=== PATIENT | male | born 1950 ===

== ENCOUNTER 2016-05-15 10:48 | Observation (INO) | payer MEDICAID, OTHER ==
[2016-05-15 10:49] VITALS: BMI 26.2
[2016-05-15 11:24] LABS: BASO # 0.1 K/uL (0.0-0.2); BASO % 1.1 % (0.0-2.0); EOS # 0.2 K/uL (0.0-0.7); EOS % 2.5 % (0.0-4.0); HEMATOCRIT 44.5 % (35.0-51.0); LYMPH # 2.5 K/uL (1.0-4.3); LYMPH % 27.4 % (20.0-40.0); MEAN CELL VOLUME 101.6 fL (80.0-94.0); MEAN CORPUSCULAR HEMOGLOBIN 33.4 pg (27.0-31.0); MEAN CORPUSCULAR HGB CONC 32.9 g/dL (33.0-37.0); MEAN PLATELET VOLUME 9.3 fL (7.2-11.7); MONO # 0.5 K/uL (0.0-0.8); MONO % 5.8 % (0.0-10.0); NRBC % 0.1 % (0.0-2.0)
[2016-05-15 11:31] LABS: INR 1.5
--- NOTE | 2016-05-15 11:32 | C.PDOC ---
History Of Present Illness 65 y/o male presents to the ED complaining of worsening chest pressure and shortness of breath, particularly with exertion, for approx three weeks. He reports history of hypothryoidism and A-Fib, has an AICD. 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 Patient's AICD was last interrogated in January of 2016. Patient is currently on Xarelto for A fib. He denies cough, fever, abdominal pain, nausea/vomiting/diarrhea, palpitations. Time Seen by Provider: 05/15/16 11:02 Chief Complaint (Nursing): Chest Pain History Per: Patient History/Exam Limitations: no limitations Onset/Duration Of Symptoms: Days (21), Persistent, Other (worsening) Current Symptoms Are (Timing): Still Present Quality: Pressure Past Medical History Reviewed: Historical Data, Nursing Documentation, Vital Signs Vital Signs: Last Vital Signs Temp 97.9 F 05/15/16 14:12 Pulse 96 H 05/15/16 14:12 Resp 18 05/15/16 14:12 BP 107/76 05/15/16 14:12 Pulse Ox 100 05/15/16 14:12 - Medical History PMH: CAD, CHF, Hypothyroidism, Pneumonia Surgical History: Pacemaker (AICD) - [employer] Procedures CORONAR ARTERIOGR-2 CATH (03/28/14) DRAINAGE OF R PLEURAL CAV WITH DRAIN DEV, PERC APPROACH (04/18/15) LEFT HEART CARDIAC CATH (03/28/14) LT HEART ANGIOCARDIOGRAM (03/28/14) Family History: States: No Known Family Hx - Social History Hx Tobacco Use: No Hx Alcohol Use: No Hx Substance Use: No - Immunization History Hx Tetanus Toxoid Vaccination: No Hx Influenza Vaccination: No Hx Pneumococcal Vaccination: No Review Of Systems Except As Marked, All Systems Reviewed And Found Negative. Constitutional: Negative for: Fever Cardiovascular: Positive for: Chest Pain ("pressure"). Negative for: Palpitations Respiratory: Positive for: Shortness of Breath, SOB with Excertion. Negative for: Cough Gastrointestinal: Negative for: Nausea, Vomiting, Abdominal Pain, Diarrhea Skin: Negative for: Rash Physical Exam - Physical Exam Appears: Well, Non-toxic, No Acute Distress, Other (in mild discomfort; speaking in full sentences) Skin: Normal Color, Warm, Dry Head: Normacephalic Oral Mucosa: Moist Neck: Normal, Supple Chest: Symmetrical, No Tenderness, Other (left upper chest, AICD) Cardiovascular: Rhythm Irregular (irregularly irregular rhythm), No Edema Respiratory: Normal Breath Sounds, No Rales, No Rhonchi, No Wheezing Gastrointestinal/Abdominal: Normal Exam, Bowel Sounds, Soft, No Tenderness Extremity: Normal ROM, No Pedal Edema, No Calf Tenderness, No Swelling Extremity: Bilateral: Normal Color And Temperature Neurological/Psych: Oriented x3 ED Course And Treatment - Laboratory Results Result Diagrams: 05/15/16 11:17 05/15/16 11:17 ECG: Interpreted By Me, Viewed By Me (A-Fib at 92 bpm with PVCs, normal axis, T wave inversions in I II and III, no ST changes) O2 Sat by Pulse Oximetry: 96 (ra) Pulse Ox Interpretation: Normal - Radiology CXR: Interpreted by Me, Viewed By Me (no infiltrates/effusions, AICD in place left upper chest) Progress Note: Blood work, EKG, CXR ordered and reviewed. Patient given PO ASA and IV Lasix 40mg. Reevaluation Time: 13:50 Reassessment Condition: Improved (Patient reassessed, is currently resting comfortably, and states he feels better. Patient able to ambulate in ED without dyspnea. Patient is comfortable being discharged home, and prefers to go home rather than be admitted. He was instructed to follow up with Dr. Ram on Friday, and he understands he should return to ED if symptoms worsen.) - Physician Consult Information Physician Contacted: Jennyfer Ram Outcome Of Conversation: Discussed patient with Dr. Ram, he recommends patient get 1 dose IV Lasix in ED, and if symptoms improve he can follow up with him in the clinic on Friday. Disposition Counseled Patient/Family Regarding: Studies Performed, Diagnosis, Need For Followup - Disposition Disposition: HOME/ ROUTINE Disposition Time: 13:50 Condition: STABLE - POA Present On Arrival: None - Clinical Impression Clinical Impression: CHF (congestive heart failure), Dyspnea - Scribe Statement The provider has reviewed the documentation as recorded by the Scribe (Jeanette Wren) Provider Attestation: All medical record entries made by the Scribe were at my direction and personally dictated by me. I have reviewed the chart and agree that the record accurately reflects my personal performance of the history, physical exam, medical decision making, and the department course for this patient. I have also personally directed, reviewed, and agree with the discharge instructions and disposition.
[2016-05-15 11:36] LABS: CHLORIDE 92 mmol/L (98-107); POTASSIUM 3.6 mmol/L (3.6-5.2); SODIUM 136 mmol/L (132-148)
[2016-05-15 11:38] LABS: BILIRUBIN,TOTAL 1.7 mg/dL (0.2-1.3); GFR AFRICAN-AMERICAN > 60
[2016-05-15 11:39] LABS: ALB/GLOB RATIO 1.2 (1.0-2.1); ALKALINE PHOSPHATASE 82 U/L (38-126); ALT/SGPT 47 U/L (21-72); AST/SGOT 50 U/L (17-59); BLOOD UREA NITROGEN 29 mg/dL (9-20); CALCIUM 8.6 mg/dl (8.6-10.4); CARBON DIOXIDE 29 mmol/L (22-30); GLUCOSE,RANDOM 120 mg/dL (75-110); TOTAL PROTEIN 8.1 g/dL (6.3-8.3)
[2016-05-15 14:13] VITALS: BP 107/76; PULSE 96; RESP 18; TEMP 97.9
--- NOTE | 2016-05-15 15:37 | RAD ---
HISTORY: SOB, CP COMPARISON: None available. TECHNIQUE: Chest, one view. FINDINGS: LUNGS: Minimal bibasilar atelectasis. Please note that chest x-ray has limited sensitivity for the detection of pulmonary masses. PLEURA: No significant pleural effusion identified. No definite pneumothorax . CARDIOVASCULAR: Cardiomegaly. Left-sided AICD. Atherosclerotic calcifications of the aorta. OSSEOUS STRUCTURES: Degenerative changes. VISUALIZED UPPER ABDOMEN: Unremarkable. OTHER FINDINGS: None. IMPRESSION: Cardiomegaly. Left-sided AICD.
--- NOTE | 2016-05-19 09:14 | CARD ---
APPROVED REPORT EKG Measurement Heart [id number] <Conclusion> Sinus bradycardia with marked sinus arrhythmia with 1st degree AV block Minimal voltage criteria for LVH biphasic t wave Abnormal ECG NOTE VARIATION IN NV LENGTH IS SUSPICIOUS. RECOMMEND ECG WITH CLEAR BASELINE AND NV SEG EVALUATION.
[2016-05-24 17:47] VITALS: O2SAT 96
== END 2016-05-15 13:51 | disposition home or self-care (01) ==
LOC: C.ER 10:48 → C.9OBSV 12:19
PROVIDERS: ADMIT Emergency Medicine; ATTEND Emergency Medicine
DX: I50.9 Heart failure, unspecified (principal); I25.10 Atherosclerotic heart disease of native coronary artery without angina pectoris; E03.9 Hypothyroidism, unspecified; Z87.01 Personal history of pneumonia (recurrent); Z95.810 Presence of automatic (implantable) cardiac defibrillator; Z95.0 Presence of cardiac pacemaker
CPT/HCPCS: 71010; 80053; 82550; 82553; 82948; 83880; 84484; 85025; 85610; 85730; 93005; 96374; 99285; G0378; J1940

== ENCOUNTER 2016-05-21 08:57 | Inpatient (IN) | payer MEDICAID, OTHER ==
[2016-05-21 09:13] VITALS: BMI 25.5
--- NOTE | 2016-05-21 09:21 | C.PDOC ---
History Of Present Illness 65 y/o M c PMHx AICD p/w dyspnea on exertion. Patient was seen in clinic by Dr. Ram lay ups assembler yesterday and was noted to have abnormal heart motion. In the context of his symptoms, Dr. Ram is concerned about his cardiac activity and recommends admission for further evaluation, possible ablation. Patient denies any chest pain or dyspnea in ER currently. Time Seen by Provider: 05/21/16 09:13 Chief Complaint (Nursing): Shortness Of Breath Past Medical History Reviewed: Historical Data, Nursing Documentation, Vital Signs Vital Signs: Last Vital Signs Temp 97.3 F L 05/21/16 09:05 Pulse 91 H 05/21/16 09:05 Resp 20 05/21/16 09:21 BP 112/60 05/21/16 09:05 Pulse Ox 99 05/21/16 10:16 - Medical History PMH: CAD, CHF, Hypothyroidism, Pneumonia Surgical History: Pacemaker (AICD) - [employer] Procedures CORONAR ARTERIOGR-2 CATH (03/28/14) DRAINAGE OF R PLEURAL CAV WITH DRAIN DEV, PERC APPROACH (04/18/15) LEFT HEART CARDIAC CATH (03/28/14) LT HEART ANGIOCARDIOGRAM (03/28/14) Family History: States: Unknown Family Hx - Social History Hx Tobacco Use: No Hx Alcohol Use: No Hx Substance Use: No - Immunization History Hx Tetanus Toxoid Vaccination: No Hx Influenza Vaccination: No Hx Pneumococcal Vaccination: No Review Of Systems Except As Marked, All Systems Reviewed And Found Negative. Constitutional: Negative for: Fever Cardiovascular: Negative for: Chest Pain Physical Exam - Physical Exam Additional Physical Exam Comments: Constitutional: No acute distress. Head: Normocephalic. Atraumatic. Eyes: PERRL. ENT: Moist mucous membranes. Neck: Supple. Cardiovascular: Regular rate. Radial pulse 2+ bilaterally. Chest: No tenderness. Respiratory: Clear to auscultation bilaterally. GI: Soft. Nontender. Nondistended. Back: No CVA tenderness. Musculoskeletal: No tenderness or swelling of extremities. Skin: No rash. Neurologic: Alert, no focal deficit. ED Course And Treatment - Laboratory Results Result Diagrams: 05/21/16 10:14 05/21/16 10:14 O2 Sat by Pulse Oximetry: 99 (ra) Pulse Ox Interpretation: Normal Medical Decision Making Medical Decision Makin bpm, no ST elevations, poor baseline. Dr. Herrera accepts patient to hospitalist service with Dr. Ram as consult. Disposition Discussed With : Jennyfer Ram - Disposition Disposition: HOSPITALIZED Disposition Time: 10:55 Condition: GUARDED - Clinical Impression Clinical Impression: Dyspnea on exertion
[2016-05-21 10:24] LABS: BASO % 0.4 % (0.0-2.0); EOS # 0.3 K/uL (0.0-0.7); EOS % 2.9 % (0.0-4.0); HEMATOCRIT 44.6 % (35.0-51.0); LYMPH # 2.2 K/uL (1.0-4.3); LYMPH % 25.4 % (20.0-40.0); MEAN CELL VOLUME 101.5 fL (80.0-94.0); MEAN CORPUSCULAR HEMOGLOBIN 33.4 pg (27.0-31.0); MEAN CORPUSCULAR HGB CONC 32.9 g/dL (33.0-37.0); MEAN PLATELET VOLUME 9.6 fL (7.2-11.7); MONO # 0.6 K/uL (0.0-0.8); MONO % 7.2 % (0.0-10.0); NRBC % 0.2 % (0.0-2.0); RED CELL DISTRIBUTION WIDTH 13.2 % (11.5-14.5); WHITE BLOOD COUNT 8.7 K/uL (4.8-10.8)
[2016-05-21 10:32] LABS: INR 1.8
[2016-05-21 10:36] LABS: CHLORIDE 91 mmol/L (98-107); SODIUM 138 mmol/L (132-148)
[2016-05-21 10:39] LABS: ALB/GLOB RATIO 1.2 (1.0-2.1); ALKALINE PHOSPHATASE 77 U/L (38-126); ALT/SGPT 38 U/L (21-72); AST/SGOT 44 U/L (17-59); BILIRUBIN,TOTAL 1.7 mg/dL (0.2-1.3); BLOOD UREA NITROGEN 34 mg/dL (9-20); CARBON DIOXIDE 31 mmol/L (22-30); GFR AFRICAN-AMERICAN > 60; GLUCOSE,RANDOM 124 mg/dL (75-110); TOTAL PROTEIN 7.9 g/dL (6.3-8.3)
--- NOTE | 2016-05-21 14:17 | CP.PCM.HP ---
<Dhruv Pavon - Last Filed: 05/21/16 16:05> History of Present Illness - History of Present Illness History of Present Illness: CC: AICD malfunction 65 year old male with PMH of CHF, cardiomyopathy, hypothyroidism, atrial fibrillation and AICD who presents to the ED due to AICD abnormality. Patient saw Dr. Griggs yesterday and instructed him to go to the hospital to be admitted for possible ablation. Patient had been having 3-4 weeks of 5-8/10 intermittent chest pain and dyspnea on exertion. He presented to the ED 05/15 for these symptoms but was not admitted. Nothing makes pain better or worse. Patient sleeps with two to three pillows at night. Patient can walk several blocks before getting tired. Patient had ECHO done last September. Patient has no acute complaints at this time. PMD: Carly Cardio: Yo PMH: CHF, cardiomyopathy, hypothyroidism Meds: metolazone 5mg BID, xarelto 1mg PO QD, losartan 25mg PO QD, levothyroxine 125mcg PO QD, lasix 40mgpo qd, coreg 3.125 PO BID Allergies: NKDA PSH: AICD FH: Unknown Cancer Social: Past smoker 7.5-15 Pack-year Hx. Denies current alcohol use. Denies illicit drug use. Unemployed and lives with in apartment. Present on Admission - Present on Admission Any Indicators Present on Admission: No History of DVT/PE: No History of Uncontrolled Diabetes: No Urinary Catheter: No Decubitus Ulcer Present: No Review of Systems - Constitutional Constitutional: absent: Chills, Fever, Headache - EENT Eyes: absent: Blurred Vision, Change in Vision Ears: absent: Dizziness Nose/Mouth/Throat: absent: Nasal Congestion, Nose Pain - Cardiovascular Cardiovascular: absent: Chest Pain, Chest Pain at Rest, Dyspnea, Leg Edema, Palpitations, Syncope - Respiratory Respiratory: absent: Cough, Dyspnea, Hemoptysis, Dyspnea on Exertion - Gastrointestinal Gastrointestinal: absent: Abdominal Pain, Diarrhea, Nausea, Vomiting - Genitourinary Genitourinary: absent: Difficulty Urinating, Dysuria - Musculoskeletal Musculoskeletal: absent: Back Pain, Numbness, Tingling - Neurological Neurological: absent: Confusion, Focal Weakness, Headaches, Tremor, Vertigo - Psychiatric Psychiatric: absent: Auditory Hallucinations, Homicidal Ideation, Suicidal Ideation - Endocrine Endocrine: absent: Fatigue, Heat Intolorance, Palpitations - Hematologic/Lymphatic Hematologic: absent: Easy Bleeding, Easy Bruising, Lymphadenopathy Past Patient History - Infectious Disease Hx of Infectious Diseases: None - Tetanus Immunizations Tetanus Immunization: Unknown - Past Medical History & Family History Past Medical History?: Yes - Past Social History Smoking Status: Former Smoker Alcohol: None Drugs: Denies Home Situation {Lives}: With Family - CARDIAC Hx Congestive Heart Failure: Yes Hx Pacemaker: Yes (AICD) - PULMONARY Hx Pneumonia: Yes - NEUROLOGICAL Hx Neurological Disorder: No - HEENT Hx HEENT Problems: No - RENAL Hx Chronic Kidney Disease: No - ENDOCRINE/METABOLIC Hx Hypothyroidism: Yes - HEMATOLOGICAL/ONCOLOGICAL Hx Blood Disorders: Yes Hx Cirrhosis: Yes - INTEGUMENTARY Hx Dermatological Problems: No - MUSCULOSKELETAL/RHEUMATOLOGICAL Hx Musculoskeletal Disorders: No Hx Falls: No - GASTROINTESTINAL Hx Gastrointestinal Disorders: Yes Hx Constipation: Yes - GENITOURINARY/GYNECOLOGICAL Hx Genitourinary Disorders: No - PSYCHIATRIC Hx Substance Use: No - SURGICAL HISTORY Hx Surgeries: Yes Other/Comment: AICD placement 02/09/2015 - ANESTHESIA Hx Anesthesia: Yes Hx Anesthesia Reactions: No Hx Malignant Hyperthermia: No Meds Allergies/Adverse Reactions: Allergies Allergy/AdvReac Type Severity Reaction Status Date / Time No Known Allergies Allergy Verified 05/21/16 09:17 Physical Exam - Constitutional Appears: No Acute Distress - Head Exam Head Exam: ATRAUMATIC, NORMOCEPHALIC - Eye Exam Eye Exam: EOMI, Normal appearance Pupil Exam: PERRL - ENT Exam ENT Exam: Mucous Membranes Moist, Normal Oropharynx - Neck Exam Neck exam: Positive for: Normal Inspection - Respiratory Exam Respiratory Exam: Clear to Auscultation Bilateral, NORMAL BREATHING PATTERN. absent: Rales, Rhonchi, Wheezes - Cardiovascular Exam Cardiovascular Exam: Irregular Rhythm, +S1, +S2 - GI/Abdominal Exam GI & Abdominal Exam: Normal Bowel Sounds, Soft. absent: Distended, Firm, Guarding, Rebound, Tenderness - Extremities Exam Extremities exam: Positive for: normal capillary refill, pedal pulses present - Back Exam Back exam: absent: CVA tenderness (L), CVA tenderness (R) - Neurological Exam Neurological exam: Alert, CN II-XII Intact, Oriented x3 - Psychiatric Exam Psychiatric exam: Normal Affect, Normal Mood - Skin Skin Exam: Dry, Intact, Normal Color, Warm Results - Vital Signs Recent Vital Signs: Last Vital Signs Temp 98 F 05/21/16 13:19 Pulse 86 05/21/16 13:19 Resp 20 05/21/16 13:19 BP 102/75 05/21/16 13:19 Pulse Ox 98 05/21/16 13:19 - Labs Result Diagrams: 05/21/16 10:14 05/21/16 10:14 Assessment & Plan - Assessment and Plan (Free Text) Plan: 1. Atrial fibrillation AICD malfunction possible ablation today Cardio consult, Dr. Ram, help appreciated Coreg 3.125 mg PO BID Xarelto 20 mg PO daily 2. CHF Cardio consult, Dr. Ram, help appreciated Coreg 3.125 mg PO BID Lasix 40 mg PO daily Metolazone 5 mg PO daily i's & O's 3. HTN Coreg 3.125 mg PO BID Lasix 40 mg PO daily Metolazone 5 mg PO daily 4. Hypothyroidism Synthyroid 125 mcg PO daily 5. Prophylactic Measures SCD Protonix 40 mg PO daily <Aguilar Lan - Last Filed: 05/22/16 14:57> Results - Vital Signs Recent Vital Signs: Last Vital Signs Temp 97.7 F 05/22/16 11:12 Pulse 86 05/22/16 11:12 Resp 20 05/22/16 11:12 BP 118/78 05/22/16 11:12 Pulse Ox 98 05/22/16 07:25 - Labs Result Diagrams: 05/22/16 05:12 05/21/16 10:14 Labs: Laboratory Results - last 24 hr 05/22/16 05:12 WBC 13.3 H D RBC 4.45 Hgb 14.9 Hct 44.7 MCV 100.3 H MCH 33.5 H MCHC 33.4 RDW 13.1 Plt Count 156 MPV 9.7 Neut % (Auto) 76.2 H Lymph % (Auto) 16.5 L [place] % (Auto) 5.4 Eos % (Auto) 1.2 Baso % (Auto) 0.7 Neut # 10.2 H Lymph # 2.2 [place] # 0.7 Eos # 0.2 Baso # 0.1 PT 15.8 H D INR 1.4 APTT 29 Hemoglobin A1c 6.1 Total Creatine Kinase 71 CK-MB (Mass) 1.50 Troponin I, Quant 0.0290 Triglycerides 109 D Cholesterol 226 H LDL Cholesterol Direct 120 HDL Cholesterol 55 Thyroxine (T4) 8.41 TSH 3rd Generation 4.44 Attending/Attestation - Attestation I have personally seen and examined this patient.: Yes I have fully participated in the care of the patient.: Yes I have reviewed all pertinent clinical information: Yes Notes (Text): 05/22/16 14:50 Patient was seen and examined at bedside with the resident Patient was sent in by cardiology for atrial fibrillation Patient is being evaluated by cardiology for possible DONAVAN and cardioversion We will continue with anticoagulation with Xarelto Discussed with cardiology and appreciated follow up. Discussed the plan of care with the resident and agree with the above history and physical and assessment/plan with the necessary amendments.
--- NOTE | 2016-05-21 15:09 | CP.PCM.CON ---
<Alireza Martinez - Last Filed: 05/21/16 17:06> History of Present Illness - History of Present Illness History of Present Illness: Cardiology Consultation Note Dr. Ram CC: AICD malfunction HPI: This is a 65 year old male with PMH notable for CHF, cardiomyopathy, hypothyroidism, atrial fibrillation and BIVID presenting for cardiac evaluation for BIVID malfunction. The patient was seen in the cardiology clininc by Dr. Ram yesterday and was instructed to come to the hospital for admission and possible cardioversion. Patient had been having 3-4 weeks of 5-8/10 intermittent chest pain and dyspnea on exertion, but presently denies all cardiopulmonary symptoms. The patient notes that he is fatigued and is his most pressing complaint. The patient has been NPO since midnight and did not take his home medications this morning. The patient denies fever, chills, headache, chest pain, SOB, abdominal pain, N/V/D/C, changes in bowel/ bladder, and extremity paresthesias. The patient reports being compliant with all prescribed medications. PMH: Bradycardia, CHF, Hypothyroid, Nonischemic cardiomyopathy, pleural effusion Meds: metolazone 5mg BID, xarelto 1mg PO QD, losartan 25mg PO QD, levothyroxine 125mcg PO QD, lasix 40mgpo qd, coreg 3.125 PO BID Allergies: NKDA PSH: BIVID (01/2015), cardiac angio (2016- no ischemic changes), thoracentesis ( 2016 FH: Unknown Cancer Social: Past smoker 7.5-15 Pack-year Hx. Denies current alcohol use. Denies illicit drug use. Unemployed and lives with in apartment. PMD: Dr. Carroll Cardio: Dr. Ram Review of Systems - Review of Systems All systems: reviewed and no additional remarkable complaints except - Constitutional Constitutional: Fatigue - EENT Eyes: absent: Blurred Vision, Change in Vision Ears: absent: Decreased Hearing, Tinnitus Nose/Mouth/Throat: absent: Epistaxis, Facial Pain, Neck Pain - Cardiovascular Cardiovascular: Dyspnea on Exertion. absent: Chest Pain, Pain Radiating to Arm/ Neck/Jaw, Lightheadedness, Paroxysmal Nocturnal Dyspnea - Respiratory Respiratory: absent: Cough, Dyspnea, Dyspnea on Exertion - Gastrointestinal Gastrointestinal: absent: Abdominal Pain, Constipation, Diarrhea, Nausea, Vomiting - Genitourinary Genitourinary: absent: Change in Urinary Stream - Musculoskeletal Musculoskeletal: absent: Abnormal Gait, Stiffness - Integumentary Integumentary: absent: Lesions, Rash, Wounds - Neurological Neurological: absent: Syncope, Tingling, Weakness - Endocrine Endocrine: absent: Cold Intolorance, Heat Intolorance Past Patient History - Infectious Disease Hx of Infectious Diseases: None - Tetanus Immunizations Tetanus Immunization: Unknown - Past Medical History & Family History Past Medical History?: Yes - Past Social History Smoking Status: Former Smoker Alcohol: None Drugs: Denies Home Situation {Lives}: With Family - CARDIAC Hx Congestive Heart Failure: Yes Hx Pacemaker: Yes (AICD) - PULMONARY Hx Pneumonia: Yes - NEUROLOGICAL Hx Neurological Disorder: No - HEENT Hx HEENT Problems: No - RENAL Hx Chronic Kidney Disease: No - ENDOCRINE/METABOLIC Hx Hypothyroidism: Yes - HEMATOLOGICAL/ONCOLOGICAL Hx Blood Disorders: Yes Hx Cirrhosis: Yes - INTEGUMENTARY Hx Dermatological Problems: No - MUSCULOSKELETAL/RHEUMATOLOGICAL Hx Musculoskeletal Disorders: No Hx Falls: No - GASTROINTESTINAL Hx Gastrointestinal Disorders: Yes Hx Constipation: Yes - GENITOURINARY/GYNECOLOGICAL Hx Genitourinary Disorders: No - PSYCHIATRIC Hx Substance Use: No - SURGICAL HISTORY Hx Surgeries: Yes Other/Comment: AICD placement 02/09/2015 - ANESTHESIA Hx Anesthesia: Yes Hx Anesthesia Reactions: No Hx Malignant Hyperthermia: No Meds Allergies/Adverse Reactions: Allergies Allergy/AdvReac Type Severity Reaction Status Date / Time No Known Allergies Allergy Verified 06/16/16 10:34 - Medications Medications: Current Medications Carvedilol (Coreg) 3.125 mg PO BID [facility] Furosemide (Lasix) 40 mg PO DAILY [facility] Levothyroxine Sodium (Synthroid) 125 mcg PO 0630 [facility] Losartan Potassium (Cozaar) 25 mg PO DAILY [facility] Metolazone (Zaroxolyn) 5 mg PO BID [facility] Pantoprazole Sodium (Protonix Ec Tab) 40 mg PO DAILY [facility] Rivaroxaban (Xarelto) 20 mg PO DAILY [facility] Physical Exam - Constitutional Appears: Non-toxic - Head Exam Head Exam: ATRAUMATIC, NORMAL INSPECTION, NORMOCEPHALIC - Eye Exam Eye Exam: EOMI, Normal appearance, PERRL - ENT Exam ENT Exam: Mucous Membranes Moist, Normal Exam - Neck Exam Neck exam: Positive for: Normal Inspection. Negative for: Lymphadenopathy - Respiratory Exam Respiratory Exam: Clear to Auscultation Bilateral, NORMAL BREATHING PATTERN. absent: Rhonchi, Wheezes - Cardiovascular Exam Cardiovascular Exam: Irregular Rhythm (irregularly irregular), +S1, +S2, Systolic Murmur. absent: REGULAR RHYTHM, RRR Additional comments: heard best at the mitral listening post grade 2/6 - GI/Abdominal Exam GI & Abdominal Exam: Normal Bowel Sounds, Soft. absent: Distended, Hernia, Tenderness - Extremities Exam Extremities exam: Positive for: normal inspection. Negative for: pedal edema - Neurological Exam Neurological exam: Alert, CN II-XII Intact, Oriented x3, Reflexes Normal - Skin Skin Exam: Dry, Intact, Normal Color, Warm Results - Vital Signs Recent Vital Signs: Last Vital Signs Temp 98 F 05/21/16 13:19 Pulse 86 05/21/16 13:19 Resp 20 05/21/16 13:19 BP 102/75 05/21/16 13:19 Pulse Ox 98 05/21/16 13:19 - Labs Result Diagrams: 05/21/16 10:14 05/21/16 10:14 Assessment & Plan (1) Cardiomyopathy Status: h (2) CHF (congestive heart failure) Status: h (3) Acute on chronic systolic congestive heart failure Status: h (4) AICD (automatic cardioverter/defibrillator) present Status: h (5) Dyspnea on exertion Status: h - Assessment and Plan (Free Text) Plan: 1.) BIVID malfunction + A-Fib - amiodarone 200mg po BID - Heart healthy diet - DONAVAN morning 8am with Dr. Preciado followed by possible Cardioversion - Coreg 3.125 mg PO BID - Xarelto 20 mg PO daily - Lasix 40 mg PO daily - Metolazone 5 mg PO daily Case Discussed with Dr. Yo Martinez PGY1 - Date & Time Date: 05/21/16 Time: 17:17 <Jennyfer Ram - Last Filed: 06/24/16 16:42> Results - Vital Signs Recent Vital Signs: Last Vital Signs Temp 97.4 F L 05/24/16 07:56 Pulse 107 H 05/24/16 09:30 Resp 17 05/24/16 10:12 BP 116/79 05/24/16 09:35 Pulse Ox 100 05/24/16 10:12 - Labs Result Diagrams: 05/24/16 07:01 05/24/16 07:01 Attending/Attestation - Attestation I have personally seen and examined this patient.: Yes I have fully participated in the care of the patient.: Yes I have reviewed all pertinent clinical information: Yes Notes (Text): 06/24/16 16:41 Pt will benefit from cardioversion to maximize bi ventricular pacing. vs av node will check for thrombus continue xarelto
[2016-05-21] MEDS: metOLazone 5 MG TAB PO SCH (19:19)
[2016-05-22 05:17] LABS: BASO # 0.1 K/uL (0.0-0.2); BASO % 0.7 % (0.0-2.0); EOS # 0.2 K/uL (0.0-0.7); EOS % 1.2 % (0.0-4.0); HEMATOCRIT 44.7 % (35.0-51.0); LYMPH # 2.2 K/uL (1.0-4.3); LYMPH % 16.5 % (20.0-40.0); MEAN CELL VOLUME 100.3 fL (80.0-94.0); MEAN CORPUSCULAR HEMOGLOBIN 33.5 pg (27.0-31.0); MEAN CORPUSCULAR HGB CONC 33.4 g/dL (33.0-37.0); MEAN PLATELET VOLUME 9.7 fL (7.2-11.7); MONO # 0.7 K/uL (0.0-0.8); MONO % 5.4 % (0.0-10.0); RED CELL DISTRIBUTION WIDTH 13.1 % (11.5-14.5); WHITE BLOOD COUNT 13.3 K/uL (4.8-10.8)
[2016-05-22 05:31] LABS: INR 1.4
[2016-05-22] MEDS: Levothyroxine 125 MCG TAB PO SCH (05:37)
[2016-05-22 05:48] LABS: T4 8.41 ug/dL (5.5-11.0)
[2016-05-22 06:02] LABS: THYROID STIMULATING HORMONE 4.44 mIU/L (0.46-4.68)
[2016-05-22] MEDS ORDERED: Enoxaparin 40 mg Syringe SC SCH (10:00)
[2016-05-22] MEDS: metOLazone 5 MG TAB PO SCH ×2 (10:09→18:59)
[2016-05-22] MEDS: Pantoprazole 40 mg EC Tab PO SCH (10:09)
--- NOTE | 2016-05-22 10:09 | CP.PCM.PN ---
<KenziebrandinellyDhruv block - Last Filed: 05/22/16 14:15> Subjective - Date & Time of Evaluation Date of Evaluation: 05/22/16 Time of Evaluation: 07:05 - Subjective Subjective: PGY-1 Medicine Progress Note for Dr. Lan Patient seen and examined at bedside. Patient stated he had a difficult time sleeping overnight due to back pain and SOB. Patient also complaining of intermittent chest discomfort. Morphine was given and helped subside his pain. Patient will be going for DONAVAN and ablation tomorrow morning with Dr. Ram. Patient tolerating diet. He will NPO past midnight. Denied fever/chills, palpitations, abd pain, n/v/d, incontinence, constipation. Objective - Vital Signs/Intake and Output Vital Signs (last 24 hours): Temp Pulse Resp BP Pulse Ox 97.4 F L 91 H 17 107/79 98 05/22/16 07:25 05/22/16 07:25 05/22/16 07:25 05/22/16 07:25 05/22/16 07:25 Intake and Output: 05/22/16 05/22/16 06:59 18:59 Output Total 100 Balance -100 - Medications Medications: Current Medications Amiodarone HCl (Cordarone) 200 mg PO BID [facility] Last Admin: 05/21/16 19:19 Dose: 200 mg Carvedilol (Coreg) 3.125 mg PO BID [facility] Last Admin: 05/21/16 19:19 Dose: 3.125 mg Furosemide (Lasix) 40 mg PO DAILY [facility] Levothyroxine Sodium (Synthroid) 125 mcg PO 0630 [facility] Last Admin: 05/22/16 05:37 Dose: 125 mcg Losartan Potassium (Cozaar) 25 mg PO DAILY [facility] Metolazone (Zaroxolyn) 5 mg PO BID [facility] Last Admin: 05/21/16 19:19 Dose: 5 mg Morphine Sulfate (Morphine) 2 mg IVP Q4 PRN PRN Reason: Pain, moderate (4-7) Pantoprazole Sodium (Protonix Ec Tab) 40 mg PO DAILY [facility] Rivaroxaban (Xarelto) 20 mg PO DAILY [facility] - Labs Labs: 05/22/16 05:12 PT 15.8 SECONDS (9.7-12.2) H D 05/22/16 05:12 INR 1.4 05/22/16 05:12 APTT 29 SECONDS (21-34) 05/22/16 05:12 - Constitutional Appears: No Acute Distress - Head Exam Head Exam: ATRAUMATIC, NORMOCEPHALIC - Eye Exam Eye Exam: EOMI, Normal appearance Pupil Exam: PERRL - ENT Exam ENT Exam: Mucous Membranes Moist - Neck Exam Neck Exam: Normal Inspection - Respiratory Exam Respiratory Exam: Clear to Ausculation Bilateral, NORMAL BREATHING PATTERN - Cardiovascular Exam Cardiovascular Exam: Irregular Rhythm, +S1, +S2 - GI/Abdominal Exam GI & Abdominal Exam: Soft, Normal Bowel Sounds. absent: Tenderness - Extremities Exam Extremities Exam: Normal Capillary Refill. absent: Calf Tenderness - Back Exam Back Exam: absent: CVA tenderness (L), CVA tenderness (R) - Neurological Exam Neurological Exam: Alert, Awake, CN II-XII Intact, Oriented x3 - Psychiatric Exam Psychiatric exam: Normal Affect, Normal Mood - Skin Skin Exam: Dry, Intact, Normal Color, Warm Assessment and Plan - Assessment and Plan (Free Text) Plan: 1. Atrial fibrillation DONAVAN and ablation tomorrow at 8 AM NPO AICD malfunction possible ablation today Cardio consult, Dr. Ram, help appreciated Coreg 3.125 mg PO BID HOLD Xarelto 20 mg PO daily Amiodarone 200 mg PO BID Morphine 2 mg IVP Q4H PRN severe pain Percocet 5/325 mg PO 1 tab Q4H PRN moderate pain 2. CHF CXR: mild congestive heart failure bilateral lower lobe airspace disease (see full report) Cardio consult, Dr. Ram, help appreciated Coreg 3.125 mg PO BID Lasix 40 mg PO daily Metolazone 5 mg PO daily i's & O's 3. HTN Coreg 3.125 mg PO BID Lasix 40 mg PO daily Metolazone 5 mg PO daily 4. Hypothyroidism Synthyroid 125 mcg PO daily 5. Prophylactic Measures SCD Protonix 40 mg PO daily <Aguilar Lan - Last Filed: 05/22/16 17:30> Objective - Vital Signs/Intake and Output Vital Signs (last 24 hours): Temp Pulse Resp BP Pulse Ox 97.5 F L 85 20 95/62 L 99 05/22/16 16:23 05/22/16 16:23 05/22/16 16:23 05/22/16 16:23 05/22/16 16:23 Intake and Output: 05/22/16 05/22/16 06:59 18:59 Intake Total 400 Output Total 100 Balance -100 400 - Medications Medications: Current Medications Amiodarone HCl (Cordarone) 200 mg PO BID [facility] Last Admin: 05/22/16 10:09 Dose: 200 mg Carvedilol (Coreg) 3.125 mg PO BID [facility] Last Admin: 05/22/16 10:08 Dose: 3.125 mg Furosemide (Lasix) 40 mg PO DAILY [facility] Last Admin: 05/22/16 10:09 Dose: 40 mg Levothyroxine Sodium (Synthroid) 125 mcg PO 0630 [facility] Last Admin: 05/22/16 05:37 Dose: 125 mcg Losartan Potassium (Cozaar) 25 mg PO DAILY [facility] Last Admin: 05/22/16 11:13 Dose: 25 mg Metolazone (Zaroxolyn) 5 mg PO BID [facility] Last Admin: 05/22/16 10:09 Dose: 5 mg Morphine Sulfate (Morphine) 2 mg IVP Q4 PRN PRN Reason: Pain, severe (8-10) Oxycodone/Acetaminophen (Percocet 5/325 Mg Tab) 1 tab PO Q4H PRN PRN Reason: Pain, moderate (4-7) Stop: 05/25/16 14:06 Pantoprazole Sodium (Protonix Ec Tab) 40 mg PO DAILY [facility] Last Admin: 05/22/16 10:09 Dose: 40 mg Rivaroxaban (Xarelto) 20 mg PO DAILY [facility] Last Admin: 05/22/16 10:09 Dose: 20 mg - Labs Labs: 05/22/16 05:12 PT 15.8 SECONDS (9.7-12.2) H D 05/22/16 05:12 INR 1.4 05/22/16 05:12 APTT 29 SECONDS (21-34) 05/22/16 05:12 Attending/Attestation - Attestation I have personally seen and examined this patient.: Yes I have fully participated in the care of the patient.: Yes I have reviewed all pertinent clinical information, including history, physical exam and plan: Yes Notes (Text): 05/22/16 17:29 Patient was seen and examined at bedside with the resident today Patient complains of for back pain likely muscular skeletal nature Plan is for DONAVAN and cardioversion in the morning I discussed the plan of care with the resident and I agree with the above history and physical and assessment/plan as stated above with the necessary amendments.
--- NOTE | 2016-05-22 10:34 | CP.PCM.PN ---
<Alireza Martinez - Last Filed: 05/22/16 16:42> Subjective - Date & Time of Evaluation Date of Evaluation: 05/22/16 Time of Evaluation: 10:31 - Subjective Subjective: Cardiology Progress Note Dr. Ram Patient seen and examined at the bedside. No acute distress. No acute events overnight. Nursing staff reports no issues. The patient states that he was unable to sleep this past night due to shortness of breath. The patient states that he needed to elevate the head of the bed to resolved SOB. The patient does not appear dyspneic on examination. The patient denies fever, chills, chest pain, abdominal pain, N/V/D/C, changes in bowel/bladder, and extremity paresthesias. Objective - Vital Signs/Intake and Output Vital Signs (last 24 hours): Temp Pulse Resp BP Pulse Ox 97.4 F L 91 H 17 114/76 98 05/22/16 07:25 05/22/16 07:25 05/22/16 07:25 05/22/16 10:09 05/22/16 07:25 Intake and Output: 05/22/16 05/22/16 06:59 18:59 Output Total 100 Balance -100 - Medications Medications: Current Medications Amiodarone HCl (Cordarone) 200 mg PO BID [facility] Last Admin: 05/22/16 10:09 Dose: 200 mg Carvedilol (Coreg) 3.125 mg PO BID [facility] Last Admin: 05/22/16 10:08 Dose: 3.125 mg Furosemide (Lasix) 40 mg PO DAILY [facility] Last Admin: 05/22/16 10:09 Dose: 40 mg Levothyroxine Sodium (Synthroid) 125 mcg PO 0630 [facility] Last Admin: 05/22/16 05:37 Dose: 125 mcg Losartan Potassium (Cozaar) 25 mg PO DAILY [facility] Metolazone (Zaroxolyn) 5 mg PO BID [facility] Last Admin: 05/22/16 10:09 Dose: 5 mg Morphine Sulfate (Morphine) 2 mg IVP Q4 PRN PRN Reason: Pain, moderate (4-7) Last Admin: 05/22/16 10:06 Dose: 2 mg Pantoprazole Sodium (Protonix Ec Tab) 40 mg PO DAILY [facility] Last Admin: 05/22/16 10:09 Dose: 40 mg Rivaroxaban (Xarelto) 20 mg PO DAILY [facility] Last Admin: 05/22/16 10:09 Dose: 20 mg - Labs Labs: 05/22/16 05:12 PT 15.8 SECONDS (9.7-12.2) H D 05/22/16 05:12 INR 1.4 05/22/16 05:12 APTT 29 SECONDS (21-34) 05/22/16 05:12 - Constitutional Appears: No Acute Distress - Head Exam Head Exam: ATRAUMATIC, NORMAL INSPECTION, NORMOCEPHALIC - Eye Exam Eye Exam: EOMI, Normal appearance, PERRL - ENT Exam ENT Exam: Mucous Membranes Moist, Normal Exam - Neck Exam Neck Exam: Full ROM, Normal Inspection. absent: Lymphadenopathy - Respiratory Exam Respiratory Exam: Clear to Ausculation Bilateral, NORMAL BREATHING PATTERN. absent: Rhonchi, Wheezes - Cardiovascular Exam Cardiovascular Exam: Irregular Rhythm (irregularly), +S1, +S2. absent: REGULAR RHYTHM, JVD, RRR, Murmur - GI/Abdominal Exam GI & Abdominal Exam: Soft, Normal Bowel Sounds. absent: Tenderness - Extremities Exam Extremities Exam: Full ROM, Normal Capillary Refill, Normal Inspection. absent : Joint Swelling, Pedal Edema - Neurological Exam Neurological Exam: Alert, Awake, CN II-XII Intact, Oriented x3 - Skin Skin Exam: Dry, Intact, Normal Color, Warm Assessment and Plan (1) Cardiomyopathy Status: h (2) CHF (congestive heart failure) Status: h (3) Acute on chronic systolic congestive heart failure Status: h (4) AICD (automatic cardioverter/defibrillator) present Status: h (5) Dyspnea on exertion Status: h - Assessment and Plan (Free Text) Plan: 1.) Biventricular ICD malfunction + A-Fib - amiodarone 200mg po BID - telemetric monitoring - Heart healthy diet - PABLO morning 8am with Dr. Preciado followed by possible Electrical Cardioversion - patient will be NPO past midnight for procedures tomorrow - Coreg 3.125 mg PO BID - Xarelto 20 mg PO daily - Lasix 40 mg PO daily - Metolazone 5 mg PO daily Case Discussed with Dr. Yo Martinez PGY1 <Jennyfer Ram - Last Filed: 06/24/16 16:40> Objective - Vital Signs/Intake and Output Vital Signs (last 24 hours): Temp Pulse Resp BP Pulse Ox 97.4 F L 107 H 17 116/79 100 05/24/16 07:56 05/24/16 09:30 05/24/16 10:12 05/24/16 09:35 05/24/16 10:12 - Labs Labs: 05/24/16 07:01 05/24/16 07:01 PT 15.8 SECONDS (9.7-12.2) H D 05/22/16 05:12 INR 1.4 05/22/16 05:12 APTT 29 SECONDS (21-34) 05/22/16 05:12 Attending/Attestation - Attestation I have personally seen and examined this patient.: Yes I have fully participated in the care of the patient.: Yes I have reviewed all pertinent clinical information, including history, physical exam and plan: Yes Notes (Text): 06/24/16 16:39 will load amiodorone for pablo/cardioversion
--- NOTE | 2016-05-22 10:36 | RAD ---
HISTORY: CHF COMPARISON: 05/15/2016 FINDINGS: LUNGS: There is pulmonary venous congestion and mild interstitial pulmonary edema. There is ill-defined airspace disease in the right lower lobe and left retrocardiac opacity. PLEURA: There are probable layering pleural effusions. No pneumothorax. CARDIOVASCULAR: There is persistent moderate cardiomegaly. There is stable position of a left-sided AICD. OSSEOUS STRUCTURES: No significant abnormalities. VISUALIZED UPPER ABDOMEN: Normal. OTHER FINDINGS: None. IMPRESSION: Findings are most compatible with mild congestive heart failure. Bilateral lower lobe airspace disease could represent compressive atelectasis however superimposed pneumonia cannot be excluded. Follow-up is advised.
[2016-05-22] MEDS ORDERED: Oxycodone/Acetaminophen 5/325 mg Tab PO PRN (14:05)
--- NOTE | 2016-05-22 14:47 | CARD ---
APPROVED REPORT EKG Measurement Heart [id number] <Conclusion> Undetermined rhythm Nonspecific intraventricular block T wave abnormality, consider inferolateral ischemia Abnormal ECG
--- NOTE | 2016-05-22 23:36 | CARD ---
APPROVED REPORT EKG Measurement Heart [id number] <Conclusion> Demand pacemaker, interpretation is based on intrinsic rhythm Undetermined rhythm Left bundle branch block Abnormal ECG
[2016-05-23 00:17] LABS: CHLORIDE 90 mmol/L (98-107); SODIUM 136 mmol/L (132-148)
[2016-05-23 00:18] LABS: POTASSIUM 2.8 mmol/L (3.6-5.2)
[2016-05-23 00:19] LABS: GFR AFRICAN-AMERICAN > 60
[2016-05-23 00:20] LABS: ALB/GLOB RATIO 1.2 (1.0-2.1); ALKALINE PHOSPHATASE 69 U/L (38-126); ALT/SGPT 33 U/L (21-72); AST/SGOT 29 U/L (17-59); BILIRUBIN,TOTAL 2.3 mg/dL (0.2-1.3); BLOOD UREA NITROGEN 35 mg/dL (9-20); CALCIUM 8.3 mg/dl (8.6-10.4); CARBON DIOXIDE 29 mmol/L (22-30); GLUCOSE,RANDOM 150 mg/dL (75-110); PHOSPHOROUS 3.4 mg/dL (2.5-4.5); TOTAL PROTEIN 7.2 g/dL (6.3-8.3)
[2016-05-23 00:21] LABS: MAGNESIUM 1.6 mg/dL (1.6-2.3)
[2016-05-23] MEDS ORDERED: Potassium Chloride 20 mEq ER Tab PO ONE ×3 (00:38→12:00)
[2016-05-23] MEDS: Levothyroxine 125 MCG TAB PO SCH (05:51)
[2016-05-23 06:27] LABS: BASO # 0.1 K/uL (0.0-0.2); BASO % 0.5 % (0.0-2.0); EOS # 0.2 K/uL (0.0-0.7); EOS % 1.6 % (0.0-4.0); HEMATOCRIT 43.9 % (35.0-51.0); LYMPH # 3.2 K/uL (1.0-4.3); LYMPH % 24.5 % (20.0-40.0); MEAN CELL VOLUME 100.2 fL (80.0-94.0); MEAN PLATELET VOLUME 9.7 fL (7.2-11.7); MONO # 0.9 K/uL (0.0-0.8); MONO % 6.8 % (0.0-10.0); RED CELL DISTRIBUTION WIDTH 13.3 % (11.5-14.5)
[2016-05-23] MEDS ORDERED: Potassium Chloride 20 mEq 100 ML IVPB ONE (07:36)
[2016-05-23 07:53] LABS: CHLORIDE 92 mmol/L (98-107)
[2016-05-23 07:54] LABS: POTASSIUM 3.5 mmol/L (3.6-5.2); SODIUM 135 mmol/L (132-148)
[2016-05-23 07:56] LABS: ALB/GLOB RATIO 1.2 (1.0-2.1); ALKALINE PHOSPHATASE 78 U/L (38-126); ALT/SGPT 36 U/L (21-72); AST/SGOT 43 U/L (17-59); BILIRUBIN,TOTAL 2.4 mg/dL (0.2-1.3); BLOOD UREA NITROGEN 34 mg/dL (9-20); CARBON DIOXIDE 30 mmol/L (22-30); GFR AFRICAN-AMERICAN > 60; GLUCOSE,RANDOM 123 mg/dL (75-110); TOTAL PROTEIN 7.8 g/dL (6.3-8.3)
[2016-05-23 07:57] LABS: CALCIUM 8.8 mg/dl (8.6-10.4); MAGNESIUM 1.9 mg/dL (1.6-2.3); PHOSPHOROUS 3.9 mg/dL (2.5-4.5)
--- NOTE | 2016-05-23 09:53 | CP.PCM.PN ---
<Alireza Martinez - Last Filed: 05/23/16 14:33> Subjective - Date & Time of Evaluation Date of Evaluation: 05/23/16 Time of Evaluation: 09:53 - Subjective Subjective: Cardiology Progress Note Dr. Ram Patient seen and examined at the bedside. No acute distress. Patient had 1 run of 8beats of V-tach at 23:11pm overnight. Lab work at that time reveled K of 2.8. 40meq PO was given. The patient noted no discomfort and was asymptomatic per nursing and patient recollection. Nursing staff reports no current issues. The patient is for PABLO today with Dr. Preciado. The patient is NPO. The patient denies fever, chills, chest pain, abdominal pain, N/V/D/C, changes in bowel/bladder, and extremity paresthesias. Objective - Vital Signs/Intake and Output Vital Signs (last 24 hours): Temp Pulse Resp BP Pulse Ox 97.4 F L 82 20 148/67 99 05/23/16 08:32 05/23/16 08:32 05/23/16 08:32 05/23/16 08:32 05/23/16 08:32 - Medications Medications: Current Medications Amiodarone HCl (Cordarone) 200 mg PO BID [facility] Last Admin: 05/22/16 17:31 Dose: 200 mg Carvedilol (Coreg) 3.125 mg PO BID [facility] Last Admin: 05/22/16 17:31 Dose: 3.125 mg Furosemide (Lasix) 40 mg PO DAILY [facility] Last Admin: 05/22/16 10:09 Dose: 40 mg Levothyroxine Sodium (Synthroid) 125 mcg PO 0630 [facility] Last Admin: 05/23/16 05:51 Dose: 125 mcg Losartan Potassium (Cozaar) 25 mg PO DAILY [facility] Last Admin: 05/22/16 11:13 Dose: 25 mg Metolazone (Zaroxolyn) 5 mg PO BID [facility] Last Admin: 05/22/16 18:59 Dose: 5 mg Morphine Sulfate (Morphine) 2 mg IVP Q4 PRN PRN Reason: Pain, severe (8-10) Last Admin: 05/22/16 20:04 Dose: 2 mg Oxycodone/Acetaminophen (Percocet 5/325 Mg Tab) 1 tab PO Q4H PRN PRN Reason: Pain, moderate (4-7) Stop: 05/25/16 14:06 Pantoprazole Sodium (Protonix Ec Tab) 40 mg PO DAILY [facility] Last Admin: 05/22/16 10:09 Dose: 40 mg Potassium Chloride (K-Dur 20 Meq Er Tab) 40 meq PO ONCE ONE Stop: 05/23/16 12:01 Rivaroxaban (Xarelto) 20 mg PO DAILY [facility] Last Admin: 05/22/16 10:09 Dose: 20 mg - Labs Labs: 05/23/16 06:04 05/23/16 07:09 PT 15.8 SECONDS (9.7-12.2) H D 05/22/16 05:12 INR 1.4 05/22/16 05:12 APTT 29 SECONDS (21-34) 05/22/16 05:12 - Additional Findings Additional findings: - Constitutional Appears: No Acute Distress - Head Exam Head Exam: ATRAUMATIC, NORMAL INSPECTION, NORMOCEPHALIC - Eye Exam Eye Exam: EOMI, Normal appearance, PERRL - ENT Exam ENT Exam: Mucous Membranes Moist, Normal Exam - Neck Exam Neck Exam: Full ROM, Normal Inspection. absent: Lymphadenopathy - Respiratory Exam Respiratory Exam: Clear to Ausculation Bilateral, NORMAL BREATHING PATTERN. absent: Rhonchi, Wheezes - Cardiovascular Exam Cardiovascular Exam: Irregular Rhythm (irregularly), +S1, +S2. absent: REGULAR RHYTHM, JVD, RRR, Murmur - GI/Abdominal Exam GI & Abdominal Exam: Soft, Normal Bowel Sounds. absent: Tenderness - Extremities Exam Extremities Exam: Full ROM, Normal Capillary Refill, Normal Inspection. absent : Joint Swelling, Pedal Edema - Neurological Exam Neurological Exam: Alert, Awake, CN II-XII Intact, Oriented x3 - Skin Skin Exam: Dry, Intact, Normal Color, Warm Assessment and Plan (1) Cardiomyopathy Status: h (2) CHF (congestive heart failure) Status: h (3) Acute on chronic systolic congestive heart failure Status: h (4) AICD (automatic cardioverter/defibrillator) present Status: h (5) Dyspnea on exertion Status: h (6) Nonsustained supraventricular tachycardia Status: e (7) Hypokalemia Status: e - Assessment and Plan (Free Text) Plan: 1.) Biventricular ICD malfunction + A-Fib - amiodarone 200mg po BID - telemetric monitoring - Heart healthy diet resumed - PABLO cancelled for today- possible reschedule with Dr. Preciado Friday05/27/16 after 11am - Coreg 3.125 mg PO BID - Xarelto 20 mg PO daily - Lasix 40 mg PO daily - Metolazone 5 mg PO daily 2.) Non-sustained V-tach - resolved - 8 beats 23:11 PM - likely 2/2 to hypokalemia 3.) Hypokalemia - 2.8 overnight - 3.5 this morning s/p 40meq PO overnight - 20meq K-rider x 1 ordered prior to PABLO - replace as needed Case Discussed with Dr. Yo Martinez PGY1 <Jennyfer Ram - Last Filed: 06/24/16 16:39> Objective - Vital Signs/Intake and Output Vital Signs (last 24 hours): Temp Pulse Resp BP Pulse Ox 97.4 F L 107 H 17 116/79 100 05/24/16 07:56 05/24/16 09:30 05/24/16 10:12 05/24/16 09:35 05/24/16 10:12 - Labs Labs: 05/24/16 07:01 05/24/16 07:01 PT 15.8 SECONDS (9.7-12.2) H D 05/22/16 05:12 INR 1.4 05/22/16 05:12 APTT 29 SECONDS (21-34) 05/22/16 05:12 Attending/Attestation - Attestation I have personally seen and examined this patient.: Yes I have fully participated in the care of the patient.: Yes I have reviewed all pertinent clinical information, including history, physical exam and plan: Yes Notes (Text): 06/24/16 16:38 wll try to get pablo/cardioversion today for afib rvr
[2016-05-23] MEDS: metOLazone 5 MG TAB PO SCH ×2 (10:02→20:12)
[2016-05-23] MEDS: Pantoprazole 40 mg EC Tab PO SCH (10:02)
--- NOTE | 2016-05-23 11:14 | CP.PCM.PN ---
<RadhajosephDhruv - Last Filed: 05/23/16 15:36> Subjective - Date & Time of Evaluation Date of Evaluation: 05/23/16 Time of Evaluation: 06:55 - Subjective Subjective: PGY-1 Medicine Progress Note for Dr. Lan Patient seen and examined at bedside. Overnight, patient had a run of V-tach. Potassium was 2.8. EKG was done and did not show any change from previous study. Potassium was replaced. Patient was not complaining of chest discomfort this AM. Patient did not go for DONAVAN and cardioversion today but may go tomorrow morning with Dr. Ram. Patient tolerating diet. He will NPO past midnight again. Denied fever/chills, palpitations, abd pain, n/v/d, incontinence, constipation. Objective - Vital Signs/Intake and Output Vital Signs (last 24 hours): Temp Pulse Resp BP Pulse Ox 97.4 F L 82 20 115/74 99 05/23/16 08:32 05/23/16 08:32 05/23/16 08:32 05/23/16 10:01 05/23/16 08:32 - Medications Medications: Current Medications Amiodarone HCl (Cordarone) 200 mg PO BID [facility] Last Admin: 05/23/16 10:01 Dose: 200 mg Carvedilol (Coreg) 3.125 mg PO BID [facility] Last Admin: 05/23/16 10:02 Dose: 3.125 mg Furosemide (Lasix) 40 mg PO DAILY [facility] Last Admin: 05/23/16 10:01 Dose: 40 mg Levothyroxine Sodium (Synthroid) 125 mcg PO 0630 [facility] Last Admin: 05/23/16 05:51 Dose: 125 mcg Losartan Potassium (Cozaar) 25 mg PO DAILY [facility] Last Admin: 05/23/16 10:02 Dose: 25 mg Metolazone (Zaroxolyn) 5 mg PO BID [facility] Last Admin: 05/23/16 10:02 Dose: 5 mg Morphine Sulfate (Morphine) 2 mg IVP Q4 PRN PRN Reason: Pain, severe (8-10) Last Admin: 05/22/16 20:04 Dose: 2 mg Oxycodone/Acetaminophen (Percocet 5/325 Mg Tab) 1 tab PO Q4H PRN PRN Reason: Pain, moderate (4-7) Stop: 05/25/16 14:06 Pantoprazole Sodium (Protonix Ec Tab) 40 mg PO DAILY [facility] Last Admin: 05/23/16 10:02 Dose: 40 mg Potassium Chloride (K-Dur 20 Meq Er Tab) 40 meq PO ONCE ONE Stop: 05/23/16 12:01 Rivaroxaban (Xarelto) 20 mg PO DAILY [facility] Last Admin: 05/22/16 10:09 Dose: 20 mg - Labs Labs: 05/23/16 06:04 05/23/16 07:09 PT 15.8 SECONDS (9.7-12.2) H D 05/22/16 05:12 INR 1.4 05/22/16 05:12 APTT 29 SECONDS (21-34) 05/22/16 05:12 - Constitutional Appears: No Acute Distress - Head Exam Head Exam: ATRAUMATIC, NORMOCEPHALIC - Eye Exam Eye Exam: EOMI, Normal appearance Pupil Exam: PERRL - ENT Exam ENT Exam: Mucous Membranes Moist - Neck Exam Neck Exam: Normal Inspection - Respiratory Exam Respiratory Exam: Clear to Ausculation Bilateral, NORMAL BREATHING PATTERN - Cardiovascular Exam Cardiovascular Exam: Irregular Rhythm, +S1, +S2 - GI/Abdominal Exam GI & Abdominal Exam: Soft, Normal Bowel Sounds. absent: Tenderness - Extremities Exam Extremities Exam: Normal Capillary Refill - Back Exam Back Exam: absent: CVA tenderness (L), CVA tenderness (R) - Neurological Exam Neurological Exam: Alert, Awake, CN II-XII Intact, Oriented x3 - Psychiatric Exam Psychiatric exam: Normal Affect, Normal Mood - Skin Skin Exam: Dry, Intact, Normal Color, Warm Assessment and Plan - Assessment and Plan (Free Text) Plan: 1. Atrial fibrillation DONAVAN and cardioversion possibly tomorrow NPO AICD malfunction possible ablation today Cardio consult, Dr. Ram, help appreciated Coreg 3.125 mg PO BID HOLD Xarelto 20 mg PO daily Amiodarone 200 mg PO BID Morphine 2 mg IVP Q4H PRN severe pain Percocet 5/325 mg PO 1 tab Q4H PRN moderate pain 2. CHF CXR: mild congestive heart failure bilateral lower lobe airspace disease (see full report) Cardio consult, Dr. Ram, help appreciated Coreg 3.125 mg PO BID Lasix 40 mg PO daily Metolazone 5 mg PO daily I's & O's 3. HTN Coreg 3.125 mg PO BID Lasix 40 mg PO daily Metolazone 5 mg PO daily 4. Hypothyroidism Synthyroid 125 mcg PO daily 5. Prophylactic Measures SCD Protonix 40 mg PO daily <EdytaAguilar M - Last Filed: 05/23/16 16:51> Objective - Vital Signs/Intake and Output Vital Signs (last 24 hours): Temp Pulse Resp BP Pulse Ox 97.5 F L 74 20 92/65 L 96 05/23/16 15:49 05/23/16 15:49 05/23/16 15:49 05/23/16 15:49 05/23/16 15:49 Intake and Output: 05/23/16 05/23/16 06:59 18:59 Intake Total 240 Balance 240 - Medications Medications: Current Medications Amiodarone HCl (Cordarone) 200 mg PO BID [facility] Last Admin: 05/23/16 10:01 Dose: 200 mg Carvedilol (Coreg) 3.125 mg PO BID [facility] Last Admin: 05/23/16 10:02 Dose: 3.125 mg Furosemide (Lasix) 40 mg PO DAILY [facility] Last Admin: 05/23/16 10:01 Dose: 40 mg Levothyroxine Sodium (Synthroid) 125 mcg PO 0630 [facility] Last Admin: 05/23/16 05:51 Dose: 125 mcg Losartan Potassium (Cozaar) 25 mg PO DAILY [facility] Last Admin: 05/23/16 10:02 Dose: 25 mg Metolazone (Zaroxolyn) 5 mg PO BID [facility] Last Admin: 05/23/16 10:02 Dose: 5 mg Morphine Sulfate (Morphine) 2 mg IVP Q4 PRN PRN Reason: Pain, severe (8-10) Last Admin: 05/22/16 20:04 Dose: 2 mg Oxycodone/Acetaminophen (Percocet 5/325 Mg Tab) 1 tab PO Q4H PRN PRN Reason: Pain, moderate (4-7) Stop: 05/25/16 14:06 Pantoprazole Sodium (Protonix Ec Tab) 40 mg PO DAILY [facility] Last Admin: 05/23/16 10:02 Dose: 40 mg Rivaroxaban (Xarelto) 20 mg PO DAILY [facility] Last Admin: 05/22/16 10:09 Dose: 20 mg Zolpidem Tartrate (Ambien) 5 mg PO HS PRN PRN Reason: Insomnia - Labs Labs: 05/23/16 06:04 05/23/16 07:09 PT 15.8 SECONDS (9.7-12.2) H D 05/22/16 05:12 INR 1.4 05/22/16 05:12 APTT 29 SECONDS (21-34) 05/22/16 05:12 Attending/Attestation - Attestation I have personally seen and examined this patient.: Yes I have fully participated in the care of the patient.: Yes I have reviewed all pertinent clinical information, including history, physical exam and plan: Yes Notes (Text): 05/23/16 16:50 Patient was seen and examined at bedside with the resident Awaiting the DONAVAN and cardioversion today. We will continue current medical management I discussed the plan of care with the resident. I agree with the above history and physical and assessment/plan by the resident.
[2016-05-24] MEDS: Levothyroxine 125 MCG TAB PO SCH (05:49)
[2016-05-24 06:53] VITALS: O2SAT 100
[2016-05-24 07:32] LABS: BASO % 0.3 % (0.0-2.0); EOS # 0.2 K/uL (0.0-0.7); EOS % 1.9 % (0.0-4.0); HEMATOCRIT 41.1 % (35.0-51.0); LYMPH % 24.9 % (20.0-40.0); MEAN CELL VOLUME 99.9 fL (80.0-94.0); MEAN CORPUSCULAR HEMOGLOBIN 33.4 pg (27.0-31.0); MEAN CORPUSCULAR HGB CONC 33.4 g/dL (33.0-37.0); MEAN PLATELET VOLUME 9.7 fL (7.2-11.7); MONO # 0.7 K/uL (0.0-0.8); MONO % 6.3 % (0.0-10.0); NRBC % 0.2 % (0.0-2.0); WHITE BLOOD COUNT 11.8 K/uL (4.8-10.8)
[2016-05-24 07:57] VITALS: TEMP 97.4
[2016-05-24 08:03] LABS: CHLORIDE 94 mmol/L (98-107); SODIUM 135 mmol/L (132-148)
[2016-05-24 08:04] LABS: POTASSIUM 3.2 mmol/L (3.6-5.2)
[2016-05-24 08:06] LABS: ALB/GLOB RATIO 1.2 (1.0-2.1); ALKALINE PHOSPHATASE 76 U/L (38-126); AST/SGOT 43 U/L (17-59); BILIRUBIN,TOTAL 2.4 mg/dL (0.2-1.3); BLOOD UREA NITROGEN 46 mg/dL (9-20); CALCIUM 8.5 mg/dl (8.6-10.4); CARBON DIOXIDE 26 mmol/L (22-30); GFR AFRICAN-AMERICAN > 60; GLUCOSE,RANDOM 115 mg/dL (75-110); PHOSPHOROUS 3.3 mg/dL (2.5-4.5); TOTAL PROTEIN 7.1 g/dL (6.3-8.3)
[2016-05-24 08:07] LABS: ALT/SGPT 41 U/L (21-72); MAGNESIUM 1.9 mg/dL (1.6-2.3)
--- NOTE | 2016-05-24 09:11 | CP.PCM.PN ---
Subjective - Date & Time of Evaluation Date of Evaluation: 05/24/16 Time of Evaluation: 06:50 Objective - Vital Signs/Intake and Output Vital Signs (last 24 hours): Temp Pulse Resp BP Pulse Ox 97.4 F L 79 20 96/60 L 100 05/24/16 07:56 05/24/16 07:56 05/24/16 07:56 05/24/16 07:56 05/24/16 07:56 - Medications Medications: Current Medications Amiodarone HCl (Cordarone) 200 mg PO BID [facility] Last Admin: 05/23/16 17:47 Dose: 200 mg Carvedilol (Coreg) 3.125 mg PO BID [facility] Last Admin: 05/23/16 17:49 Dose: Not Given Furosemide (Lasix) 40 mg PO DAILY [facility] Last Admin: 05/23/16 10:01 Dose: 40 mg Levothyroxine Sodium (Synthroid) 125 mcg PO 0630 [facility] Last Admin: 05/24/16 05:49 Dose: 125 mcg Losartan Potassium (Cozaar) 25 mg PO DAILY [facility] Last Admin: 05/23/16 10:02 Dose: 25 mg Metolazone (Zaroxolyn) 5 mg PO BID [facility] Last Admin: 05/23/16 20:12 Dose: Not Given Morphine Sulfate (Morphine) 2 mg IVP Q4 PRN PRN Reason: Pain, severe (8-10) Last Admin: 05/22/16 20:04 Dose: 2 mg Oxycodone/Acetaminophen (Percocet 5/325 Mg Tab) 1 tab PO Q4H PRN PRN Reason: Pain, moderate (4-7) Stop: 05/25/16 14:06 Last Admin: 05/23/16 19:17 Dose: 1 tab Pantoprazole Sodium (Protonix Ec Tab) 40 mg PO DAILY [facility] Last Admin: 05/23/16 10:02 Dose: 40 mg Rivaroxaban (Xarelto) 20 mg PO DAILY [facility] Last Admin: 05/22/16 10:09 Dose: 20 mg Zolpidem Tartrate (Ambien) 5 mg PO HS PRN PRN Reason: Insomnia - Labs Labs: 05/24/16 07:01 05/24/16 07:01 PT 15.8 SECONDS (9.7-12.2) H D 05/22/16 05:12 INR 1.4 05/22/16 05:12 APTT 29 SECONDS (21-34) 05/22/16 05:12
[2016-05-24] MEDS ORDERED: Potassium Chloride 20 mEq 100 ML IVPB ONE (09:12)
[2016-05-24] MEDS: metOLazone 5 MG TAB PO SCH (09:35)
[2016-05-24] MEDS: Pantoprazole 40 mg EC Tab PO SCH (09:35)
[2016-05-24 09:36] VITALS: BP 116/79
--- NOTE | 2016-05-24 11:58 | CP.PCM.PN ---
<Alireza Martinez - Last Filed: 05/24/16 13:50> Subjective - Date & Time of Evaluation Date of Evaluation: 05/24/16 Time of Evaluation: 11:55 - Subjective Subjective: Cardiology Progress Note Dr. Ram Patient seen and examined at the bedside. No acute distress. No acute events overnight. Nursing staff reports no issues. The patient is s/p DONAVAN with Dr. Preciado this morning. The patient was found to have a left atrial thrombus, so cardioversion was not preformed. The patient will be maintained on anticoagulation and current antiarrhythmic medications. The patient denies fever, chills, chest pain, abdominal pain, N/V/D/C, changes in bowel/bladder, and extremity paresthesias. Objective - Vital Signs/Intake and Output Vital Signs (last 24 hours): Temp Pulse Resp BP Pulse Ox 97.4 F L 79 20 116/79 100 05/24/16 07:56 05/24/16 07:56 05/24/16 07:56 05/24/16 09:35 05/24/16 07:56 - Medications Medications: Current Medications Amiodarone HCl (Cordarone) 200 mg PO BID [facility] Last Admin: 05/24/16 09:35 Dose: 200 mg Carvedilol (Coreg) 3.125 mg PO BID [facility] Last Admin: 05/24/16 09:35 Dose: 3.125 mg Furosemide (Lasix) 40 mg PO DAILY [facility] Last Admin: 05/24/16 09:35 Dose: 40 mg Levothyroxine Sodium (Synthroid) 125 mcg PO 0630 [facility] Last Admin: 05/24/16 05:49 Dose: 125 mcg Losartan Potassium (Cozaar) 25 mg PO DAILY [facility] Last Admin: 05/24/16 09:35 Dose: 25 mg Metolazone (Zaroxolyn) 5 mg PO BID [facility] Last Admin: 05/24/16 09:35 Dose: 5 mg Morphine Sulfate (Morphine) 2 mg IVP Q4 PRN PRN Reason: Pain, severe (8-10) Last Admin: 05/22/16 20:04 Dose: 2 mg Oxycodone/Acetaminophen (Percocet 5/325 Mg Tab) 1 tab PO Q4H PRN PRN Reason: Pain, moderate (4-7) Stop: 05/25/16 14:06 Last Admin: 05/23/16 19:17 Dose: 1 tab Pantoprazole Sodium (Protonix Ec Tab) 40 mg PO DAILY [facility] Last Admin: 05/24/16 09:35 Dose: 40 mg Rivaroxaban (Xarelto) 20 mg PO DAILY [facility] Last Admin: 05/24/16 11:47 Dose: 20 mg Zolpidem Tartrate (Ambien) 5 mg PO HS PRN PRN Reason: Insomnia - Labs Labs: 05/24/16 07:01 05/24/16 07:01 PT 15.8 SECONDS (9.7-12.2) H D 05/22/16 05:12 INR 1.4 05/22/16 05:12 APTT 29 SECONDS (21-34) 05/22/16 05:12 - Additional Findings Additional findings: - Constitutional Appears: No Acute Distress - Head Exam Head Exam: ATRAUMATIC, NORMAL INSPECTION, NORMOCEPHALIC - Eye Exam Eye Exam: EOMI, Normal appearance, PERRL - ENT Exam ENT Exam: Mucous Membranes Moist, Normal Exam - Neck Exam Neck Exam: Full ROM, Normal Inspection. absent: Lymphadenopathy - Respiratory Exam Respiratory Exam: Clear to Ausculation Bilateral, NORMAL BREATHING PATTERN. absent: Rhonchi, Wheezes - Cardiovascular Exam Cardiovascular Exam: Irregular Rhythm (irregularly), +S1, +S2, Murmur (2/6 systolic mitral listening post). absent: REGULAR RHYTHM, JVD, RRR - GI/Abdominal Exam GI & Abdominal Exam: Soft, Normal Bowel Sounds. absent: Tenderness - Extremities Exam Extremities Exam: Full ROM, Normal Capillary Refill, Normal Inspection. absent : Joint Swelling, Pedal Edema - Neurological Exam Neurological Exam: Alert, Awake, CN II-XII Intact, Oriented x3 - Skin Skin Exam: Dry, Intact, Normal Color, Warm Assessment and Plan (1) Cardiomyopathy Status: h (2) CHF (congestive heart failure) Status: h (3) Acute on chronic systolic congestive heart failure Assessment & Plan: Coreg 3.125 mg PO BID Lasix 40 mg PO daily Metolazone 5 mg PO daily heart healthy diet 20meq potassium daily as an outpatient Status: h (4) AICD (automatic cardioverter/defibrillator) present Assessment & Plan: AICD interrogated following DONAVAN settings adjusted to ventricular pacing - 90bpm - voltage 1.25v - Pulse width 60ms Full capture of LV Biventricular pacing Patient informed that if he feels diaphragmatic pacing he should call Dr. Ram to be seen in the clinic : signs and symptoms of diaphragmatic pacing were discussed in detail : the patient verbalized and repeated his understanding of the concept follow up with Dr. Ram in his clinic as an outpatient Status: h (5) Dyspnea on exertion Status: h (6) Nonsustained supraventricular tachycardia Assessment & Plan: resolved Status: e (7) Hypokalemia Assessment & Plan: replace electrolytes as needed Status: e (8) Left atrial thrombus Assessment & Plan: sessile plaque seen in left atrium during DONAVAN this morning- no cardioversion continue Xarelto 20 mg PO daily Status: h (9) Atrial fibrillation Assessment & Plan: amiodarone 200mg po BID can be discontinued as an outpatient. patient is on rate control with coreg and currently ventricularly paced telemetric monitoring Xarelto 20 mg PO daily no cardioversion due to left atrial sessile plaque Status: h - Assessment and Plan (Free Text) Plan: Case Discussed with Dr. Yo Martinez PGY1 <Jennyfer Ram A - Last Filed: 06/24/16 16:38> Objective - Vital Signs/Intake and Output Vital Signs (last 24 hours): Temp Pulse Resp BP Pulse Ox 97.4 F L 107 H 17 116/79 100 05/24/16 07:56 05/24/16 09:30 05/24/16 10:12 05/24/16 09:35 05/24/16 10:12 - Labs Labs: 05/24/16 07:01 05/24/16 07:01 PT 15.8 SECONDS (9.7-12.2) H D 05/22/16 05:12 INR 1.4 05/22/16 05:12 APTT 29 SECONDS (21-34) 05/22/16 05:12 Attending/Attestation - Attestation I have personally seen and examined this patient.: Yes I have fully participated in the care of the patient.: Yes I have reviewed all pertinent clinical information, including history, physical exam and plan: Yes Notes (Text): 06/24/16 16:37 Pt with left atrial thrombus will prob go ahead with av node ablation
[2016-05-24 12:58] VITALS: PULSE 107
--- NOTE | 2016-05-24 13:55 | CP.PCM.DIS ---
<Dhruv Pavon - Last Filed: 05/26/16 23:31> Provider - Provider Date of Admission: 05/21/16 11:01 Attending physician: Aguilar Lan MD Consults: Cardio: Yo Time Spent in preparation of Discharge (in minutes): 40 Diagnosis - Discharge Diagnosis (1) Dyspnea Status: Acute (2) AICD (automatic cardioverter/defibrillator) present Status: Chronic (3) Atrial fibrillation Status: Chronic Hospital Course - Lab Results Lab Results: Most Recent Lab Values WBC 11.8 K/uL (4.8-10.8) H 05/24/16 07:01 RBC 4.11 Mil/uL (4.40-5.90) L 05/24/16 07:01 Hgb 13.7 g/dL (12.0-18.0) 05/24/16 07:01 Hct 41.1 % (35.0-51.0) 05/24/16 07:01 MCV 99.9 fL (80.0-94.0) H 05/24/16 07:01 MCH 33.4 pg (27.0-31.0) H 05/24/16 07:01 MCHC 33.4 g/dL (33.0-37.0) 05/24/16 07:01 RDW 13.0 % (11.5-14.5) 05/24/16 07:01 Plt Count 139 K/uL (130-400) 05/24/16 07:01 MPV 9.7 fL (7.2-11.7) 05/24/16 07:01 Neut % (Auto) 66.6 % (50.0-75.0) 05/24/16 07:01 Lymph % (Auto) 24.9 % (20.0-40.0) 05/24/16 07:01 Loup % (Auto) 6.3 % (0.0-10.0) 05/24/16 07:01 Eos % (Auto) 1.9 % (0.0-4.0) 05/24/16 07:01 Baso % (Auto) 0.3 % (0.0-2.0) 05/24/16 07:01 Neut # 7.9 K/uL (1.8-7.0) H 05/24/16 07:01 Lymph # 3.0 K/uL (1.0-4.3) 05/24/16 07:01 Loup # 0.7 K/uL (0.0-0.8) 05/24/16 07:01 Eos # 0.2 K/uL (0.0-0.7) 05/24/16 07:01 Baso # 0.0 K/uL (0.0-0.2) 05/24/16 07:01 PT 15.8 SECONDS (9.7-12.2) H D 05/22/16 05:12 INR 1.4 05/22/16 05:12 APTT 29 SECONDS (21-34) 05/22/16 05:12 Sodium 135 mmol/L (132-148) 05/24/16 07:01 Potassium 3.2 mmol/L (3.6-5.2) L 05/24/16 07:01 Chloride 94 mmol/L (98-107) L 05/24/16 07:01 Carbon Dioxide 26 mmol/L (22-30) 05/24/16 07:01 Anion Gap 18 (10-20) 05/24/16 07:01 BUN 46 mg/dL (9-20) H 05/24/16 07:01 Creatinine 1.3 MG/DL (0.8-1.5) 05/24/16 07:01 Est GFR ( Amer) > 60 05/24/16 07:01 Est GFR (Non-Af Amer) 56 05/24/16 07:01 Random Glucose 115 mg/dL (75-110) H 05/24/16 07:01 Hemoglobin A1c 6.1 % (4.2-6.5) 05/22/16 05:12 Calcium 8.5 mg/dl (8.6-10.4) L 05/24/16 07:01 Phosphorus 3.3 mg/dL (2.5-4.5) 05/24/16 07:01 Magnesium 1.9 mg/dL (1.6-2.3) 05/24/16 07:01 Total Bilirubin 2.4 mg/dL (0.2-1.3) H 05/24/16 07:01 AST 43 U/L (17-59) 05/24/16 07:01 ALT 41 U/L (21-72) 05/24/16 07:01 Alkaline Phosphatase 76 U/L (38-126) 05/24/16 07:01 Total Creatine Kinase 71 U/L (55-170) 05/23/16 00:03 CK-MB (Mass) 1.59 ng/mL (0.0-3.38) 05/23/16 00:03 Troponin I 0.0200 ng/mL (0.00-0.120) 05/21/16 10:14 Troponin I, Quant 0.0120 ng/mL (0.00-0.120) 05/23/16 00:03 Total Protein 7.1 g/dL (6.3-8.3) 05/24/16 07:01 Albumin 3.9 g/dL (3.5-5.0) 05/24/16 07:01 Globulin 3.2 gm/dL (2.2-3.9) 05/24/16 07:01 Albumin/Globulin Ratio 1.2 (1.0-2.1) 05/24/16 07:01 Triglycerides 109 mg/dL (0-149) D 05/22/16 05:12 Cholesterol 226 mg/dL (0-199) H 05/22/16 05:12 LDL Cholesterol Direct 120 mg/dL (0-129) 05/22/16 05:12 HDL Cholesterol 55 mg/dL (30-70) 05/22/16 05:12 Thyroxine (T4) 8.41 ug/dL (5.5-11.0) 05/22/16 05:12 TSH 3rd Generation 4.44 mIU/L (0.46-4.68) 05/22/16 05:12 Blood Type B POSITIVE 05/21/16 10:16 Antibody Screen Negative 05/21/16 10:16 - Hospital Course Hospital Course: 65 year old male with PMH of CHF, cardiomyopathy, hypothyroidism, atrial fibrillation and AICD who presents to the ED due to AICD abnormality. Patient saw Dr. Griggs yesterday and instructed him to go to the hospital to be admitted for possible ablation. Patient had been having 3-4 weeks of 5-8/10 intermittent chest pain and dyspnea on exertion. He presented to the ED 4/ for these symptoms but was not admitted. Nothing makes pain better or worse. Patient sleeps with two to three pillows at night. Patient can walk several blocks before getting tired. Patient had ECHO done last September. Patient has no acute complaints at this time. Patient was admitted for symptomatic cardiac arrhythmia and AICD malfunction. Patient was continued on his home medications. On 05/23, patient had a run of V- tach and Potassium was found to be low. EKG was done and did not show any change from previous study. Potassium was replaced. The following day, patient went for DONAVAN. He was NPO past midnight except medications. Xarelto was held. DONAVAN was performed. Patient was found to have a left atrial thrombus, so cardioversion was not completed. The patient was maintained on anticoagulation and current antiarrhythmic medications. His AICD settings were adjusted to biventricular pacing at 90 bpm, voltage 1.25v, and Pulse width 60ms. Patient was informed that if he feels diaphragmatic pacing he should call Dr. Ram to be seen in the clinic. Signs and symptoms of diaphragmatic pacing were discussed in detail with the patient. He verbalized his understanding and agreement. At that time, he was found to be medically stable for discharge by Dr. Lan. This is a summary of the hospital course. Please refer to EMR for more specific details. Discharge Exam - Head Exam Head Exam: ATRAUMATIC, NORMOCEPHALIC - Eye Exam Eye Exam: EOMI, Normal appearance Pupil Exam: PERRL - ENT Exam ENT Exam: Mucous Membranes Moist - Neck Exam Neck exam: Normal Inspection - Respiratory Exam Respiratory Exam: Clear to PA & Lateral, NORMAL BREATHING PATTERN - Cardiovascular Exam Cardiovascular Exam: REGULAR RHYTHM, +S1, +S2 - GI/Abdominal Exam GI & Abdominal Exam: Normal Bowel Sounds, Soft. absent: Tenderness - Extremities Exam Extremities exam: pedal pulses present - Neurological Exam Neurological exam: Alert, CN II-XII Intact, Normal Gait, Oriented x3 - Psychiatric Exam Psychiatric exam: Normal Affect, Normal Mood - Skin Skin Exam: Dry, Intact, Normal Color, Warm Discharge Plan - Discharge Medications Prescriptions: Potassium Chloride [K-Dur 20 mEq ER Tab] 20 meq PO DAILY #30 tab - Follow Up Plan Condition: STABLE Disposition: HOME/ ROUTINE Instructions: Potassium Chloride (By mouth), Heart Failure (DC), Atrial Fibrillation (DC), Transesophageal Echocardiogram (DC), Hypokalemia (DC) Additional Instructions: Patient medically stable for discharge to home by Dr. Lan and Dr. Ram. Patient to take new medication Potassium 20 mEq PO daily. Patient is to resume home medications as previously prescribed. Patient is to follow up with PMD and Cardiology within 1 week. Patient to resume physical activity as tolerated. Patient informed that if he feels diaphragmatic pacing he should call Dr. Ram to be seen in the clinic. Signs and symptoms of diaphragmatic pacing were discussed in detail. He is to follow up with Dr. Ram in his clinic as an outpatient. Please return to ER if symptoms persist or condition worsens. All instructions stated above were discussed in detail with patient. She verbalized understanding and agreement. Referrals: Jennyfer Ram MD [Staff Provider] - Clinic,Med Surg [Non-Staff] - <Aguilar Lan - Last Filed: 05/31/16 13:10> Provider - Provider Date of Admission: 05/21/16 11:01 Attending physician: Aguilar Lan MD Hospital Course - Lab Results Lab Results: Most Recent Lab Values WBC 11.8 K/uL (4.8-10.8) H 05/24/16 07:01 RBC 4.11 Mil/uL (4.40-5.90) L 05/24/16 07:01 Hgb 13.7 g/dL (12.0-18.0) 05/24/16 07:01 Hct 41.1 % (35.0-51.0) 05/24/16 07:01 MCV 99.9 fL (80.0-94.0) H 05/24/16 07:01 MCH 33.4 pg (27.0-31.0) H 05/24/16 07:01 MCHC 33.4 g/dL (33.0-37.0) 05/24/16 07:01 RDW 13.0 % (11.5-14.5) 05/24/16 07:01 Plt Count 139 K/uL (130-400) 05/24/16 07:01 MPV 9.7 fL (7.2-11.7) 05/24/16 07:01 Neut % (Auto) 66.6 % (50.0-75.0) 05/24/16 07:01 Lymph % (Auto) 24.9 % (20.0-40.0) 05/24/16 07:01 Loup % (Auto) 6.3 % (0.0-10.0) 05/24/16 07:01 Eos % (Auto) 1.9 % (0.0-4.0) 05/24/16 07:01 Baso % (Auto) 0.3 % (0.0-2.0) 05/24/16 07:01 Neut # 7.9 K/uL (1.8-7.0) H 05/24/16 07:01 Lymph # 3.0 K/uL (1.0-4.3) 05/24/16 07:01 Loup # 0.7 K/uL (0.0-0.8) 05/24/16 07:01 Eos # 0.2 K/uL (0.0-0.7) 05/24/16 07:01 Baso # 0.0 K/uL (0.0-0.2) 05/24/16 07:01 PT 15.8 SECONDS (9.7-12.2) H D 05/22/16 05:12 INR 1.4 05/22/16 05:12 APTT 29 SECONDS (21-34) 05/22/16 05:12 Sodium 135 mmol/L (132-148) 05/24/16 07:01 Potassium 3.2 mmol/L (3.6-5.2) L 05/24/16 07:01 Chloride 94 mmol/L (98-107) L 05/24/16 07:01 Carbon Dioxide 26 mmol/L (22-30) 05/24/16 07:01 Anion Gap 18 (10-20) 05/24/16 07:01 BUN 46 mg/dL (9-20) H 05/24/16 07:01 Creatinine 1.3 MG/DL (0.8-1.5) 05/24/16 07:01 Est GFR ( Amer) > 60 05/24/16 07:01 Est GFR (Non-Af Amer) 56 05/24/16 07:01 Random Glucose 115 mg/dL (75-110) H 05/24/16 07:01 Hemoglobin A1c 6.1 % (4.2-6.5) 05/22/16 05:12 Calcium 8.5 mg/dl (8.6-10.4) L 05/24/16 07:01 Phosphorus 3.3 mg/dL (2.5-4.5) 05/24/16 07:01 Magnesium 1.9 mg/dL (1.6-2.3) 05/24/16 07:01 Total Bilirubin 2.4 mg/dL (0.2-1.3) H 05/24/16 07:01 AST 43 U/L (17-59) 05/24/16 07:01 ALT 41 U/L (21-72) 05/24/16 07:01 Alkaline Phosphatase 76 U/L (38-126) 05/24/16 07:01 Total Creatine Kinase 71 U/L (55-170) 05/23/16 00:03 CK-MB (Mass) 1.59 ng/mL (0.0-3.38) 05/23/16 00:03 Troponin I 0.0200 ng/mL (0.00-0.120) 05/21/16 10:14 Troponin I, Quant 0.0120 ng/mL (0.00-0.120) 05/23/16 00:03 Total Protein 7.1 g/dL (6.3-8.3) 05/24/16 07:01 Albumin 3.9 g/dL (3.5-5.0) 05/24/16 07:01 Globulin 3.2 gm/dL (2.2-3.9) 05/24/16 07:01 Albumin/Globulin Ratio 1.2 (1.0-2.1) 05/24/16 07:01 Triglycerides 109 mg/dL (0-149) D 05/22/16 05:12 Cholesterol 226 mg/dL (0-199) H 05/22/16 05:12 LDL Cholesterol Direct 120 mg/dL (0-129) 05/22/16 05:12 HDL Cholesterol 55 mg/dL (30-70) 05/22/16 05:12 Thyroxine (T4) 8.41 ug/dL (5.5-11.0) 05/22/16 05:12 TSH 3rd Generation 4.44 mIU/L (0.46-4.68) 05/22/16 05:12 Blood Type B POSITIVE 05/21/16 10:16 Antibody Screen Negative 05/21/16 10:16 Attending/Attestation - Attestation I have personally seen and examined this patient.: Yes I have fully participated in the care of the patient.: Yes I have reviewed all pertinent clinical information, including history, physical exam and plan: Yes Notes (Text): 05/31/16 13:09 Patient was seen and examined at bedside with the resident Patient did not have cardioversion today because of the thrombus. Patient is clear for discharge by cardiology We'll discharge the patient to home and he will follow with Dr. Ram. I agree with the above discharge note by the resident
--- NOTE | 2016-05-24 17:20 | PCM.HF ---
Heart Failure Core Measure ABDIRAHMAN Inhibitor Prescribed: No Contraindication/Reason for not providing: on arb Beta-Daniel Prescribed: Carvedilol Angiotensin II Receptor Daniel Prescribed: Yes AnticoagulationTherapy for Atrial Fibrillation/Atrialflutter: Yes Aldosterone Antagonist Prescribed: No Contraindication/Reason for not providing: renal dysfunction Hydralazine Nitrate Prescribed: No Contraindication/Reason for not providing: aicd Implantable Cardioverter Defibrillator Therapy: Yes Cardiac Resynchronization Therapy Prescribed: No Contraindication/Reason for not providing: has aicd - Follow up Will be discharged to: Home Follow Up Date (must be within 7 days from discharge): 05/27/16 Follow Up Time: 09:00
--- NOTE | 2016-05-27 08:03 | CARD ---
APPROVED REPORT EXAM: Transesophageal echocardiogram with color flow Doppler. INDICATION Dyspnea L.V FUN Mitral Valve E/A ratio0.0 TDI E/Lateral E'0.0E/Medial E'0.0 Reason For Test : Rule out Intracardiac Thrombus. PROCEDURE After obtaining informed consent, patient underwent transesophageal echo in the [employer]. Type of Sedation : Conscious Sedation Sedation was provided by anesthesiologist. Sedation was achieved with intravenously. The DONAVAN was performed complications. Throughout the procedure, the blood pressure, pulse oximetry, cardiac rhythm, and rate were monitored. The patient tolerated the procedure without adverse effects. Recovery from conscious sedation was uneventful and vital signs were stable. LEFT VENTRICLE The Left Ventricle is moderately dilated. Left ventricle systolic function is severely impaired. The Ejection Fraction is <20%. RIGHT VENTRICLE The right ventricle is normal size. ATRIA The left atrium is severely dilated. Thrombus noted in Left Atrial appendage The right atrium is moderately dilated. The interatrial septum is intact with no evidence for an atrial septal defect. AORTIC VALVE The aortic valve is normal in structure. No aortic regurgitation is present. There is no aortic valvular stenosis. MITRAL VALVE A moderate Mitral Anterior leaflet mitral valve prolapse is present. Mitral regurgitation is moderate to severe. TRICUSPID VALVE There is moderate tricuspid regurgitation. PULMONIC VALVE The pulmonary valve is normal in structure. GREAT VESSELS The aortic root is normal in size. <Conclusion> Left ventricle systolic function is severely impaired. The Ejection Fraction is <20%. The left atrium is severely dilated. ICD wire seen in the usual location Thrombus noted in Left Atrial appendage Findnings d/w the patient microfilm clerk Dr. Jennyfer Ram
[2016-05-30 10:43] VITALS: RESP 17
--- NOTE | 2016-07-30 08:06 | CARD ---
APPROVED REPORT EKG Measurement Heart [id number] <Conclusion> Sinus tachycardia with complete heart block and Ventricular-paced rhythm Abnormal ECG
== END 2016-05-24 15:06 | disposition home or self-care (01) | DRG 543 ==
LOC: C.ER 08:57 → C.9E 11:01 → C.6T 16:48
PROVIDERS: ADMIT Internal Medicine; ATTEND Internal Medicine
PROC: B245ZZ4 Ultrasonography of Left Heart, Transesophageal (ICD-10-PCS; principal; 2016-05-24 10:00)
DX: T82.118A Breakdown (mechanical) of other cardiac electronic device, initial encounter (principal); I50.23 Acute on chronic systolic (congestive) heart failure; I42.8 Other cardiomyopathies; K74.60 Unspecified cirrhosis of liver; I51.3 Intracardiac thrombosis, not elsewhere classified; E87.6 Hypokalemia; I25.10 Atherosclerotic heart disease of native coronary artery without angina pectoris; E03.9 Hypothyroidism, unspecified; I48.91 Unspecified atrial fibrillation; Y83.8 Other surgical procedures as the cause of abnormal reaction of the patient, or of later complication, without mention of misadventure at the time of the procedure; Z87.891 Personal history of nicotine dependence; I47.1 Supraventricular tachycardia

== ENCOUNTER 2016-06-16 10:21 | Inpatient (IN) | payer MEDICAID, OTHER ==
[2016-06-16 10:21] VITALS: BMI 25.5
--- NOTE | 2016-06-16 11:17 | C.PDOC ---
History Of Present Illness 65-year-old male, presents to the emergency department with complaints of B/L lower-quadrant pain that is ongoing x3 weeks. Patient is s/p AICD adjustment in mid-May, and cardiac ablation, in late May in [place]. Patient notes that pain resolves when lying supine, and worse when he sits or walks. States he has associated decreased appetite. Patient recently diagnosed with periumbilical hernia, that increases in size when he walks, but is otherwise the same size. Denies fevers or weight loss. No abdominal surgeries. Time Seen by Provider: 06/16/16 10:55 Chief Complaint (Nursing): Abdominal Pain History Per: Patient History/Exam Limitations: no limitations Past Medical History Reviewed: Historical Data, Nursing Documentation, Vital Signs Vital Signs: Last Vital Signs Temp 98.1 F 06/16/16 10:30 Pulse 82 06/16/16 14:59 Resp 20 06/16/16 14:59 BP 108/74 06/16/16 14:59 Pulse Ox 100 06/16/16 15:13 - Medical History PMH: CAD, CHF, Hypothyroidism, Pneumonia Surgical History: Pacemaker (AICD) - [facility] Procedures CORONAR ARTERIOGR-2 CATH (03/28/14) DRAINAGE OF R PLEURAL CAV WITH DRAIN DEV, PERC APPROACH (04/18/15) LEFT HEART CARDIAC CATH (03/28/14) LT HEART ANGIOCARDIOGRAM (03/28/14) ULTRASONOGRAPHY OF LEFT HEART, TRANSESOPHAGEAL (05/21/16) Family History: States: Unknown Family Hx - Social History Hx Tobacco Use: No Hx Alcohol Use: No Hx Substance Use: No - Immunization History Hx Tetanus Toxoid Vaccination: No Hx Influenza Vaccination: No Hx Pneumococcal Vaccination: No Review Of Systems Except As Marked, All Systems Reviewed And Found Negative. Constitutional: Negative for: Fever, Chills Gastrointestinal: Positive for: Abdominal Pain. Negative for: Nausea, Vomiting Musculoskeletal: Negative for: Back Pain Skin: Negative for: Rash Neurological: Negative for: Weakness, Numbness Physical Exam - Physical Exam Appears: Non-toxic, No Acute Distress Skin: Warm, Dry, No Rash Head: Atraumatic, Normacephalic Eye(s): bilateral: Normal Inspection Nose: Normal Oral Mucosa: Moist Lips: Normal Appearing Neck: Normal ROM Chest: Symmetrical Cardiovascular: Rhythm Regular Respiratory: Normal Breath Sounds, No Accessory Muscle Use Gastrointestinal/Abdominal: Soft, Hernia (reducible hernia, non-tender and localized. No inguinal hernia noted) Extremity: Normal ROM Neurological/Psych: Oriented x3, Normal Speech ED Course And Treatment - Laboratory Results Result Diagrams: 06/16/16 11:50 06/16/16 11:46 ECG: Interpreted By Me, Viewed By Me ECG Rhythm: Sinus Rhythm ECG Interpretation: No Acute Changes Rate From EC O2 Sat by Pulse Oximetry: 100 Progress - Data Reviewed Data Reviewed: Lab, Diagnostic imaging, EKG, Old records ED OBSERVATION Date of observation admission: 06/16/16 Time of observation admission: 11:00 - Observation admission statement Patient is being placed in observation because:: ABD PAIN - Goals of Observation Goals of observation are:: NEG ACUTE ABD, SX IMPROVE - Progress Note Progress Note: 06/16/16 15:[address] FINDINGS REVIEWED. WILL SEND FOR US RO ACUTE [place] 06/16/16 15:12 PT DOESNT WISH ADDL PAIN MEDS @ THIS TIME 06/16/16 16:18 D/W DR ALDANA AWARE OF ER FINDINGS, WILL ADMIT D/W SURG RESIDENT WILL EVAL Disposition Counseled Patient/Family Regarding: Studies Performed, Diagnosis - Disposition Disposition: HOSPITALIZED Disposition Time: 16:20 Condition: STABLE - Clinical Impression Clinical Impression: Acalculous cholecystitis, Abnormal liver enzymes - Scribe Statement The provider has reviewed the documentation as recorded by the Drake Mccoy All medical record entries made by the Scribe were at my direction and personally dictated by me. I have reviewed the chart and agree that the record accurately reflects my personal performance of the history, physical exam, medical decision making, and the department course for this patient. I have also personally directed, reviewed, and agree with the discharge instructions and disposition. Decision To Admit - Pt Status Changed To: Hospital Disposition Of: Inpatient - Admit Certification Admit to Inpatient:: After my assessment, the patient will require hospitalization for at least two midnights. This is because of the severity of symptoms shown, intensity of services needed, and/or the medical risk in this patient being treated as an outpatient. - InPatient: Physician Admission Certification: I certify that this patient requires 2 or more midnights of care for the following reason:: SEE NOTE - . Bed Request Type: Regular Admitting Physician: Wilmer Aldana Patient Diagnosis: Acalculous cholecystitis, Abnormal liver enzymes
[2016-06-16] MEDS ORDERED: Iohexol 240 (50 ml) PO STA (11:27)
[2016-06-16] MEDS ORDERED: Iohexol 240 (50 ml) ONE (11:37)
[2016-06-16 11:50] LABS: BASO % 0.4 % (0.0-2.0); EOS # 0.2 K/uL (0.0-0.7); EOS % 1.9 % (0.0-4.0); HEMATOCRIT 41.9 % (35.0-51.0); LYMPH # 2.3 K/uL (1.0-4.3); LYMPH % 23.1 % (20.0-40.0); MEAN CELL VOLUME 101.1 fL (80.0-94.0); MEAN CORPUSCULAR HEMOGLOBIN 33.2 pg (27.0-31.0); MEAN CORPUSCULAR HGB CONC 32.8 g/dL (33.0-37.0); MEAN PLATELET VOLUME 10.4 fL (7.2-11.7); MONO # 0.7 K/uL (0.0-0.8); MONO % 6.8 % (0.0-10.0); RED CELL DISTRIBUTION WIDTH 13.2 % (11.5-14.5); WHITE BLOOD COUNT 10.1 K/uL (4.8-10.8)
[2016-06-16 12:01] LABS: CHLORIDE 95 mmol/L (98-107); POTASSIUM 3.7 mmol/L (3.6-5.2); SODIUM 139 mmol/L (132-148)
[2016-06-16 12:04] LABS: BLOOD UREA NITROGEN 35 mg/dL (9-20); CARBON DIOXIDE 26 mmol/L (22-30); GFR AFRICAN-AMERICAN > 60; GLUCOSE,RANDOM 144 mg/dL (75-110)
[2016-06-16 12:05] LABS: CALCIUM 8.7 mg/dl (8.6-10.4)
[2016-06-16] MEDS ORDERED: Iohexol 300 100 ML IJ ONE (12:25)
--- NOTE | 2016-06-16 15:03 | CT ---
PROCEDURE: CT Abdomen and Pelvis with contrast HISTORY: BL LQ PAIN, UMB HERNIA RO INCARC HERNIA COMPARISON: None. TECHNIQUE: Contrast dose: 100 cc Omnipaque 300. Radiation dose: Total exam DLP = 943.90 mGy-cm. This CT exam was performed using one or more of the following dose reduction techniques: Automated exposure control, adjustment of the mA and/or kV according to patient size, and/or use of iterative reconstruction technique. FINDINGS: LOWER THORAX: Bilateral pleural effusions right larger than left. Lower lobe compressive atelectasis right greater than left. Incompletely visualize cardiomegaly. No pericardial abnormalities. LIVER: Hepatic steatosis. No focal masses. No intrahepatic bile duct dilatation or perihepatic ascites. GALLBLADDER AND BILE DUCTS: Pericholecystic stranding, inflammatory change. Mild no evident gallstones. PANCREAS: Unremarkable. No gross lesion or ductal dilatation. SPLEEN: Unremarkable. ADRENALS: Unremarkable. No mass. KIDNEYS AND URETERS: Unremarkable. No hydronephrosis. No solid mass. Incidental finding(s): Perinephric stranding bilaterally without associated focal or diffuse renal abnormality VASCULATURE: Unremarkable. No aortic aneurysm. BOWEL: Unremarkable. No obstruction. No gross mural thickening. Diverticulosis without an acute inflammatory component or other associated pathologic process. APPENDIX: Normal appendix. PERITONEUM: Unremarkable. No free fluid. No free air. LYMPH NODES: Unremarkable. No enlarged lymph nodes. BLADDER: Unremarkable. REPRODUCTIVE: Unremarkable. BONES: No acute fracture. OTHER FINDINGS: Periumbilical hernia containing fat only. Bilateral fat containing inguinal hernias. IMPRESSION: No evidence of inguinal hernia containing bowel. No evidence of mechanical obstruction. Pericholecystic inflammatory change raise the possibility of acute cholecystitis. Gallstones are not identified. Additional benign and/or incidental findings described above.
[2016-06-16 15:10] LABS: RBC URINE 8 /hpf (0-3); URINE BILIRUBIN NEGATIVE (NEGATIVE); URINE BLOOD NEGATIVE (NEGATIVE); URINE COLOR Amber (YELLOW); URINE GLUCOSE (UA) NORMAL (Normal); URINE KETONE NEGATIVE (NEGATIVE); URINE LEUKOCYTE ESTERASE NEG Leu/uL (Negative); URINE PROTEIN 1+ mg/dL (NEGATIVE); URINE UROBILINOGEN NORMAL mg/dL (0.2-1.0); WBC URINE 1 /hpf (0-5)
[2016-06-16 15:37] LABS: ALB/GLOB RATIO 1.2 (1.0-2.1); ALKALINE PHOSPHATASE 136 U/L (38-126); AST/SGOT 147 U/L (17-59); BILIRUBIN,DIRECT 0.8 mg/dL (0.0-0.4); BILIRUBIN,TOTAL 2.1 mg/dL (0.2-1.3); TOTAL PROTEIN 7.4 g/dL (6.3-8.3)
[2016-06-16 15:38] LABS: ALT/SGPT 151 U/L (21-72)
--- NOTE | 2016-06-16 16:04 | US ---
HISTORY: ABD PAIN ABN CT COMPARISON: None. TECHNIQUE: Sonographic evaluation of the right upper quadrant of the abdomen. FINDINGS: LIVER: Measures 14.2 cm in length. Variable echogenicity of the liver parenchyma. No mass. No intrahepatic bile duct dilatation. Echogenic focus right hepatic lobe near the dome of the liver. In retrospect this is not apparent on the CT. This may represent small hemangioma measuring 1.8 cm. GALLBLADDER: Gallbladder wall thickening and positive sonographic Castro's sign. Findings may represent acalculous cholecystitis. COMMON BILE DUCT: Measures 3.4 mm. No stones. No dilatation. PANCREAS: Obscured by overlying bowel gas. Non diagnostic assessment of the pancreas RIGHT KIDNEY: Measures cm in length. Normal echogenicity. No calculus, mass, or hydronephrosis. AORTA: No aneurysmal dilatation. IVC: Unremarkable. OTHER FINDINGS: None . IMPRESSION: Gallbladder wall thickening, sonographic Castro's sign elicited by technologist. In the absence of identifiable gallstones findings suggest acalculous cholecystitis. Echogenic mass right hepatic lobe likely small hepatic hemangioma.
[2016-06-16] MEDS ORDERED: Piperacillin/Tazobact 3.375 gm 100 ML IV STA (16:21)
--- NOTE | 2016-06-16 16:47 | CP.PCM.HP ---
<Wilda Ybarra - Last Filed: 06/16/16 17:07> History of Present Illness - History of Present Illness History of Present Illness: CC: "abdominal pain x 3 weeks" HPI: Patient is a 65 year old male with PMH of CHF, liver cirrhosis, cardiomyopathy, hypothyroidism, atrial fibrillation and AICD who presents to the ED with 3 weeks of diffuse abdominal pain. Pain worsens with eating food. Therefore, patient has not been eating. Patient has not had solids or liquids at all today. Patient reports associated nausea. Patient has never had pain like this before. Patient denies vomiting, diarrhea, constipation, new food, recent travel. Patient reports SOB with walking because talking a deep breath causes pain. Patient denies fever, chills, chest pain, palpitations, dysuria. PMD: [place] Cardio: [place] PMH: CHF, cardiomyopathy, hypothyroidism, liver cirrhosis Meds: metolazone 5mg BID, xarelto 20mg PO QD, losartan 25mg PO QD, levothyroxine 125mcg PO QD, lasix 40mgpo qd, coreg 3.125 PO BID Allergies: NKDA PSH: AICD, ablation May 2016 at [place], Right thoracentesis(2L) FH: Unknown Cancer Social: Past smoker 7.5-15 Pack-year Hx. Denies current alcohol use (quit 10 to 15 years ago). Denies illicit drug use. Unemployed and lives with in apartment. Present on Admission - Present on Admission Any Indicators Present on Admission: No Review of Systems - Constitutional Constitutional: absent: Chills, Fever, Weakness - EENT Eyes: absent: Change in Vision Ears: absent: Dizziness Nose/Mouth/Throat: absent: Sore Throat - Cardiovascular Cardiovascular: absent: Chest Pain - Respiratory Respiratory: Dyspnea, Dyspnea on Exertion, Pain on Inspiration. absent: Cough - Gastrointestinal Gastrointestinal: Abdominal Pain, Nausea. absent: Change in Bowel Habits, Constipation, Diarrhea, Vomiting - Genitourinary Genitourinary: absent: Dysuria - Musculoskeletal Musculoskeletal: absent: Numbness - Integumentary Integumentary: absent: Rash - Neurological Neurological: absent: Dizziness, Headaches - Endocrine Endocrine: absent: Fatigue, Palpitations - Hematologic/Lymphatic Hematologic: absent: Easy Bleeding, Easy Bruising Past Patient History - Infectious Disease Hx of Infectious Diseases: None - Tetanus Immunizations Tetanus Immunization: Unknown - Past Medical History & Family History Past Medical History?: Yes Past Family History: Reviewed and not pertinent - Past Social History Smoking Status: Former Smoker Alcohol: None Drugs: Denies - CARDIAC Hx Congestive Heart Failure: Yes Hx Pacemaker: Yes (AICD) - PULMONARY Hx Pneumonia: Yes - NEUROLOGICAL Hx Neurological Disorder: No - HEENT Hx HEENT Problems: No - RENAL Hx Chronic Kidney Disease: No - ENDOCRINE/METABOLIC Hx Hypothyroidism: Yes - HEMATOLOGICAL/ONCOLOGICAL Hx Blood Disorders: Yes Hx Cirrhosis: Yes - INTEGUMENTARY Hx Dermatological Problems: No - MUSCULOSKELETAL/RHEUMATOLOGICAL Hx Musculoskeletal Disorders: No Hx Falls: No - GASTROINTESTINAL Hx Gastrointestinal Disorders: Yes Hx Constipation: Yes - GENITOURINARY/GYNECOLOGICAL Hx Genitourinary Disorders: No - PSYCHIATRIC Hx Substance Use: No - SURGICAL HISTORY Hx Surgeries: Yes Other/Comment: AICD placement 02/09/2015 - ANESTHESIA Hx Anesthesia: Yes Hx Anesthesia Reactions: No Hx Malignant Hyperthermia: No Meds Allergies/Adverse Reactions: Allergies Allergy/AdvReac Type Severity Reaction Status Date / Time No Known Allergies Allergy Verified 06/16/16 10:34 Physical Exam - Constitutional Appears: Non-toxic, No Acute Distress - Head Exam Head Exam: NORMAL INSPECTION - Eye Exam Eye Exam: EOMI. absent: Scleral icterus - ENT Exam ENT Exam: Mucous Membranes Moist - Respiratory Exam Respiratory Exam: Clear to Auscultation Bilateral, NORMAL BREATHING PATTERN. absent: Rales, Rhonchi, Wheezes - Cardiovascular Exam Cardiovascular Exam: Irregular Rhythm, +S1, +S2. absent: Tachycardia, Gallop, Rubs, Systolic Murmur - GI/Abdominal Exam GI & Abdominal Exam: Normal Bowel Sounds, Soft, Tenderness (+Castro's sign) - Extremities Exam Extremities exam: Positive for: normal capillary refill. Negative for: pedal edema - Neurological Exam Neurological exam: Alert, Oriented x3 - Psychiatric Exam Psychiatric exam: Normal Affect, Normal Mood - Skin Skin Exam: Normal Color, Warm Results - Vital Signs Recent Vital Signs: Last Vital Signs Temp 98.1 F 06/16/16 10:30 Pulse 82 06/16/16 14:59 Resp 20 06/16/16 14:59 BP 108/74 06/16/16 14:59 Pulse Ox 100 06/16/16 16:21 - Labs Result Diagrams: 06/16/16 11:50 06/16/16 11:46 Labs: Laboratory Results - last 24 hr 06/16/16 06/16/16 06/16/16 11:46 11:50 14:57 WBC 10.1 RBC 4.14 L Hgb 13.8 Hct 41.9 MCV 101.1 H MCH 33.2 H MCHC 32.8 L RDW 13.2 Plt Count 125 L MPV 10.4 Neut % (Auto) 67.8 Lymph % (Auto) 23.1 Emmet % (Auto) 6.8 Eos % (Auto) 1.9 Baso % (Auto) 0.4 Neut # 6.9 Lymph # 2.3 Emmet # 0.7 Eos # 0.2 Baso # 0.0 Differential Comment Sodium 139 Potassium 3.7 Chloride 95 L Carbon Dioxide 26 Anion Gap 22 H BUN 35 H Creatinine 1.2 Est GFR ( Amer) > 60 Est GFR (Non-Af Amer) > 60 Random Glucose 144 H Calcium 8.7 Total Bilirubin 2.1 H Direct Bilirubin 0.8 H AST 147 H D ALT 151 H D Alkaline Phosphatase 136 H D Total Protein 7.4 Albumin 4.1 Globulin 3.3 Albumin/Globulin Ratio 1.2 Urine Color Catie Urine Clarity Clear Urine pH 5.0 Ur Specific [place] 1.039 H Urine Protein 1+ H Urine Glucose (UA) Normal Urine Ketones Negative Urine Blood Negative Urine Nitrate Negative Urine Bilirubin Negative Urine Urobilinogen Normal Ur Leukocyte Esterase Neg Urine WBC (Auto) 1 Urine RBC (Auto) 8 H Assessment & Plan - Assessment and Plan (Free Text) Assessment: Cholecystitis Abd/Pelvis CT - no hernia containing bowel; pericholecystic inflammatory changes ; no gallstones (please see full report) Abdominal US - acalculous cholecystitis (please see full report) tbili 2.1; direct bili 0.8, AST 147, ALT 151, ALP 136 Afebrile No leukocytosis NPO except meds Zosyn 3.375gm IVPB Q6 Flagyl 500mg IVPB Q8 Zofran 4mg IVP Q6 PRN Morphine 2mg IVP Q4H PRN D5-1/2NS @ 100cc/hr Surgery consult - Dr. Maradiaga - help appreciated Dyspnea Likely secondary to pain from cholecystitis CXR - possible RLL infiltrate (f/u official report) H/O CHF Continue home meds: Coreg 3.125mg PO BID Lasix 40mg PO daily Losartan 25mg PO daily Metalazone 5mg PO BID Cardio consult - Dr. Ram - help appreciated Patient high risk for cardiac event during surgery but he is cleared to have the surgery if it is needed per Dr. Ram H/O Afib Rate controlled Continue Coreg 3.125mg PO BID Cardio consult - Dr. Ram - help appreciated Patient high risk for cardiac event during surgery but he is cleared to have the surgery if it is needed per Dr. Ram Holding Xarelto 20mg PO daily for 1-2 days for surgery per Dr. Ram No need for Lovenox or Heparin drip per Dr. Ram H/O hypothyroidism Continue home synthroid 125mcg PO daily H/O umbilical hernia No bowel seen in hernia in CT H/O liver cirrhosis Monitor LFTs Prophylaxis SCDs Xarelto 20mg PO daily - on hold for two days per Dr. Ram for possible surgery Protonix 40mg IVP daily <Wilmer Damon - Last Filed: 06/16/16 19:01> Results - Vital Signs Recent Vital Signs: Last Vital Signs Temp 98.1 F 06/16/16 18:15 Pulse 85 06/16/16 18:15 Resp 18 06/16/16 18:15 BP 106/75 06/16/16 18:15 Pulse Ox 96 06/16/16 18:15 - Labs Result Diagrams: 06/16/16 11:50 06/16/16 11:46 Labs: Laboratory Results - last 24 hr 06/16/16 06/16/16 06/16/16 11:46 11:50 14:57 WBC 10.1 RBC 4.14 L Hgb 13.8 Hct 41.9 MCV 101.1 H MCH 33.2 H MCHC 32.8 L RDW 13.2 Plt Count 125 L MPV 10.4 Neut % (Auto) 67.8 Lymph % (Auto) 23.1 Emmet % (Auto) 6.8 Eos % (Auto) 1.9 Baso % (Auto) 0.4 Neut # 6.9 Lymph # 2.3 Emmet # 0.7 Eos # 0.2 Baso # 0.0 Differential Comment Sodium 139 Potassium 3.7 Chloride 95 L Carbon Dioxide 26 Anion Gap 22 H BUN 35 H Creatinine 1.2 Est GFR ( Amer) > 60 Est GFR (Non-Af Amer) > 60 Random Glucose 144 H Calcium 8.7 Total Bilirubin 2.1 H Direct Bilirubin 0.8 H AST 147 H D ALT 151 H D Alkaline Phosphatase 136 H D Total Creatine Kinase CK-MB (Mass) Troponin I, Quant Total Protein 7.4 Albumin 4.1 Globulin 3.3 Albumin/Globulin Ratio 1.2 Lipase Urine Color Catie Urine Clarity Clear Urine pH 5.0 Ur Specific [place] 1.039 H Urine Protein 1+ H Urine Glucose (UA) Normal Urine Ketones Negative Urine Blood Negative Urine Nitrate Negative Urine Bilirubin Negative Urine Urobilinogen Normal Ur Leukocyte Esterase Neg Urine WBC (Auto) 1 Urine RBC (Auto) 8 H 06/16/16 17:04 WBC RBC Hgb Hct MCV MCH MCHC RDW Plt Count MPV Neut % (Auto) Lymph % (Auto) Emm[place] % (Auto) Eos % (Auto) Baso % (Auto) Neut # Lymph # Emmet # Eos # Baso # Differential Comment Sodium Potassium Chloride Carbon Dioxide Anion Gap BUN Creatinine Est GFR ( Amer) Est GFR (Non-Af Amer) Random Glucose Calcium Total Bilirubin Direct Bilirubin AST ALT Alkaline Phosphatase Total Creatine Kinase 51 L CK-MB (Mass) 0.81 Troponin I, Quant 0.1770 H* Total Protein Albumin Globulin Albumin/Globulin Ratio Lipase 147 Urine Color Urine Clarity Urine pH Ur Specific [place] Urine Protein Urine Glucose (UA) Urine Ketones Urine Blood Urine Nitrate Urine Bilirubin Urine Urobilinogen Ur Leukocyte Esterase Urine WBC (Auto) Urine RBC (Auto) Attending/Attestation - Attestation I have personally seen and examined this patient.: Yes I have fully participated in the care of the patient.: Yes I have reviewed all pertinent clinical information: Yes Notes (Text): Medical Attending: Patient was seen and examined by me with the biomedical service engineer in ER bed 13. The patient reported he was still having abdominal pain - mostly in the epigastric area on exam. He was not in any acute pain, he did not have guarding or rebound, but it was tender with palpation. Per CT there is inflammation and the U/S done by ER is reporting acalculous + sonographic castro sign and thickened wall. His LFTs as well as T billirubin is elevated. Will add on Lipase, also troponin as well. Will need cardiology evaluation as patient does have history of recent instrumentation at [facility] (ablation and AICD adjustment) and his EF only 1 month ago was 20%. He is on Xarelto as well and this was stopped, for now will need to reach out to cardiology to see if patient should be on lovenox or heparin ggt. Also start IV abx for now, check cultures as well. Surgery evaluation in process as well. thank you Wilmer Damon
[2016-06-16] MEDS ORDERED: Piperacillin/Tazobact 3.375 gm 100 ML IVPB ONE (16:49)
[2016-06-16] MEDS ORDERED: metroNIDAZOLE IV 500 mg/100 ml 500 MG/100 ML BAG ONE (17:33)
--- NOTE | 2016-06-16 17:42 | RAD ---
HISTORY: h/o chf COMPARISON: 05/22/2016. FINDINGS: LUNGS: No active pulmonary disease. PLEURA: No significant pleural effusion identified, no pneumothorax apparent. CARDIOVASCULAR: Cardiomegaly, improving CHF Position/ configuration of pacemaker device: Satisfactory. OSSEOUS STRUCTURES: No significant abnormalities. VISUALIZED UPPER ABDOMEN: Normal. OTHER FINDINGS: None. IMPRESSION: Interval improvement in congestive heart failure.
[2016-06-16] MEDS: metroNIDAZOLE IV 500 mg/100 ml 500 MG/100 ML BAG IVPB SCH (17:44)
[2016-06-16] MEDS: Dextrose 5%/0.45% NS 1,000 ML IV SCH (17:44)
[2016-06-16] MEDS: metOLazone 5 MG TAB PO SCH (19:27)
--- NOTE | 2016-06-16 20:07 | CP.PCM.CON ---
History of Present Illness - History of Present Illness History of Present Illness: GENERAL SURGERY CONSULT NOTE FOR DR. IVAN Nicholson with PMHx of CHF, cardiomyopathy with AICD, A fib on Xarelto presents to the ED with abdominal pain. He has had bilateral lower abdominal pain for 2 weeks that is worsening. He denies nausea or vomiting or diarrhea. The pain is worse after eating any type of food. The pain occurs every day after eating. The pain resolves with laying supine and worsens with sitting, walking, or eating. He has associated decreased appetite. Of note, he was previously admitted on 05/21/16-05/24/16 for symptomatic cardiac arrhythmia and AICD malfunction. He was evaluated by his digester operator, Dr. Ram and had a DONAVAN which found left atrial thrombus. He had a cardiac ablation at [place] in late May. PMHx: CHF, cardiomyopathy with AICD, A fib on Xarelto, hypothyroidism, periumbilical hernia, cirrhosis Surgeries: AICD, ablation May 2016 at [place], Right thoracentesis Allergies: none Social history: former heavy alcohol use, quit 10-15 years ago, former smoker, quit 10-15 years ago, denies illicit drug use Review of Systems - Review of Systems All systems: reviewed and no additional remarkable complaints except (as per HPI ) Past Patient History - Infectious Disease Hx of Infectious Diseases: None - Tetanus Immunizations Tetanus Immunization: Unknown - Past Medical History & Family History Past Medical History?: Yes Past Family History: Reviewed and not pertinent - Past Social History Smoking Status: Former Smoker Alcohol: None Drugs: Denies - CARDIAC Hx Congestive Heart Failure: Yes Hx Pacemaker: Yes (AICD) - PULMONARY Hx Pneumonia: Yes - NEUROLOGICAL Hx Neurological Disorder: No - HEENT Hx HEENT Problems: No - RENAL Hx Chronic Kidney Disease: No - ENDOCRINE/METABOLIC Hx Hypothyroidism: Yes - HEMATOLOGICAL/ONCOLOGICAL Hx Blood Disorders: Yes Hx Cirrhosis: Yes - INTEGUMENTARY Hx Dermatological Problems: No - MUSCULOSKELETAL/RHEUMATOLOGICAL Hx Musculoskeletal Disorders: No Hx Falls: No - GASTROINTESTINAL Hx Gastrointestinal Disorders: Yes Hx Constipation: Yes - GENITOURINARY/GYNECOLOGICAL Hx Genitourinary Disorders: No - PSYCHIATRIC Hx Substance Use: No - SURGICAL HISTORY Hx Surgeries: Yes Other/Comment: AICD placement 02/09/2015 - ANESTHESIA Hx Anesthesia: Yes Hx Anesthesia Reactions: No Hx Malignant Hyperthermia: No Meds Allergies/Adverse Reactions: Allergies Allergy/AdvReac Type Severity Reaction Status Date / Time No Known Allergies Allergy Verified 06/16/16 10:34 - Medications Medications: Current Medications Carvedilol (Coreg) 3.125 mg PO BID [facility] Last Admin: 06/16/16 19:27 Dose: 3.125 mg Furosemide (Lasix) 40 mg PO DAILY [facility] Dextrose/Sodium Chloride (Dextrose 5%/0.45% Ns 1000 Ml) 1,000 mls @ 100 mls/hr IV .Q10H [facility] Last Admin: 06/16/16 17:44 Dose: 100 mls/hr Metronidazole (Flagyl) 500 mg in 100 mls @ 100 mls/hr IVPB Q8H [facility] Last Admin: 06/16/16 17:44 Dose: 100 mls/hr Piperacillin Sod/Tazobactam (Sod 3.375 gm/ Sodium Chloride) 100 mls @ 200 mls/ hr IVPB Q6H [facility] Levothyroxine Sodium (Synthroid) 125 mcg PO DAILY@0630 [facility] Losartan Potassium (Cozaar) 25 mg PO DAILY [facility] Metolazone (Zaroxolyn) 5 mg PO BID [facility] Last Admin: 06/16/16 19:27 Dose: 5 mg Morphine Sulfate (Morphine) 2 mg IVP Q4H PRN PRN Reason: Pain, moderate (4-7) Ondansetron HCl (Zofran Inj) 4 mg IVP Q6 PRN PRN Reason: Nausea/Vomiting Pantoprazole Sodium (Protonix Inj) 40 mg IVP DAILY [facility] Last Admin: 06/16/16 19:27 Dose: 40 mg Potassium Chloride (K-Dur 20 Meq Er Tab) 20 meq PO DAILY [facility] Physical Exam - Constitutional Appears: Well, Non-toxic, No Acute Distress - Head Exam Head Exam: ATRAUMATIC, NORMAL INSPECTION - Respiratory Exam Respiratory Exam: NORMAL BREATHING PATTERN. absent: Respiratory Distress - Cardiovascular Exam Cardiovascular Exam: +S1, +S2 - GI/Abdominal Exam GI & Abdominal Exam: Hernia (non tender, reducible umbilical hernia), Soft, Tenderness (tender in epigastric/RUQ area). absent: Distended, Firm, Guarding - Neurological Exam Neurological exam: Alert, CN II-XII Intact, Oriented x3 - Psychiatric Exam Psychiatric exam: Normal Affect, Normal Mood - Skin Skin Exam: Dry, Warm Results - Vital Signs Recent Vital Signs: Last Vital Signs Temp 98.1 F 06/16/16 18:15 Pulse 85 06/16/16 18:15 Resp 18 06/16/16 18:15 BP 106/75 06/16/16 18:15 Pulse Ox 96 06/16/16 18:15 - Labs Result Diagrams: 06/16/16 11:50 06/16/16 11:46 Labs: Laboratory Results - last 24 hr 06/16/16 06/16/16 06/16/16 11:46 11:50 14:57 WBC 10.1 RBC 4.14 L Hgb 13.8 Hct 41.9 MCV 101.1 H MCH 33.2 H MCHC 32.8 L RDW 13.2 Plt Count 125 L MPV 10.4 Neut % (Auto) 67.8 Lymph % (Auto) 23.1 Harmon % (Auto) 6.8 Eos % (Auto) 1.9 Baso % (Auto) 0.4 Neut # 6.9 Lymph # 2.3 Harmon # 0.7 Eos # 0.2 Baso # 0.0 Differential Comment Sodium 139 Potassium 3.7 Chloride 95 L Carbon Dioxide 26 Anion Gap 22 H BUN 35 H Creatinine 1.2 Est GFR ( Amer) > 60 Est GFR (Non-Af Amer) > 60 Random Glucose 144 H Calcium 8.7 Total Bilirubin 2.1 H Direct Bilirubin 0.8 H AST 147 H D ALT 151 H D Alkaline Phosphatase 136 H D Total Creatine Kinase CK-MB (Mass) Troponin I, Quant Total Protein 7.4 Albumin 4.1 Globulin 3.3 Albumin/Globulin Ratio 1.2 Lipase Urine Color Catie Urine Clarity Clear Urine pH 5.0 Ur Specific [place] 1.039 H Urine Protein 1+ H Urine Glucose (UA) Normal Urine Ketones Negative Urine Blood Negative Urine Nitrate Negative Urine Bilirubin Negative Urine Urobilinogen Normal Ur Leukocyte Esterase Neg Urine WBC (Auto) 1 Urine RBC (Auto) 8 H 06/16/16 17:04 WBC RBC Hgb Hct MCV MCH MCHC RDW Plt Count MPV Neut % (Auto) Lymph % (Auto) Harmon % (Auto) Eos % (Auto) Baso % (Auto) Neut # Lymph # Harmon # Eos # Baso # Differential Comment Sodium Potassium Chloride Carbon Dioxide Anion Gap BUN Creatinine Est GFR ( Amer) Est GFR (Non-Af Amer) Random Glucose Calcium Total Bilirubin Direct Bilirubin AST ALT Alkaline Phosphatase Total Creatine Kinase 51 L CK-MB (Mass) 0.81 Troponin I, Quant 0.1770 H* Total Protein Albumin Globulin Albumin/Globulin Ratio Lipase 147 Urine Color Urine Clarity Urine pH Ur Specific [place] Urine Protein Urine Glucose (UA) Urine Ketones Urine Blood Urine Nitrate Urine Bilirubin Urine Urobilinogen Ur Leukocyte Esterase Urine WBC (Auto) Urine RBC (Auto) Assessment & Plan - Assessment and Plan (Free Text) Assessment: 65yo M with PMHx of CHF, cardiomyopathy with AICD, A fib on Xarelto present with abdominal pain and is found to have acalculous cholecystitis - Afebrile, VSS - T bili elevated at 2.1 (was 2.4 on 05/24/16) - LFTs elevated - Alk phos 136 - CT: bilateral pleural effusions; pericholecystic stranding, inflammatory changes, no stones seen; periumbilical hernia containing fat only; bilateral fat containing inguinal hernias - US: gallbladder wall thickening, positive sonographic [place] sign, acalculous cholecystitis, CBD 3.4mm - NPO - IV fluids - Zofran and Morphine PRN - IV Abx - Dr. Ram consulted: patient is high risk for cardiac event during surgery but is cleared to have the surgery if it is needed - Per Dr. Ram, hold Xarelto for 1-2 days before surgery - GI consulted for elevated bili, LFTs, cirrhosis - Would like MRCP but patient has AICD - Discussed plan with Dr. Ivan Mendiola PGY-2
[2016-06-16] MEDS: Piperacillin/Tazobact 3.375 GM in Sodium Chloride 100 ML IVPB SCH (22:24)
[2016-06-17] MEDS: metroNIDAZOLE IV 500 mg/100 ml 500 MG/100 ML BAG IVPB SCH ×3 (00:36→17:14)
[2016-06-17] MEDS: Piperacillin/Tazobact 3.375 GM in Sodium Chloride 100 ML IVPB SCH ×4 (03:31→22:15)
[2016-06-17] MEDS: Dextrose 5%/0.45% NS 1,000 ML IV SCH ×3 (03:43→13:20)
[2016-06-17] MEDS: Levothyroxine 125 MCG TAB PO SCH (06:14)
[2016-06-17 06:55] LABS: CHLORIDE 96 mmol/L (98-107)
[2016-06-17 06:56] LABS: POTASSIUM 3.3 mmol/L (3.6-5.2); SODIUM 134 mmol/L (132-148)
[2016-06-17 06:58] LABS: ALKALINE PHOSPHATASE 102 U/L (38-126); AST/SGOT 56 U/L (17-59); BILIRUBIN,TOTAL 2.1 mg/dL (0.2-1.3); BLOOD UREA NITROGEN 28 mg/dL (9-20); CARBON DIOXIDE 29 mmol/L (22-30); GFR AFRICAN-AMERICAN > 60; GLUCOSE,RANDOM 121 mg/dL (75-110); TOTAL PROTEIN 6.3 g/dL (6.3-8.3)
[2016-06-17 06:59] LABS: ALT/SGPT 115 U/L (21-72); CALCIUM 8.3 mg/dl (8.6-10.4)
[2016-06-17 07:05] LABS: BASO % 0.5 % (0.0-2.0); EOS # 0.2 K/uL (0.0-0.7); EOS % 2.2 % (0.0-4.0); LYMPH # 1.3 K/uL (1.0-4.3); LYMPH % 17.2 % (20.0-40.0); MEAN CELL VOLUME 100.6 fL (80.0-94.0); MEAN CORPUSCULAR HEMOGLOBIN 33.4 pg (27.0-31.0); MEAN CORPUSCULAR HGB CONC 33.2 g/dL (33.0-37.0); MEAN PLATELET VOLUME 10.1 fL (7.2-11.7); MONO # 0.8 K/uL (0.0-0.8); MONO % 10.6 % (0.0-10.0); RED CELL DISTRIBUTION WIDTH 13.1 % (11.5-14.5); WHITE BLOOD COUNT 7.6 K/uL (4.8-10.8)
[2016-06-17 07:14] LABS: INR 1.5
--- NOTE | 2016-06-17 08:07 | CP.PCM.PN ---
Subjective - Date & Time of Evaluation Date of Evaluation: 06/17/16 Time of Evaluation: 08:02 - Subjective Subjective: PGY1 Progress note for Dr. Maradiaga Patient seen and examined. Patient complaining of pain in abdomen mostly around umbilicus. Patient states pain medication is helping. Patient reports BM/ flatus. Objective - Vital Signs/Intake and Output Vital Signs (last 24 hours): Temp Pulse Resp BP Pulse Ox 97.5 F L 81 20 97/70 L 95 06/17/16 04:36 06/17/16 04:36 06/17/16 04:36 06/17/16 04:36 06/16/16 23:11 Intake and Output: 06/17/16 06/17/16 06:59 18:59 Intake Total 900 Output Total 400 Balance 500 - Medications Medications: Current Medications Carvedilol (Coreg) 3.125 mg PO BID [facility] Last Admin: 06/16/16 19:27 Dose: 3.125 mg Furosemide (Lasix) 40 mg PO DAILY [facility] Dextrose/Sodium Chloride (Dextrose 5%/0.45% Ns 1000 Ml) 1,000 mls @ 100 mls/hr IV .Q10H [facility] Last Admin: 06/17/16 03:43 Dose: Not Given Metronidazole (Flagyl) 500 mg in 100 mls @ 100 mls/hr IVPB Q8H [facility] Last Admin: 06/17/16 00:36 Dose: 100 mls/hr Piperacillin Sod/Tazobactam (Sod 3.375 gm/ Sodium Chloride) 100 mls @ 200 mls/ hr IVPB Q6H [facility] Last Admin: 06/17/16 03:31 Dose: 200 mls/hr Levothyroxine Sodium (Synthroid) 125 mcg PO DAILY@0630 [facility] Last Admin: 06/17/16 06:14 Dose: 125 mcg Losartan Potassium (Cozaar) 25 mg PO DAILY [facility] Metolazone (Zaroxolyn) 5 mg PO BID [facility] Last Admin: 06/16/16 19:27 Dose: 5 mg Morphine Sulfate (Morphine) 2 mg IVP Q4H PRN PRN Reason: Pain, moderate (4-7) Last Admin: 06/17/16 04:30 Dose: 2 mg Ondansetron HCl (Zofran Inj) 4 mg IVP Q6 PRN PRN Reason: Nausea/Vomiting Pantoprazole Sodium (Protonix Inj) 40 mg IVP DAILY [facility] Last Admin: 06/16/16 19:27 Dose: 40 mg Potassium Chloride (K-Dur 20 Meq Er Tab) 20 meq PO DAILY [facility] - Labs Labs: 06/17/16 06:20 06/17/16 06:20 PT 17.3 SECONDS (9.7-12.2) H 06/17/16 06:20 INR 1.5 06/17/16 06:20 APTT 25 SECONDS (21-34) 06/17/16 06:20 - Constitutional Appears: Non-toxic, No Acute Distress - Head Exam Head Exam: ATRAUMATIC, NORMOCEPHALIC - Eye Exam Eye Exam: EOMI - Respiratory Exam Respiratory Exam: NORMAL BREATHING PATTERN - GI/Abdominal Exam GI & Abdominal Exam: absent: Distended Additional comments: reducible umbilical hernia, soft, mild periumbilical tenderness to palpation, mild RUQ tenderness - Neurological Exam Neurological Exam: Alert, Awake - Skin Skin Exam: Dry, Warm Assessment and Plan - Assessment and Plan (Free Text) Assessment: 65yo M with PMHx of CHF, cardiomyopathy with AICD, A fib on Xarelto present with abdominal pain and is found to have acalculous cholecystitis - Afebrile, VSS - T bili remains elevated at 2.1 (was 2.4 on 05/24/16) - LFTs trending down - Alk phos trending down from 136 to 102 - CT: bilateral pleural effusions; pericholecystic stranding, inflammatory changes, no stones seen; periumbilical hernia containing fat only; bilateral fat containing inguinal hernias - US: gallbladder wall thickening, positive sonographic [place] sign, acalculous cholecystitis, CBD 3.4mm - NPO, IV fluids, Zofran and Morphine PRN - IV Abx per primary team - Dr. Ram consulted: patient is high risk for cardiac event during surgery but is cleared to have the surgery if it is needed - Per Dr. Ram, hold Xarelto for 1-2 days before surgery - GI consulted for elevated bili, LFTs, cirrhosis - per Dr. 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 Maradiaga
[2016-06-17] MEDS: Potassium Chloride 20 mEq ER Tab PO SCH (09:19)
[2016-06-17] MEDS: metOLazone 5 MG TAB PO SCH ×2 (09:19→18:07)
--- NOTE | 2016-06-17 10:54 | CP.PCM.CON ---
<Alvaro Castro - Last Filed: 06/17/16 16:24> History of Present Illness - History of Present Illness History of Present Illness: Cardiac Consultation Note Dr. Ram CC: Cardiac Clearance for Surgery HPI: This patient is a 65 year old male with past medical history of CHF, liver cirrhosis, cardiomyopathy, hypothyroidism, atrial fibrillation, and AICD who presents for cardiac evaluation for clearance for cholecystectomy. This patient presented to the ER yesterday (06/16/16) with diffuse abdominal pain worse with eating for the past 2 weeks. He states that he last had chest pain 2 weeks ago that was worse with walking and associated with SOB. He reports that the chest pain did not change with palpation, respiration, and change in body position. He reports positive orthopnea, difficulty walking a half a block without taking a break due to SOB, and sometimes SOB when getting dressed. Patient denies fevers/chills, diarrhea/ constipation, difficulty urinating, and extremity swelling. Patient reports abdominal pain, nausea, and retching. PMHx: CHF, liver cirrhosis, cardiomyopathy, hypothyroidism, atrial fibrillation Allergies: none Past surgeries: AICD, ablation (May 2016), Right thoracentesis Family Hx: no known cardiac Hx Social: past smoker 8-15 pack year. Former alcohol abuse (quit 10-15 years ago) . Denies drug use. PMD: Dr. Carroll Echo: (05/24/16) EF: <20%, thrombus is left atrial appendage. EKG: (06/17/16) Demand pacemaker, occasional PVCs (05/22/16) Demand pacemaker, interpretation based on intrinsic rhythm, nonspecific intraventricular block, T wave abnormality, consider interolateral ischemia Serial Troponins: (06/17/16) Troponin 1: 0.1770, Troponin 2: 0.1530, Troponin 3: 0.1580 BNP: (05/15/16) 3,780 Detsky score:55 (high risk) Hipolito score:> 11% (high risk) Urias score: 42 (class IV- 78% complications) Review of Systems - Constitutional Constitutional: Daytime Sleepiness, Lethargy, Malaise, Weakness. absent: Anorexia, Chills, Fever, Headache - EENT Eyes: absent: Blurred Vision, Diplopia Ears: absent: Decreased Hearing Nose/Mouth/Throat: absent: Sinus Pressure, Change in Voice, Hoarsness - Cardiovascular Cardiovascular: Chest Pain, Chest Pain with Activity, Dyspnea on Exertion. absent: Chest Pain at Rest, Dyspnea, Orthopnea, Palpitations, Rapid Heart Rate - Respiratory Respiratory: Dyspnea on Exertion. absent: Cough, Wheezing, Stridor - Gastrointestinal Gastrointestinal: Abdominal Pain, Nausea, Vomiting. absent: Constipation, Diarrhea Additional comments: Retching - Genitourinary Genitourinary: absent: Difficulty Urinating, Dysuria, Urinary Frequency - Musculoskeletal Musculoskeletal: absent: Back Pain, Muscle Cramps, Muscle Weakness, Numbness, Tingling - Neurological Neurological: absent: Confusion, Headaches, Syncope, Tremor, Weakness - Endocrine Endocrine: absent: Palpitations, Polydipsia, Polyphagia, Polyuria Past Patient History - Infectious Disease Hx of Infectious Diseases: None - Tetanus Immunizations Tetanus Immunization: Unknown - Past Medical History & Family History Past Medical History?: Yes - Past Social History Smoking Status: Former Smoker - CARDIAC Hx Cardiac Disorders: Yes Hx Congestive Heart Failure: Yes Hx Pacemaker: Yes (AICD) - PULMONARY Hx Respiratory Disorders: Yes Hx Pneumonia: Yes - NEUROLOGICAL Hx Neurological Disorder: No - HEENT Hx HEENT Problems: No - RENAL Hx Chronic Kidney Disease: No - ENDOCRINE/METABOLIC Hx Endocrine Disorders: Yes Hx Hypothyroidism: Yes - HEMATOLOGICAL/ONCOLOGICAL Hx Blood Disorders: Yes Hx Cirrhosis: Yes - INTEGUMENTARY Hx Dermatological Problems: No - MUSCULOSKELETAL/RHEUMATOLOGICAL Hx Musculoskeletal Disorders: No Hx Falls: No - GASTROINTESTINAL Hx Gastrointestinal Disorders: Yes Hx Constipation: Yes - GENITOURINARY/GYNECOLOGICAL Hx Genitourinary Disorders: No - PSYCHIATRIC Hx Psychophysiologic Disorder: No Hx Substance Use: No - SURGICAL HISTORY Hx Surgeries: Yes Other/Comment: AICD placement 02/09/2015 - ANESTHESIA Hx Anesthesia: Yes Hx Anesthesia Reactions: No Hx Malignant Hyperthermia: No Meds Allergies/Adverse Reactions: Allergies Allergy/AdvReac Type Severity Reaction Status Date / Time No Known Allergies Allergy Verified 06/16/16 10:34 - Medications Medications: Current Medications Carvedilol (Coreg) 3.125 mg PO BID [facility] Last Admin: 06/16/16 19:27 Dose: 3.125 mg Dextrose/Sodium Chloride (Dextrose 5%/0.45% Ns 1000 Ml) 1,000 mls @ 100 mls/hr IV .Q10H [facility] Last Admin: 06/17/16 09:22 Dose: 100 mls/hr Metronidazole (Flagyl) 500 mg in 100 mls @ 100 mls/hr IVPB Q8H [facility] Last Admin: 06/17/16 09:37 Dose: 100 mls/hr Piperacillin Sod/Tazobactam (Sod 3.375 gm/ Sodium Chloride) 100 mls @ 200 mls/ hr IVPB Q6H [facility] Last Admin: 06/17/16 03:31 Dose: 200 mls/hr Levothyroxine Sodium (Synthroid) 125 mcg PO DAILY@0630 [facility] Last Admin: 06/17/16 06:14 Dose: 125 mcg Losartan Potassium (Cozaar) 25 mg PO DAILY [facility] Last Admin: 06/17/16 09:19 Dose: 25 mg Metolazone (Zaroxolyn) 5 mg PO BID [facility] Last Admin: 06/17/16 09:19 Dose: 5 mg Morphine Sulfate (Morphine) 2 mg IVP Q4H PRN PRN Reason: Pain, moderate (4-7) Last Admin: 06/17/16 04:30 Dose: 2 mg Ondansetron HCl (Zofran Inj) 4 mg IVP Q6 PRN PRN Reason: Nausea/Vomiting Pantoprazole Sodium (Protonix Inj) 40 mg IVP DAILY [facility] Last Admin: 06/17/16 09:19 Dose: 40 mg Potassium Chloride (K-Dur 20 Meq Er Tab) 20 meq PO DAILY [facility] Last Admin: 06/17/16 09:19 Dose: 20 meq Physical Exam - Constitutional Appears: In Acute Distress - Head Exam Head Exam: NORMAL INSPECTION - Eye Exam Eye Exam: Normal appearance. absent: Conjunctival injection, Periorbital swelling - Neck Exam Neck exam: Positive for: Normal Inspection - Respiratory Exam Respiratory Exam: NORMAL BREATHING PATTERN. absent: Accessory Muscle Use, Chest Wall Tenderness, Decreased Breath Sounds, Rales, Rhonchi, Wheezes, Respiratory Distress, Stridor - Cardiovascular Exam Cardiovascular Exam: Irregular Rhythm, +S1, +S2. absent: REGULAR RHYTHM, JVD - GI/Abdominal Exam GI & Abdominal Exam: Guarding, Hyperactive Bowel Sounds Additional comments: upper right quadrant Positive [place] sign - Extremities Exam Extremities exam: Positive for: normal inspection, pedal pulses present. Negative for: pedal edema - Back Exam Back exam: FULL ROM, NORMAL INSPECTION - Neurological Exam Neurological exam: Alert, Oriented x3 - Skin Skin Exam: Dry, Intact, Normal Color, Warm Results - Vital Signs Recent Vital Signs: Last Vital Signs Temp 97.3 F L 06/17/16 08:34 Pulse 76 06/17/16 09:18 Resp 20 06/17/16 08:34 BP 110/73 06/17/16 09:20 Pulse Ox 99 06/17/16 08:34 - Labs Result Diagrams: 06/17/16 06:20 06/17/16 06:20 Labs: Laboratory Results - last 24 hr 06/17/16 06/17/16 06/17/16 00:27 06:20 06:20 WBC 7.6 RBC 3.88 L Hgb 12.9 Hct 39.0 MCV 100.6 H MCH 33.4 H MCHC 33.2 RDW 13.1 Plt Count 106 L MPV 10.1 Neut % (Auto) 69.5 Lymph % (Auto) 17.2 L [place] % (Auto) 10.6 H Eos % (Auto) 2.2 Baso % (Auto) 0.5 Neut # 5.2 Lymph # 1.3 [place]at # 0.8 Eos # 0.2 Baso # 0.0 PT 17.3 H INR 1.5 APTT 25 Sodium Potassium Chloride Carbon Dioxide Anion Gap BUN Creatinine Est GFR ( Amer) Est GFR (Non-Af Amer) Random Glucose Calcium Total Bilirubin AST ALT Alkaline Phosphatase Total Creatine Kinase 50 L CK-MB (Mass) 0.99 Troponin I, Quant 0.1530 H* Total Protein Albumin Globulin Albumin/Globulin Ratio 06/17/16 06/17/16 06:20 06:20 WBC RBC Hgb Hct MCV MCH MCHC RDW Plt Count MPV Neut % (Auto) Lymph % (Auto) [place] % (Auto) Eos % (Auto) Baso % (Auto) Neut # Lymph # [place] # Eos # Baso # PT INR APTT Sodium 134 Potassium 3.3 L Chloride 96 L Carbon Dioxide 29 Anion Gap 12 BUN 28 H Creatinine 1.2 Est GFR ( Amer) > 60 Est GFR (Non-Af Amer) > 60 Random Glucose 121 H Calcium 8.3 L Total Bilirubin 2.1 H AST 56 ALT 115 H D Alkaline Phosphatase 102 Total Creatine Kinase 49 L CK-MB (Mass) 1.10 Troponin I, Quant 0.1580 H* Total Protein 6.3 Albumin 3.1 L D Globulin 3.2 Albumin/Globulin Ratio 1.0 Assessment & Plan (1) Preoperative clearance Assessment and Plan: Echo: (05/24/16) EF: <20%, thrombus is left atrial appendage. EKG: (05/22/16) Demand pacemaker, interpretation based on intrinsic rhythm, nonspecific intraventricular block, T wave abnormality, consider interolateral ischemia (06/17/16) Ventricularly paced rhythm with PVCs, wide QRS, prolonged QTc Serial Troponins: 1: (06/16/16)0.1770 2:(06/16/16) 0.1530 3: (06/17/16)0.1580 Detsky score:55 (high risk) Hipolito score:> 11% (high risk) Urias score: 42 (class IV- 78% complications) High risk patient for surgery, however benefit of procedure outweighs risks. Continue with preoperative SCIP protocols and measures Case discussed with Dr. Ram Status: Acute <Jennyfer Ram - Last Filed: 07/03/16 12:27> Results - Vital Signs Recent Vital Signs: Last Vital Signs Temp 97.8 F 06/26/16 20:00 Pulse 84 06/26/16 22:10 Resp 19 06/26/16 22:10 BP 102/75 06/26/16 21:17 Pulse Ox 93 L 06/26/16 22:10 - Labs Result Diagrams: 06/27/16 06:00 06/27/16 06:00 Attending/Attestation - Attestation I have personally seen and examined this patient.: Yes I have fully participated in the care of the patient.: Yes I have reviewed all pertinent clinical information: Yes Notes (Text): 07/03/16 12:03 tx to [facility] eval inotrope dependent
--- NOTE | 2016-06-17 16:28 | CP.PCM.CON ---
History of Present Illness - History of Present Illness History of Present Illness: CC: Abdominal pain HPI: GI Service consult requested for this 65 year old man with severe cardiomyopathy admitted for 2 weeks of intermittent burning upper and mid abdominal pain associated with nausea and radiation to chest, usually occuring after meals. Sonogram and CT showed pericholecystic fluid, but no gallstones, and a sonographic [place] sign was noted as well. Patient was seen by Surgery, and HIDA scan is requested for further evaluation. Initial LFTs were elevated in a hepatocellular pattern and mild total bilirubin elevation, mostly indirect . Review of Systems - Constitutional Constitutional: absent: Chills, Fever - Cardiovascular Cardiovascular: Chest Pain, Dyspnea, Dyspnea on Exertion - Respiratory Respiratory: Dyspnea on Exertion - Gastrointestinal Gastrointestinal: Abdominal Pain, Bloating, Nausea Past Patient History - Infectious Disease Hx of Infectious Diseases: None - Tetanus Immunizations Tetanus Immunization: Unknown - Past Medical History & Family History Past Medical History?: Yes - Past Social History Smoking Status: Former Smoker - CARDIAC Hx Cardiac Disorders: Yes Hx Congestive Heart Failure: Yes Hx Pacemaker: Yes (AICD) - PULMONARY Hx Respiratory Disorders: Yes Hx Pneumonia: Yes - NEUROLOGICAL Hx Neurological Disorder: No - HEENT Hx HEENT Problems: No - RENAL Hx Chronic Kidney Disease: No - ENDOCRINE/METABOLIC Hx Endocrine Disorders: Yes Hx Hypothyroidism: Yes - HEMATOLOGICAL/ONCOLOGICAL Hx Blood Disorders: Yes Hx Cirrhosis: Yes - INTEGUMENTARY Hx Dermatological Problems: No - MUSCULOSKELETAL/RHEUMATOLOGICAL Hx Musculoskeletal Disorders: No Hx Falls: No - GASTROINTESTINAL Hx Gastrointestinal Disorders: Yes Hx Constipation: Yes - GENITOURINARY/GYNECOLOGICAL Hx Genitourinary Disorders: No - PSYCHIATRIC Hx Psychophysiologic Disorder: No Hx Substance Use: No - SURGICAL HISTORY Hx Surgeries: Yes Other/Comment: AICD placement 02/09/2015 - ANESTHESIA Hx Anesthesia: Yes Hx Anesthesia Reactions: No Hx Malignant Hyperthermia: No Meds Allergies/Adverse Reactions: Allergies Allergy/AdvReac Type Severity Reaction Status Date / Time No Known Allergies Allergy Verified 06/16/16 10:34 - Medications Medications: Current Medications Carvedilol (Coreg) 3.125 mg PO BID [facility] Last Admin: 06/16/16 19:27 Dose: 3.125 mg Dextrose/Sodium Chloride (Dextrose 5%/0.45% Ns 1000 Ml) 1,000 mls @ 100 mls/hr IV .Q10H [facility] Last Admin: 06/17/16 13:20 Dose: Not Given Metronidazole (Flagyl) 500 mg in 100 mls @ 100 mls/hr IVPB Q8H [facility] Last Admin: 06/17/16 09:37 Dose: 100 mls/hr Piperacillin Sod/Tazobactam (Sod 3.375 gm/ Sodium Chloride) 100 mls @ 200 mls/ hr IVPB Q6H [facility] Last Admin: 06/17/16 11:00 Dose: 200 mls/hr Levothyroxine Sodium (Synthroid) 125 mcg PO DAILY@0630 [facility] Last Admin: 06/17/16 06:14 Dose: 125 mcg Losartan Potassium (Cozaar) 25 mg PO DAILY [facility] Last Admin: 06/17/16 09:19 Dose: 25 mg Metolazone (Zaroxolyn) 5 mg PO BID [facility] Last Admin: 06/17/16 09:19 Dose: 5 mg Morphine Sulfate (Morphine) 2 mg IVP Q4H PRN PRN Reason: Pain, moderate (4-7) Last Admin: 06/17/16 04:30 Dose: 2 mg Ondansetron HCl (Zofran Inj) 4 mg IVP Q6 PRN PRN Reason: Nausea/Vomiting Last Admin: 06/17/16 12:20 Dose: 4 mg Pantoprazole Sodium (Protonix Inj) 40 mg IVP DAILY [facility] Last Admin: 06/17/16 09:19 Dose: 40 mg Potassium Chloride (K-Dur 20 Meq Er Tab) 20 meq PO DAILY [facility] Last Admin: 06/17/16 09:19 Dose: 20 meq Physical Exam - Constitutional Appears: Well, No Acute Distress - Head Exam Head Exam: NORMOCEPHALIC - Eye Exam Eye Exam: Normal appearance. absent: Scleral icterus - Neck Exam Neck exam: Positive for: Normal Inspection - Respiratory Exam Respiratory Exam: NORMAL BREATHING PATTERN - Cardiovascular Exam Cardiovascular Exam: REGULAR RHYTHM - GI/Abdominal Exam GI & Abdominal Exam: Soft, Tenderness (RUQ tenderness.. Epigastric tenderness. Castro's sign positive) Results - Vital Signs Recent Vital Signs: Last Vital Signs Temp 97.3 F L 06/17/16 08:34 Pulse 80 06/17/16 14:42 Resp 20 06/17/16 08:34 BP 106/72 06/17/16 14:42 Pulse Ox 99 06/17/16 08:34 - Labs Result Diagrams: 06/17/16 06:20 06/17/16 06:20 Labs: Laboratory Results - last 24 hr 06/17/16 06/17/16 06/17/16 00:27 06:20 06:20 WBC 7.6 RBC 3.88 L Hgb 12.9 Hct 39.0 MCV 100.6 H MCH 33.4 H MCHC 33.2 RDW 13.1 Plt Count 106 L MPV 10.1 Neut % (Auto) 69.5 Lymph % (Auto) 17.2 L Allen % (Auto) 10.6 H Eos % (Auto) 2.2 Baso % (Auto) 0.5 Neut # 5.2 Lymph # 1.3 Allen # 0.8 Eos # 0.2 Baso # 0.0 PT 17.3 H INR 1.5 APTT 25 Sodium Potassium Chloride Carbon Dioxide Anion Gap BUN Creatinine Est GFR ( Amer) Est GFR (Non-Af Amer) Random Glucose Calcium Total Bilirubin AST ALT Alkaline Phosphatase Total Creatine Kinase 50 L CK-MB (Mass) 0.99 Troponin I, Quant 0.1530 H* Total Protein Albumin Globulin Albumin/Globulin Ratio 06/17/16 06/17/16 06:20 06:20 WBC RBC Hgb Hct MCV MCH MCHC RDW Plt Count MPV Neut % (Auto) Lymph % (Auto) Allen % (Auto) Eos % (Auto) Baso % (Auto) Neut # Lymph # Allen # Eos # Baso # PT INR APTT Sodium 134 Potassium 3.3 L Chloride 96 L Carbon Dioxide 29 Anion Gap 12 BUN 28 H Creatinine 1.2 Est GFR ( Amer) > 60 Est GFR (Non-Af Amer) > 60 Random Glucose 121 H Calcium 8.3 L Total Bilirubin 2.1 H AST 56 ALT 115 H D Alkaline Phosphatase 102 Total Creatine Kinase 49 L CK-MB (Mass) 1.10 Troponin I, Quant 0.1580 H* Total Protein 6.3 Albumin 3.1 L D Globulin 3.2 Albumin/Globulin Ratio 1.0 Assessment & Plan (1) Abnormal liver enzymes Assessment and Plan: Chronic liver disease with acute cholecystitis superimposed. Likely chronic alcoholic liver disease. Gilbert's Syndrome. Check Hepatitis profile Status: Acute (2) Acalculous cholecystitis Assessment and Plan: Exam is consistent with cholecystitis however gallstones are not seen on radiologic exams. Consider peptic pain. Agree with getting HIDA scan Add Protonix Status: Acute (3) CHF (congestive heart failure) Assessment and Plan: Managed by Cardiology Status: Chronic (4) Cardiomyopathy Assessment and Plan: Managed by Cardiology Status: Chronic - Date & Time Date: 06/17/16 Time: 16:33
--- NOTE | 2016-06-17 18:01 | CP.PCM.PN ---
<Alireza Whitmore - Last Filed: 06/17/16 18:02> Subjective - Date & Time of Evaluation Date of Evaluation: 06/17/16 Time of Evaluation: 18:00 - Subjective Subjective: Medicine progress note. Attending: Dr. Herrera Pt seen and examined at bedside. No acute distress, but pt was given nasal cannula and given dose of lasix tomorrow. Pt is pending sx for cholecystitis and is being evaluated by cardiology for sx. Denies fevers, chills, nausea, vomiting, diarrhea. No events overnight. Objective - Vital Signs/Intake and Output Vital Signs (last 24 hours): Temp Pulse Resp BP Pulse Ox 97.7 F 70 18 93/67 L 96 06/17/16 15:33 06/17/16 16:00 06/17/16 15:33 06/17/16 15:33 06/17/16 15:33 Intake and Output: 06/17/16 06/17/16 06:59 18:59 Intake Total 900 800 Output Total 400 Balance 500 800 - Medications Medications: Current Medications Carvedilol (Coreg) 3.125 mg PO BID [facility] Last Admin: 06/16/16 19:27 Dose: 3.125 mg Dextrose/Sodium Chloride (Dextrose 5%/0.45% Ns 1000 Ml) 1,000 mls @ 100 mls/hr IV .Q10H [facility] Last Admin: 06/17/16 13:20 Dose: Not Given Metronidazole (Flagyl) 500 mg in 100 mls @ 100 mls/hr IVPB Q8H [facility] Last Admin: 06/17/16 17:14 Dose: 100 mls/hr Piperacillin Sod/Tazobactam (Sod 3.375 gm/ Sodium Chloride) 100 mls @ 200 mls/ hr IVPB Q6H [facility] Last Admin: 06/17/16 16:40 Dose: 200 mls/hr Levothyroxine Sodium (Synthroid) 125 mcg PO DAILY@0630 [facility] Last Admin: 06/17/16 06:14 Dose: 125 mcg Losartan Potassium (Cozaar) 25 mg PO DAILY [facility] Last Admin: 06/17/16 09:19 Dose: 25 mg Metolazone (Zaroxolyn) 5 mg PO BID [facility] Last Admin: 06/17/16 09:19 Dose: 5 mg Morphine Sulfate (Morphine) 2 mg IVP Q4H PRN PRN Reason: Pain, moderate (4-7) Last Admin: 06/17/16 04:30 Dose: 2 mg Ondansetron HCl (Zofran Inj) 4 mg IVP Q6 PRN PRN Reason: Nausea/Vomiting Last Admin: 06/17/16 12:20 Dose: 4 mg Pantoprazole Sodium (Protonix Inj) 40 mg IVP DAILY [facility] Last Admin: 06/17/16 09:19 Dose: 40 mg Potassium Chloride (K-Dur 20 Meq Er Tab) 20 meq PO DAILY [facility] Last Admin: 06/17/16 09:19 Dose: 20 meq - Labs Labs: 06/17/16 06:20 06/17/16 06:20 PT 17.3 SECONDS (9.7-12.2) H 06/17/16 06:20 INR 1.5 06/17/16 06:20 APTT 25 SECONDS (21-34) 06/17/16 06:20 - Constitutional Appears: Non-toxic, No Acute Distress - Head Exam Head Exam: ATRAUMATIC, NORMAL INSPECTION, NORMOCEPHALIC - Eye Exam Eye Exam: EOMI - ENT Exam ENT Exam: Mucous Membranes Moist - Neck Exam Neck Exam: Full ROM - Respiratory Exam Respiratory Exam: Decreased Breath Sounds - Cardiovascular Exam Cardiovascular Exam: +S1, +S2 - GI/Abdominal Exam GI & Abdominal Exam: Tenderness. absent: Guarding, Rigid Additional comments: Minimal tenderness RUQ - Neurological Exam Neurological Exam: Alert, Awake, Oriented x3 - Psychiatric Exam Psychiatric exam: Normal Affect, Normal Mood - Skin Skin Exam: Dry, Intact, Normal Color, Warm Assessment and Plan - Assessment and Plan (Free Text) Assessment: This is a 65 yo male with past medical hx of CHF, cardiomyopathy, hypothyroidism , cirrhosis, a fib, AICD presenting with abdominal pain x 3 weeks 1. Acute cholecystitis -Abd/Pelvis CT - no hernia containing bowel; pericholecystic inflammatory changes; no gallstones (please see full report) -Abdominal US - acalculous cholecystitis (please see full report) - NPO except meds - Zosyn 3.375gm IVPB Q6 - Flagyl 500mg IVPB Q8 - Zofran 4mg IVP Q6 PRN - Morphine 2mg IVP Q4H PRN -D5-1/2NS @ 100cc/hr - Surgery consult - Dr. Maradiaga - help appreciated -pt is pending surgery 2. Hx of CHF - continue Coreg 3.125mg PO BID - continue Losartan 25mg PO daily - continue Metalazone 5mg PO BID -Cardio consult - Dr. Ram - help appreciated - Patient high risk for cardiac event during surgery but he is cleared to have the surgery if it is needed per Dr. Ram 3. Hx of A fib -Rate controlled -Continue Coreg 3.125mg PO BID -Cardio consult - Dr. Ram - jordan appreciated -Patient high risk for cardiac event during surgery but he is cleared to have the surgery if it is needed per Dr. Ram -Holding Xarelto 20mg PO daily for 1-2 days for surgery per Dr. Ram -No need for Lovenox or Heparin drip per Dr. Ram 4. H/O hypothyroidism Continue home synthroid 125mcg PO daily 5. H/O umbilical hernia No bowel seen in hernia in CT 6. H/O liver cirrhosis Monitor LFTs 7. Prophylaxis SCDs Xarelto 20mg PO daily - on hold for two days per Dr. Ram for possible surgery Protonix 40mg IVP daily dw Dr. Herrera <July Herrera V - Last Filed: 06/18/16 09:39> Objective - Vital Signs/Intake and Output Vital Signs (last 24 hours): Temp Pulse Resp BP Pulse Ox 97.3 F L 81 20 92/68 L 97 06/18/16 07:13 06/18/16 07:13 06/18/16 07:13 06/18/16 07:13 06/18/16 07:13 Intake and Output: 06/18/16 06/18/16 06:59 18:59 Intake Total 450 Balance 450 - Medications Medications: Current Medications Carvedilol (Coreg) 3.125 mg PO BID [facility] Last Admin: 06/17/16 18:06 Dose: Not Given Dextrose/Sodium Chloride (Dextrose 5%/0.45% Ns 1000 Ml) 1,000 mls @ 100 mls/hr IV .Q10H [facility] Last Admin: 06/18/16 01:47 Dose: 100 mls/hr Metronidazole (Flagyl) 500 mg in 100 mls @ 100 mls/hr IVPB Q8H [facility] Last Admin: 06/18/16 01:44 Dose: 100 mls/hr Piperacillin Sod/Tazobactam (Sod 3.375 gm/ Sodium Chloride) 100 mls @ 200 mls/ hr IVPB Q6H [facility] Last Admin: 06/18/16 03:45 Dose: 200 mls/hr Levothyroxine Sodium (Synthroid) 125 mcg PO DAILY@0630 [facility] Last Admin: 06/18/16 06:10 Dose: 125 mcg Losartan Potassium (Cozaar) 25 mg PO DAILY [facility] Last Admin: 06/17/16 09:19 Dose: 25 mg Metolazone (Zaroxolyn) 5 mg PO BID [facility] Last Admin: 06/17/16 18:07 Dose: Not Given Morphine Sulfate (Morphine) 2 mg IVP Q4H PRN PRN Reason: Pain, moderate (4-7) Last Admin: 06/17/16 04:30 Dose: 2 mg Ondansetron HCl (Zofran Inj) 4 mg IVP Q6 PRN PRN Reason: Nausea/Vomiting Last Admin: 06/17/16 12:20 Dose: 4 mg Pantoprazole Sodium (Protonix Inj) 40 mg IVP DAILY [facility] Last Admin: 06/17/16 09:19 Dose: 40 mg Potassium Chloride (K-Dur 20 Meq Er Tab) 20 meq PO DAILY [facility] Last Admin: 06/17/16 09:19 Dose: 20 meq - Labs Labs: 06/18/16 06:19 06/18/16 06:19 PT 17.3 SECONDS (9.7-12.2) H 06/17/16 06:20 INR 1.5 06/17/16 06:20 APTT 25 SECONDS (21-34) 06/17/16 06:20 Attending/Attestation - Attestation I have personally seen and examined this patient.: Yes I have fully participated in the care of the patient.: Yes I have reviewed all pertinent clinical information, including history, physical exam and plan: Yes Notes (Text): This is a late computer entry for 06/17/16. Patient seen, examined, and case discussed with day-time resident. Patient seen during morning rounds approximately 10AM with at bedside. Patient reporting abdominal pain over right upper quadrant. Surgery on board. Given patient's AICD is not magnetically safe, not appropriate for MRCP. Discussed with neurosurgical nurse practitioner, patient to undergo HIDA scan. Per prior discharge summary from recent hospitalization, patient has left ventricle thrombus and currently on Xarelto. patient is currently off Xarelto at this time at start of hospitalization. Assessment/Plan 1) Cholecystitis * Abd/Pelvis CT (06/16/16)- no evidence of inguinal hernia containing bowel. No evidence of mechanical obstruction. Pericholecystic inflammatory change raise the possibility of acute choleccystitis. Gallstones are not identified. * Abdominal US (06/16/16) -gallbladder wall thickening, sonographic Castro's sign elicted by technologist. Acalculous cholecystitis. * Surgery Consult (Dr. Maradiaga) on board-->help appreciated * GI Consult (Dr. Pollard) /Dr. Babcock/Dr Méndez covering help appreciated * Flagyl 500mg IV Q 8 hours (active since 06/16/16) and Zosyn 3.375 IV Q 6 hours (active since 06/16/16) * D5 1/2NS 100 cc/hr * Patient is going to go for a HIDA * Patient has high cardiac risk given history of cardiomyopathy (EF< 20%), has AICD, and left atrial thrombus (off Xarelto) at this time * Cardiology (Dr. Ram) on board-->help appreciated * Morphine 2mg IV Q 4hour PRN pain * Chest xray (06/16/16): interval improvement in congestive heart failure * Patient is on IV fluids will need to monitor for fluid overload 2) H/O CHF * Continue home meds with holding parameters * Coreg 3.125mg PO BID (hold SBP<100 and HR<60) * Lasix 40mg PO daily held secondary to borderline hypotension * Losartan 25mg PO daily * Metalazone 5mg PO BID * off Xalerto for surgery, patient has history of left atrial thrombosus * Cardio consult - Dr. Ram - help appreciated-->Patient high risk for cardiac event during surgery but he is cleared to have the surgery if it is needed per Dr. Ram * Echo (05/27/16): left ventricle systolic function is severaly impaired, EF <20% , left atrium is severely dilationed, ICD wirse seen, thrombus noted in left atrial appendage * Chest xray (06/16/16): interval improvement in congestive heart failure * Patient is on IV fluids will need to monitor for fluid overload 3) H/o Left atrial thrombus * Off Xarelto secondary to surgery * Cardio consult - Dr. Ram - help appreciated-->Patient high risk for cardiac event during surgery but he is cleared to have the surgery if it is needed per Dr. Ram 4) H/O hypothyroidism * Continue home synthroid 125mcg PO daily 5) H/O umbilical hernia * No bowel seen in hernia in CT 6) H/O liver cirrhosis * Monitor LFTs * Abd/Pelvis CT (06/16/16)- no evidence of inguinal hernia containing bowel. No evidence of mechanical obstruction. Pericholecystic inflammatory change raise the possibility of acute choleccystitis. Gallstones are not identified. * Abdominal US (06/16/16) -gallbladder wall thickening, sonographic Castro's sign elicted by technologist. Acalculous cholecystitis. * Former alcohol use * Monitor LFTs and albumin 7) Prophylaxis * SCDs * Xarelto 20mg PO daily - on hold for two days per Dr. Ram for possible surgery * Protonix 40mg IVP daily 8)Hypokalemia * repleted
[2016-06-18] MEDS: metroNIDAZOLE IV 500 mg/100 ml 500 MG/100 ML BAG IVPB SCH ×3 (01:44→17:55)
[2016-06-18] MEDS: Dextrose 5%/0.45% NS 1,000 ML IV SCH (01:47)
[2016-06-18] MEDS: Piperacillin/Tazobact 3.375 GM in Sodium Chloride 100 ML IVPB SCH ×4 (03:45→21:54)
[2016-06-18] MEDS: Levothyroxine 125 MCG TAB PO SCH (06:10)
[2016-06-18 06:28] LABS: BASO % 0.7 % (0.0-2.0); EOS # 0.2 K/uL (0.0-0.7); EOS % 2.8 % (0.0-4.0); HEMATOCRIT 36.6 % (35.0-51.0); LYMPH # 1.3 K/uL (1.0-4.3); LYMPH % 18.9 % (20.0-40.0); MEAN CELL VOLUME 100.8 fL (80.0-94.0); MEAN CORPUSCULAR HEMOGLOBIN 33.2 pg (27.0-31.0); MEAN PLATELET VOLUME 9.7 fL (7.2-11.7); MONO # 0.8 K/uL (0.0-0.8); MONO % 11.2 % (0.0-10.0); NRBC % 0.1 % (0.0-2.0)
--- NOTE | 2016-06-18 07:41 | CARD ---
APPROVED REPORT EKG Measurement Heart [id number] <Conclusion> Ventricular-paced rhythm with occasional premature ventricular complexes Abnormal ECG
--- NOTE | 2016-06-18 07:41 | CARD ---
APPROVED REPORT EKG Measurement Heart [id number] <Conclusion> Ventricular-paced rhythm with frequent and consecutive premature ventricular complexes Abnormal ECG
[2016-06-18 08:13] LABS: CHLORIDE 97 mmol/L (98-107); POTASSIUM 3.1 mmol/L (3.6-5.2); SODIUM 136 mmol/L (132-148)
[2016-06-18 08:15] LABS: GFR AFRICAN-AMERICAN > 60
[2016-06-18 08:16] LABS: ALKALINE PHOSPHATASE 79 U/L (38-126); ALT/SGPT 105 U/L (21-72); AST/SGOT 61 U/L (17-59); BILIRUBIN,DIRECT 0.6 mg/dL (0.0-0.4); BILIRUBIN,TOTAL 1.5 mg/dL (0.2-1.3); CALCIUM 7.7 mg/dl (8.6-10.4); CARBON DIOXIDE 30 mmol/L (22-30); GLUCOSE,RANDOM 90 mg/dL (75-110); MAGNESIUM 1.7 mg/dL (1.6-2.3); TOTAL PROTEIN 5.7 g/dL (6.3-8.3)
--- NOTE | 2016-06-18 08:17 | CP.PCM.PN ---
Subjective - Date & Time of Evaluation Date of Evaluation: 06/18/16 Time of Evaluation: 08:00 - Subjective Subjective: F/U abdom pain. F/U GI service Pt reports abdom pain is improving. Less nausea. Denies Cp, SOB, fever, chills, ORR, cough, SZ Objective - Vital Signs/Intake and Output Vital Signs (last 24 hours): Temp Pulse Resp BP Pulse Ox 97.3 F L 81 20 92/68 L 97 06/18/16 07:13 06/18/16 07:13 06/18/16 07:13 06/18/16 07:13 06/18/16 07:13 Intake and Output: 06/18/16 06/18/16 06:59 18:59 Intake Total 450 Balance 450 - Medications Medications: Current Medications Carvedilol (Coreg) 3.125 mg PO BID [facility] Last Admin: 06/17/16 18:06 Dose: Not Given Dextrose/Sodium Chloride (Dextrose 5%/0.45% Ns 1000 Ml) 1,000 mls @ 100 mls/hr IV .Q10H [facility] Last Admin: 06/18/16 01:47 Dose: 100 mls/hr Metronidazole (Flagyl) 500 mg in 100 mls @ 100 mls/hr IVPB Q8H [facility] Last Admin: 06/18/16 01:44 Dose: 100 mls/hr Piperacillin Sod/Tazobactam (Sod 3.375 gm/ Sodium Chloride) 100 mls @ 200 mls/ hr IVPB Q6H [facility] Last Admin: 06/18/16 03:45 Dose: 200 mls/hr Levothyroxine Sodium (Synthroid) 125 mcg PO DAILY@0630 [facility] Last Admin: 06/18/16 06:10 Dose: 125 mcg Losartan Potassium (Cozaar) 25 mg PO DAILY [facility] Last Admin: 06/17/16 09:19 Dose: 25 mg Metolazone (Zaroxolyn) 5 mg PO BID [facility] Last Admin: 06/17/16 18:07 Dose: Not Given Morphine Sulfate (Morphine) 2 mg IVP Q4H PRN PRN Reason: Pain, moderate (4-7) Last Admin: 06/17/16 04:30 Dose: 2 mg Ondansetron HCl (Zofran Inj) 4 mg IVP Q6 PRN PRN Reason: Nausea/Vomiting Last Admin: 06/17/16 12:20 Dose: 4 mg Pantoprazole Sodium (Protonix Inj) 40 mg IVP DAILY [facility] Last Admin: 06/17/16 09:19 Dose: 40 mg Potassium Chloride (K-Dur 20 Meq Er Tab) 20 meq PO DAILY [facility] Last Admin: 06/17/16 09:19 Dose: 20 meq - Labs Labs: 06/18/16 06:19 06/17/16 06:20 PT 17.3 SECONDS (9.7-12.2) H 06/17/16 06:20 INR 1.5 06/17/16 06:20 APTT 25 SECONDS (21-34) 06/17/16 06:20 - Constitutional Appears: Well - Respiratory Exam Respiratory Exam: Clear to Ausculation Bilateral - Cardiovascular Exam Cardiovascular Exam: RRR - GI/Abdominal Exam GI & Abdominal Exam: Soft, Normal Bowel Sounds. absent: Tenderness, Mass - Extremities Exam Extremities Exam: absent: Calf Tenderness - Neurological Exam Neurological Exam: Alert, Oriented x3 Assessment and Plan (1) Abnormal liver enzymes Assessment & Plan: chr liver disease. LFTs are improving Status: Acute (2) Acalculous cholecystitis Assessment & Plan: For HIDA today. Followed by Surgeons Status: Acute (3) CHF (congestive heart failure) Status: Chronic (4) Cardiomyopathy Status: Chronic
--- NOTE | 2016-06-18 09:20 | CP.PCM.PN ---
Subjective - Date & Time of Evaluation Date of Evaluation: 06/18/16 Time of Evaluation: 07:00 - Subjective Subjective: GENERAL SURGERY PROGRESS NOTE FOR. DR. LOVE Pt seen and examined at bedside. Pt's abdominal pain is much better. He reports a lack of appetite and has not eaten much. No N/V/D/C or other acute complaints at this time. Objective - Vital Signs/Intake and Output Vital Signs (last 24 hours): Temp Pulse Resp BP Pulse Ox 97.3 F L 81 20 92/68 L 97 06/18/16 07:13 06/18/16 07:13 06/18/16 07:13 06/18/16 07:13 06/18/16 07:13 Intake and Output: 06/18/16 06/18/16 06:59 18:59 Intake Total 450 Balance 450 - Medications Medications: Current Medications Carvedilol (Coreg) 3.125 mg PO BID [facility] Last Admin: 06/17/16 18:06 Dose: Not Given Dextrose/Sodium Chloride (Dextrose 5%/0.45% Ns 1000 Ml) 1,000 mls @ 100 mls/hr IV .Q10H [facility] Last Admin: 06/18/16 01:47 Dose: 100 mls/hr Metronidazole (Flagyl) 500 mg in 100 mls @ 100 mls/hr IVPB Q8H [facility] Last Admin: 06/18/16 01:44 Dose: 100 mls/hr Piperacillin Sod/Tazobactam (Sod 3.375 gm/ Sodium Chloride) 100 mls @ 200 mls/ hr IVPB Q6H [facility] Last Admin: 06/18/16 03:45 Dose: 200 mls/hr Levothyroxine Sodium (Synthroid) 125 mcg PO DAILY@0630 [facility] Last Admin: 06/18/16 06:10 Dose: 125 mcg Losartan Potassium (Cozaar) 25 mg PO DAILY [facility] Last Admin: 06/17/16 09:19 Dose: 25 mg Metolazone (Zaroxolyn) 5 mg PO BID [facility] Last Admin: 06/17/16 18:07 Dose: Not Given Morphine Sulfate (Morphine) 2 mg IVP Q4H PRN PRN Reason: Pain, moderate (4-7) Last Admin: 06/17/16 04:30 Dose: 2 mg Ondansetron HCl (Zofran Inj) 4 mg IVP Q6 PRN PRN Reason: Nausea/Vomiting Last Admin: 06/17/16 12:20 Dose: 4 mg Pantoprazole Sodium (Protonix Inj) 40 mg IVP DAILY [facility] Last Admin: 06/17/16 09:19 Dose: 40 mg Potassium Chloride (K-Dur 20 Meq Er Tab) 20 meq PO DAILY [facility] Last Admin: 06/17/16 09:19 Dose: 20 meq - Labs Labs: 06/18/16 06:19 06/18/16 06:19 PT 17.3 SECONDS (9.7-12.2) H 06/17/16 06:20 INR 1.5 06/17/16 06:20 APTT 25 SECONDS (21-34) 06/17/16 06:20 - Constitutional Appears: Non-toxic, No Acute Distress - Respiratory Exam Respiratory Exam: NORMAL BREATHING PATTERN. absent: Respiratory Distress - Cardiovascular Exam Cardiovascular Exam: +S1, +S2. absent: Tachycardia - GI/Abdominal Exam GI & Abdominal Exam: Soft, Hernia (reducible, nontender umbilical hernia), Normal Bowel Sounds. absent: Distended, Firm, Guarding, Rigid, Tenderness - Neurological Exam Neurological Exam: Alert, Awake - Psychiatric Exam Psychiatric exam: Normal Affect, Normal Mood - Skin Skin Exam: Intact, Normal Color, Warm Assessment and Plan - Assessment and Plan (Free Text) Assessment: 65 yo M with PMHx of CHF, cardiomyopathy with AICD, A fib on Xaraelto presents with abdominal pain, rule out acalculous cholecystitis Plan: - Afebrile, VSS - T bili elevated at 1.5 but continues to trend down from 2.1 yesterday - Alk phos 79, continuing to trend down from 102 yesterday - AST mildly elevated at 61, up from 56 yesterday - ALT elevated at 105 but continues to trend down from 115 yesterday - HIDA today was normal, no cholecystitis, cystic duct is patent - Patient nontender, asymptomatic, tolerating regular diet - No surgical intervention necessary - Surgery will sign off at this time. Please reconsult as necessary - Discussed plan with Dr. Ashwini Mendiola PGY-2
[2016-06-18 09:32] LABS: BLOOD UREA NITROGEN 25 mg/dL (9-20)
[2016-06-18] MEDS: Potassium Chloride 20 mEq ER Tab PO SCH (10:58)
[2016-06-18] MEDS: metOLazone 5 MG TAB PO SCH ×2 (10:58→17:55)
--- NOTE | 2016-06-18 10:59 | CP.PCM.PN ---
Addendum entered and electronically signed by Arlen Singletary DO 06/18/16 19: 08: HIDA negative. No plan for surgery at this time. Patient restarted on Xarelto. Discontinue Heparin drip. Elevated troponins are likely secondary to right heart failure. Continue Lasix. Original Note: <Arlen Singletary - Last Filed: 06/18/16 19:05> Subjective - Date & Time of Evaluation Date of Evaluation: 06/18/16 Time of Evaluation: 11:00 - Subjective Subjective: Cardiology Progress Note- Dr. Ram Service: Patient seen and examined at bedside this AM. Patient went for HIDA scan this AM and reports no acute events. Abdominal pain controlled at this time. He denies chest pain, SOB, palpitations, fevers, chills, nausea or vomiting this AM. 12 point review of of systems negative for acute complaints. Objective - Vital Signs/Intake and Output Vital Signs (last 24 hours): Temp Pulse Resp BP Pulse Ox 97.3 F L 81 20 92/68 L 97 06/18/16 07:13 06/18/16 07:13 06/18/16 07:13 06/18/16 07:13 06/18/16 07:13 Intake and Output: 06/18/16 06/18/16 06:59 18:59 Intake Total 450 Balance 450 - Medications Medications: Current Medications Carvedilol (Coreg) 3.125 mg PO Q12H [facility] Last Admin: 06/18/16 10:58 Dose: 3.125 mg Dextrose/Sodium Chloride (Dextrose 5%/0.45% Ns 1000 Ml) 1,000 mls @ 100 mls/hr IV .Q10H [facility] Last Admin: 06/18/16 01:47 Dose: 100 mls/hr Metronidazole (Flagyl) 500 mg in 100 mls @ 100 mls/hr IVPB Q8H [facility] Last Admin: 06/18/16 10:57 Dose: 100 mls/hr Piperacillin Sod/Tazobactam (Sod 3.375 gm/ Sodium Chloride) 100 mls @ 200 mls/ hr IVPB Q6H [facility] Last Admin: 06/18/16 03:45 Dose: 200 mls/hr Potassium Chloride (Potassium Chloride 20 Meq/100 Ml) 20 meq in 100 mls @ 50 mls/hr IVPB ONCE ONE Stop: 06/18/16 12:59 Levothyroxine Sodium (Synthroid) 125 mcg PO DAILY@0630 [facility] Last Admin: 06/18/16 06:10 Dose: 125 mcg Losartan Potassium (Cozaar) 25 mg PO DAILY [facility] Metolazone (Zaroxolyn) 5 mg PO BID [facility] Last Admin: 06/18/16 10:58 Dose: 5 mg Morphine Sulfate (Morphine) 2 mg IVP Q4H PRN PRN Reason: Pain, moderate (4-7) Last Admin: 06/17/16 04:30 Dose: 2 mg Ondansetron HCl (Zofran Inj) 4 mg IVP Q6 PRN PRN Reason: Nausea/Vomiting Last Admin: 06/17/16 12:20 Dose: 4 mg Pantoprazole Sodium (Protonix Inj) 40 mg IVP DAILY [facility] Last Admin: 06/18/16 10:58 Dose: 40 mg Potassium Chloride (K-Dur 20 Meq Er Tab) 20 meq PO DAILY [facility] Last Admin: 06/18/16 10:58 Dose: 20 meq - Labs Labs: 06/18/16 06:19 06/18/16 06:19 PT 17.3 SECONDS (9.7-12.2) H 06/17/16 06:20 INR 1.5 06/17/16 06:20 APTT 25 SECONDS (21-34) 06/17/16 06:20 - Constitutional Appears: No Acute Distress - Head Exam Head Exam: NORMAL INSPECTION, NORMOCEPHALIC - Eye Exam Eye Exam: EOMI, Normal appearance - ENT Exam ENT Exam: Mucous Membranes Moist - Respiratory Exam Respiratory Exam: Clear to Ausculation Bilateral, NORMAL BREATHING PATTERN - Cardiovascular Exam Cardiovascular Exam: REGULAR RHYTHM, +S1, +S2 - GI/Abdominal Exam GI & Abdominal Exam: Soft, Hernia - Extremities Exam Extremities Exam: Normal Inspection - Neurological Exam Neurological Exam: Alert, Awake, Oriented x3 - Psychiatric Exam Psychiatric exam: Normal Affect, Normal Mood - Skin Skin Exam: Warm Additional comments: +jaundice Assessment and Plan - Assessment and Plan (Free Text) Assessment: (1) Pre-procedural cardiovascular examination Assessment & Plan: 65 yo M with PMHx of CHF, cardiomyopathy with AICD, A fib on Xaraelto presents with abdominal pain with acalculous cholecystitis. Given patient's AICD is not magnetically safe, not a candidate for MRCP. Patient for HIDA scan today. Cardiac Risk Assessment: High Risk for cholecystectomy. * Detsky score:55 (high risk) * Hipolito score:> 11% (high risk) * Urias score: 42 (class IV- 78% complications) * Patient is high risk patient for surgery, however if benefits of procedure outweigh risks, may proceed with surgery. * Continue with preoperative SCIP protocols and measures EKG: (06/17/16) Ventricularly paced rhythm with PVCs, wide QRS, prolonged QTc. Echo: (05/24/16) EF: <20%, left atrium is severely dilated, thrombus in left atrial appendage. Cardiac Cath: (03/29/14): showed normal coronaries with EF 10-15%. EKG: (05/22/16) Demand pacemaker, interpretation based on intrinsic rhythm, nonspecific intraventricular block, T wave abnormality, consider interolateral ischemia Serial Troponins: (06/17/16) Troponin 1: 0.1770, Troponin 2: 0.1530, Troponin 3: 0.1580 BNP: (05/15/16) 3,780 Status: Acute (2) Elevated Troponins Serial Troponins: (06/17/16) Troponin 1: 0.1770, Troponin 2: 0.1530, Troponin 3: 0.1580. Repeat DALE-0.[address] Ram, likely secondary to CHF. Give Lasix. (3) Systolic CHF Status: Chronic Echo: (05/24/16) EF: <20%, left atrium is severely dilated, thrombus in left atrial appendage. Pt with AICD placement and ablation May 2016. Coreg 3.125 mg PO BID Lasix 20 mg PO daily Metolazone 5 mg PO daily Losartan 25mg PO daily Patient is on 20meq potassium daily as an outpatient heart healthy diet (4) Atrial Fibrillation Status: Chronic Tele monitoring Patient is on rate control with Coreg and currently ventricularly paced Left atrial thrombus found on DONAVAN 05/24/16. Pt on Xarelto 20 mg PO daily (5) Hx of Left Atrial Thrombus Pt on Xarelto 20 mg PO daily Case discussed with Dr. Ram. <Jennyfer Ram - Last Filed: 07/03/16 12:29> Objective - Vital Signs/Intake and Output Vital Signs (last 24 hours): Temp Pulse Resp BP Pulse Ox 97.8 F 84 19 102/75 93 L 06/26/16 20:00 06/26/16 22:10 06/26/16 22:10 06/26/16 21:17 06/26/16 22:10 - Labs Labs: 06/27/16 06:00 06/27/16 06:00 PT 21.4 SECONDS (9.7-12.2) H D 06/24/16 06:06 INR 1.9 D 06/24/16 06:06 APTT 25 SECONDS (21-34) 06/18/16 12:13 Attending/Attestation - Attestation I have personally seen and examined this patient.: Yes I have fully participated in the care of the patient.: Yes I have reviewed all pertinent clinical information, including history, physical exam and plan: Yes Notes (Text): 07/03/16 12:29 gallbladder scan negative no surgery at this time
[2016-06-18] MEDS ORDERED: Heparin25000 units/250ml 1/2NS 25,000 UNITS/250 ML BAG IV PRN (11:13)
[2016-06-18] MEDS: Potassium Ch 20mEq in D5-1/2NS 1,000 ML IV SCH ×2 (11:15→13:39)
[2016-06-18 12:23] LABS: INR 1.7
--- NOTE | 2016-06-18 12:24 | NM ---
PROCEDURE: Nuclear Medicine Hepatobiliary Scan HISTORY: elevated T. Bili COMPARISON: 06/16/2016. TECHNIQUE: 7.9 MCi of technetium 99m Mebrofenin was administered intravenously. Planar images of the abdomen were obtained at 5 min intervals to 60 mins. Delayed images were also obtained. FINDINGS: LIVER: Timely and homogenous uptake. COMMON BILE DUCT: identified at spell 15 mins. GALLBLADDER: identified at 15 mins. SMALL BOWEL: Identified at 25 mins. IMPRESSION: Normal Hepatobiliary Scan. The cystic duct is patent.
--- NOTE | 2016-06-18 13:44 | CP.PCM.PN ---
<Alireza Whitmore - Last Filed: 06/18/16 13:49> Subjective - Date & Time of Evaluation Date of Evaluation: 06/18/16 Time of Evaluation: 13:40 - Subjective Subjective: Medicine progress note. Attending: Dr. Herrera Pt seen and examined at bedside. No acute distress. No events overnight. Pt was started on heparin drip for thrombus. Fluids have been cut down. Denies fevers, chills, vomiting, diarrhea. Denies abdominal pain. Denies chest pain, sob. Objective - Vital Signs/Intake and Output Vital Signs (last 24 hours): Temp Pulse Resp BP Pulse Ox 97.4 F L 75 18 99/66 L 97 06/18/16 10:54 06/18/16 12:21 06/18/16 10:54 06/18/16 12:23 06/18/16 10:54 Intake and Output: 06/18/16 06/18/16 06:59 18:59 Intake Total 450 Balance 450 - Medications Medications: Current Medications Carvedilol (Coreg) 3.125 mg PO Q12H [facility] Last Admin: 06/18/16 10:58 Dose: 3.125 mg Furosemide (Lasix) 20 mg IVP DAILY [facility] Last Admin: 06/18/16 12:23 Dose: 20 mg Metronidazole (Flagyl) 500 mg in 100 mls @ 100 mls/hr IVPB Q8H [facility] Last Admin: 06/18/16 10:57 Dose: 100 mls/hr Piperacillin Sod/Tazobactam (Sod 3.375 gm/ Sodium Chloride) 100 mls @ 200 mls/ hr IVPB Q6H [facility] Last Admin: 06/18/16 12:23 Dose: 200 mls/hr Potassium Chloride/Dextrose/Sod Cl (Potassium Chl 20 Meq In D5-1/2ns) 1,000 mls @ 75 mls/hr IV .[id number] [facility] Last Admin: 06/18/16 13:39 Dose: 75 mls/hr Heparin Sodium/Sodium Chloride (Heparin 05698 Units/250ml 1/2 Normal Saline) 25 ,000 units in 250 mls @ 7.983 mls/hr IV .Q24H PRN; Protocol; 10 UNITS/KG/HR PRN Reason: PROTOCOL Last Admin: 06/18/16 13:23 Dose: 10 units/kg/hr, 7.983 mls/hr Levothyroxine Sodium (Synthroid) 125 mcg PO DAILY@0630 [facility] Last Admin: 06/18/16 06:10 Dose: 125 mcg Losartan Potassium (Cozaar) 25 mg PO DAILY [facility] Last Admin: 06/18/16 12:24 Dose: Not Given Metolazone (Zaroxolyn) 5 mg PO BID [facility] Last Admin: 06/18/16 10:58 Dose: 5 mg Morphine Sulfate (Morphine) 2 mg IVP Q4H PRN PRN Reason: Pain, moderate (4-7) Last Admin: 06/17/16 04:30 Dose: 2 mg Ondansetron HCl (Zofran Inj) 4 mg IVP Q6 PRN PRN Reason: Nausea/Vomiting Last Admin: 06/17/16 12:20 Dose: 4 mg Pantoprazole Sodium (Protonix Inj) 40 mg IVP DAILY [facility] Last Admin: 06/18/16 10:58 Dose: 40 mg Potassium Chloride (K-Dur 20 Meq Er Tab) 20 meq PO DAILY [facility] Last Admin: 06/18/16 10:58 Dose: 20 meq - Labs Labs: 06/18/16 06:19 06/18/16 06:19 PT 20.2 SECONDS (9.7-12.2) H 06/18/16 12:13 INR 1.7 06/18/16 12:13 APTT 25 SECONDS (21-34) 06/18/16 12:13 - Constitutional Appears: Non-toxic, No Acute Distress - Head Exam Head Exam: ATRAUMATIC, NORMAL INSPECTION, NORMOCEPHALIC - Eye Exam Eye Exam: EOMI - ENT Exam ENT Exam: Mucous Membranes Moist - Neck Exam Neck Exam: Full ROM, Normal Inspection. absent: Lymphadenopathy - Respiratory Exam Respiratory Exam: Decreased Breath Sounds, Rales Additional comments: Minimal rales on exam - Cardiovascular Exam Cardiovascular Exam: REGULAR RHYTHM, +S1, +S2 - GI/Abdominal Exam GI & Abdominal Exam: Tenderness Additional comments: Moderate tenderness RUQ - Extremities Exam Extremities Exam: Full ROM, Normal Inspection - Back Exam Back Exam: NORMAL INSPECTION - Neurological Exam Neurological Exam: Alert, Awake, Oriented x3 - Psychiatric Exam Psychiatric exam: Normal Affect, Normal Mood - Skin Skin Exam: Dry, Intact, Normal Color, Warm Assessment and Plan - Assessment and Plan (Free Text) Assessment: 1) Acute cholecystitis * Abd/Pelvis CT (06/16/16)- no evidence of inguinal hernia containing bowel. No evidence of mechanical obstruction. Pericholecystic inflammatory changes raise the possibility of acute cholecystitis. Gallstones are not identified. * Abdominal US (06/16/16) -gallbladder wall thickening, sonographic Castro's sign elicted by technologist. Acalculous cholecystitis. * Surgery Consult (Dr. Maradiaga) on board-->help appreciated * GI Consult (Dr. Pollard) /Dr. Babcock/Dr Méndez covering help appreciated * Flagyl 500mg IV Q 8 hours (day 3 ) and Zosyn 3.375 IV Q 6 hours (day 3) * we will cut down fluids to 75cc/hr, adding supplemental K due to hypokalemia * HIDA scan negative * Patient has high cardiac risk given history of cardiomyopathy (EF< 20%), has AICD, and left atrial thrombus (off Xarelto) at this time * Cardiology (Dr. Ram) on board-->help appreciated * Morphine 2mg IV Q 4hour PRN pain * Chest xray (06/16/16): interval improvement in congestive heart failure * monitor for fluid overload * will follow with sx to see if there will be intervention 2) Hx of CHF * Continue home meds with holding parameters * Coreg 3.125mg PO BID (hold SBP<100 and HR<60) * Lasix 20 IV daily * Losartan 25mg PO daily * Metalazone 5mg PO BID * off Xarelto for surgery, patient has history of left atrial thrombosus * Cardio consult - Dr. Ram - help appreciated-->Patient high risk for cardiac event during surgery * Echo (05/27/16): left ventricle systolic function is severaly impaired, EF <20% , left atrium is severely dilationed, ICD wires seen, thrombus noted in left atrial appendage * Chest xray (06/16/16): interval improvement in congestive heart failure * Patient is on IV fluids, will need to monitor for fluid overload * pt placed on heparin drip for thrombus, will stop is sx is intended 3) Hx of Left atrial thrombus * Off Xarelto secondary to surgery * Cardio consult - Dr. Ram - help appreciated-->Patient high risk for cardiac event during surgery but he is cleared to have the surgery if it is needed per Dr. Ram 4) Hx of hypothyroidism * Continue home synthroid 125mcg PO daily 5) hx of umbilical hernia * No bowel seen in hernia in CT 6) hx of liver cirrhosis * Monitor LFTs * Abd/Pelvis CT (06/16/16)- no evidence of inguinal hernia containing bowel. No evidence of mechanical obstruction. Pericholecystic inflammatory change raise the possibility of acute cholecystitis. Gallstones are not identified. * Abdominal US (06/16/16) -gallbladder wall thickening, sonographic Castro's sign elicted by technologist. Acalculous cholecystitis. * Former alcohol use * Monitor LFTs and albumin 7) Prophylaxis * SCDs * Xarelto 20mg PO daily - on hold for two days per Dr. Ram for possible surgery * Protonix 40mg IVP daily * on heparin drip discussed with Dr. Herrera <July Herrera V - Last Filed: 06/18/16 15:25> Objective - Vital Signs/Intake and Output Vital Signs (last 24 hours): Temp Pulse Resp BP Pulse Ox 97.4 F L 75 18 99/66 L 97 06/18/16 10:54 06/18/16 12:21 06/18/16 10:54 06/18/16 12:23 06/18/16 10:54 Intake and Output: 06/18/16 06/18/16 06:59 18:59 Intake Total 450 Balance 450 - Medications Medications: Current Medications Carvedilol (Coreg) 3.125 mg PO Q12H [facility] Last Admin: 06/18/16 10:58 Dose: 3.125 mg Furosemide (Lasix) 20 mg IVP DAILY [facility] Last Admin: 06/18/16 12:23 Dose: 20 mg Metronidazole (Flagyl) 500 mg in 100 mls @ 100 mls/hr IVPB Q8H [facility] Last Admin: 06/18/16 10:57 Dose: 100 mls/hr Piperacillin Sod/Tazobactam (Sod 3.375 gm/ Sodium Chloride) 100 mls @ 200 mls/ hr IVPB Q6H [facility] Last Admin: 06/18/16 12:23 Dose: 200 mls/hr Potassium Chloride/Dextrose/Sod Cl (Potassium Chl 20 Meq In D5-1/2ns) 1,000 mls @ 75 mls/hr IV .[id number] [facility] Last Admin: 06/18/16 13:39 Dose: 75 mls/hr Levothyroxine Sodium (Synthroid) 125 mcg PO DAILY@0630 [facility] Last Admin: 06/18/16 06:10 Dose: 125 mcg Losartan Potassium (Cozaar) 25 mg PO DAILY [facility] Last Admin: 06/18/16 12:24 Dose: Not Given Metolazone (Zaroxolyn) 5 mg PO BID [facility] Last Admin: 06/18/16 10:58 Dose: 5 mg Morphine Sulfate (Morphine) 2 mg IVP Q4H PRN PRN Reason: Pain, moderate (4-7) Last Admin: 06/17/16 04:30 Dose: 2 mg Ondansetron HCl (Zofran Inj) 4 mg IVP Q6 PRN PRN Reason: Nausea/Vomiting Last Admin: 06/17/16 12:20 Dose: 4 mg Pantoprazole Sodium (Protonix Inj) 40 mg IVP DAILY [facility] Last Admin: 06/18/16 10:58 Dose: 40 mg Potassium Chloride (K-Dur 20 Meq Er Tab) 20 meq PO DAILY [facility] Last Admin: 06/18/16 10:58 Dose: 20 meq Rivaroxaban (Xarelto) 20 mg PO DAILY [facility] - Labs Labs: 06/18/16 06:19 06/18/16 06:19 PT 20.2 SECONDS (9.7-12.2) H 06/18/16 12:13 INR 1.7 06/18/16 12:13 APTT 25 SECONDS (21-34) 06/18/16 12:13 Attending/Attestation - Attestation I have personally seen and examined this patient.: Yes I have fully participated in the care of the patient.: Yes I have reviewed all pertinent clinical information, including history, physical exam and plan: Yes Notes (Text): Patient seen, examined and case discussed with day-time resident. Patient seen this morning during rounds with family at bedside. Patient completed HIDA scan this morning report not available at time of rounds. HIDA is negative. Discussed with surgery, no intervention. Prior, patient ordered for heparin drip to cover for left atrial appendage prior to finalization of HIDA. Discussed with cardio, in light of negative HIDA and no surgical intervention, patient to resume home dose Xarelto and stop heparin drip. Patient's IV fluids lowered, and started on low dose Lasix to prevent fluid overload given his cardiomyopathy. Assessment/Plan 1) Cholecystitis * Abd/Pelvis CT (06/16/16)- no evidence of inguinal hernia containing bowel. No evidence of mechanical obstruction. Pericholecystic inflammatory change raise the possibility of acute choleccystitis. Gallstones are not identified. * Abdominal US (06/16/16) -gallbladder wall thickening, sonographic Castro's sign elicted by technologist. Acalculous cholecystitis. * HIDA (06/17/16): negative * No surgical intervention given negative HIDA * Surgery Consult (Dr. Maradiaga) on board-->help appreciated * GI Consult (Dr. Pollard) /Dr. Babcock/Dr Méndez covering help appreciated * Flagyl 500mg IV Q 8 hours (active since 06/16/16) and Zosyn 3.375 IV Q 6 hours (active since 06/16/16) * D5 1/2NS 75 cc/hr * Patient is going to go for a HIDA * Patient has high cardiac risk given history of cardiomyopathy (EF< 20%), has AICD, and left atrial thrombus (off Xarelto) at this time * Cardiology (Dr. Ram) on board-->help appreciated * Morphine 2mg IV Q 4hour PRN pain * Chest xray (06/16/16): interval improvement in congestive heart failure * Patient is on IV fluids will need to monitor for fluid overload 2) H/O CHF * Continue home meds with holding parameters * Coreg 3.125mg PO BID (hold SBP<100 and HR<60) * Start low dose Lasix 20mg IV daily * Losartan 25mg PO daily * Metalazone 5mg PO BID * off Xalerto for surgery, patient has history of left atrial thrombosus * Cardio consult - Dr. Ram - help appreciated-->Patient high risk for cardiac event during surgery but he is cleared to have the surgery if it is needed per Dr. Ram * Echo (05/27/16): left ventricle systolic function is severaly impaired, EF <20% , left atrium is severely dilationed, ICD wirse seen, thrombus noted in left atrial appendage * Chest xray (06/16/16): interval improvement in congestive heart failure * Patient is on IV fluids will need to monitor for fluid overload 3) H/o Left atrial thrombus * heparin drip prior to possible surgery * D/c heparin drip given confirmation no surgery and restart Xarelto * Cardio consult - Dr. Ram - help appreciated 4) H/O hypothyroidism * Continue home synthroid 125mcg PO daily 5) H/O umbilical hernia * No bowel seen in hernia in CT 6) H/O liver cirrhosis * Monitor LFTs * Abd/Pelvis CT (06/16/16)- no evidence of inguinal hernia containing bowel. No evidence of mechanical obstruction. Pericholecystic inflammatory change raise the possibility of acute choleccystitis. Gallstones are not identified. * Abdominal US (06/16/16) -gallbladder wall thickening, sonographic Castro's sign elicted by technologist. Acalculous cholecystitis. * Former alcohol use * Monitor LFTs and albumin 7) Prophylaxis * SCDs * Xarelto 20mg PO daily restart today * Protonix 40mg IVP daily 8)Hypokalemia * repleted
[2016-06-19] MEDS: metroNIDAZOLE IV 500 mg/100 ml 500 MG/100 ML BAG IVPB SCH ×3 (01:32→18:00)
[2016-06-19] MEDS: Piperacillin/Tazobact 3.375 GM in Sodium Chloride 100 ML IVPB SCH ×4 (04:32→21:19)
[2016-06-19] MEDS: Levothyroxine 125 MCG TAB PO SCH (06:25)
[2016-06-19 06:39] LABS: BASO % 0.7 % (0.0-2.0); EOS # 0.1 K/uL (0.0-0.7); EOS % 2.2 % (0.0-4.0); HEMATOCRIT 36.1 % (35.0-51.0); LYMPH # 1.4 K/uL (1.0-4.3); LYMPH % 20.6 % (20.0-40.0); MEAN CELL VOLUME 99.9 fL (80.0-94.0); MEAN CORPUSCULAR HEMOGLOBIN 32.7 pg (27.0-31.0); MEAN CORPUSCULAR HGB CONC 32.7 g/dL (33.0-37.0); MEAN PLATELET VOLUME 10.1 fL (7.2-11.7); MONO # 0.7 K/uL (0.0-0.8); MONO % 10.7 % (0.0-10.0); NRBC % 0.1 % (0.0-2.0); WHITE BLOOD COUNT 6.6 K/uL (4.8-10.8)
[2016-06-19 07:13] LABS: CHLORIDE 98 mmol/L (98-107); SODIUM 136 mmol/L (132-148)
[2016-06-19 07:15] LABS: GFR AFRICAN-AMERICAN > 60
[2016-06-19 07:16] LABS: ALB/GLOB RATIO 0.9 (1.0-2.1); ALKALINE PHOSPHATASE 88 U/L (38-126); ALT/SGPT 98 U/L (21-72); AST/SGOT 53 U/L (17-59); BLOOD UREA NITROGEN 22 mg/dL (9-20); CARBON DIOXIDE 29 mmol/L (22-30); GLUCOSE,RANDOM 92 mg/dL (75-110); PHOSPHOROUS 2.9 mg/dL (2.5-4.5); TOTAL PROTEIN 5.5 g/dL (6.3-8.3)
[2016-06-19 07:17] LABS: CALCIUM 7.7 mg/dl (8.6-10.4); MAGNESIUM 1.4 mg/dL (1.6-2.3)
[2016-06-19 07:22] LABS: POTASSIUM 2.5 mmol/L (3.6-5.2)
[2016-06-19] MEDS ORDERED: Potassium Chloride 20 mEq ER Tab PO STA (07:41)
[2016-06-19] MEDS ORDERED: Potassium Chloride 20 mEq/15 ml LIQ UD PO STA (07:55)
[2016-06-19] MEDS: Magnesium Sulfate 1 gm in D5W 1 GM/100 ML BAG IVPB SCH ×2 (08:40→09:54)
[2016-06-19] MEDS: Potassium Chloride 20 mEq ER Tab PO SCH (09:58)
[2016-06-19] MEDS: metOLazone 5 MG TAB PO SCH ×2 (10:00→18:23)
--- NOTE | 2016-06-19 10:23 | CP.PCM.PN ---
<Deysi Rehman - Last Filed: 06/19/16 10:30> Subjective - Date & Time of Evaluation Date of Evaluation: 06/19/16 Time of Evaluation: 10:21 - Subjective Subjective: PGY-[address] Corona Pt seen and examined. Son by bedside. No CP, SOB. Abdominal pain epigastric started 2 hours after oral intake. Pain reproducible on palpation. Objective - Vital Signs/Intake and Output Vital Signs (last 24 hours): Temp Pulse Resp BP Pulse Ox 97.4 F L 80 20 94/60 L 99 06/19/16 07:07 06/19/16 09:58 06/19/16 07:07 06/19/16 09:58 06/19/16 07:07 - Medications Medications: Current Medications Carvedilol (Coreg) 3.125 mg PO Q12H [facility] Last Admin: 06/19/16 09:58 Dose: Not Given Furosemide (Lasix) 20 mg IVP DAILY [facility] Last Admin: 06/19/16 09:58 Dose: Not Given Metronidazole (Flagyl) 500 mg in 100 mls @ 100 mls/hr IVPB Q8H [facility] Last Admin: 06/19/16 01:32 Dose: 100 mls/hr Piperacillin Sod/Tazobactam (Sod 3.375 gm/ Sodium Chloride) 100 mls @ 200 mls/ hr IVPB Q6H [facility] Last Admin: 06/19/16 04:32 Dose: 200 mls/hr Potassium Chloride (Potassium Chloride 20 Meq/100 Ml) 20 meq in 100 mls @ 50 mls/hr IVPB ONCE ONE Stop: 06/19/16 10:29 Levothyroxine Sodium (Synthroid) 125 mcg PO DAILY@0630 [facility] Last Admin: 06/19/16 06:25 Dose: 125 mcg Losartan Potassium (Cozaar) 25 mg PO DAILY [facility] Last Admin: 06/19/16 09:58 Dose: Not Given Metolazone (Zaroxolyn) 5 mg PO BID [facility] Last Admin: 06/18/16 17:55 Dose: 5 mg Morphine Sulfate (Morphine) 2 mg IVP Q4H PRN PRN Reason: Pain, moderate (4-7) Last Admin: 06/19/16 08:40 Dose: 2 mg Ondansetron HCl (Zofran Inj) 4 mg IVP Q6 PRN PRN Reason: Nausea/Vomiting Last Admin: 06/17/16 12:20 Dose: 4 mg Pantoprazole Sodium (Protonix Inj) 40 mg IVP DAILY [facility] Last Admin: 06/19/16 09:54 Dose: 40 mg Potassium Chloride (K-Dur 20 Meq Er Tab) 20 meq PO DAILY [facility] Last Admin: 06/19/16 09:58 Dose: Not Given Rivaroxaban (Xarelto) 20 mg PO DAILY [facility] Last Admin: 06/19/16 10:00 Dose: 20 mg - Labs Labs: 06/19/16 06:25 06/19/16 06:25 PT 20.2 SECONDS (9.7-12.2) H 06/18/16 12:13 INR 1.7 06/18/16 12:13 APTT 25 SECONDS (21-34) 06/18/16 12:13 - Constitutional Appears: No Acute Distress - Head Exam Head Exam: ATRAUMATIC, NORMOCEPHALIC - Eye Exam Eye Exam: EOMI, Normal appearance. absent: Scleral icterus Pupil Exam: NORMAL ACCOMODATION - ENT Exam ENT Exam: Mucous Membranes Moist - Respiratory Exam Respiratory Exam: Clear to Ausculation Bilateral, NORMAL BREATHING PATTERN. absent: Rales, Rhonchi, Wheezes - Cardiovascular Exam Cardiovascular Exam: REGULAR RHYTHM, +S1, +S2. absent: Murmur - GI/Abdominal Exam GI & Abdominal Exam: Soft, Tenderness (reproducible pain just superior to umbilius; (+) king), Normal Bowel Sounds - Extremities Exam Extremities Exam: Full ROM, Normal Capillary Refill. absent: Joint Swelling, Pedal Edema - Neurological Exam Neurological Exam: Alert, Awake, Oriented x3 - Psychiatric Exam Psychiatric exam: Normal Affect, Normal Mood - Skin Skin Exam: Dry, Normal Color Assessment and Plan - Assessment and Plan (Free Text) Plan: 65 year old male with past medical history of CHF, cardiomyopathy with AICD, A- fib on xarelto, liver cirrhosis, cardiomyopathy, hypothyroidism, atrial fibrillation, and AICD who presents for cardiac evaluation for clearance for cholecystectomy. HIDA negative. No plan for surgery. Abdominal pain likely due to acalculous cholecystitis. A-fib, stable, rate control with Coreg and currently ventricularly paced - Patient restarted on Xarelto. Discontinue Heparin drip. - Elevated troponins are likely secondary to right heart failure. - Continue Lasix. - Tele monitoring - Left atrial thrombus found on DONAVAN 05/24/16. - Pt on Xarelto 20 mg PO daily Pre-procedural cardiovascular examination - AICD is not magnetically safe, not a candidate for MRCP. - Cardiac Risk Assessment: High Risk for cholecystectomy. Detsky score:55 (high risk) Hipolito score:> 11% (high risk) Urias score: 42 (class IV- 78% complications) Patient is high risk patient for surgery, however if benefits of procedure outweigh risks, may proceed with surgery. Continue with preoperative SCIP protocols and measures EKG: (06/17/16) Ventricularly paced rhythm with PVCs, wide QRS, prolonged QTc. Echo: (05/24/16) EF: <20%, left atrium is severely dilated, thrombus in left atrial appendage. Cardiac Cath: (03/29/14): showed normal coronaries with EF 10-15%. EKG: (05/22/16) Demand pacemaker, interpretation based on intrinsic rhythm, nonspecific intraventricular block, T wave abnormality, consider interolateral ischemia Serial Troponins: (06/17/16) Troponin 1: 0.1770, Troponin 2: 0.1530, Troponin 3: 0.1580 BNP: (05/15/16) 3,780 Status: Acute Elevated Troponins - Serial Troponins: (06/17/16) Troponin 1: 0.1770, Troponin 2: 0.1530, Troponin 3 : 0.1580. - Repeat DALE-0.1030 - As per Dr. Ram, likely secondary to CHF. Give Lasix. Systolic CHF, chronic - Echo: (05/24/16) EF: <20%, left atrium is severely dilated, thrombus in left atrial appendage. - Pt with AICD placement and ablation May 2016. - Coreg 3.125 mg PO BID - Lasix 20 mg PO daily - Metolazone 5 mg PO daily - Losartan 25mg PO daily - Patient is on 20meq potassium daily as an outpatient - heart healthy diet Will discusse with Dr. Ram. <Jennyfer Ram - Last Filed: 07/03/16 12:26> Objective - Vital Signs/Intake and Output Vital Signs (last 24 hours): Temp Pulse Resp BP Pulse Ox 97.8 F 84 19 102/75 93 L 06/26/16 20:00 06/26/16 22:10 06/26/16 22:10 06/26/16 21:17 06/26/16 22:10 - Labs Labs: 06/27/16 06:00 06/27/16 06:00 PT 21.4 SECONDS (9.7-12.2) H D 06/24/16 06:06 INR 1.9 D 06/24/16 06:06 APTT 25 SECONDS (21-34) 06/18/16 12:13 Attending/Attestation - Attestation I have personally seen and examined this patient.: Yes I have fully participated in the care of the patient.: Yes I have reviewed all pertinent clinical information, including history, physical exam and plan: Yes Notes (Text): 07/03/16 12:25 pt low flow will need inotrope. continue midodrine
--- NOTE | 2016-06-19 11:39 | CP.PCM.PN ---
Subjective - Date & Time of Evaluation Date of Evaluation: 06/19/16 Time of Evaluation: 11:37 - Subjective Subjective: CC: Follow up abdominal pain Continues to have postprandial RUQ pain suspicious of biliarty pain, occurring 1 hour after meals. No fevers, chills, or nausea. radiates to mid abdomen. HIDA negative for cholecysitis, and no GB stones on sonogram. LFTs normalizing. On PPI too. Could not eat breakfast today. On anticoagulation for cardiac thrombus. Objective - Vital Signs/Intake and Output Vital Signs (last 24 hours): Temp Pulse Resp BP Pulse Ox 97.4 F L 80 20 94/60 L 99 06/19/16 07:07 06/19/16 09:58 06/19/16 07:07 06/19/16 09:58 06/19/16 07:07 - Medications Medications: Current Medications Carvedilol (Coreg) 3.125 mg PO Q12H [facility] Last Admin: 06/19/16 09:58 Dose: Not Given Furosemide (Lasix) 20 mg IVP DAILY [facility] Last Admin: 06/19/16 09:58 Dose: Not Given Metronidazole (Flagyl) 500 mg in 100 mls @ 100 mls/hr IVPB Q8H [facility] Last Admin: 06/19/16 01:32 Dose: 100 mls/hr Piperacillin Sod/Tazobactam (Sod 3.375 gm/ Sodium Chloride) 100 mls @ 200 mls/ hr IVPB Q6H [facility] Last Admin: 06/19/16 04:32 Dose: 200 mls/hr Levothyroxine Sodium (Synthroid) 125 mcg PO DAILY@0630 [facility] Last Admin: 06/19/16 06:25 Dose: 125 mcg Losartan Potassium (Cozaar) 25 mg PO DAILY [facility] Last Admin: 06/19/16 09:58 Dose: Not Given Metolazone (Zaroxolyn) 5 mg PO BID [facility] Last Admin: 06/18/16 17:55 Dose: 5 mg Morphine Sulfate (Morphine) 2 mg IVP Q4H PRN PRN Reason: Pain, moderate (4-7) Last Admin: 06/19/16 08:40 Dose: 2 mg Ondansetron HCl (Zofran Inj) 4 mg IVP Q6 PRN PRN Reason: Nausea/Vomiting Last Admin: 06/17/16 12:20 Dose: 4 mg Pantoprazole Sodium (Protonix Inj) 40 mg IVP DAILY [facility] Last Admin: 06/19/16 09:54 Dose: 40 mg Potassium Chloride (K-Dur 20 Meq Er Tab) 20 meq PO DAILY [facility] Last Admin: 06/19/16 09:58 Dose: Not Given Rivaroxaban (Xarelto) 20 mg PO DAILY [facility] Last Admin: 06/19/16 10:00 Dose: 20 mg - Labs Labs: 06/19/16 06:25 06/19/16 06:25 PT 20.2 SECONDS (9.7-12.2) H 06/18/16 12:13 INR 1.7 06/18/16 12:13 APTT 25 SECONDS (21-34) 06/18/16 12:13 - Constitutional Appears: No Acute Distress, Chronically Ill - Head Exam Head Exam: NORMOCEPHALIC - Eye Exam Eye Exam: absent: Scleral icterus - Respiratory Exam Respiratory Exam: NORMAL BREATHING PATTERN - Cardiovascular Exam Cardiovascular Exam: REGULAR RHYTHM - GI/Abdominal Exam GI & Abdominal Exam: Soft, Tenderness (RUQ tenderness) - Extremities Exam Extremities Exam: Normal Inspection. absent: Pedal Edema Assessment and Plan (1) Abnormal liver enzymes Assessment & Plan: Improving daily. Negative Hepatitis profile. Status: Acute (2) Acalculous cholecystitis Assessment & Plan: Unlikely in view of negative HIDA Perhaps Biliary Dyskinesia, or peptic or cardiac pain? Rec: PPI. Consider HIDA with GB EF, and/or EGD if ok with cardiology Status: Acute (3) CHF (congestive heart failure) Status: Chronic (4) Cardiomyopathy Status: Chronic
[2016-06-19 15:09] LABS: BLOOD UREA NITROGEN 21 mg/dL (9-20); CALCIUM 7.9 mg/dl (8.6-10.4); CARBON DIOXIDE 25 mmol/L (22-30); CHLORIDE 98 mmol/L (98-107); GFR AFRICAN-AMERICAN > 60; GLUCOSE,RANDOM 157 mg/dL (75-110); MAGNESIUM 2.2 mg/dL (1.6-2.3); POTASSIUM 3.4 mmol/L (3.6-5.2); SODIUM 134 mmol/L (132-148)
--- NOTE | 2016-06-19 16:43 | CP.PCM.PN ---
<Alireza Whitmore - Last Filed: 06/19/16 16:44> Subjective - Date & Time of Evaluation Date of Evaluation: 06/19/16 Time of Evaluation: 16:40 - Subjective Subjective: Med progress note. Attending: Dr. Herrera Pt seen and examined at bedside. No acute distress. No events overnight. Has not been eating well, multiple episodes of diarrhea. Will order stool studies. No other complaints. Objective - Vital Signs/Intake and Output Vital Signs (last 24 hours): Temp Pulse Resp BP Pulse Ox 97.5 F L 82 20 105/70 95 06/19/16 15:25 06/19/16 15:25 06/19/16 15:25 06/19/16 15:25 06/19/16 15:25 Intake and Output: 06/19/16 06/19/16 06:59 18:59 Intake Total 900 Balance 900 - Medications Medications: Current Medications Carvedilol (Coreg) 3.125 mg PO Q12H [facility] Last Admin: 06/19/16 09:58 Dose: Not Given Furosemide (Lasix) 20 mg IVP DAILY [facility] Last Admin: 06/19/16 09:58 Dose: Not Given Metronidazole (Flagyl) 500 mg in 100 mls @ 100 mls/hr IVPB Q8H [facility] Last Admin: 06/19/16 10:50 Dose: 100 mls/hr Piperacillin Sod/Tazobactam (Sod 3.375 gm/ Sodium Chloride) 100 mls @ 200 mls/ hr IVPB Q6H [facility] Last Admin: 06/19/16 12:07 Dose: 200 mls/hr Levothyroxine Sodium (Synthroid) 125 mcg PO DAILY@0630 [facility] Last Admin: 06/19/16 06:25 Dose: 125 mcg Losartan Potassium (Cozaar) 25 mg PO DAILY [facility] Last Admin: 06/19/16 09:58 Dose: Not Given Metolazone (Zaroxolyn) 5 mg PO BID [facility] Last Admin: 06/19/16 10:00 Dose: Not Given Morphine Sulfate (Morphine) 2 mg IVP Q4H PRN PRN Reason: Pain, moderate (4-7) Last Admin: 06/19/16 16:22 Dose: 2 mg Ondansetron HCl (Zofran Inj) 4 mg IVP Q6 PRN PRN Reason: Nausea/Vomiting Last Admin: 06/17/16 12:20 Dose: 4 mg Pantoprazole Sodium (Protonix Inj) 40 mg IVP DAILY [facility] Last Admin: 06/19/16 09:54 Dose: 40 mg Potassium Chloride (K-Dur 20 Meq Er Tab) 20 meq PO DAILY [facility] Last Admin: 06/19/16 09:58 Dose: Not Given Rivaroxaban (Xarelto) 20 mg PO DAILY [facility] Last Admin: 06/19/16 10:00 Dose: 20 mg - Labs Labs: 06/19/16 06:25 06/19/16 14:20 PT 20.2 SECONDS (9.7-12.2) H 06/18/16 12:13 INR 1.7 06/18/16 12:13 APTT 25 SECONDS (21-34) 06/18/16 12:13 - Constitutional Appears: Non-toxic, No Acute Distress - Head Exam Head Exam: ATRAUMATIC, NORMAL INSPECTION, NORMOCEPHALIC - Eye Exam Eye Exam: EOMI - ENT Exam ENT Exam: Mucous Membranes Moist - Neck Exam Neck Exam: Full ROM, Normal Inspection. absent: Lymphadenopathy - Respiratory Exam Respiratory Exam: NORMAL BREATHING PATTERN. absent: Respiratory Distress - Cardiovascular Exam Cardiovascular Exam: +S1, +S2 - GI/Abdominal Exam GI & Abdominal Exam: Tenderness Additional comments: Tenderness epigastric, RUQ - Extremities Exam Extremities Exam: Full ROM, Normal Inspection - Neurological Exam Neurological Exam: Alert, Awake, Oriented x3 - Psychiatric Exam Psychiatric exam: Normal Affect, Normal Mood - Skin Skin Exam: Dry, Intact, Normal Color, Warm Assessment and Plan - Assessment and Plan (Free Text) Assessment: 1) Acute cholecystitis * Abd/Pelvis CT (06/16/16)- no evidence of inguinal hernia containing bowel. No evidence of mechanical obstruction. Pericholecystic inflammatory changes raise the possibility of acute cholecystitis. Gallstones are not identified. * Abdominal US (06/16/16) -gallbladder wall thickening, sonographic Castro's sign elicted by technologist. Acalculous cholecystitis. * Surgery Consult (Dr. Maradiaga) on board-->help appreciated; sx has signed off * GI Consult (Dr. Pollard) /Dr. Babcock/Dr Méndez covering help appreciated * Flagyl 500mg IV Q 8 hours (day 4 ) and Zosyn 3.375 IV Q 6 hours (day 4) * we will stop fluids and put on full liquid diet * HIDA scan negative * Patient has high cardiac risk given history of cardiomyopathy (EF< 20%), has AICD, and left atrial thrombus (back on Xarelto) at this time * Cardiology (Dr. Ram) on board-->help appreciated * Morphine 2mg IV Q 4hour PRN pain * Chest xray (06/16/16): interval improvement in congestive heart failure * monitor for fluid overload * no intervention from sx 2) Hx of CHF * Continue home meds with holding parameters * Coreg 3.125mg PO BID (hold SBP<100 and HR<60) * hold lasix due to low K * Losartan 25mg PO daily * Metalazone 5mg PO BID * placed back on xarelto * Cardio consult - Dr. Ram - help appreciated-->Patient high risk for cardiac event during surgery * Echo (05/27/16): left ventricle systolic function is severaly impaired, EF <20% , left atrium is severely dilationed, ICD wires seen, thrombus noted in left atrial appendage * Chest xray (06/16/16): interval improvement in congestive heart failure * 3) Hx of Left atrial thrombus * we will restart xarelto * Cardio consult - Dr. Ram - help appreciated-->Patient high risk for cardiac event during surgery but he is cleared to have the surgery if it is needed per Dr. Ram 4) Hx of hypothyroidism * Continue home synthroid 125mcg PO daily 5) hx of umbilical hernia * No bowel seen in hernia in CT 6) hx of liver cirrhosis * Monitor LFTs * Abd/Pelvis CT (06/16/16)- no evidence of inguinal hernia containing bowel. No evidence of mechanical obstruction. Pericholecystic inflammatory change raise the possibility of acute cholecystitis. Gallstones are not identified. * Abdominal US (06/16/16) -gallbladder wall thickening, sonographic Castro's sign elicted by technologist. Acalculous cholecystitis. * Former alcohol use * Monitor LFTs and albumin 7) Prophylaxis * SCDs * Xarelto 20mg PO daily * Protonix 40mg IVP daily discussed with Dr. Herrera <July Herrera V - Last Filed: 09/19/16 00:09> Objective - Vital Signs/Intake and Output Vital Signs (last 24 hours): Temp Pulse Resp BP Pulse Ox 97.8 F 84 19 102/75 93 L 06/26/16 20:00 06/26/16 22:10 06/26/16 22:10 06/26/16 21:17 06/26/16 22:10 - Labs Labs: 06/27/16 06:00 06/27/16 06:00 PT 21.4 SECONDS (9.7-12.2) H D 06/24/16 06:06 INR 1.9 D 06/24/16 06:06 APTT 25 SECONDS (21-34) 06/18/16 12:13 Attending/Attestation - Attestation I have personally seen and examined this patient.: Yes I have fully participated in the care of the patient.: Yes I have reviewed all pertinent clinical information, including history, physical exam and plan: Yes
[2016-06-19] MEDS ORDERED: Potassium Chloride 20 mEq ER Tab PO ONE (17:30)
[2016-06-20] MEDS: metroNIDAZOLE IV 500 mg/100 ml 500 MG/100 ML BAG IVPB SCH ×3 (01:13→18:11)
[2016-06-20] MEDS: Piperacillin/Tazobact 3.375 GM in Sodium Chloride 100 ML IVPB SCH ×4 (05:04→22:30)
[2016-06-20] MEDS: Levothyroxine 125 MCG TAB PO SCH (06:04)
[2016-06-20 08:44] LABS: BASO % 0.4 % (0.0-2.0); EOS # 0.1 K/uL (0.0-0.7); EOS % 0.8 % (0.0-4.0); HEMATOCRIT 37.6 % (35.0-51.0); LYMPH # 0.9 K/uL (1.0-4.3); LYMPH % 12.2 % (20.0-40.0); MEAN CELL VOLUME 100.7 fL (80.0-94.0); MEAN CORPUSCULAR HEMOGLOBIN 33.2 pg (27.0-31.0); MEAN PLATELET VOLUME 10.3 fL (7.2-11.7); MONO # 0.7 K/uL (0.0-0.8); NRBC % 1.4 % (0.0-2.0); RED CELL DISTRIBUTION WIDTH 13.2 % (11.5-14.5); WHITE BLOOD COUNT 7.5 K/uL (4.8-10.8)
[2016-06-20 08:52] LABS: CHLORIDE 101 mmol/L (98-107)
[2016-06-20 08:53] LABS: POTASSIUM 3.1 mmol/L (3.6-5.2); SODIUM 136 mmol/L (132-148)
[2016-06-20 08:55] LABS: AST/SGOT 43 U/L (17-59); BILIRUBIN,TOTAL 1.4 mg/dL (0.2-1.3); CARBON DIOXIDE 25 mmol/L (22-30); GFR AFRICAN-AMERICAN > 60
[2016-06-20 08:56] LABS: ALB/GLOB RATIO 1.1 (1.0-2.1); ALKALINE PHOSPHATASE 82 U/L (38-126); ALT/SGPT 84 U/L (21-72); BLOOD UREA NITROGEN 20 mg/dL (9-20); CALCIUM 7.9 mg/dl (8.6-10.4); GLUCOSE,RANDOM 102 mg/dL (75-110); MAGNESIUM 2.1 mg/dL (1.6-2.3); TOTAL PROTEIN 5.9 g/dL (6.3-8.3)
--- NOTE | 2016-06-20 10:35 | CP.PCM.PN ---
<Deysi Rehman - Last Filed: 06/21/16 07:26> Subjective - Date & Time of Evaluation Date of Evaluation: 06/20/16 Time of Evaluation: 10:29 - Subjective Subjective: PGY-[address] Ram Pt still have abdominal pain, 1-2 hours after PO intake, liquid and solid alike. No CP, SOB, dysuria. Objective - Vital Signs/Intake and Output Vital Signs (last 24 hours): Temp Pulse Resp BP Pulse Ox 97.6 F 82 18 109/72 96 06/20/16 07:07 06/20/16 07:07 06/20/16 07:07 06/20/16 07:07 06/20/16 07:07 Intake and Output: 06/20/16 06/20/16 06:59 18:59 Output Total 300 Balance -300 - Medications Medications: Current Medications Carvedilol (Coreg) 3.125 mg PO Q12H [facility] Last Admin: 06/19/16 21:21 Dose: 3.125 mg Furosemide (Lasix) 20 mg IVP DAILY [facility] Last Admin: 06/19/16 09:58 Dose: Not Given Hydrocortisone (Anusol-Hc) 25 mg RC BID [facility] Last Admin: 06/19/16 21:18 Dose: Not Given Metronidazole (Flagyl) 500 mg in 100 mls @ 100 mls/hr IVPB Q8H [facility] Last Admin: 06/20/16 09:01 Dose: 100 mls/hr Piperacillin Sod/Tazobactam (Sod 3.375 gm/ Sodium Chloride) 100 mls @ 200 mls/ hr IVPB Q6H [facility] [place] Last Admin: 06/20/16 05:04 Dose: 200 mls/hr Levothyroxine Sodium (Synthroid) 125 mcg PO DAILY@0630 [facility] Last Admin: 06/20/16 06:04 Dose: 125 mcg Losartan Potassium (Cozaar) 25 mg PO DAILY [facility] Last Admin: 06/19/16 09:58 Dose: Not Given Metolazone (Zaroxolyn) 5 mg PO BID [facility] Last Admin: 06/19/16 18:23 Dose: 5 mg Morphine Sulfate (Morphine) 2 mg IVP Q4H PRN PRN Reason: Pain, moderate (4-7) Last Admin: 06/20/16 06:13 Dose: 2 mg Ondansetron HCl (Zofran Inj) 4 mg IVP Q6 PRN PRN Reason: Nausea/Vomiting Last Admin: 06/19/16 18:23 Dose: 4 mg Pantoprazole Sodium (Protonix Inj) 40 mg IVP DAILY [facility] Last Admin: 06/19/16 09:54 Dose: 40 mg Potassium Chloride (K-Dur 20 Meq Er Tab) 20 meq PO DAILY [facility] Last Admin: 06/19/16 09:58 Dose: Not Given Rivaroxaban (Xarelto) 20 mg PO DAILY [facility] Last Admin: 06/19/16 10:00 Dose: 20 mg - Labs Labs: 06/20/16 08:09 06/20/16 08:09 PT 20.2 SECONDS (9.7-12.2) H 06/18/16 12:13 INR 1.7 06/18/16 12:13 APTT 25 SECONDS (21-34) 06/18/16 12:13 - Constitutional Appears: No Acute Distress - Head Exam Head Exam: ATRAUMATIC, NORMOCEPHALIC - Eye Exam Eye Exam: EOMI, Normal appearance - ENT Exam ENT Exam: Mucous Membranes Moist - Respiratory Exam Respiratory Exam: Clear to Ausculation Bilateral, NORMAL BREATHING PATTERN. absent: Rales, Rhonchi, Wheezes - Cardiovascular Exam Cardiovascular Exam: REGULAR RHYTHM, +S1, +S2. absent: Murmur - GI/Abdominal Exam GI & Abdominal Exam: Soft, Normal Bowel Sounds. absent: Tenderness - Neurological Exam Neurological Exam: Alert, Awake, Oriented x3 - Psychiatric Exam Psychiatric exam: Normal Affect, Normal Mood - Skin Skin Exam: Dry, Warm Assessment and Plan - Assessment and Plan (Free Text) Plan: 65 year old male with past medical history of CHF, cardiomyopathy with AICD, A- fib on xarelto, liver cirrhosis, hypothyroidism, presents for cardiac evaluation for clearance for cholecystectomy. Abdominal pain likely due to acalculous cholecystitis. HIDA negative. No plan for surgery. Pt is on flagyl and zosyn. Systolic CHF, chronic Cardiomyopathy with AICD - Coreg 3.125 mg PO BID - Lasix 20 mg IV daily (consider transiting to oral lasix) - Metolazone 5 mg PO daily - Losartan 25mg PO daily - Patient is on 20meq potassium daily as an outpatient - heart healthy diet - Echo: (05/24/16) EF: <20%, left atrium is severely dilated, thrombus in left atrial appendage. - Pt with AICD placement and ablation May 2016. A-fib, stable, rate control with Coreg and currently ventricularly paced - Xarelto 20 daily - Elevated troponins are likely secondary to right heart failure. - Left atrial thrombus found on DONAVAN 05/24/16. Macrocytic anemia - Managed per primary team or outpatient Pre-procedural cardiovascular examination - AICD is not magnetically safe, not a candidate for MRCP. - Cardiac Risk Assessment: High Risk for cholecystectomy. Detsky score:55 (high risk) Ihpolito score:> 11% (high risk) Urias score: 42 (class IV- 78% complications) Patient is high risk patient for surgery, however if benefits of procedure outweigh risks, may proceed with surgery. Continue with preoperative SCIP protocols and measures EKG: (06/17/16) Ventricularly paced rhythm with PVCs, wide QRS, prolonged QTc. Echo: (05/24/16) EF: <20%, left atrium is severely dilated, thrombus in left atrial appendage. Cardiac Cath: (03/29/14): showed normal coronaries with EF 10-15%. EKG: (05/22/16) Demand pacemaker, interpretation based on intrinsic rhythm, nonspecific intraventricular block, T wave abnormality, consider interolateral ischemia Serial Troponins: (06/17/16) Troponin 1: 0.1770, Troponin 2: 0.1530, Troponin 3: 0.1580 BNP: (05/15/16) 3,780 Status: Acute Elevated Troponins - Serial Troponins: (06/17/16) Troponin 1: 0.1770, Troponin 2: 0.1530, Troponin 3 : 0.1580. - Repeat DALE-0.1030 - As per Dr. Ram, likely secondary to CHF. Give Lasix. Will discusse with Dr. Ram. <Jennyfer Ram - Last Filed: 07/03/16 12:09> Objective - Vital Signs/Intake and Output Vital Signs (last 24 hours): Temp Pulse Resp BP Pulse Ox 97.8 F 84 19 102/75 93 L 06/26/16 20:00 06/26/16 22:10 06/26/16 22:10 06/26/16 21:17 06/26/16 22:10 - Labs Labs: 06/27/16 06:00 06/27/16 06:00 PT 21.4 SECONDS (9.7-12.2) H D 06/24/16 06:06 INR 1.9 D 06/24/16 06:06 APTT 25 SECONDS (21-34) 06/18/16 12:13 Attending/Attestation - Attestation I have personally seen and examined this patient.: Yes I have fully participated in the care of the patient.: Yes I have reviewed all pertinent clinical information, including history, physical exam and plan: Yes Notes (Text): 07/03/16 12:08 Pt with splanchnic pain during eating with try milrinine for bp support
[2016-06-20] MEDS: metOLazone 5 MG TAB PO SCH ×2 (11:00→18:13)
[2016-06-20] MEDS ORDERED: Potassium Chloride 20 mEq ER Tab PO ONE (11:00)
--- NOTE | 2016-06-20 12:16 | CP.PCM.PN ---
Subjective - Date & Time of Evaluation Date of Evaluation: 06/20/16 Time of Evaluation: 12:13 - Subjective Subjective: F/U abdominal pain FAmily is present. Reports less abdom pain. Less nausea, vomiting. Less diarrhea. Denies RB, melena, fever, chills, CP SOB, ORR, cough Objective - Vital Signs/Intake and Output Vital Signs (last 24 hours): Temp Pulse Resp BP Pulse Ox 97.6 F 80 18 113/76 96 06/20/16 07:07 06/20/16 10:58 06/20/16 07:07 06/20/16 10:58 06/20/16 07:07 Intake and Output: 06/20/16 06/20/16 06:59 18:59 Output Total 300 Balance -300 - Medications Medications: Current Medications Carvedilol (Coreg) 3.125 mg PO Q12H [facility] Last Admin: 06/20/16 11:00 Dose: 3.125 mg Furosemide (Lasix) 20 mg IVP DAILY [facility] Last Admin: 06/20/16 11:00 Dose: Not Given Hydrocortisone (Anusol-Hc) 25 mg RC BID [facility] Last Admin: 06/20/16 11:27 Dose: Not Given Metronidazole (Flagyl) 500 mg in 100 mls @ 100 mls/hr IVPB Q8H [facility] Last Admin: 06/20/16 09:01 Dose: 100 mls/hr Piperacillin Sod/Tazobactam (Sod 3.375 gm/ Sodium Chloride) 100 mls @ 200 mls/ hr IVPB Q6H [facility] Last Admin: 06/20/16 11:00 Dose: 200 mls/hr Levothyroxine Sodium (Synthroid) 125 mcg PO DAILY@0630 [facility] Last Admin: 06/20/16 06:04 Dose: 125 mcg Losartan Potassium (Cozaar) 25 mg PO DAILY [facility] Last Admin: 06/20/16 11:00 Dose: 25 mg Metolazone (Zaroxolyn) 5 mg PO BID [facility] Last Admin: 06/20/16 11:00 Dose: 5 mg Morphine Sulfate (Morphine) 2 mg IVP Q4H PRN PRN Reason: Pain, moderate (4-7) Last Admin: 06/20/16 06:13 Dose: 2 mg Ondansetron HCl (Zofran Inj) 4 mg IVP Q6 PRN PRN Reason: Nausea/Vomiting Last Admin: 06/19/16 18:23 Dose: 4 mg Pantoprazole Sodium (Protonix Inj) 40 mg IVP DAILY [facility] Last Admin: 06/20/16 11:00 Dose: 40 mg Potassium Chloride (K-Dur 20 Meq Er Tab) 20 meq PO DAILY [facility] Last Admin: 06/19/16 09:58 Dose: Not Given Rivaroxaban (Xarelto) 20 mg PO DAILY [facility] Last Admin: 06/20/16 11:00 Dose: 20 mg - Labs Labs: 06/20/16 08:09 06/20/16 08:09 PT 20.2 SECONDS (9.7-12.2) H 06/18/16 12:13 INR 1.7 06/18/16 12:13 APTT 25 SECONDS (21-34) 06/18/16 12:13 - Constitutional Appears: Well - ENT Exam ENT Exam: Mucous Membranes Moist - Respiratory Exam Respiratory Exam: Clear to Ausculation Bilateral - Cardiovascular Exam Cardiovascular Exam: RRR - GI/Abdominal Exam GI & Abdominal Exam: Soft, Normal Bowel Sounds. absent: Guarding, Tenderness, Mass - Extremities Exam Extremities Exam: absent: Calf Tenderness - Neurological Exam Neurological Exam: Alert, Oriented x3 Assessment and Plan (1) Abnormal liver enzymes Status: Acute (2) Acalculous cholecystitis Assessment & Plan: HIDA reportedly OK Consider HIDA and EF Consdier EGD- pt and family refuse EGD. Rec; PPI BID. Status: Acute (3) CHF (congestive heart failure) Status: Chronic (4) Cardiomyopathy Status: Chronic
[2016-06-20] MEDS: Potassium Chloride 20 mEq ER Tab PO SCH (13:18)
--- NOTE | 2016-06-20 17:04 | CP.PCM.PN ---
<Alireza Whitmore - Last Filed: 06/20/16 17:04> Subjective - Date & Time of Evaluation Date of Evaluation: 06/20/16 Time of Evaluation: 17:00 - Subjective Subjective: Med progress note. Attending: Dr. Herrera Pt seen and examined at bedside. No acute distress. No events overnight. pt denies diarrhea, but during rounds with attending admitted to some still. No pain. GI following, will f/u on stool studies. pt to remain on abx. Objective - Vital Signs/Intake and Output Vital Signs (last 24 hours): Temp Pulse Resp BP Pulse Ox 97.4 F L 79 20 98/73 L 98 06/20/16 15:47 06/20/16 15:47 06/20/16 15:47 06/20/16 15:47 06/20/16 15:47 Intake and Output: 06/20/16 06/20/16 06:59 18:59 Intake Total 600 Output Total 300 Balance -300 600 - Medications Medications: Current Medications Carvedilol (Coreg) 3.125 mg PO Q12H [facility] Last Admin: 06/20/16 11:00 Dose: 3.125 mg Furosemide (Lasix) 20 mg IVP DAILY [facility] Last Admin: 06/20/16 11:00 Dose: Not Given Hydrocortisone (Anusol-Hc) 25 mg RC BID [facility] Last Admin: 06/20/16 11:27 Dose: Not Given Metronidazole (Flagyl) 500 mg in 100 mls @ 100 mls/hr IVPB Q8H [facility] Last Admin: 06/20/16 09:01 Dose: 100 mls/hr Piperacillin Sod/Tazobactam (Sod 3.375 gm/ Sodium Chloride) 100 mls @ 200 mls/ hr IVPB Q6H [facility] Last Admin: 06/20/16 16:35 Dose: 200 mls/hr Levothyroxine Sodium (Synthroid) 125 mcg PO DAILY@0630 [facility] Last Admin: 06/20/16 06:04 Dose: 125 mcg Losartan Potassium (Cozaar) 25 mg PO DAILY [facility] Last Admin: 06/20/16 11:00 Dose: 25 mg Metolazone (Zaroxolyn) 5 mg PO BID [facility] Last Admin: 06/20/16 11:00 Dose: 5 mg Morphine Sulfate (Morphine) 2 mg IVP Q4H PRN PRN Reason: Pain, moderate (4-7) Last Admin: 06/20/16 06:13 Dose: 2 mg Ondansetron HCl (Zofran Inj) 4 mg IVP Q6 PRN PRN Reason: Nausea/Vomiting Last Admin: 06/20/16 12:57 Dose: 4 mg Pantoprazole Sodium (Protonix Inj) 40 mg IVP DAILY [facility] Last Admin: 06/20/16 11:00 Dose: 40 mg Potassium Chloride (K-Dur 20 Meq Er Tab) 20 meq PO DAILY [facility] Last Admin: 06/20/16 13:18 Dose: 20 meq Rivaroxaban (Xarelto) 20 mg PO DAILY [facility] Last Admin: 06/20/16 11:00 Dose: 20 mg - Labs Labs: 06/20/16 08:09 06/20/16 08:09 PT 20.2 SECONDS (9.7-12.2) H 06/18/16 12:13 INR 1.7 06/18/16 12:13 APTT 25 SECONDS (21-34) 06/18/16 12:13 - Constitutional Appears: Non-toxic, No Acute Distress - Head Exam Head Exam: ATRAUMATIC, NORMAL INSPECTION, NORMOCEPHALIC - Eye Exam Eye Exam: EOMI - Neck Exam Neck Exam: Full ROM, Normal Inspection. absent: Lymphadenopathy - Respiratory Exam Respiratory Exam: NORMAL BREATHING PATTERN. absent: Respiratory Distress - Cardiovascular Exam Cardiovascular Exam: +S1, +S2 - GI/Abdominal Exam GI & Abdominal Exam: Soft, Normal Bowel Sounds. absent: Tenderness - Extremities Exam Extremities Exam: Full ROM, Normal Inspection - Back Exam Back Exam: NORMAL INSPECTION - Neurological Exam Neurological Exam: Alert, Awake, Oriented x3 - Psychiatric Exam Psychiatric exam: Flat Affect - Skin Skin Exam: Dry, Intact, Normal Color, Warm Assessment and Plan - Assessment and Plan (Free Text) Assessment: 1) Acute cholecystitis * Abd/Pelvis CT (06/16/16)- no evidence of inguinal hernia containing bowel. No evidence of mechanical obstruction. Pericholecystic inflammatory changes raise the possibility of acute cholecystitis. Gallstones are not identified. * Abdominal US (06/16/16) -gallbladder wall thickening, sonographic Castro's sign elicted by technologist. Acalculous cholecystitis. * Surgery Consult (Dr. Maradiaga) on board-->help appreciated; sx has signed off * GI Consult (Dr. Pollard) /Dr. Babcock/Dr Méndez covering help appreciated * Flagyl 500mg IV Q 8 hours (day 5 ) and Zosyn 3.375 IV Q 6 hours (day 5) * we will stop fluids and put on full liquid diet, pt still experiencing nausea and a little vomiting * HIDA scan negative * Patient has high cardiac risk given history of cardiomyopathy (EF< 20%), has AICD, and left atrial thrombus (back on Xarelto) at this time * Cardiology (Dr. Ram) on board-->help appreciated * Morphine 2mg IV Q 4hour PRN pain * Chest xray (06/16/16): interval improvement in congestive heart failure * monitor for fluid overload * no intervention from sx 2) Diarrhea diarrhea improved since yesterday stool leukocytes pending continue abx repeat c diff pending GI consult with Dr. Méndez. recs appreciated. 3) Hx of CHF * Continue home meds with holding parameters * Coreg 3.125mg PO BID (hold SBP<100 and HR<60) * we will give lasix as pt is getting fluids from abx * Losartan 25mg PO daily * Metalazone 5mg PO BID * placed back on xarelto * Cardio consult - Dr. Ram - help appreciated-->Patient high risk for cardiac event during surgery * Echo (05/27/16): left ventricle systolic function is severaly impaired, EF <20% , left atrium is severely dilationed, ICD wires seen, thrombus noted in left atrial appendage * Chest xray (06/16/16): interval improvement in congestive heart failure 3) Hx of Left atrial thrombus * we will restart xarelto, continue xarelto daily * Cardio consult - Dr. Ram - help appreciated-->Patient high risk for cardiac event during surgery but he is cleared to have the surgery if it is needed per Dr. Ram 4) Hx of hypothyroidism * Continue home synthroid 125mcg PO daily 5) hx of umbilical hernia * No bowel seen in hernia in CT 6) hx of liver cirrhosis * Monitor LFTs * Abd/Pelvis CT (06/16/16)- no evidence of inguinal hernia containing bowel. No evidence of mechanical obstruction. Pericholecystic inflammatory change raise the possibility of acute cholecystitis. Gallstones are not identified. * Abdominal US (06/16/16) -gallbladder wall thickening, sonographic Castro's sign elicted by technologist. Acalculous cholecystitis. * Former alcohol use * Monitor LFTs and albumin 7) Prophylaxis * SCDs * Xarelto 20mg PO daily * Protonix 40mg IVP daily >>> we will change to bid discussed with Dr. Herrera <July Herrera V - Last Filed: 09/19/16 00:10> Objective - Vital Signs/Intake and Output Vital Signs (last 24 hours): Temp Pulse Resp BP Pulse Ox 97.8 F 84 19 102/75 93 L 06/26/16 20:00 06/26/16 22:10 06/26/16 22:10 06/26/16 21:17 06/26/16 22:10 - Labs Labs: 06/27/16 06:00 06/27/16 06:00 PT 21.4 SECONDS (9.7-12.2) H D 06/24/16 06:06 INR 1.9 D 06/24/16 06:06 APTT 25 SECONDS (21-34) 06/18/16 12:13 Attending/Attestation - Attestation I have personally seen and examined this patient.: Yes I have fully participated in the care of the patient.: Yes I have reviewed all pertinent clinical information, including history, physical exam and plan: Yes
[2016-06-21] MEDS: metroNIDAZOLE IV 500 mg/100 ml 500 MG/100 ML BAG IVPB SCH ×3 (02:03→18:28)
[2016-06-21] MEDS: Piperacillin/Tazobact 3.375 GM in Sodium Chloride 100 ML IVPB SCH ×4 (03:40→21:43)
[2016-06-21] MEDS: Levothyroxine 125 MCG TAB PO SCH (05:54)
[2016-06-21 06:32] LABS: BASO % 0.4 % (0.0-2.0); EOS # 0.1 K/uL (0.0-0.7); EOS % 0.9 % (0.0-4.0); HEMATOCRIT 36.9 % (35.0-51.0); LYMPH # 1.5 K/uL (1.0-4.3); LYMPH % 17.8 % (20.0-40.0); MEAN CELL VOLUME 100.6 fL (80.0-94.0); MEAN CORPUSCULAR HEMOGLOBIN 33.2 pg (27.0-31.0); MEAN PLATELET VOLUME 10.1 fL (7.2-11.7); MONO # 0.8 K/uL (0.0-0.8); MONO % 9.3 % (0.0-10.0); RED CELL DISTRIBUTION WIDTH 13.3 % (11.5-14.5); WHITE BLOOD COUNT 8.3 K/uL (4.8-10.8)
[2016-06-21 06:45] LABS: CHLORIDE 103 mmol/L (98-107); POTASSIUM 3.4 mmol/L (3.6-5.2); SODIUM 137 mmol/L (132-148)
[2016-06-21 06:47] LABS: ALKALINE PHOSPHATASE 90 U/L (38-126); ALT/SGPT 79 U/L (21-72); AST/SGOT 43 U/L (17-59); BILIRUBIN,TOTAL 1.2 mg/dL (0.2-1.3); BLOOD UREA NITROGEN 26 mg/dL (9-20); CARBON DIOXIDE 24 mmol/L (22-30); GFR AFRICAN-AMERICAN > 60; GLUCOSE,RANDOM 86 mg/dL (75-110); TOTAL PROTEIN 5.7 g/dL (6.3-8.3)
[2016-06-21 06:48] LABS: CALCIUM 7.7 mg/dl (8.6-10.4); PHOSPHOROUS 3.1 mg/dL (2.5-4.5)
--- NOTE | 2016-06-21 07:28 | CP.PCM.PN ---
Addendum entered and electronically signed by Deysi Rehman DO 06/21/16 15:47 : Pt has pre-load dependent CHF. Hold lasix. BUN/Cre 26/1.4 (slightly rised from baseline) Add midodrine 10 bid change to BP q 4 h May consider go to [facility] IV inotro[facility] Original Note: <Deysi Rehman - Last Filed: 06/21/16 11:27> Subjective - Date & Time of Evaluation Date of Evaluation: 06/21/16 Time of Evaluation: 07:27 - Subjective Subjective: PGY-[address] Ram Pt currently pain free. Pt states that he had abdominal pain at night, then felt heart palpitation. V-tach runs of 6 recorded overnight. Non-sustained. hemodynamically stable. Objective - Vital Signs/Intake and Output Vital Signs (last 24 hours): Temp Pulse Resp BP Pulse Ox 97.6 F 80 20 95/59 L 95 06/21/16 04:35 06/21/16 04:35 06/21/16 04:35 06/21/16 04:35 06/21/16 04:35 - Medications Medications: Current Medications Carvedilol (Coreg) 3.125 mg PO Q12H [facility] Last Admin: 06/20/16 22:31 Dose: Not Given Furosemide (Lasix) 20 mg IVP DAILY [facility] Last Admin: 06/20/16 11:00 Dose: Not Given Hydrocortisone (Anusol-Hc) 25 mg RC BID [facility] Last Admin: 06/20/16 18:00 Dose: Not Given Metronidazole (Flagyl) 500 mg in 100 mls @ 100 mls/hr IVPB Q8H [facility] Last Admin: 06/21/16 02:03 Dose: 100 mls/hr Piperacillin Sod/Tazobactam (Sod 3.375 gm/ Sodium Chloride) 100 mls @ 200 mls/ hr IVPB Q6H [facility] Last Admin: 06/21/16 03:40 Dose: 200 mls/hr Potassium Chloride (Potassium Chloride 20 Meq/100 Ml) 20 meq in 100 mls @ 50 mls/hr IVPB ONCE ONE Stop: 06/21/16 09:22 Levothyroxine Sodium (Synthroid) 125 mcg PO DAILY@0630 [facility] Last Admin: 06/21/16 05:54 Dose: 125 mcg Losartan Potassium (Cozaar) 25 mg PO DAILY [facility] Last Admin: 06/20/16 11:00 Dose: 25 mg Metolazone (Zaroxolyn) 5 mg PO BID [facility] Last Admin: 06/20/16 18:13 Dose: 5 mg Morphine Sulfate (Morphine) 2 mg IVP Q4 PRN PRN Reason: Pain, moderate (4-7) Last Admin: 06/21/16 00:10 Dose: 2 mg Ondansetron HCl (Zofran Inj) 4 mg IVP Q6 PRN PRN Reason: Nausea/Vomiting Last Admin: 06/20/16 12:57 Dose: 4 mg Pantoprazole Sodium (Protonix Inj) 40 mg IVP DAILY [facility] Last Admin: 06/20/16 11:00 Dose: 40 mg Potassium Chloride (K-Dur 20 Meq Er Tab) 20 meq PO DAILY [facility] Last Admin: 06/20/16 13:18 Dose: 20 meq Potassium Chloride (Potassium Chloride Oral Soln) 20 meq PO STAT STA Stop: 06/21/16 07:23 Rivaroxaban (Xarelto) 20 mg PO DAILY [facility] Last Admin: 06/20/16 11:00 Dose: 20 mg - Labs Labs: 06/21/16 06:23 06/21/16 06:23 PT 20.2 SECONDS (9.7-12.2) H 06/18/16 12:13 INR 1.7 06/18/16 12:13 APTT 25 SECONDS (21-34) 06/18/16 12:13 - Constitutional Appears: No Acute Distress - Head Exam Head Exam: ATRAUMATIC, NORMOCEPHALIC - Eye Exam Eye Exam: EOMI, Normal appearance, PERRL Pupil Exam: NORMAL ACCOMODATION - ENT Exam ENT Exam: Mucous Membranes Moist - Respiratory Exam Respiratory Exam: Clear to Ausculation Bilateral, NORMAL BREATHING PATTERN. absent: Rales, Rhonchi, Wheezes - Cardiovascular Exam Cardiovascular Exam: REGULAR RHYTHM, +S1, +S2. absent: Murmur - GI/Abdominal Exam GI & Abdominal Exam: Soft, Hypoactive Bowel Sounds. absent: Guarding, Rigid, Tenderness - Neurological Exam Neurological Exam: Alert, Awake, Oriented x3 - Psychiatric Exam Psychiatric exam: Normal Affect, Normal Mood - Skin Skin Exam: Dry, Warm Assessment and Plan - Assessment and Plan (Free Text) Plan: 65 year old male with past medical history of CHF, cardiomyopathy with AICD, A- fib on xarelto, liver cirrhosis, hypothyroidism, presents for cardiac evaluation for clearance for cholecystectomy. Abdominal pain likely due to acalculous cholecystitis. HIDA negative. No plan for surgery. Pt is on flagyl and zosyn. V-tach, non-sustained, hemodynamically stable - likely triggered by abdominal pain per pt account - EKG this AM did not show significant changes - continue current management - related to primary team about possible increase in pain regimen Systolic CHF, chronic Cardiomyopathy with AICD - Coreg 3.125 mg PO BID - Lasix 20 mg IV daily (consider transiting to oral lasix) - Metolazone 5 mg PO daily - Losartan 25mg PO daily - Patient is on 20meq potassium daily as an outpatient - heart healthy diet - Echo: (05/24/16) EF: <20%, left atrium is severely dilated, thrombus in left atrial appendage. - Pt with AICD placement and ablation May 2016. A-fib, stable, rate control with Coreg and currently ventricularly paced - Xarelto 20 daily - Elevated troponins are likely secondary to right heart failure. - Left atrial thrombus found on DONAVAN 05/24/16. Macrocytic anemia - Managed per primary team or outpatient Pre-procedural cardiovascular examination - AICD is not magnetically safe, not a candidate for MRCP. - Cardiac Risk Assessment: High Risk for cholecystectomy. Detsky score:55 (high risk) Hipolito score:> 11% (high risk) Urias score: 42 (class IV- 78% complications) Patient is high risk patient for surgery, however if benefits of procedure outweigh risks, may proceed with surgery. Continue with preoperative SCIP protocols and measures EKG: (06/17/16) Ventricularly paced rhythm with PVCs, wide QRS, prolonged QTc. Echo: (05/24/16) EF: <20%, left atrium is severely dilated, thrombus in left atrial appendage. Cardiac Cath: (03/29/14): showed normal coronaries with EF 10-15%. EKG: (05/22/16) Demand pacemaker, interpretation based on intrinsic rhythm, nonspecific intraventricular block, T wave abnormality, consider interolateral ischemia Serial Troponins: (06/17/16) Troponin 1: 0.1770, Troponin 2: 0.1530, Troponin 3: 0.1580 BNP: (05/15/16) 3,780 Elevated Troponins - Serial Troponins: (06/17/16) Troponin 1: 0.1770, Troponin 2: 0.1530, Troponin 3 : 0.1580. - Repeat DALE-0.1030 - As per Dr. Ram, likely secondary to CHF. Give Lasix. S/R/D with Dr. Ram. <Jennyfer Ram - Last Filed: 06/28/16 20:23> Objective - Vital Signs/Intake and Output Vital Signs (last 24 hours): Temp Pulse Resp BP Pulse Ox 97.8 F 84 19 102/75 93 L 06/26/16 20:00 06/26/16 22:10 06/26/16 22:10 06/26/16 21:17 06/26/16 22:10 - Labs Labs: 06/27/16 06:00 06/27/16 06:00 PT 21.4 SECONDS (9.7-12.2) H D 06/24/16 06:06 INR 1.9 D 06/24/16 06:06 APTT 25 SECONDS (21-34) 06/18/16 12:13 Attending/Attestation - Attestation I have personally seen and examined this patient.: Yes I have fully participated in the care of the patient.: Yes I have reviewed all pertinent clinical information, including history, physical exam and plan: Yes Notes (Text): 06/28/16 20:22 possible terminal carman inotrope candidate
[2016-06-21] MEDS ORDERED: Potassium Chloride 20 mEq/15 ml LIQ UD PO STA (07:35)
[2016-06-21] MEDS: Potassium Chloride 20 mEq ER Tab PO SCH (09:52)
[2016-06-21] MEDS: metOLazone 5 MG TAB PO SCH ×2 (10:54→18:29)
--- NOTE | 2016-06-21 11:35 | CP.PCM.PN ---
Subjective - Date & Time of Evaluation Date of Evaluation: 06/21/16 Time of Evaluation: 11:33 - Subjective Subjective: GI Service follow up CC: Abdominal pain No pain today. No diarrhea. Refused EGD today Objective - Vital Signs/Intake and Output Vital Signs (last 24 hours): Temp Pulse Resp BP Pulse Ox 97.7 F 80 18 110/72 96 06/21/16 07:15 06/21/16 09:47 06/21/16 07:15 06/21/16 09:47 06/21/16 07:15 - Medications Medications: Current Medications Carvedilol (Coreg) 3.125 mg PO Q12H [facility] Last Admin: 06/21/16 10:15 Dose: 3.125 mg Furosemide (Lasix) 20 mg IVP DAILY [facility] Last Admin: 06/20/16 11:00 Dose: Not Given Hydrocortisone (Anusol-Hc) 25 mg RC BID [facility] Last Admin: 06/21/16 09:53 Dose: Not Given Metronidazole (Flagyl) 500 mg in 100 mls @ 100 mls/hr IVPB Q8H [facility] Last Admin: 06/21/16 09:49 Dose: 100 mls/hr Piperacillin Sod/Tazobactam (Sod 3.375 gm/ Sodium Chloride) 100 mls @ 200 mls/ hr IVPB Q6H [facility] Last Admin: 06/21/16 03:40 Dose: 200 mls/hr Levothyroxine Sodium (Synthroid) 125 mcg PO DAILY@0630 [facility] Last Admin: 06/21/16 05:54 Dose: 125 mcg Losartan Potassium (Cozaar) 25 mg PO DAILY [facility] Last Admin: 06/20/16 11:00 Dose: 25 mg Metolazone (Zaroxolyn) 5 mg PO BID [facility] Last Admin: 06/21/16 10:54 Dose: 5 mg Morphine Sulfate (Morphine) 2 mg IVP Q4 PRN PRN Reason: Pain, moderate (4-7) Last Admin: 06/21/16 00:10 Dose: 2 mg Ondansetron HCl (Zofran Inj) 4 mg IVP Q6 PRN PRN Reason: Nausea/Vomiting Last Admin: 06/20/16 12:57 Dose: 4 mg Pantoprazole Sodium (Protonix Inj) 40 mg IVP BID [facility] Last Admin: 06/21/16 09:52 Dose: 40 mg Potassium Chloride (K-Dur 20 Meq Er Tab) 20 meq PO DAILY [facility] Last Admin: 06/21/16 09:52 Dose: 20 meq Rivaroxaban (Xarelto) 20 mg PO DAILY [facility] Last Admin: 06/21/16 10:15 Dose: 20 mg - Labs Labs: 06/21/16 06:23 06/21/16 06:23 PT 20.2 SECONDS (9.7-12.2) H 06/18/16 12:13 INR 1.7 06/18/16 12:13 APTT 25 SECONDS (21-34) 06/18/16 12:13 - Constitutional Appears: Well, No Acute Distress - Eye Exam Eye Exam: absent: Scleral icterus - Respiratory Exam Respiratory Exam: Clear to Ausculation Bilateral - Cardiovascular Exam Cardiovascular Exam: Gallop (S3 gallop), REGULAR RHYTHM - GI/Abdominal Exam GI & Abdominal Exam: Soft, Tenderness (RUQ and epigastric ) Assessment and Plan (1) Abnormal liver enzymes Assessment & Plan: steadily improving Status: Acute (2) Acalculous cholecystitis Assessment & Plan: Unclear, in light of negative HIDA Rec: Repeat HIDA with GB EF to evaluate for GB hypokinesis. Need to wait for nuclear material to clear out from previous HIDA Status: Acute (3) CHF (congestive heart failure) Assessment & Plan: Managed by Cardio and Med Status: Chronic (4) Cardiomyopathy Status: Chronic
--- NOTE | 2016-06-21 13:02 | CARD ---
APPROVED REPORT EKG Measurement Heart [id number] <Conclusion> Ventricular-paced rhythm with occasional premature ventricular complexes Abnormal ECG
--- NOTE | 2016-06-21 15:26 | CP.PCM.PN ---
<Alireza Whitmore - Last Filed: 06/21/16 15:31> Subjective - Date & Time of Evaluation Date of Evaluation: 06/21/16 Time of Evaluation: 15:25 - Subjective Subjective: Med progress note. Attending: Dr. Herrera Pt seen and examined at bedside. No acute distress. Non sustained v tach overnight. Paced rhythm on ekg in am. No more diarrhea. Pt refused egd and will wait for special hida with gb ef. Objective - Vital Signs/Intake and Output Vital Signs (last 24 hours): Temp Pulse Resp BP Pulse Ox 97.7 F 79 18 106/71 96 06/21/16 07:15 06/21/16 11:25 06/21/16 07:15 06/21/16 11:25 06/21/16 07:15 - Medications Medications: Current Medications Carvedilol (Coreg) 3.125 mg PO Q12H [facility] Last Admin: 06/21/16 10:15 Dose: 3.125 mg Furosemide (Lasix) 20 mg IVP DAILY [facility] Last Admin: 06/21/16 14:08 Dose: Not Given Hydrocortisone (Anusol-Hc) 25 mg RC BID [facility] Last Admin: 06/21/16 09:53 Dose: Not Given Metronidazole (Flagyl) 500 mg in 100 mls @ 100 mls/hr IVPB Q8H [facility] Last Admin: 06/21/16 09:49 Dose: 100 mls/hr Piperacillin Sod/Tazobactam (Sod 3.375 gm/ Sodium Chloride) 100 mls @ 200 mls/ hr IVPB Q6H [facility] Last Admin: 06/21/16 11:25 Dose: 200 mls/hr Levothyroxine Sodium (Synthroid) 125 mcg PO DAILY@0630 [facility] Last Admin: 06/21/16 05:54 Dose: 125 mcg Losartan Potassium (Cozaar) 25 mg PO DAILY [facility] Last Admin: 06/21/16 11:25 Dose: 25 mg Metolazone (Zaroxolyn) 5 mg PO BID [facility] Last Admin: 06/21/16 10:54 Dose: 5 mg Midodrine (Proamatine) 10 mg PO BID [facility] Morphine Sulfate (Morphine) 2 mg IVP Q4 PRN PRN Reason: Pain, moderate (4-7) Last Admin: 06/21/16 00:10 Dose: 2 mg Ondansetron HCl (Zofran Inj) 4 mg IVP Q6 PRN PRN Reason: Nausea/Vomiting Last Admin: 06/20/16 12:57 Dose: 4 mg Pantoprazole Sodium (Protonix Inj) 40 mg IVP BID [facility] Last Admin: 06/21/16 09:52 Dose: 40 mg Potassium Chloride (K-Dur 20 Meq Er Tab) 20 meq PO DAILY [facility] Last Admin: 06/21/16 09:52 Dose: 20 meq Rivaroxaban (Xarelto) 20 mg PO DAILY [facility] Last Admin: 06/21/16 10:15 Dose: 20 mg - Labs Labs: 06/21/16 06:23 06/21/16 06:23 PT 20.2 SECONDS (9.7-12.2) H 06/18/16 12:13 INR 1.7 06/18/16 12:13 APTT 25 SECONDS (21-34) 06/18/16 12:13 - Constitutional Appears: Non-toxic, No Acute Distress - Head Exam Head Exam: ATRAUMATIC, NORMAL INSPECTION, NORMOCEPHALIC - Eye Exam Eye Exam: EOMI - ENT Exam ENT Exam: Mucous Membranes Moist - Neck Exam Neck Exam: Full ROM, Normal Inspection. absent: Lymphadenopathy - Respiratory Exam Respiratory Exam: NORMAL BREATHING PATTERN. absent: Respiratory Distress - Cardiovascular Exam Cardiovascular Exam: +S1, +S2 - GI/Abdominal Exam GI & Abdominal Exam: Soft, Normal Bowel Sounds. absent: Tenderness - Extremities Exam Extremities Exam: Full ROM, Normal Inspection - Neurological Exam Neurological Exam: Alert, Awake, Oriented x3 - Psychiatric Exam Psychiatric exam: Normal Affect, Normal Mood - Skin Skin Exam: Dry, Intact, Normal Color, Warm Assessment and Plan - Assessment and Plan (Free Text) Assessment: 1) Acalculous cholecystitis * Abd/Pelvis CT (06/16/16)- no evidence of inguinal hernia containing bowel. No evidence of mechanical obstruction. Pericholecystic inflammatory changes raise the possibility of acute cholecystitis. Gallstones are not identified. * Abdominal US (06/16/16) -gallbladder wall thickening, sonographic Castro's sign elicted by technologist. Acalculous cholecystitis. * Surgery Consult (Dr. Maradiaga) on board-->help appreciated; sx has signed off * GI Consult (Dr. Pollard) /Dr. Babcock/Dr Méndez covering help appreciated * Flagyl 500mg IV Q 8 hours (day 6 ) and Zosyn 3.375 IV Q 6 hours (day 5) * we will stop fluids and put on full liquid diet, pt still experiencing nausea and a little vomiting * HIDA scan negative, f/u with HIDA with GB EF * Patient has high cardiac risk given history of cardiomyopathy (EF< 20%), has AICD, and left atrial thrombus (back on Xarelto) at this time * Cardiology (Dr. Ram) on board-->help appreciated * Morphine 2mg IV Q 4hour PRN pain * Chest xray (06/16/16): interval improvement in congestive heart failure * monitor for fluid overload * no intervention from sx 2) Diarrhea diarrhea improved since yesterday stool leukocytes positive continue abx repeat c diff pending GI consult with Dr. Méndez. recs appreciated. 3) Hx of CHF * Continue home meds with holding parameters * Coreg 3.125mg PO BID (hold SBP<100 and HR<60), hold * lasix is on hold * Losartan 25mg PO daily, hold for today * Metalazone 5mg PO BID * placed back on xarelto * Cardio consult - Dr. Ram - help appreciated-->Patient high risk for cardiac event during surgery * Echo (05/27/16): left ventricle systolic function is severaly impaired, EF <20% , left atrium is severely dilated, ICD wires seen, thrombus noted in left atrial appendage * Chest xray (06/16/16): interval improvement in congestive heart failure 3) Hx of Left atrial thrombus * we will restart xarelto, continue xarelto daily * Cardio consult - Dr. Ram - help appreciated-->Patient high risk for cardiac event during surgery but he is cleared to have the surgery if it is needed per Dr. Ram 4) Hx of hypothyroidism * Continue home synthroid 125mcg PO daily 5) hx of umbilical hernia * No bowel seen in hernia in CT 6) hx of liver cirrhosis * Monitor LFTs * Abd/Pelvis CT (06/16/16)- no evidence of inguinal hernia containing bowel. No evidence of mechanical obstruction. Pericholecystic inflammatory change raise the possibility of acute cholecystitis. Gallstones are not identified. * Abdominal US (06/16/16) -gallbladder wall thickening, sonographic Castro's sign elicted by technologist. Acalculous cholecystitis. * Former alcohol use * Monitor LFTs and albumin 7) Prophylaxis * SCDs * Xarelto 20mg PO daily * Protonix 40mg IVP daily >>> we will change to bid discussed with Dr. Herrera <July Herrera V - Last Filed: 09/19/16 00:10> Objective - Vital Signs/Intake and Output Vital Signs (last 24 hours): Temp Pulse Resp BP Pulse Ox 97.8 F 84 19 102/75 93 L 06/26/16 20:00 06/26/16 22:10 06/26/16 22:10 06/26/16 21:17 06/26/16 22:10 - Labs Labs: 06/27/16 06:00 06/27/16 06:00 PT 21.4 SECONDS (9.7-12.2) H D 06/24/16 06:06 INR 1.9 D 06/24/16 06:06 APTT 25 SECONDS (21-34) 06/18/16 12:13 Attending/Attestation - Attestation I have personally seen and examined this patient.: Yes I have fully participated in the care of the patient.: Yes I have reviewed all pertinent clinical information, including history, physical exam and plan: Yes
[2016-06-22] MEDS: metroNIDAZOLE IV 500 mg/100 ml 500 MG/100 ML BAG IVPB SCH ×3 (01:33→18:03)
[2016-06-22] MEDS: Piperacillin/Tazobact 3.375 GM in Sodium Chloride 100 ML IVPB SCH (03:04)
[2016-06-22] MEDS: Levothyroxine 125 MCG TAB PO SCH (05:30)
[2016-06-22 07:35] LABS: BASO % 0.5 % (0.0-2.0); EOS # 0.1 K/uL (0.0-0.7); EOS % 1.2 % (0.0-4.0); HEMATOCRIT 37.7 % (35.0-51.0); LYMPH # 1.6 K/uL (1.0-4.3); LYMPH % 18.9 % (20.0-40.0); MEAN CELL VOLUME 99.9 fL (80.0-94.0); MEAN CORPUSCULAR HEMOGLOBIN 33.1 pg (27.0-31.0); MEAN CORPUSCULAR HGB CONC 33.1 g/dL (33.0-37.0); MEAN PLATELET VOLUME 10.3 fL (7.2-11.7); MONO # 0.9 K/uL (0.0-0.8); MONO % 10.2 % (0.0-10.0); NRBC % 0.1 % (0.0-2.0); RED CELL DISTRIBUTION WIDTH 13.4 % (11.5-14.5); WHITE BLOOD COUNT 8.5 K/uL (4.8-10.8)
[2016-06-22 07:56] LABS: CHLORIDE 101 mmol/L (98-107); SODIUM 137 mmol/L (132-148)
[2016-06-22 07:57] LABS: POTASSIUM 3.6 mmol/L (3.6-5.2)
[2016-06-22 07:59] LABS: ALB/GLOB RATIO 1.1 (1.0-2.1); ALKALINE PHOSPHATASE 86 U/L (38-126); ALT/SGPT 76 U/L (21-72); AST/SGOT 46 U/L (17-59); BILIRUBIN,TOTAL 1.3 mg/dL (0.2-1.3); BLOOD UREA NITROGEN 28 mg/dL (9-20); CARBON DIOXIDE 25 mmol/L (22-30); GFR AFRICAN-AMERICAN > 60; GLUCOSE,RANDOM 90 mg/dL (75-110); TOTAL PROTEIN 5.9 g/dL (6.3-8.3)
[2016-06-22 08:00] LABS: CALCIUM 8.2 mg/dl (8.6-10.4)
[2016-06-22] MEDS: Potassium Chloride 20 mEq ER Tab PO SCH (10:42)
[2016-06-22] MEDS: metOLazone 5 MG TAB PO SCH ×3 (10:44→22:31)
[2016-06-22] MEDS: Piperacill/Tazo 2.25gm in Dex 2.25 GM/50 ML BAG IVPB SCH ×2 (14:04→22:07)
--- NOTE | 2016-06-22 14:28 | CP.PCM.PN ---
<Alireza Whitmore - Last Filed: 06/22/16 14:28> Subjective - Date & Time of Evaluation Date of Evaluation: 06/22/16 Time of Evaluation: 14:25 - Subjective Subjective: Med progress note. Attending: Dr. Herrera Pt seen and examined at bedside. No acute distress. No events overnight. Pt not having more diarrhea. C diff pending, waiting for special HIDA scan from GI. Denies cp, sob. Objective - Vital Signs/Intake and Output Vital Signs (last 24 hours): Temp Pulse Resp BP Pulse Ox 98.1 F 80 18 104/76 97 06/22/16 07:16 06/22/16 07:16 06/22/16 07:16 06/22/16 07:16 06/22/16 07:16 Intake and Output: 06/22/16 06/22/16 06:59 18:59 Intake Total 320 Balance 320 - Medications Medications: Current Medications Carvedilol (Coreg) 3.125 mg PO Q12H [facility] Last Admin: 06/22/16 10:41 Dose: 3.125 mg Furosemide (Lasix) 20 mg IVP DAILY [facility] Last Admin: 06/21/16 14:08 Dose: Not Given Hydrocortisone (Anusol-Hc) 25 mg RC BID [facility] Last Admin: 06/22/16 10:44 Dose: 25 mg Metronidazole (Flagyl) 500 mg in 100 mls @ 100 mls/hr IVPB Q8H [facility] Last Admin: 06/22/16 09:30 Dose: 100 mls/hr Piperacillin Sod/Tazobactam Sod (Zosyn 2.25 Gm Iv Premix) 2.25 gm in 50 mls @ 100 mls/hr IVPB Q8 [facility] Last Admin: 06/22/16 14:04 Dose: 100 mls/hr Levothyroxine Sodium (Synthroid) 125 mcg PO DAILY@0630 [facility] Last Admin: 06/22/16 05:30 Dose: 125 mcg Losartan Potassium (Cozaar) 25 mg PO DAILY [facility] Last Admin: 06/22/16 10:47 Dose: 25 mg Metolazone (Zaroxolyn) 5 mg PO BID [facility] Last Admin: 06/22/16 10:44 Dose: 5 mg Midodrine (Proamatine) 10 mg PO BID [facility] Last Admin: 06/22/16 10:45 Dose: 10 mg Morphine Sulfate (Morphine) 2 mg IVP Q4 PRN PRN Reason: Pain, moderate (4-7) Last Admin: 06/22/16 13:53 Dose: 2 mg Ondansetron HCl (Zofran Inj) 4 mg IVP Q6 PRN PRN Reason: Nausea/Vomiting Last Admin: 06/20/16 12:57 Dose: 4 mg Pantoprazole Sodium (Protonix Inj) 40 mg IVP BID [facility] Last Admin: 06/22/16 10:43 Dose: 40 mg Potassium Chloride (K-Dur 20 Meq Er Tab) 20 meq PO DAILY [facility] Last Admin: 06/22/16 10:42 Dose: 20 meq Rivaroxaban (Xarelto) 20 mg PO DAILY [facility] Last Admin: 06/22/16 10:45 Dose: 20 mg - Labs Labs: 06/22/16 07:15 06/22/16 07:15 PT 20.2 SECONDS (9.7-12.2) H 06/18/16 12:13 INR 1.7 06/18/16 12:13 APTT 25 SECONDS (21-34) 06/18/16 12:13 - Constitutional Appears: Non-toxic, No Acute Distress - Head Exam Head Exam: ATRAUMATIC, NORMAL INSPECTION, NORMOCEPHALIC - Eye Exam Eye Exam: EOMI - ENT Exam ENT Exam: Mucous Membranes Moist - Neck Exam Neck Exam: Full ROM, Normal Inspection - Respiratory Exam Respiratory Exam: Rales. absent: Respiratory Distress - Cardiovascular Exam Cardiovascular Exam: +S1, +S2 - GI/Abdominal Exam GI & Abdominal Exam: Soft, Normal Bowel Sounds. absent: Tenderness - Extremities Exam Extremities Exam: Full ROM, Normal Inspection - Back Exam Back Exam: NORMAL INSPECTION - Neurological Exam Neurological Exam: Alert, Awake, Oriented x3 - Psychiatric Exam Psychiatric exam: Flat Affect, Normal Mood - Skin Skin Exam: Dry, Intact, Normal Color, Warm Assessment and Plan - Assessment and Plan (Free Text) Assessment: Assessment: 1) Acalculous cholecystitis * Abd/Pelvis CT (06/16/16)- no evidence of inguinal hernia containing bowel. No evidence of mechanical obstruction. Pericholecystic inflammatory changes raise the possibility of acute cholecystitis. Gallstones are not identified. * Abdominal US (06/16/16) -gallbladder wall thickening, sonographic Castro's sign elicted by technologist. Acalculous cholecystitis. * Surgery Consult (Dr. Maradiaga) on board-->help appreciated; sx has signed off * GI Consult (Dr. Pollard) /Dr. Babcock/Dr Méndez covering help appreciated * Flagyl 500mg IV Q 8 hours (day 7 ) and Zosyn 3.375 IV Q 6 hours (day 7) * we will stop fluids and put on full liquid diet, pt still experiencing nausea and a little vomiting * HIDA scan negative, f/u with HIDA with GB EF * Patient has high cardiac risk given history of cardiomyopathy (EF< 20%), has AICD, and left atrial thrombus (back on Xarelto) at this time * Cardiology (Dr. Ram) on board-->help appreciated * Morphine 2mg IV Q 4hour PRN pain * Chest xray (06/16/16): interval improvement in congestive heart failure * monitor for fluid overload * no intervention from sx 2) Diarrhea diarrhea improved since yesterday stool leukocytes positive continue abx repeat c diff pending GI consult with Dr. Méndez. recs appreciated. 3) Hx of CHF * Continue home meds with holding parameters * Coreg 3.125mg PO BID (hold SBP<100 and HR<60), hold * pt refused lasix>> will discuss cardio meds today * Losartan 25mg PO daily * Metalazone 5mg PO BID * placed back on xarelto * Cardio consult - Dr. Ram - help appreciated-->Patient high risk for cardiac event during surgery * Echo (05/27/16): left ventricle systolic function is severaly impaired, EF <20% , left atrium is severely dilated, ICD wires seen, thrombus noted in left atrial appendage * Chest xray (06/16/16): interval improvement in congestive heart failure * midodrine 10 bid 3) Hx of Left atrial thrombus * we will restart xarelto, continue xarelto daily * Cardio consult - Dr. Ram - help appreciated-->Patient high risk for cardiac event during surgery but he is cleared to have the surgery if it is needed per Dr. Ram 4) Hx of hypothyroidism * Continue home synthroid 125mcg PO daily 5) hx of umbilical hernia * No bowel seen in hernia in CT 6) hx of liver cirrhosis * Monitor LFTs * Abd/Pelvis CT (06/16/16)- no evidence of inguinal hernia containing bowel. No evidence of mechanical obstruction. Pericholecystic inflammatory change raise the possibility of acute cholecystitis. Gallstones are not identified. * Abdominal US (06/16/16) -gallbladder wall thickening, sonographic Castro's sign elicted by technologist. Acalculous cholecystitis. * Former alcohol use * Monitor LFTs and albumin 7) Prophylaxis * SCDs * Xarelto 20mg PO daily * Protonix 40mg IVP daily >>> we will change to bid discussed with Dr. Herrera <July Herrera V - Last Filed: 09/19/16 00:10> Objective - Vital Signs/Intake and Output Vital Signs (last 24 hours): Temp Pulse Resp BP Pulse Ox 97.8 F 84 19 102/75 93 L 06/26/16 20:00 06/26/16 22:10 06/26/16 22:10 06/26/16 21:17 06/26/16 22:10 - Labs Labs: 06/27/16 06:00 06/27/16 06:00 PT 21.4 SECONDS (9.7-12.2) H D 06/24/16 06:06 INR 1.9 D 06/24/16 06:06 APTT 25 SECONDS (21-34) 06/18/16 12:13 Attending/Attestation - Attestation I have personally seen and examined this patient.: Yes I have fully participated in the care of the patient.: Yes I have reviewed all pertinent clinical information, including history, physical exam and plan: Yes
--- NOTE | 2016-06-22 19:06 | CARD ---
APPROVED REPORT EKG Measurement Heart [id number] <Conclusion> Ventricular-paced rhythm Abnormal ECG
[2016-06-23] MEDS: metroNIDAZOLE IV 500 mg/100 ml 500 MG/100 ML BAG IVPB SCH ×3 (01:31→18:14)
[2016-06-23] MEDS: Levothyroxine 125 MCG TAB PO SCH (05:54)
[2016-06-23] MEDS: Piperacill/Tazo 2.25gm in Dex 2.25 GM/50 ML BAG IVPB SCH ×3 (05:54→21:53)
[2016-06-23 06:45] LABS: BASO # 0.1 K/uL (0.0-0.2); BASO % 0.9 % (0.0-2.0); EOS # 0.1 K/uL (0.0-0.7); EOS % 1.5 % (0.0-4.0); HEMATOCRIT 37.3 % (35.0-51.0); LYMPH # 1.4 K/uL (1.0-4.3); LYMPH % 18.6 % (20.0-40.0); MEAN CELL VOLUME 99.3 fL (80.0-94.0); MEAN CORPUSCULAR HEMOGLOBIN 33.1 pg (27.0-31.0); MEAN CORPUSCULAR HGB CONC 33.4 g/dL (33.0-37.0); MONO # 0.6 K/uL (0.0-0.8); MONO % 8.5 % (0.0-10.0); NRBC % 0.1 % (0.0-2.0); RED CELL DISTRIBUTION WIDTH 13.4 % (11.5-14.5); WHITE BLOOD COUNT 7.4 K/uL (4.8-10.8)
[2016-06-23 07:14] LABS: CHLORIDE 103 mmol/L (98-107); POTASSIUM 3.5 mmol/L (3.6-5.2); SODIUM 134 mmol/L (132-148)
[2016-06-23 07:16] LABS: ALB/GLOB RATIO 0.9 (1.0-2.1); ALKALINE PHOSPHATASE 81 U/L (38-126); ALT/SGPT 79 U/L (21-72); AST/SGOT 40 U/L (17-59); BILIRUBIN,TOTAL 0.7 mg/dL (0.2-1.3); BLOOD UREA NITROGEN 31 mg/dL (9-20); CARBON DIOXIDE 24 mmol/L (22-30); GFR AFRICAN-AMERICAN > 60; TOTAL PROTEIN 5.6 g/dL (6.3-8.3)
--- NOTE | 2016-06-23 07:16 | CP.PCM.PN ---
Subjective - Date & Time of Evaluation Date of Evaluation: 06/23/16 Time of Evaluation: 07:05 - Subjective Subjective: Pt for tx to [facility] tolerating PO Objective - Vital Signs/Intake and Output Vital Signs (last 24 hours): Temp Pulse Resp BP Pulse Ox 97.7 F 80 20 101/67 97 06/22/16 23:05 06/23/16 06:30 06/23/16 06:30 06/23/16 06:30 06/22/16 15:59 Intake and Output: 06/23/16 06/23/16 06:59 18:59 Intake Total 500 Balance 500 - Medications Medications: Current Medications Carvedilol (Coreg) 3.125 mg PO Q12H [facility] Last Admin: 06/22/16 22:14 Dose: Not Given Furosemide (Lasix) 20 mg IVP DAILY [facility] Last Admin: 06/21/16 14:08 Dose: Not Given Hydrocortisone (Anusol-Hc) 25 mg RC BID [facility] Last Admin: 06/22/16 19:00 Dose: Not Given Metronidazole (Flagyl) 500 mg in 100 mls @ 100 mls/hr IVPB Q8H [facility] Last Admin: 06/23/16 01:31 Dose: 100 mls/hr Piperacillin Sod/Tazobactam Sod (Zosyn 2.25 Gm Iv Premix) 2.25 gm in 50 mls @ 100 mls/hr IVPB Q8 [facility] Last Admin: 06/23/16 05:54 Dose: 100 mls/hr Levothyroxine Sodium (Synthroid) 125 mcg PO DAILY@0630 [facility] Last Admin: 06/23/16 05:54 Dose: 125 mcg Losartan Potassium (Cozaar) 25 mg PO DAILY [facility] Last Admin: 06/22/16 10:47 Dose: 25 mg Metolazone (Zaroxolyn) 5 mg PO BID [facility] Last Admin: 06/22/16 22:31 Dose: Not Given Midodrine (Proamatine) 10 mg PO BID [facility] Last Admin: 06/22/16 18:01 Dose: 10 mg Morphine Sulfate (Morphine) 2 mg IVP Q4 PRN PRN Reason: Pain, moderate (4-7) Last Admin: 06/22/16 13:53 Dose: 2 mg Ondansetron HCl (Zofran Inj) 4 mg IVP Q6 PRN PRN Reason: Nausea/Vomiting Last Admin: 06/20/16 12:57 Dose: 4 mg Pantoprazole Sodium (Protonix Inj) 40 mg IVP BID [facility] Last Admin: 06/22/16 18:02 Dose: 40 mg Potassium Chloride (K-Dur 20 Meq Er Tab) 20 meq PO DAILY [facility] Last Admin: 06/22/16 10:42 Dose: 20 meq Rivaroxaban (Xarelto) 20 mg PO DAILY [facility] Last Admin: 06/22/16 10:45 Dose: 20 mg - Labs Labs: 06/23/16 06:40 06/22/16 07:15 PT 20.2 SECONDS (9.7-12.2) H 06/18/16 12:13 INR 1.7 06/18/16 12:13 APTT 25 SECONDS (21-34) 06/18/16 12:13
[2016-06-23 07:17] LABS: CALCIUM 8.4 mg/dl (8.6-10.4); GLUCOSE,RANDOM 96 mg/dL (75-110); MAGNESIUM 1.8 mg/dL (1.6-2.3); PHOSPHOROUS 3.2 mg/dL (2.5-4.5)
[2016-06-23 07:18] LABS: RBC URINE 2422 /hpf (0-3); URINE BACTERIA MANY (<OCC); URINE BILIRUBIN NEGATIVE (NEGATIVE); URINE BLOOD 3+ (NEGATIVE); URINE COLOR Amber (YELLOW); URINE GLUCOSE (UA) NORMAL (Normal); URINE KETONE NEGATIVE (NEGATIVE); URINE LEUKOCYTE ESTERASE TRACE Leu/uL (Negative); URINE PROTEIN 2+ mg/dL (NEGATIVE); URINE UROBILINOGEN NORMAL mg/dL (0.2-1.0); WBC URINE 24 /hpf (0-5)
[2016-06-23] MEDS ORDERED: Potassium Chloride 20 mEq ER Tab PO ONE (07:54)
[2016-06-23] MEDS: Potassium Chloride 20 mEq ER Tab PO SCH (09:26)
[2016-06-23] MEDS: metOLazone 5 MG TAB PO SCH ×2 (09:26→18:13)
--- NOTE | 2016-06-23 10:09 | CP.PCM.PN ---
Subjective - Date & Time of Evaluation Date of Evaluation: 06/23/16 Time of Evaluation: 10:06 - Subjective Subjective: CC: Follow up abdominal pain No abdominal pain today. Tolerated breakfast. No dyspnea. Objective - Vital Signs/Intake and Output Vital Signs (last 24 hours): Temp Pulse Resp BP Pulse Ox 97.7 F 80 20 101/67 97 06/22/16 23:05 06/23/16 06:30 06/23/16 06:30 06/23/16 06:30 06/22/16 15:59 Intake and Output: 06/23/16 06/23/16 06:59 18:59 Intake Total 500 Balance 500 - Medications Medications: Current Medications Carvedilol (Coreg) 3.125 mg PO Q12H [facility] Last Admin: 06/23/16 09:27 Dose: 3.125 mg Furosemide (Lasix) 20 mg IVP DAILY [facility] Last Admin: 06/21/16 14:08 Dose: Not Given Hydrocortisone (Anusol-Hc) 25 mg RC BID [facility] Last Admin: 06/23/16 09:28 Dose: 25 mg Metronidazole (Flagyl) 500 mg in 100 mls @ 100 mls/hr IVPB Q8H [facility] Last Admin: 06/23/16 01:31 Dose: 100 mls/hr Piperacillin Sod/Tazobactam Sod (Zosyn 2.25 Gm Iv Premix) 2.25 gm in 50 mls @ 100 mls/hr IVPB Q8 [facility] Last Admin: 06/23/16 05:54 Dose: 100 mls/hr Levothyroxine Sodium (Synthroid) 125 mcg PO DAILY@0630 [facility] Last Admin: 06/23/16 05:54 Dose: 125 mcg Losartan Potassium (Cozaar) 25 mg PO DAILY [facility] Last Admin: 06/23/16 09:26 Dose: 25 mg Metolazone (Zaroxolyn) 5 mg PO BID [facility] Last Admin: 06/23/16 09:26 Dose: 5 mg Midodrine (Proamatine) 10 mg PO BID [facility] Last Admin: 06/23/16 09:26 Dose: 10 mg Morphine Sulfate (Morphine) 2 mg IVP Q4 PRN PRN Reason: Pain, moderate (4-7) Last Admin: 06/22/16 13:53 Dose: 2 mg Ondansetron HCl (Zofran Inj) 4 mg IVP Q6 PRN PRN Reason: Nausea/Vomiting Last Admin: 06/20/16 12:57 Dose: 4 mg Pantoprazole Sodium (Protonix Inj) 40 mg IVP BID [facility] Last Admin: 06/23/16 09:27 Dose: 40 mg Potassium Chloride (K-Dur 20 Meq Er Tab) 20 meq PO DAILY [facility] Last Admin: 06/23/16 09:26 Dose: 20 meq Rivaroxaban (Xarelto) 20 mg PO DAILY [facility] Last Admin: 06/22/16 10:45 Dose: 20 mg - Labs Labs: 06/23/16 06:40 06/23/16 06:40 PT 20.2 SECONDS (9.7-12.2) H 06/18/16 12:13 INR 1.7 06/18/16 12:13 APTT 25 SECONDS (21-34) 06/18/16 12:13 - Constitutional Appears: Well, No Acute Distress - Eye Exam Eye Exam: absent: Scleral icterus - Cardiovascular Exam Cardiovascular Exam: REGULAR RHYTHM - GI/Abdominal Exam GI & Abdominal Exam: Soft. absent: Tenderness Assessment and Plan (1) Abnormal liver enzymes Assessment & Plan: Improved Monitor Status: Acute (2) Acalculous cholecystitis Assessment & Plan: Stable. No abdominal pain. Cause of RUQ pain undetermined. Rec: Continue Protonix fpc. If pain recurs I recommend HIDA with GB EF, and EGD if patient is agreeable and if cardiology feels he is acceptable risk to undergo the procedure. Status: Acute (3) CHF (congestive heart failure) Status: Chronic (4) Cardiomyopathy Status: Chronic
--- NOTE | 2016-06-23 12:38 | US ---
PROCEDURE: Ultrasound of the Kidneys HISTORY: hematuria COMPARISON: None available. TECHNIQUE: Sonogram of the kidneys. FINDINGS: RIGHT KIDNEY: Measures: 11.2 x 5.6 x 4.5 cm. Normal in size, contour and echogenicity. No stone, solid mass lesion or hydronephrosis visualized. LEFT KIDNEY: Measures: 10.4 x 5.5 x 5.8 cm. Normal in size, contour and echogenicity. No stone, solid mass lesion or hydronephrosis visualized. OTHER FINDINGS: Small free fluid seen in the abdomen. IMPRESSION: No evidence of acute pathology in the kidneys. Small amount of free fluid in the abdomen.
[2016-06-23 13:54] LABS: INR 2.6
--- NOTE | 2016-06-23 14:52 | RAD ---
HISTORY: chf COMPARISON: Comparison is made to 06/16/2016 TECHNIQUE: Chest PA and lateral FINDINGS: LUNGS: Heterogeneous opacity and consolidation at the right lower lobe. Haziness at the left lung base. PLEURA: Possible bilateral small pleural effusion. CARDIOVASCULAR: The cardiac silhouette is enlarged. OSSEOUS STRUCTURES: No significant abnormalities. VISUALIZED UPPER ABDOMEN: Normal. OTHER FINDINGS: None. IMPRESSION: Worsening infiltrate and opacity at the right lower lobe and small haziness at the left lung base. Possible small bilateral pleural effusions. Suspicious for cardiomegaly.
--- NOTE | 2016-06-23 16:35 | CP.PCM.PN ---
<Alireza Whitmore - Last Filed: 06/23/16 16:35> Subjective - Date & Time of Evaluation Date of Evaluation: 06/23/16 Time of Evaluation: 16:30 - Subjective Subjective: Med progress note. Attending: Dr. Herrera Pt seen and examined at bedside. No acute distress. Pt still complaining of lot of abdominal pain, will given one time doses of morphine prn. Pt had hematuria overnight, will hold xarelto. Pt had renal us, will go for hida scan tomorrow with gb ef. Objective - Vital Signs/Intake and Output Vital Signs (last 24 hours): Temp Pulse Resp BP Pulse Ox 97.7 F 80 20 101/67 97 06/22/16 23:05 06/23/16 06:30 06/23/16 06:30 06/23/16 06:30 06/22/16 15:59 Intake and Output: 06/23/16 06/23/16 06:59 18:59 Intake Total 500 Balance 500 - Medications Medications: Current Medications Carvedilol (Coreg) 3.125 mg PO Q12H [facility] Last Admin: 06/23/16 09:27 Dose: 3.125 mg Furosemide (Lasix) 20 mg IVP DAILY [facility] Last Admin: 06/21/16 14:08 Dose: Not Given Hydrocortisone (Anusol-Hc) 25 mg RC BID [facility] Last Admin: 06/23/16 09:28 Dose: 25 mg Metronidazole (Flagyl) 500 mg in 100 mls @ 100 mls/hr IVPB Q8H [facility] Last Admin: 06/23/16 10:45 Dose: 100 mls/hr Piperacillin Sod/Tazobactam Sod (Zosyn 2.25 Gm Iv Premix) 2.25 gm in 50 mls @ 100 mls/hr IVPB Q8 [facility] Last Admin: 06/23/16 13:05 Dose: 100 mls/hr Levothyroxine Sodium (Synthroid) 125 mcg PO DAILY@0630 [facility] Last Admin: 06/23/16 05:54 Dose: 125 mcg Losartan Potassium (Cozaar) 25 mg PO DAILY [facility] Last Admin: 06/23/16 09:26 Dose: 25 mg Metolazone (Zaroxolyn) 5 mg PO BID [facility] Last Admin: 06/23/16 09:26 Dose: 5 mg Midodrine (Proamatine) 10 mg PO BID [facility] Last Admin: 06/23/16 09:26 Dose: 10 mg Ondansetron HCl (Zofran Inj) 4 mg IVP Q6 PRN PRN Reason: Nausea/Vomiting Last Admin: 06/20/16 12:57 Dose: 4 mg Pantoprazole Sodium (Protonix Inj) 40 mg IVP BID [facility] Last Admin: 06/23/16 09:27 Dose: 40 mg Potassium Chloride (K-Dur 20 Meq Er Tab) 20 meq PO DAILY [facility] Last Admin: 06/23/16 09:26 Dose: 20 meq Rivaroxaban (Xarelto) 20 mg PO DAILY [facility] Last Admin: 06/22/16 10:45 Dose: 20 mg - Labs Labs: 06/23/16 06:40 06/23/16 06:40 PT 30.6 SECONDS (9.7-12.2) H* 06/23/16 13:45 INR 2.6 06/23/16 13:45 APTT 25 SECONDS (21-34) 06/18/16 12:13 - Constitutional Appears: Non-toxic, No Acute Distress - Head Exam Head Exam: ATRAUMATIC, NORMAL INSPECTION, NORMOCEPHALIC - Neck Exam Neck Exam: Full ROM, Normal Inspection - Respiratory Exam Respiratory Exam: NORMAL BREATHING PATTERN. absent: Respiratory Distress - Cardiovascular Exam Cardiovascular Exam: +S1, +S2 - GI/Abdominal Exam GI & Abdominal Exam: Distended, Tenderness. absent: Guarding - Extremities Exam Extremities Exam: Full ROM, Normal Inspection - Neurological Exam Neurological Exam: Alert, Awake, Oriented x3 - Psychiatric Exam Psychiatric exam: Flat Affect - Skin Skin Exam: Dry, Intact, Normal Color, Warm Assessment and Plan - Assessment and Plan (Free Text) Assessment: 1) Acalculous cholecystitis * Abd/Pelvis CT (06/16/16)- no evidence of inguinal hernia containing bowel. No evidence of mechanical obstruction. Pericholecystic inflammatory changes raise the possibility of acute cholecystitis. Gallstones are not identified. * Abdominal US (06/16/16) -gallbladder wall thickening, sonographic Castro's sign elicted by technologist. Acalculous cholecystitis. * Surgery Consult (Dr. Maradiaga) on board-->help appreciated; sx has signed off * GI Consult (Dr. Pollard) /Dr. Babcock/Dr Méndez covering help appreciated * Flagyl 500mg IV Q 8 hours (day 7 ) and Zosyn 3.375 IV Q 6 hours (day 8) * we will stop fluids and put on full liquid diet, pt still experiencing nausea and a little vomiting * HIDA scan negative, f/u with HIDA with GB EF * Patient has high cardiac risk given history of cardiomyopathy (EF< 20%), has AICD, and left atrial thrombus (back on Xarelto) at this time * Cardiology (Dr. Ram) on board-->help appreciated * Chest xray (06/16/16): interval improvement in congestive heart failure>>> repeat cxr pending * monitor for fluid overload * no intervention from sx * pt to have hida with gb ef tomorrow * 1 time doses of morphine to be given 2) Diarrhea diarrhea improved since yesterday stool leukocytes positive continue abx repeat c diff pending GI consult with Dr. Méndez/ Yoko . recs appreciated. 3) Hx of CHF * Continue home meds with holding parameters * Coreg 3.125mg PO BID (hold SBP<100 and HR<60), hold * pt refused lasix>> will discuss cardio meds today * Losartan 25mg PO daily * Metalazone 5mg PO BID * placed back on xarelto>>> xarelto * Cardio consult - Dr. Ram - help appreciated-->Patient high risk for cardiac event during surgery * Echo (05/27/16): left ventricle systolic function is severaly impaired, EF <20% , left atrium is severely dilated, ICD wires seen, thrombus noted in left atrial appendage * Chest xray (06/16/16): interval improvement in congestive heart failure * midodrine 10 bid 3) Hx of Left atrial thrombus * xarelto held * Cardio consult - Dr. Ram - help appreciated-->Patient high risk for cardiac event during surgery but he is cleared to have the surgery if it is needed per Dr. Ram 4) Hx of hypothyroidism * Continue home synthroid 125mcg PO daily 5) hx of umbilical hernia * No bowel seen in hernia in CT 6) hx of liver cirrhosis * Monitor LFTs * Abd/Pelvis CT (06/16/16)- no evidence of inguinal hernia containing bowel. No evidence of mechanical obstruction. Pericholecystic inflammatory change raise the possibility of acute cholecystitis. Gallstones are not identified. * Abdominal US (06/16/16) -gallbladder wall thickening, sonographic Castro's sign elicted by technologist. Acalculous cholecystitis. * Former alcohol use * Monitor LFTs and albumin 7) Hematuria -renal US shows no abnormalities kidneys, some free fluid -f/u inr -f/u urine culture -hold xarelto -f/u psa 8) Prophylaxis * SCDs * Xarelto 20mg PO daily>>> held for hematuria * Protonix 40mg IVP daily >>> we will change to bid discussed with Dr. Herrera <July Herrera V - Last Filed: 09/19/16 00:11> Objective - Vital Signs/Intake and Output Vital Signs (last 24 hours): Temp Pulse Resp BP Pulse Ox 97.8 F 84 19 102/75 93 L 06/26/16 20:00 06/26/16 22:10 06/26/16 22:10 06/26/16 21:17 06/26/16 22:10 - Labs Labs: 06/27/16 06:00 06/27/16 06:00 PT 21.4 SECONDS (9.7-12.2) H D 06/24/16 06:06 INR 1.9 D 06/24/16 06:06 APTT 25 SECONDS (21-34) 06/18/16 12:13 Attending/Attestation - Attestation I have personally seen and examined this patient.: Yes I have fully participated in the care of the patient.: Yes I have reviewed all pertinent clinical information, including history, physical exam and plan: Yes
[2016-06-24 00:27] LABS: RBC URINE 62 /hpf (0-3); URINE BACTERIA OCC (<OCC); URINE BILIRUBIN NEGATIVE (NEGATIVE); URINE BLOOD 2+ (NEGATIVE); URINE COLOR Amber (YELLOW); URINE GLUCOSE (UA) NORMAL (Normal); URINE KETONE NEGATIVE (NEGATIVE); URINE LEUKOCYTE ESTERASE TRACE Leu/uL (Negative); URINE PROTEIN 1+ mg/dL (NEGATIVE); URINE UROBILINOGEN NORMAL mg/dL (0.2-1.0); WBC URINE 10 /hpf (0-5)
[2016-06-24] MEDS: metroNIDAZOLE IV 500 mg/100 ml 500 MG/100 ML BAG IVPB SCH ×3 (00:41→18:24)
[2016-06-24] MEDS: Piperacill/Tazo 2.25gm in Dex 2.25 GM/50 ML BAG IVPB SCH ×3 (05:48→22:01)
[2016-06-24] MEDS: Levothyroxine 125 MCG TAB PO SCH (06:07)
[2016-06-24 06:15] LABS: BASO # 0.1 K/uL (0.0-0.2); BASO % 0.9 % (0.0-2.0); EOS # 0.1 K/uL (0.0-0.7); EOS % 1.1 % (0.0-4.0); HEMATOCRIT 37.9 % (35.0-51.0); LYMPH # 1.9 K/uL (1.0-4.3); LYMPH % 22.5 % (20.0-40.0); MEAN CELL VOLUME 99.3 fL (80.0-94.0); MEAN CORPUSCULAR HEMOGLOBIN 32.7 pg (27.0-31.0); MEAN PLATELET VOLUME 9.7 fL (7.2-11.7); MONO # 0.6 K/uL (0.0-0.8); MONO % 7.4 % (0.0-10.0); NRBC % 0.2 % (0.0-2.0); RED CELL DISTRIBUTION WIDTH 13.2 % (11.5-14.5); WHITE BLOOD COUNT 8.4 K/uL (4.8-10.8)
[2016-06-24 06:29] LABS: POTASSIUM 3.7 mmol/L (3.6-5.2)
[2016-06-24 06:31] LABS: BILIRUBIN,TOTAL 1.2 mg/dL (0.2-1.3); PHOSPHOROUS 3.6 mg/dL (2.5-4.5); TOTAL PROTEIN 5.8 g/dL (6.3-8.3)
[2016-06-24 06:32] LABS: MAGNESIUM 1.8 mg/dL (1.6-2.3)
[2016-06-24 06:38] LABS: INR 1.9
--- NOTE | 2016-06-24 09:58 | CP.PCM.PN ---
<Deysi Rehman - Last Filed: 06/24/16 14:17> Subjective - Date & Time of Evaluation Date of Evaluation: 06/24/16 Time of Evaluation: 09:55 - Subjective Subjective: PGY-[address] Yo connor overnight. H/H stable. Xarelto on hold 6 runs of a-fib twice overnight. BP stable at high 90s-100s. Asymtomatic Otherwise, no acute complaint overnight Objective - Vital Signs/Intake and Output Vital Signs (last 24 hours): Temp Pulse Resp BP Pulse Ox 97.5 F L 79 20 105/70 97 06/24/16 07:49 06/24/16 07:49 06/24/16 07:49 06/24/16 07:49 06/24/16 07:49 Intake and Output: 06/24/16 06/24/16 06:59 18:59 Intake Total 350 Balance 350 - Medications Medications: Current Medications Carvedilol (Coreg) 3.125 mg PO Q12H [facility] Last Admin: 06/23/16 22:00 Dose: Not Given Furosemide (Lasix) 20 mg IVP DAILY [facility] Last Admin: 06/21/16 14:08 Dose: Not Given Hydrocortisone (Anusol-Hc) 25 mg RC BID [facility] Last Admin: 06/23/16 18:30 Dose: Not Given Metronidazole (Flagyl) 500 mg in 100 mls @ 100 mls/hr IVPB Q8H [facility] Last Admin: 06/24/16 00:41 Dose: 100 mls/hr Piperacillin Sod/Tazobactam Sod (Zosyn 2.25 Gm Iv Premix) 2.25 gm in 50 mls @ 100 mls/hr IVPB Q8 [facility] Last Admin: 06/24/16 05:48 Dose: 100 mls/hr Levothyroxine Sodium (Synthroid) 125 mcg PO DAILY@0630 [facility] Last Admin: 06/24/16 06:07 Dose: 125 mcg Losartan Potassium (Cozaar) 25 mg PO DAILY [facility] Last Admin: 06/23/16 09:26 Dose: 25 mg Metolazone (Zaroxolyn) 5 mg PO BID [facility] Last Admin: 06/23/16 18:13 Dose: Not Given Midodrine (Proamatine) 10 mg PO BID [facility] Last Admin: 06/23/16 18:13 Dose: 10 mg Ondansetron HCl (Zofran Inj) 4 mg IVP Q6 PRN PRN Reason: Nausea/Vomiting Last Admin: 06/20/16 12:57 Dose: 4 mg Pantoprazole Sodium (Protonix Ec Tab) 40 mg PO BID [facility] Potassium Chloride (K-Dur 20 Meq Er Tab) 20 meq PO DAILY [facility] Last Admin: 06/23/16 09:26 Dose: 20 meq - Labs Labs: 06/24/16 06:06 06/24/16 06:06 PT 21.4 SECONDS (9.7-12.2) H D 06/24/16 06:06 INR 1.9 D 06/24/16 06:06 APTT 25 SECONDS (21-34) 06/18/16 12:13 - Constitutional Appears: No Acute Distress - Head Exam Head Exam: ATRAUMATIC, NORMAL INSPECTION, NORMOCEPHALIC - Eye Exam Eye Exam: EOMI, Normal appearance Pupil Exam: NORMAL ACCOMODATION - Respiratory Exam Respiratory Exam: Clear to Ausculation Bilateral, NORMAL BREATHING PATTERN. absent: Rales, Rhonchi, Wheezes - Cardiovascular Exam Cardiovascular Exam: REGULAR RHYTHM, +S1, +S2 - GI/Abdominal Exam GI & Abdominal Exam: Soft, Normal Bowel Sounds. absent: Guarding, Rigid - Extremities Exam Extremities Exam: Normal Capillary Refill. absent: Joint Swelling, Pedal Edema - Back Exam Back Exam: absent: CVA tenderness (L), CVA tenderness (R) - Neurological Exam Neurological Exam: Alert, Awake, Oriented x3 - Psychiatric Exam Psychiatric exam: Normal Affect, Normal Mood - Skin Skin Exam: Dry, Warm Assessment and Plan - Assessment and Plan (Free Text) Plan: 65 year old male with past medical history of CHF, cardiomyopathy with AICD s/p AV tala ablation (may 2016), A-fib on xarelto, liver cirrhosis, hypothyroidism, presents for cardiac evaluation for clearance for cholecystectomy. Abdominal pain likely due to acalculous cholecystitis. HIDA negative. No plan for surgery. Pt is on flagyl and zosyn. Hemautria over the weekend, and xarelto on hold. V-tach, non-sustained, hemodynamically stable - likely triggered by R-on-T - No antiarrthymic agent for now CHF, diastolic and systolic, pre-load dependent, chronic Cardiomyopathy with AICD - HOLD lasix and metolaxone for low BP - Change Midodrine from 10 to 5 BID - Coreg 3.125 mg PO BID - Losartan 25mg PO daily - Elevated troponins are likely secondary to right heart failure. A-fib, stable, rate control with Coreg and currently ventricularly paced - HOLD - Xarelto - Elevated troponins are likely secondary to right heart failure. - Left atrial thrombus found on DONAVAN 05/24/16 - recommend adding SCD Macrocytic anemia - Managed per primary team or outpatient Pre-procedural cardiovascular examination - AICD is not magnetically safe, not a candidate for MRCP. - Cardiac Risk Assessment: High Risk for cholecystectomy. Detsky score:55 (high risk) Hipolito score:> 11% (high risk) Urias score: 42 (class IV- 78% complications) Patient is high risk patient for surgery, however if benefits of procedure outweigh risks, may proceed with surgery. Continue with preoperative SCIP protocols and measures Imaging: - Serial Troponins: (06/17/16) Troponin 1: 0.1770, Troponin 2: 0.1530, Troponin 3 : 0.1580 - BNP: (05/15/16) 3,780 - EKG: (06/17/16) Ventricularly paced rhythm with PVCs, wide QRS, prolonged QTc; ( 05/22/16) Demand pacemaker, interpretation based on intrinsic rhythm, nonspecific intraventricular block, T wave abnormality, consider interolateral ischemia - Echo: (05/24/16) EF: <20%, left atrium is severely dilated, thrombus in left atrial appendage. - Cardiac Cath: (03/29/14): showed normal coronaries with EF 10-15%. Will S/R/D with Dr. Ram. <Jennyfer Ram - Last Filed: 06/24/16 19:36> Objective - Vital Signs/Intake and Output Vital Signs (last 24 hours): Temp Pulse Resp BP Pulse Ox 97.6 F 80 18 100/67 96 06/24/16 16:00 06/24/16 16:00 06/24/16 16:00 06/24/16 16:00 06/24/16 16:00 - Medications Medications: Current Medications Carvedilol (Coreg) 3.125 mg PO Q12H [facility] Last Admin: 06/24/16 11:25 Dose: 3.125 mg Furosemide (Lasix) 20 mg IVP DAILY [facility] Last Admin: 06/21/16 14:08 Dose: Not Given Hydrocortisone (Anusol-Hc) 25 mg RC BID [facility] Last Admin: 06/24/16 11:39 Dose: Not Given Metronidazole (Flagyl) 500 mg in 100 mls @ 100 mls/hr IVPB Q8H [facility] Last Admin: 06/24/16 18:24 Dose: 100 mls/hr Piperacillin Sod/Tazobactam Sod (Zosyn 2.25 Gm Iv Premix) 2.25 gm in 50 mls @ 100 mls/hr IVPB Q8 [facility] Last Admin: 06/24/16 14:27 Dose: 100 mls/hr Levothyroxine Sodium (Synthroid) 125 mcg PO DAILY@0630 [facility] Last Admin: 06/24/16 06:07 Dose: 125 mcg Losartan Potassium (Cozaar) 25 mg PO DAILY [facility] Last Admin: 06/23/16 09:26 Dose: 25 mg Metolazone (Zaroxolyn) 5 mg PO BID [facility] Last Admin: 06/23/16 18:13 Dose: Not Given Midodrine (Proamatine) 5 mg PO BID [facility] Ondansetron HCl (Zofran Inj) 4 mg IVP Q6 PRN PRN Reason: Nausea/Vomiting Last Admin: 06/20/16 12:57 Dose: 4 mg Pantoprazole Sodium (Protonix Ec Tab) 40 mg PO BID [facility] Last Admin: 06/24/16 18:24 Dose: 40 mg Potassium Chloride (K-Dur 20 Meq Er Tab) 20 meq PO DAILY [facility] Last Admin: 06/24/16 11:25 Dose: 20 meq - Labs Labs: 06/24/16 06:06 06/24/16 06:06 PT 21.4 SECONDS (9.7-12.2) H D 06/24/16 06:06 INR 1.9 D 06/24/16 06:06 APTT 25 SECONDS (21-34) 06/18/16 12:13 Attending/Attestation - Attestation I have personally seen and examined this patient.: Yes I have fully participated in the care of the patient.: Yes I have reviewed all pertinent clinical information, including history, physical exam and plan: Yes Notes (Text): 06/24/16 19:35 pt with nsvt stable xarelto on hold may need to switch to eliquis for STEPHANIE thrombus
[2016-06-24] MEDS: Pantoprazole 40 mg EC Tab PO SCH ×2 (11:24→18:24)
[2016-06-24] MEDS: Potassium Chloride 20 mEq ER Tab PO SCH (11:25)
--- NOTE | 2016-06-24 14:39 | NM ---
PROCEDURE: Nuclear Medicine Hepatobiliary Scan HISTORY: ruq pain COMPARISON: 06/18/2016. Hepatobiliary scan TECHNIQUE: 7.2 mCi of technetium 99m Mebrofenin was administered intravenously. Planar images of the abdomen were obtained at 5 min intervals to 60 mins. Delayed images were also obtained. FINDINGS: LIVER: Timely and homogenous uptake. COMMON BILE DUCT: identified at 15 mins. GALLBLADDER: identified at 15 mins. SMALL BOWEL: Identified at 35 mins. IMPRESSION: Normal Hepatobiliary Scan. The cystic duct is patent.
--- NOTE | 2016-06-24 15:35 | CP.PCM.PN ---
Subjective - Date & Time of Evaluation Date of Evaluation: 06/24/16 Time of Evaluation: 15:32 - Subjective Subjective: CC: Follow up abdominal pain HIDA done but with GB EF (was ordered incorrectly). However patient has good appetitie, denies abdominal pain or N/V, and no diarrhea. LFTs improving. Feels "phlegm" in throat. AFib noted, with episodes of VTach on telemetry. Denies dyspnea or palpitations. Objective - Vital Signs/Intake and Output Vital Signs (last 24 hours): Temp Pulse Resp BP Pulse Ox 97.5 F L 79 20 105/70 97 06/24/16 07:49 06/24/16 07:49 06/24/16 07:49 06/24/16 07:49 06/24/16 07:49 Intake and Output: 06/24/16 06/24/16 06:59 18:59 Intake Total 350 Balance 350 - Medications Medications: Current Medications Carvedilol (Coreg) 3.125 mg PO Q12H [facility] Last Admin: 06/24/16 11:25 Dose: 3.125 mg Furosemide (Lasix) 20 mg IVP DAILY [facility] Last Admin: 06/21/16 14:08 Dose: Not Given Hydrocortisone (Anusol-Hc) 25 mg RC BID [facility] Last Admin: 06/24/16 11:39 Dose: Not Given Metronidazole (Flagyl) 500 mg in 100 mls @ 100 mls/hr IVPB Q8H [facility] Last Admin: 06/24/16 11:23 Dose: 100 mls/hr Piperacillin Sod/Tazobactam Sod (Zosyn 2.25 Gm Iv Premix) 2.25 gm in 50 mls @ 100 mls/hr IVPB Q8 [facility] Last Admin: 06/24/16 14:27 Dose: 100 mls/hr Levothyroxine Sodium (Synthroid) 125 mcg PO DAILY@0630 [facility] Last Admin: 06/24/16 06:07 Dose: 125 mcg Losartan Potassium (Cozaar) 25 mg PO DAILY [facility] Last Admin: 06/23/16 09:26 Dose: 25 mg Metolazone (Zaroxolyn) 5 mg PO BID [facility] Last Admin: 06/23/16 18:13 Dose: Not Given Midodrine (Proamatine) 5 mg PO BID [facility] Ondansetron HCl (Zofran Inj) 4 mg IVP Q6 PRN PRN Reason: Nausea/Vomiting Last Admin: 06/20/16 12:57 Dose: 4 mg Pantoprazole Sodium (Protonix Ec Tab) 40 mg PO BID [facility] Last Admin: 06/24/16 11:24 Dose: 40 mg Potassium Chloride (K-Dur 20 Meq Er Tab) 20 meq PO DAILY [facility] Last Admin: 06/24/16 11:25 Dose: 20 meq - Labs Labs: 06/24/16 06:06 06/24/16 06:06 PT 21.4 SECONDS (9.7-12.2) H D 06/24/16 06:06 INR 1.9 D 06/24/16 06:06 APTT 25 SECONDS (21-34) 06/18/16 12:13 - Constitutional Appears: Well, No Acute Distress - Head Exam Head Exam: NORMOCEPHALIC - Eye Exam Eye Exam: absent: Scleral icterus - Neck Exam Neck Exam: Normal Inspection - Respiratory Exam Respiratory Exam: Clear to Ausculation Bilateral - Cardiovascular Exam Cardiovascular Exam: Irregular Rhythm - GI/Abdominal Exam GI & Abdominal Exam: Soft. absent: Tenderness Assessment and Plan (1) Abnormal liver enzymes Assessment & Plan: Resolved Status: Acute (2) Acalculous cholecystitis Assessment & Plan: Resolved Would not pursue further workup Will sign off. Reconsult GI as needed Status: Acute (3) CHF (congestive heart failure) Status: Chronic (4) Cardiomyopathy Status: Chronic
--- NOTE | 2016-06-24 17:45 | CP.PCM.PN ---
<Alireza Whitmore - Last Filed: 06/24/16 17:47> Subjective - Date & Time of Evaluation Date of Evaluation: 06/24/16 Time of Evaluation: 17:45 - Subjective Subjective: Medicine progress note. Attending: Dr. Damon. Pt seen and examined at bedside. No acute distress. Pt has been tolerating diet , denies further diarrhea. Will resume liquid diet, special hida pending. Objective - Vital Signs/Intake and Output Vital Signs (last 24 hours): Temp Pulse Resp BP Pulse Ox 97.6 F 80 18 100/67 96 06/24/16 16:00 06/24/16 16:00 06/24/16 16:00 06/24/16 16:00 06/24/16 16:00 Intake and Output: 06/24/16 06/24/16 06:59 18:59 Intake Total 350 Balance 350 - Medications Medications: Current Medications Carvedilol (Coreg) 3.125 mg PO Q12H [facility] Last Admin: 06/24/16 11:25 Dose: 3.125 mg Furosemide (Lasix) 20 mg IVP DAILY [facility] Last Admin: 06/21/16 14:08 Dose: Not Given Hydrocortisone (Anusol-Hc) 25 mg RC BID [facility] Last Admin: 06/24/16 11:39 Dose: Not Given Metronidazole (Flagyl) 500 mg in 100 mls @ 100 mls/hr IVPB Q8H [facility] Last Admin: 06/24/16 11:23 Dose: 100 mls/hr Piperacillin Sod/Tazobactam Sod (Zosyn 2.25 Gm Iv Premix) 2.25 gm in 50 mls @ 100 mls/hr IVPB Q8 [facility] Last Admin: 06/24/16 14:27 Dose: 100 mls/hr Levothyroxine Sodium (Synthroid) 125 mcg PO DAILY@0630 [facility] Last Admin: 06/24/16 06:07 Dose: 125 mcg Losartan Potassium (Cozaar) 25 mg PO DAILY [facility] Last Admin: 06/23/16 09:26 Dose: 25 mg Metolazone (Zaroxolyn) 5 mg PO BID [facility] Last Admin: 06/23/16 18:13 Dose: Not Given Midodrine (Proamatine) 5 mg PO BID [facility] Ondansetron HCl (Zofran Inj) 4 mg IVP Q6 PRN PRN Reason: Nausea/Vomiting Last Admin: 06/20/16 12:57 Dose: 4 mg Pantoprazole Sodium (Protonix Ec Tab) 40 mg PO BID [facility] Last Admin: 06/24/16 11:24 Dose: 40 mg Potassium Chloride (K-Dur 20 Meq Er Tab) 20 meq PO DAILY [facility] Last Admin: 06/24/16 11:25 Dose: 20 meq - Labs Labs: 06/24/16 06:06 06/24/16 06:06 PT 21.4 SECONDS (9.7-12.2) H D 06/24/16 06:06 INR 1.9 D 06/24/16 06:06 APTT 25 SECONDS (21-34) 06/18/16 12:13 - Constitutional Appears: Non-toxic, No Acute Distress - Head Exam Head Exam: ATRAUMATIC, NORMAL INSPECTION, NORMOCEPHALIC - Eye Exam Eye Exam: EOMI - ENT Exam ENT Exam: Mucous Membranes Moist - Neck Exam Neck Exam: Full ROM, Normal Inspection - Respiratory Exam Respiratory Exam: NORMAL BREATHING PATTERN. absent: Respiratory Distress - Cardiovascular Exam Cardiovascular Exam: +S1, +S2 - GI/Abdominal Exam GI & Abdominal Exam: Soft, Normal Bowel Sounds. absent: Tenderness - Extremities Exam Extremities Exam: Full ROM, Normal Inspection - Neurological Exam Neurological Exam: Alert, Awake, Oriented x3 - Psychiatric Exam Psychiatric exam: Normal Affect, Normal Mood - Skin Skin Exam: Dry, Intact, Normal Color, Warm Assessment and Plan - Assessment and Plan (Free Text) Assessment: This is a 65 yo male presenting with 1) Acalculous cholecystitis * Abd/Pelvis CT (06/16/16)- no evidence of inguinal hernia containing bowel. No evidence of mechanical obstruction. Pericholecystic inflammatory changes raise the possibility of acute cholecystitis. Gallstones are not identified. * Abdominal US (06/16/16) -gallbladder wall thickening, sonographic Castro's sign elicted by technologist. Acalculous cholecystitis. * Surgery Consult (Dr. Maradiaga) on board-->help appreciated; sx has signed off * GI Consult (Dr. Pollard) /Dr. Babcock/Dr Méndez covering help appreciated * Flagyl 500mg IV Q 8 hours (day 8 ) and Zosyn 3.375 IV Q 6 hours (day 8) * we will stop fluids and put on full liquid diet, pt still experiencing nausea and a little vomiting * HIDA scan negative, f/u with HIDA with GB EF * Patient has high cardiac risk given history of cardiomyopathy (EF< 20%), has AICD, and left atrial thrombus (back on Xarelto) at this time * Cardiology (Dr. Ram) on board-->help appreciated * Chest xray (06/16/16): interval improvement in congestive heart failure>>> repeat cxr pending * monitor for fluid overload * no intervention from sx * pt to have hida with gb ef today, results pending * 1 time doses of morphine to be given 2) Diarrhea diarrhea improved since yesterday stool leukocytes positive continue abx repeat c diff pending GI consult with Dr. Méndez/ Yoko . recs appreciated. 3) Hx of CHF * Continue home meds with holding parameters * Coreg 3.125mg PO BID (hold SBP<100 and HR<60), hold * pt refused lasix>> will discuss cardio meds today * Losartan 25mg PO daily * Metalazone 5mg PO BID * placed back on xarelto>>> xarelto * Cardio consult - Dr. Ram - help appreciated-->Patient high risk for cardiac event during surgery * Echo (05/27/16): left ventricle systolic function is severaly impaired, EF <20% , left atrium is severely dilated, ICD wires seen, thrombus noted in left atrial appendage * Chest xray (06/16/16): interval improvement in congestive heart failure * midodrine 10 bid 3) Hx of Left atrial thrombus * xarelto held * Cardio consult - Dr. Ram - help appreciated-->Patient high risk for cardiac event during surgery but he is cleared to have the surgery if it is needed per Dr. aRm 4) Hx of hypothyroidism * Continue home synthroid 125mcg PO daily 5) hx of umbilical hernia * No bowel seen in hernia in CT 6) hx of liver cirrhosis * Monitor LFTs * Abd/Pelvis CT (06/16/16)- no evidence of inguinal hernia containing bowel. No evidence of mechanical obstruction. Pericholecystic inflammatory change raise the possibility of acute cholecystitis. Gallstones are not identified. * Abdominal US (06/16/16) -gallbladder wall thickening, sonographic Castro's sign elicted by technologist. Acalculous cholecystitis. * Former alcohol use * Monitor LFTs and albumin 7) Hematuria -renal US shows no abnormalities kidneys, some free fluid -f/u inr -f/u urine culture -hold xarelto -f/u psa -f/u repeat ua 8) Prophylaxis * SCDs * Xarelto 20mg PO daily>>> held for hematuria * Protonix 40mg IVP daily >>> we will change to bid discussed with Dr. Damon <Wilmer Damon H - Last Filed: 06/25/16 07:57> Objective - Vital Signs/Intake and Output Vital Signs (last 24 hours): Temp Pulse Resp BP Pulse Ox 97.9 F 84 20 95/60 L 96 06/24/16 23:05 06/25/16 04:00 06/24/16 23:05 06/24/16 23:05 06/24/16 23:05 Intake and Output: 06/25/16 06/25/16 06:59 18:59 Intake Total 50 Output Total 750 Balance -700 - Medications Medications: Current Medications Carvedilol (Coreg) 3.125 mg PO Q12H [facility] Last Admin: 06/24/16 22:00 Dose: Not Given Furosemide (Lasix) 20 mg PO BID [facility] Last Admin: 06/24/16 22:00 Dose: 20 mg Hydrocortisone (Anusol-Hc) 25 mg RC BID [facility] Last Admin: 06/24/16 18:00 Dose: Not Given Metronidazole (Flagyl) 500 mg in 100 mls @ 100 mls/hr IVPB Q8H [facility] Last Admin: 06/25/16 01:07 Dose: 100 mls/hr Piperacillin Sod/Tazobactam Sod (Zosyn 2.25 Gm Iv Premix) 2.25 gm in 50 mls @ 100 mls/hr IVPB Q8 [facility] Last Admin: 06/25/16 05:39 Dose: 100 mls/hr Levothyroxine Sodium (Synthroid) 125 mcg PO DAILY@0630 [facility] Last Admin: 06/25/16 05:38 Dose: 125 mcg Losartan Potassium (Cozaar) 25 mg PO DAILY [facility] Last Admin: 06/23/16 09:26 Dose: 25 mg Metolazone (Zaroxolyn) 5 mg PO BID [facility] Last Admin: 06/23/16 18:13 Dose: Not Given Midodrine (Proamatine) 5 mg PO BID [facility] Last Admin: 06/24/16 20:07 Dose: 5 mg Ondansetron HCl (Zofran Inj) 4 mg IVP Q6 PRN PRN Reason: Nausea/Vomiting Last Admin: 06/20/16 12:57 Dose: 4 mg Potassium Chloride (K-Dur 20 Meq Er Tab) 20 meq PO DAILY [facility] Last Admin: 06/24/16 11:25 Dose: 20 meq - Labs Labs: 06/25/16 06:57 06/25/16 06:57 PT 21.4 SECONDS (9.7-12.2) H D 06/24/16 06:06 INR 1.9 D 06/24/16 06:06 APTT 25 SECONDS (21-34) 06/18/16 12:13 Attending/Attestation - Attestation I have personally seen and examined this patient.: Yes I have fully participated in the care of the patient.: Yes I have reviewed all pertinent clinical information, including history, physical exam and plan: Yes Notes (Text): 06/25/16 07:54 Medical Attending: Patient was seen and examined by me with the caregivers non medical Agree with the above note by the resident. At this time pending completion of the repeat HIDA scan to further assess the gallbladder. Currently on IV abx at this time. The WBC is stable, and he is also afebrile as well. General surgery has signed off the case at this time. There is a history of atrial fibrillation as well as a left atrial appendage. The patient is on Xarelto, currently held at the moment.
[2016-06-24 17:51] LABS: CREATININE, RANDOM URINE 294.2 mg/dL
[2016-06-24 22:21] LABS: RBC URINE 36 /hpf (0-3); TRANSITIONAL EPITHIAL < 1 /hpf (0-3); URINE BACTERIA MOD (<OCC); URINE BILIRUBIN NEGATIVE (NEGATIVE); URINE CALCIUM OXALATE CRYSTALS OCC /hpf (<OCC); URINE COLOR Amber (YELLOW); URINE GLUCOSE (UA) NORMAL (Normal); URINE KETONE TRACE mg/dL (NEGATIVE); URINE LEUKOCYTE ESTERASE 1+ Leu/uL (Negative); URINE PROTEIN 2+ mg/dL (NEGATIVE); URINE UROBILINOGEN NORMAL mg/dL (0.2-1.0); WBC URINE 8 /hpf (0-5)
[2016-06-24 22:22] LABS: URINE BLOOD 3+ (NEGATIVE)
--- NOTE | 2016-06-25 00:09 | CON ---
DATE: 06/24/2016 NEPHROLOGY CONSULTATION HISTORY OF PRESENT ILLNESS: A 65-year-old male with past medical history of congestive heart failure with severe systolic dysfunction, liver cirrhosis, hypothyroidism, AFib, status post AICD placement, admitted after presenting with 3 weeks of diffuse abdominal pain. The patient being worked up for acute cholecystitis. Hospital course complicated by gross hematuria in the setting of being on anticoagulation for left atrial thrombosis. Nephrology service being consulted for hematuria. The patient reports not having hematuria prior to this admission. The patient denies any difficulty urinating or any dysuria. The patient on once daily Lasix at home with intermittent leg swelling. Denies any shortness of breath currently. Can walk several blocks without getting short of breath at baseline. PAST MEDICAL HISTORY: As above. FAMILY HISTORY: Significant for cancer. SOCIAL HISTORY: Previous smoker. REVIEW OF SYSTEMS: CONSTITUTIONAL: The patient reports more than a 20-pound weight loss over the past 2+ years. Appetite is irregular. HEENT: Denies any blurry vision or new visual disturbances. Occasionally with nose bleeds. Denies any sinus pain or hearing difficulties. RESPIRATORY: Denies any shortness of breath or cough. CARDIOVASCULAR: Denies any chest pains. Leg swelling as mentioned above. GASTROINTESTINAL: The patient with recent nausea and associated spitting up of phlegm, otherwise normal bowel habits. GENITOURINARY: As mentioned in HPI. MUSCULOSKELETAL: Denies any neck pain, back pain, or use of pain medications at home. HEMATOLOGIC: Nose bleeds as mentioned above. Otherwise, no hematochezia. SKIN: Denies any itching or rashes. NEUROLOGIC: Denies any numbness in feet. Occasional headaches. PSYCHIATRIC: Denies any depression or anxiety. VITAL SIGNS: This morning, blood pressure 105/70, heart rate 79, respirations 20, temperature 97.5, O2 sat 97% on room air. Exam: Gen - No distress, verbalizing coherently in full sentences HEENT - non-icteric, moist mucous membranes; normal neck inspection; Resp - lungs CTA b/l, no rhonchi/wheezes/rhales CV - S1, S2 normal; S3 present; JVD to earlobes GI - Abd soft, RUQ tenderness with positive insp arrest; non-distended - No bladder distention; Ext - Mild to mod lower leg edema, R >> L Skin - Warm, no cyanosis Psych - Normal mood and affect Neuro - No numbness of feet; AOx3 LABORATORY DATA: WBC 8.4, hemoglobin 12.5, hematocrit 37.9, platelets 131. CMP : Sodium 136, potassium 3.7, chloride 102, bicarbonate 23, BUN 34, creatinine 1.6, glucose 84, calcium 8.0, phosphorus 3.6, albumin 2.9. Urine studies: Urine sodium less than 5. Urine creatinine 294. Urine protein 73. Urine Microscopy directly observed - < 10 RBC's/hpf, all isomorphic; up to 5 WBC 's/hpf (appear to be macrophages with occasional WBC casts of same type); occasional renal tubular epithelial cells seen; ASSESSMENT AND PLAN: 1. Acute renal failure. Baseline serum creatinine approximately 1.0, current worsening renal function in the setting of low normal blood pressure and known systolic heart failure. Urine indices consistent with prerenal etiology, but likely due to cardiorenal syndrome with the patient appearing volume overloaded on exam despite clear lungs (note elevated JVD and positive S3). The patient had been on IV Lasix until 3 days ago, but still receiving metolazone up until yesterday. Urine microscopy directly observed, showing some indication of tubular injury; also with occasional white cell casts, which may be indicative of a concomitant allergic interstitial nephritis, which cannot be ruled out without a renal biopsy. Recommend at this time to withdraw any unnecessary medical therapy including Protonix. Recommend to keep patient euvolemic with gentle diuretics as needed. Continue to hold losartan and keep MAP > 65. Avoid other nephrotoxic agents (do not give NSAIDs for pain). 2. Acute CHF with systolic dysfunction. The patient is relatively asymptomatic , although is showing signs of being in heart failure. Important to continue beta blockers to optimize cardiac status and would continue with gentle diuresis with Lasix 20 mg p.o. b.i.d. 3. Hematuria in the setting of being on anticoagulation. Urine microscopy not showing significant hematuria and the hematuria that is seen has isomorphic RBCs ; therefore, does not appear to be of glomerular etiology. 4. Acalculous cholecystitis. The patient is currently on Zosyn 2.25 grams q. 8 hours. Agree with dosing Zosyn for creatinine clearance less than 20, although eGFR is being reported as 44, but actual GFR is likely much less than that in the setting of acute renal failure with serum creatinine still rising. 5. History of liver abnormality. Ultrasound reporting variable liver echogenicity; however, no sign of overt liver dysfunction with T-bili in normal range and serum albumin normal on presentation. Therefore, current worsening of renal function should not be attributed to any hepatorenal etiology. Would not attempt to volume expand currently. Brock Chatman MD cc: [id number] TT: 06/25/2016 00:08:49 Confirmation # [id number] Dictation # [id number] mn ALAYNA
[2016-06-25] MEDS: metroNIDAZOLE IV 500 mg/100 ml 500 MG/100 ML BAG IVPB SCH ×3 (01:07→16:36)
[2016-06-25] MEDS: Levothyroxine 125 MCG TAB PO SCH (05:38)
[2016-06-25] MEDS: Piperacill/Tazo 2.25gm in Dex 2.25 GM/50 ML BAG IVPB SCH ×3 (05:39→22:00)
[2016-06-25 07:31] LABS: BASO # 0.1 K/uL (0.0-0.2); BASO % 0.9 % (0.0-2.0); CHLORIDE 101 mmol/L (98-107); EOS # 0.2 K/uL (0.0-0.7); EOS % 2.1 % (0.0-4.0); HEMATOCRIT 37.3 % (35.0-51.0); LYMPH # 1.5 K/uL (1.0-4.3); LYMPH % 19.7 % (20.0-40.0); MEAN CELL VOLUME 98.9 fL (80.0-94.0); MEAN CORPUSCULAR HEMOGLOBIN 32.8 pg (27.0-31.0); MEAN CORPUSCULAR HGB CONC 33.1 g/dL (33.0-37.0); MEAN PLATELET VOLUME 9.8 fL (7.2-11.7); MONO # 0.6 K/uL (0.0-0.8); MONO % 8.3 % (0.0-10.0); NRBC % 0.1 % (0.0-2.0); POTASSIUM 3.2 mmol/L (3.6-5.2); SODIUM 136 mmol/L (132-148); WHITE BLOOD COUNT 7.4 K/uL (4.8-10.8)
[2016-06-25 07:33] LABS: BILIRUBIN,TOTAL 1.1 mg/dL (0.2-1.3); GFR AFRICAN-AMERICAN > 60
[2016-06-25 07:34] LABS: ALKALINE PHOSPHATASE 68 U/L (38-126); ALT/SGPT 66 U/L (21-72); AST/SGOT 31 U/L (17-59); BLOOD UREA NITROGEN 34 mg/dL (9-20); CALCIUM 8.1 mg/dl (8.6-10.4); CARBON DIOXIDE 23 mmol/L (22-30); GLUCOSE,RANDOM 91 mg/dL (75-110); PHOSPHOROUS 3.8 mg/dL (2.5-4.5); TOTAL PROTEIN 5.6 g/dL (6.3-8.3)
[2016-06-25 07:35] LABS: MAGNESIUM 1.7 mg/dL (1.6-2.3)
[2016-06-25] MEDS ORDERED: Potassium Chloride 20 mEq/15 ml LIQ UD PO STA (08:50)
[2016-06-25] MEDS ORDERED: Potassium Chloride 20 mEq ER Tab PO SCH ×2 (08:52→08:54)
--- NOTE | 2016-06-25 09:30 | CP.PCM.PN ---
<Deysi Rehman - Last Filed: 06/25/16 09:38> Subjective - Date & Time of Evaluation Date of Evaluation: 06/25/16 Time of Evaluation: 09:29 - Subjective Subjective: PGY-[address] Yo connor resolved. H/H stable. Xarelto on hold 9 runs of a-fib twice overnight. BP stable at high 90s. Asymtomatic Otherwise, no acute complaint overnight Objective - Vital Signs/Intake and Output Vital Signs (last 24 hours): Temp Pulse Resp BP Pulse Ox 97.7 F 80 20 98/66 L 98 06/25/16 07:18 06/25/16 07:18 06/25/16 07:18 06/25/16 07:18 06/25/16 07:18 Intake and Output: 06/25/16 06/25/16 06:59 18:59 Intake Total 50 Output Total 750 Balance -700 - Medications Medications: Current Medications Carvedilol (Coreg) 3.125 mg PO Q12H [facility] Last Admin: 06/24/16 22:00 Dose: Not Given Furosemide (Lasix) 20 mg PO BID [facility] Last Admin: 06/24/16 22:00 Dose: 20 mg Hydrocortisone (Anusol-Hc) 25 mg RC BID [facility] Last Admin: 06/24/16 18:00 Dose: Not Given Metronidazole (Flagyl) 500 mg in 100 mls @ 100 mls/hr IVPB Q8H [facility] Last Admin: 06/25/16 08:52 Dose: 100 mls/hr Piperacillin Sod/Tazobactam Sod (Zosyn 2.25 Gm Iv Premix) 2.25 gm in 50 mls @ 100 mls/hr IVPB Q8 [facility] Last Admin: 06/25/16 05:39 Dose: 100 mls/hr Potassium Chloride (Potassium Chloride 20 Meq/100 Ml) 20 meq in 100 mls @ 50 mls/hr IVPB ONCE ONE Stop: 06/25/16 10:50 Levothyroxine Sodium (Synthroid) 125 mcg PO DAILY@0630 [facility] Last Admin: 06/25/16 05:38 Dose: 125 mcg Losartan Potassium (Cozaar) 25 mg PO DAILY [facility] Last Admin: 06/23/16 09:26 Dose: 25 mg Metolazone (Zaroxolyn) 5 mg PO BID [facility] Last Admin: 06/23/16 18:13 Dose: Not Given Midodrine (Proamatine) 5 mg PO BID [facility] Last Admin: 06/24/16 20:07 Dose: 5 mg Ondansetron HCl (Zofran Inj) 4 mg IVP Q6 PRN PRN Reason: Nausea/Vomiting Last Admin: 06/20/16 12:57 Dose: 4 mg Potassium Chloride (K-Dur 20 Meq Er Tab) 20 meq PO DAILY [facility] - Labs Labs: 06/25/16 06:57 06/25/16 06:57 PT 21.4 SECONDS (9.7-12.2) H D 06/24/16 06:06 INR 1.9 D 06/24/16 06:06 APTT 25 SECONDS (21-34) 06/18/16 12:13 - Constitutional Appears: No Acute Distress - Head Exam Head Exam: ATRAUMATIC, NORMAL INSPECTION, NORMOCEPHALIC - Eye Exam Eye Exam: EOMI, Normal appearance Pupil Exam: NORMAL ACCOMODATION - ENT Exam ENT Exam: Mucous Membranes Moist - Respiratory Exam Respiratory Exam: Clear to Ausculation Bilateral, NORMAL BREATHING PATTERN. absent: Rales, Rhonchi, Wheezes - Cardiovascular Exam Cardiovascular Exam: REGULAR RHYTHM, +S1, +S2. absent: Murmur - GI/Abdominal Exam GI & Abdominal Exam: Soft, Normal Bowel Sounds. absent: Distended, Rigid, Tenderness - Extremities Exam Extremities Exam: Normal Capillary Refill. absent: Calf Tenderness, Pedal Edema - Back Exam Back Exam: absent: CVA tenderness (L), CVA tenderness (R) - Neurological Exam Neurological Exam: Alert, Awake, Oriented x3 - Psychiatric Exam Psychiatric exam: Normal Affect, Normal Mood - Skin Skin Exam: Dry, Warm Assessment and Plan - Assessment and Plan (Free Text) Plan: 65 year old male with past medical history of CHF, cardiomyopathy with AICD s/p AV tala ablation (may 2016), A-fib on xarelto, liver cirrhosis, hypothyroidism, presents for cardiac evaluation for clearance for cholecystectomy. Abdominal pain likely due to acalculous cholecystitis. HIDA negative, pending official read of special HIDA with EF. No plan for surgery. Pt is on flagyl and zosyn. Hemautria started over the weekend, resolved, and xarelto on hold. Left atrial thrombus found on DONAVAN 05/24/16. Left atrial thrombus - DONAVAN 05/24/16 - Consider eliquis for STEPHANIE thrombus - Primary to discuss with kidney doctor, pt and family V-tach, non-sustained, hemodynamically stable - likely triggered by R-on-T - No antiarrthymic agent for now CHF, diastolic and systolic, pre-load dependent, chronic Cardiomyopathy with AICD Hypotension 90s/60s - BACK ON LASIX 20 PO BID - HOLD Losartan and metolaxone for low BP - Change Midodrine from 10 to 5 BID - Coreg 3.125 mg PO BID - Elevated troponins are likely secondary to right heart failure. A-fib, stable, rate control with Coreg and currently ventricularly paced Left atrial thrombus found on DONAVAN 05/24/16 - HOLD - Xarelto - Elevated troponins are likely secondary to right heart failure. Macrocytic anemia - Managed per primary team or outpatient Pre-procedural cardiovascular examination - AICD is not magnetically safe, not a candidate for MRCP. - Cardiac Risk Assessment: High Risk for cholecystectomy. Detsky score:55 (high risk) Hipolito score:> 11% (high risk) Urias score: 42 (class IV- 78% complications) Patient is high risk patient for surgery, however if benefits of procedure outweigh risks, may proceed with surgery. Continue with preoperative SCIP protocols and measures Imaging: - Serial Troponins: (06/17/16) Troponin 1: 0.1770, Troponin 2: 0.1530, Troponin 3 : 0.1580 - BNP: (05/15/16) 3,780 - EKG: (06/17/16) Ventricularly paced rhythm with PVCs, wide QRS, prolonged QTc; ( 05/22/16) Demand pacemaker, interpretation based on intrinsic rhythm, nonspecific intraventricular block, T wave abnormality, consider interolateral ischemia - Echo: (05/24/16) EF: <20%, left atrium is severely dilated, thrombus in left atrial appendage. - Cardiac Cath: (03/29/14): showed normal coronaries with EF 10-15%. Will S/R/D with Dr. Ram. <Jennyfer Ram - Last Filed: 06/25/16 19:51> Objective - Vital Signs/Intake and Output Vital Signs (last 24 hours): Temp Pulse Resp BP Pulse Ox 97.3 F L 81 21 110/72 98 06/25/16 15:51 06/25/16 18:13 06/25/16 18:13 06/25/16 19:35 06/25/16 18:13 Intake and Output: 06/25/16 06/26/16 18:59 06:59 Intake Total 550 Balance 550 - Medications Medications: Current Medications Carvedilol (Coreg) 3.125 mg PO Q12H [facility] Last Admin: 06/25/16 10:53 Dose: Not Given Furosemide (Lasix) 20 mg PO BID [facility] Last Admin: 06/25/16 19:35 Dose: 20 mg Hydrocortisone (Anusol-Hc) 25 mg RC BID [facility] Last Admin: 06/25/16 18:08 Dose: Not Given Metronidazole (Flagyl) 500 mg in 100 mls @ 100 mls/hr IVPB Q8H [facility] Last Admin: 06/25/16 16:36 Dose: 100 mls/hr Piperacillin Sod/Tazobactam Sod (Zosyn 2.25 Gm Iv Premix) 2.25 gm in 50 mls @ 100 mls/hr IVPB Q8 [facility] Last Admin: 06/25/16 13:52 Dose: 100 mls/hr Milrinone Lactate/Dextrose 20 (mg/ Dextrose) 100 mls @ 5.08 mls/hr IV .[id number] [facility]; 0.2 MCG/KG/MIN PRN Reason: Protocol Last Admin: 06/25/16 18:13 Dose: 0.2 mcg/kg/min, 5.08 mls/hr Levothyroxine Sodium (Synthroid) 125 mcg PO DAILY@0630 [facility] Last Admin: 06/25/16 05:38 Dose: 125 mcg Losartan Potassium (Cozaar) 25 mg PO DAILY [facility] Last Admin: 06/23/16 09:26 Dose: 25 mg Metolazone (Zaroxolyn) 5 mg PO BID [facility] Last Admin: 06/23/16 18:13 Dose: Not Given Midodrine (Proamatine) 5 mg PO BID [facility] Last Admin: 06/25/16 18:18 Dose: 5 mg Ondansetron HCl (Zofran Inj) 4 mg IVP Q6 PRN PRN Reason: Nausea/Vomiting Last Admin: 06/20/16 12:57 Dose: 4 mg Potassium Chloride (K-Dur 20 Meq Er Tab) 20 meq PO DAILY [facility] Last Admin: 06/25/16 09:32 Dose: 20 meq Potassium Chloride (K-Dur 20 Meq Er Tab) 20 meq PO ONCE ONE Stop: 06/25/16 20:01 Rivaroxaban (Xarelto) 20 mg PO DAILY [facility] - Labs Labs: 06/25/16 06:57 06/25/16 06:57 PT 21.4 SECONDS (9.7-12.2) H D 06/24/16 06:06 INR 1.9 D 06/24/16 06:06 APTT 25 SECONDS (21-34) 06/18/16 12:13 Attending/Attestation - Attestation I have personally seen and examined this patient.: Yes I have fully participated in the care of the patient.: Yes I have reviewed all pertinent clinical information, including history, physical exam and plan: Yes Notes (Text): 06/25/16 19:51 will transfer to ICU low bp abdominal discomfort
[2016-06-25] MEDS: Potassium Chloride 20 mEq ER Tab PO SCH (09:32)
[2016-06-25] MEDS ORDERED: Simethicone 40 mg/0.6 ml Liquid (30 ml) PO STA (10:19)
--- NOTE | 2016-06-25 15:00 | CP.PCM.DIS ---
Provider - Provider Date of Admission: 06/16/16 17:17 Attending physician: Wilmer Damon DO Hospital Course - Lab Results Lab Results: Micro Results 06/23/16 06:00 Urine,Clean Catch Urine Culture - Final No Growth (<1,000 CFU/ML) 06/19/16 13:40 Stool Stool Culture - Final NO SALMONELLA, SHIGELLA OR CAMPYLOBACTER ISOLATED. Most Recent Lab Values WBC 7.4 K/uL (4.8-10.8) 06/25/16 06:57 RBC 3.77 Mil/uL (4.40-5.90) L 06/25/16 06:57 Hgb 12.4 g/dL (12.0-18.0) 06/25/16 06:57 Hct 37.3 % (35.0-51.0) 06/25/16 06:57 MCV 98.9 fL (80.0-94.0) H 06/25/16 06:57 MCH 32.8 pg (27.0-31.0) H 06/25/16 06:57 MCHC 33.1 g/dL (33.0-37.0) 06/25/16 06:57 RDW 13.0 % (11.5-14.5) 06/25/16 06:57 Plt Count 138 K/uL (130-400) 06/25/16 06:57 MPV 9.8 fL (7.2-11.7) 06/25/16 06:57 Neut % (Auto) 69.0 % (50.0-75.0) 06/25/16 06:57 Lymph % (Auto) 19.7 % (20.0-40.0) L 06/25/16 06:57 [place] % (Auto) 8.3 % (0.0-10.0) 06/25/16 06:57 Eos % (Auto) 2.1 % (0.0-4.0) 06/25/16 06:57 Baso % (Auto) 0.9 % (0.0-2.0) 06/25/16 06:57 Neut # 5.1 K/uL (1.8-7.0) 06/25/16 06:57 Lymph # 1.5 K/uL (1.0-4.3) 06/25/16 06:57 [place] # 0.6 K/uL (0.0-0.8) 06/25/16 06:57 Eos # 0.2 K/uL (0.0-0.7) 06/25/16 06:57 Baso # 0.1 K/uL (0.0-0.2) 06/25/16 06:57 Differential Comment 06/16/16 11:50 PT 21.4 SECONDS (9.7-12.2) H D 06/24/16 06:06 INR 1.9 D 06/24/16 06:06 APTT 25 SECONDS (21-34) 06/18/16 12:13 Sodium 136 mmol/L (132-148) 06/25/16 06:57 Potassium 3.2 mmol/L (3.6-5.2) L 06/25/16 06:57 Chloride 101 mmol/L (98-107) 06/25/16 06:57 Carbon Dioxide 23 mmol/L (22-30) 06/25/16 06:57 Anion Gap 15 (10-20) 06/25/16 06:57 BUN 34 mg/dL (9-20) H 06/25/16 06:57 Creatinine 1.4 MG/DL (0.8-1.5) 06/25/16 06:57 Est GFR ( Amer) > 60 06/25/16 06:57 Est GFR (Non-Af Amer) 51 06/25/16 06:57 Random Glucose 91 mg/dL (75-110) 06/25/16 06:57 Calcium 8.1 mg/dl (8.6-10.4) L 06/25/16 06:57 Phosphorus 3.8 mg/dL (2.5-4.5) 06/25/16 06:57 Magnesium 1.7 mg/dL (1.6-2.3) 06/25/16 06:57 Total Bilirubin 1.1 mg/dL (0.2-1.3) 06/25/16 06:57 Direct Bilirubin 0.6 mg/dL (0.0-0.4) H 06/18/16 06:19 AST 31 U/L (17-59) 06/25/16 06:57 ALT 66 U/L (21-72) 06/25/16 06:57 Alkaline Phosphatase 68 U/L (38-126) 06/25/16 06:57 Total Creatine Kinase 94 U/L (55-170) 06/18/16 12:13 CK-MB (Mass) 1.36 ng/mL (0.0-3.38) 06/18/16 12:13 Troponin I, Quant 0.1030 ng/mL (0.00-0.120) 06/18/16 12:13 Total Protein 5.6 g/dL (6.3-8.3) L 06/25/16 06:57 Albumin 2.8 g/dL (3.5-5.0) L 06/25/16 06:57 Globulin 2.9 gm/dL (2.2-3.9) 06/25/16 06:57 Albumin/Globulin Ratio 1.0 (1.0-2.1) 06/25/16 06:57 Lipase 147 U/L (23-300) 06/16/16 17:04 Urine Color Catie (YELLOW) 06/24/16 22:13 Urine Clarity Hazy (Clear) 06/24/16 22:13 Urine pH 5.0 (5.0-8.0) 06/24/16 22:13 Ur Specific Strang 1.029 (1.003-1.030) 06/24/16 22:13 Urine Protein 2+ mg/dL (NEGATIVE) H 06/24/16 22:13 Urine Glucose (UA) Normal mg/dL (Normal) 06/24/16 22:13 Urine Ketones Trace mg/dL (NEGATIVE) 06/24/16 22:13 Urine Blood 3+ (NEGATIVE) H 06/24/16 22:13 Urine Nitrate Negative (NEGATIVE) 06/24/16 22:13 Urine Bilirubin Negative (NEGATIVE) 06/24/16 22:13 Urine Urobilinogen Normal mg/dL (0.2-1.0) 06/24/16 22:13 Ur Leukocyte Esterase 1+ Corby/uL (Negative) H 06/24/16 22:13 Urine WBC (Auto) 8 /hpf (0-5) H 06/24/16 22:13 Urine RBC (Auto) 36 /hpf (0-3) H 06/24/16 22:13 Ur Squamous Epith Cells 1 /hpf (0-5) 06/24/16 22:13 Ur Transition Epith Cell < 1 /hpf (0-3) 05/15/17 22:13 Calcium Oxalate Crystal Occ /hpf (<OCC) H 06/24/16 22:13 Urine Bacteria Mod (<OCC) H 06/24/16 22:13 Hyaline Casts 3-5 /lpf (0-2) H 06/24/16 22:13 Urine Sperm (Auto) Many /hpf (NONE) H 06/23/16 07:03 Ur Random Creatinine 294.2 mg/dL 06/24/16 17:15 U Random Total Protein 73.0 mg/dL (0.0-12.0) H 06/24/16 18:27 Ur Random Sodium < 5 mmol/L 06/24/16 17:15 Ur Random Urea Nitrogn 712 mg/dL 06/24/16 18:41 Stool Leukocytes, Qual Positive (NEGATIVE) H 06/19/16 10:12 C. difficile Ag & Toxin Negative (NEGATIVE) 06/19/16 10:12 Hepatitis A IgM Ab Negative (NEGATIVE) 06/18/16 06:19 Hep Bs Antigen Negative (NEGATIVE) 06/18/16 06:19 Hep B Core IgM Ab Negative (NEGATIVE) 06/18/16 06:19 Hepatitis C Antibody Negative (NEGATIVE) 06/18/16 06:19 Discharge Exam - Head Exam Head Exam: ATRAUMATIC, NORMAL INSPECTION, NORMOCEPHALIC Discharge Plan - Follow Up Plan Condition: STABLE Disposition: HOME/ ROUTINE
--- NOTE | 2016-06-25 15:42 | CP.PCM.PN ---
<Alireza Whitmore - Last Filed: 06/25/16 15:47> Subjective - Date & Time of Evaluation Date of Evaluation: 06/25/16 Time of Evaluation: 15:40 - Subjective Subjective: Med progress note. Attending: Dr. Damon. Pt seen and examined at bedside. Pt was feeling better with special hida with gb ef negative, ready to resume xarelto. pt has long cardiac hx and issues with hypotension. Will put in ICU consult Dr. Tomlinson, would benefit from primacor. Objective - Vital Signs/Intake and Output Vital Signs (last 24 hours): Temp Pulse Resp BP Pulse Ox 97.7 F 80 20 88/59 L 98 06/25/16 07:18 06/25/16 13:06 06/25/16 07:18 06/25/16 10:53 06/25/16 07:18 Intake and Output: 06/25/16 06/25/16 06:59 18:59 Intake Total 50 Output Total 750 Balance -700 - Medications Medications: Current Medications Carvedilol (Coreg) 3.125 mg PO Q12H [facility] [place] Last Admin: 06/25/16 10:53 Dose: Not Given Furosemide (Lasix) 20 mg PO BID [facility] [place] Last Admin: 06/25/16 09:45 Dose: Not Given Hydrocortisone (Anusol-Hc) 25 mg RC BID [facility] [place] Last Admin: 06/25/16 09:45 Dose: Not Given Metronidazole (Flagyl) 500 mg in 100 mls @ 100 mls/hr IVPB Q8H [facility] [place] Last Admin: 06/25/16 08:52 Dose: 100 mls/hr Piperacillin Sod/Tazobactam Sod (Zosyn 2.25 Gm Iv Premix) 2.25 gm in 50 mls @ 100 mls/hr IVPB Q8 [facility] [place] Last Admin: 06/25/16 13:52 Dose: 100 mls/hr Levothyroxine Sodium (Synthroid) 125 mcg PO DAILY@0630 [facility] [place] Last Admin: 06/25/16 05:38 Dose: 125 mcg Losartan Potassium (Cozaar) 25 mg PO DAILY [facility] [place] Last Admin: 06/23/16 09:26 Dose: 25 mg Metolazone (Zaroxolyn) 5 mg PO BID [facility] [place] Last Admin: 06/23/16 18:13 Dose: Not Given Midodrine (Proamatine) 5 mg PO BID [facility] [place] Last Admin: 06/25/16 10:42 Dose: 5 mg Ondansetron HCl (Zofran Inj) 4 mg IVP Q6 PRN PRN Reason: Nausea/Vomiting Last Admin: 06/20/16 12:57 Dose: 4 mg Potassium Chloride (K-Dur 20 Meq Er Tab) 20 meq PO DAILY [facility] [place] Last Admin: 06/25/16 09:32 Dose: 20 meq Rivaroxaban (Xarelto) 15 mg PO BID [facility] [place] - Labs Labs: 06/25/16 06:57 06/25/16 06:57 PT 21.4 SECONDS (9.7-12.2) H D 06/24/16 06:06 INR 1.9 D 06/24/16 06:06 APTT 25 SECONDS (21-34) 06/18/16 12:13 - Constitutional Appears: Non-toxic, Chronically Ill - Head Exam Head Exam: ATRAUMATIC, NORMAL INSPECTION, NORMOCEPHALIC - Eye Exam Eye Exam: EOMI - ENT Exam ENT Exam: Mucous Membranes Moist - Neck Exam Neck Exam: Full ROM, Normal Inspection - Respiratory Exam Respiratory Exam: NORMAL BREATHING PATTERN. absent: Respiratory Distress - Cardiovascular Exam Cardiovascular Exam: JVD, +S1, +S2 - GI/Abdominal Exam GI & Abdominal Exam: Soft, Normal Bowel Sounds. absent: Tenderness - Extremities Exam Extremities Exam: Full ROM, Normal Inspection - Neurological Exam Neurological Exam: Alert, Awake, Oriented x3 - Psychiatric Exam Psychiatric exam: Flat Affect - Skin Skin Exam: Dry, Intact, Normal Color, Warm Assessment and Plan - Assessment and Plan (Free Text) Assessment: This is a 65 yo male presenting with 1) Acalculous cholecystitis * Abd/Pelvis CT (06/16/16)- no evidence of inguinal hernia containing bowel. No evidence of mechanical obstruction. Pericholecystic inflammatory changes raise the possibility of acute cholecystitis. Gallstones are not identified. * Abdominal US (06/16/16) -gallbladder wall thickening, sonographic Castro's sign elicted by technologist. Acalculous cholecystitis. * Surgery Consult (Dr. Maradiaga) on board-->help appreciated; sx has signed off * GI Consult (Dr. Pollard) /Dr. Babcock/Dr Méndez covering help appreciated>>> GI has signed off * Flagyl 500mg IV Q 8 hours (day 9 ) and Zosyn 3.375 IV Q 6 hours (day 9) * we will stop fluids and put on full liquid diet, pt still experiencing nausea and a little vomiting * HIDA scan negative, f/u with HIDA with GB EF>>> neg * Patient has high cardiac risk given history of cardiomyopathy (EF< 20%), has AICD, and left atrial thrombus (back on Xarelto) at this time * Cardiology (Dr. Ram) on board-->help appreciated * Chest xray (06/16/16): interval improvement in congestive heart failure>>> repeat cxr pending * monitor for fluid overload * no intervention from sx * negative repeat HIDA * 1 time doses of morphine to be given 2) Diarrhea diarrhea improved since yesterday stool leukocytes positive continue abx repeat c diff pnegative GI consult with Dr. Méndez/ Yoko . recs appreciated. GI has signed off 3) Hx of CHF * Continue home meds with holding parameters * Coreg 3.125mg PO BID (hold SBP<100 and HR<60), hold * pt refused lasix>> will discuss cardio meds today>> now on PO lasix * Losartan 25mg PO daily, on hold * Metalazone 5mg PO BID * placed back on xarelto>>> xarelto * Cardio consult - Dr. Ram - help appreciated-->Patient high risk for cardiac event during surgery * Echo (05/27/16): left ventricle systolic function is severaly impaired, EF <20% , left atrium is severely dilated, ICD wires seen, thrombus noted in left atrial appendage * Chest xray (06/16/16): interval improvement in congestive heart failure * midodrine 10 bid * pt is having issues with low blood pressure>> ICU consult placed. Dr Tomlinson, Dr. Ram thinks pt may benefit from primacor drip 3) Hx of Left atrial thrombus * xarelto restored * Cardio consult - Dr. Ram - help appreciated-->Patient high risk for cardiac event during surgery but he is cleared to have the surgery if it is needed per Dr. Ram 4) Hx of hypothyroidism * Continue home synthroid 125mcg PO daily 5) hx of umbilical hernia * No bowel seen in hernia in CT 6) hx of liver cirrhosis * Monitor LFTs * Abd/Pelvis CT (06/16/16)- no evidence of inguinal hernia containing bowel. No evidence of mechanical obstruction. Pericholecystic inflammatory change raise the possibility of acute cholecystitis. Gallstones are not identified. * Abdominal US (06/16/16) -gallbladder wall thickening, sonographic Castro's sign elicted by technologist. Acalculous cholecystitis. 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 Damon <Wilmer Damon H - Last Filed: 06/25/16 17:40> Objective - Vital Signs/Intake and Output Vital Signs (last 24 hours): Temp Pulse Resp BP Pulse Ox 97.3 F L 80 20 89/61 L 96 06/25/16 15:51 06/25/16 15:51 06/25/16 15:51 06/25/16 15:51 06/25/16 15:51 Intake and Output: 06/25/16 06/25/16 06:59 18:59 Intake Total 50 550 Output Total 750 Balance -700 550 - Medications Medications: Current Medications Carvedilol (Coreg) 3.125 mg PO Q12H [facility] [place] Last Admin: 06/25/16 10:53 Dose: Not Given Furosemide (Lasix) 20 mg PO BID [facility] [place] Last Admin: 06/25/16 09:45 Dose: Not Given Hydrocortisone (Anusol-Hc) 25 mg RC BID [facility] [place] Last Admin: 06/25/16 09:45 Dose: Not Given Metronidazole (Flagyl) 500 mg in 100 mls @ 100 mls/hr IVPB Q8H [facility] [place] Last Admin: 06/25/16 16:36 Dose: 100 mls/hr Piperacillin Sod/Tazobactam Sod (Zosyn 2.25 Gm Iv Premix) 2.25 gm in 50 mls @ 100 mls/hr IVPB Q8 [facility] [place] Last Admin: 06/25/16 13:52 Dose: 100 mls/hr Levothyroxine Sodium (Synthroid) 125 mcg PO DAILY@0630 [facility] [place] Last Admin: 06/25/16 05:38 Dose: 125 mcg Losartan Potassium (Cozaar) 25 mg PO DAILY [facility] [place] Last Admin: 06/23/16 09:26 Dose: 25 mg Metolazone (Zaroxolyn) 5 mg PO BID [facility] [place] Last Admin: 06/23/16 18:13 Dose: Not Given Midodrine (Proamatine) 5 mg PO BID [facility] [place] Last Admin: 06/25/16 10:42 Dose: 5 mg Ondansetron HCl (Zofran Inj) 4 mg IVP Q6 PRN PRN Reason: Nausea/Vomiting Last Admin: 06/20/16 12:57 Dose: 4 mg Potassium Chloride (K-Dur 20 Meq Er Tab) 20 meq PO DAILY [facility] [place] Last Admin: 06/25/16 09:32 Dose: 20 meq Rivaroxaban (Xarelto) 20 mg PO DAILY [facility] [place] - Labs Labs: 06/25/16 06:57 06/25/16 06:57 PT 21.4 SECONDS (9.7-12.2) H D 06/24/16 06:06 INR 1.9 D 06/24/16 06:06 APTT 25 SECONDS (21-34) 06/18/16 12:13 Attending/Attestation - Attestation I have personally seen and examined this patient.: Yes I have fully participated in the care of the patient.: Yes I have reviewed all pertinent clinical information, including history, physical exam and plan: Yes Notes (Text): Medical Attending: Patient was seen and examined by me in the morning and later again in the afternoon with the medical sales associate. He reported he was short of breath again - as mentioned before he has a low EF of 20% and already has an AICD. Throughout the entire day he has had low BP systolic and was on Midodrine per cardiology. Because of the persistently low BP, we spoke with ICU. Cardiology wants patient placed on Primacor ggt to see if there is a response. thank you Wilmer Damon
--- NOTE | 2016-06-25 17:05 | CP.PCM.CON ---
<Daniel Barnes - Last Filed: 06/25/16 16:16> History of Present Illness - History of Present Illness History of Present Illness: ICU Consult Note - PGY-1 Patient is a 65 year old male with PMH of CHF, liver cirrhosis, cardiomyopathy, hypothyroidism, atrial fibrillation and AICD who presents to ICU for monitoring during Primacor initiation. He originally presented to the ED with 3 weeks of diffuse abdominal pain on 06/16 and was found to have acalculous cholecystitis. Pt's hospital course complicated by hx of CHF with EF < 20% and low blood pressures. Per cardio, pt would benefit from milrinone drip. Pt states that he is still sob, especially with laying flat. He denies any LE edema, chest pain, palpitations, nausea, vomiting, numbness or tingling. PMH: CHF (EF<20%), cardiomyopathy, hypothyroidism, liver cirrhosis Meds: metolazone 5mg BID, xarelto 20mg PO QD, losartan 25mg PO QD, levothyroxine 125mcg PO QD, lasix 40mgpo qd, coreg 3.125 PO BID Allergies: NKDA PSH: AICD, ablation May 2016 at [facility], Right thoracentesis(2L) FH: Unknown Cancer Social: Past smoker 7.5-15 Pack-year Hx. Denies current alcohol use (quit 10 to 15 years ago). Denies illicit drug use. Unemployed and lives with in apartment. Review of Systems - Review of Systems All systems: reviewed and no additional remarkable complaints except (where noted in HPI) Past Patient History - Infectious Disease Hx of Infectious Diseases: None - Tetanus Immunizations Tetanus Immunization: Unknown - Past Medical History & Family History Past Medical History?: Yes - Past Social History Smoking Status: Former Smoker - CARDIAC Hx Cardiac Disorders: Yes Hx Congestive Heart Failure: Yes Hx Pacemaker: Yes (AICD) - PULMONARY Hx Respiratory Disorders: Yes Hx Pneumonia: Yes - NEUROLOGICAL Hx Neurological Disorder: No - HEENT Hx HEENT Problems: No - RENAL Hx Chronic Kidney Disease: No - ENDOCRINE/METABOLIC Hx Endocrine Disorders: Yes Hx Hypothyroidism: Yes - HEMATOLOGICAL/ONCOLOGICAL Hx Blood Disorders: Yes Hx Cirrhosis: Yes - INTEGUMENTARY Hx Dermatological Problems: No - MUSCULOSKELETAL/RHEUMATOLOGICAL Hx Musculoskeletal Disorders: No Hx Falls: No - GASTROINTESTINAL Hx Gastrointestinal Disorders: Yes Hx Constipation: Yes - GENITOURINARY/GYNECOLOGICAL Hx Genitourinary Disorders: No - PSYCHIATRIC Hx Psychophysiologic Disorder: No Hx Substance Use: No - SURGICAL HISTORY Hx Surgeries: Yes Other/Comment: AICD placement 02/09/2015 - ANESTHESIA Hx Anesthesia: Yes Hx Anesthesia Reactions: No Hx Malignant Hyperthermia: No Meds Allergies/Adverse Reactions: Allergies Allergy/AdvReac Type Severity Reaction Status Date / Time No Known Allergies Allergy Verified 06/16/16 10:34 - Medications Medications: Current Medications Carvedilol (Coreg) 3.125 mg PO Q12H [facility] Last Admin: 06/25/16 10:53 Dose: Not Given Furosemide (Lasix) 20 mg PO BID [facility] Last Admin: 06/25/16 09:45 Dose: Not Given Hydrocortisone (Anusol-Hc) 25 mg RC BID [facility] Last Admin: 06/25/16 09:45 Dose: Not Given Metronidazole (Flagyl) 500 mg in 100 mls @ 100 mls/hr IVPB Q8H [facility] Last Admin: 06/25/16 08:52 Dose: 100 mls/hr Piperacillin Sod/Tazobactam Sod (Zosyn 2.25 Gm Iv Premix) 2.25 gm in 50 mls @ 100 mls/hr IVPB Q8 [facility] Last Admin: 06/25/16 13:52 Dose: 100 mls/hr Levothyroxine Sodium (Synthroid) 125 mcg PO DAILY@0630 [facility] Last Admin: 06/25/16 05:38 Dose: 125 mcg Losartan Potassium (Cozaar) 25 mg PO DAILY [facility] Last Admin: 06/23/16 09:26 Dose: 25 mg Metolazone (Zaroxolyn) 5 mg PO BID [facility] Last Admin: 06/23/16 18:13 Dose: Not Given Midodrine (Proamatine) 5 mg PO BID [facility] Last Admin: 06/25/16 10:42 Dose: 5 mg Ondansetron HCl (Zofran Inj) 4 mg IVP Q6 PRN PRN Reason: Nausea/Vomiting Last Admin: 06/20/16 12:57 Dose: 4 mg Potassium Chloride (K-Dur 20 Meq Er Tab) 20 meq PO DAILY [facility] Last Admin: 06/25/16 09:32 Dose: 20 meq Rivaroxaban (Xarelto) 20 mg PO DAILY [facility] Physical Exam - Constitutional Appears: Non-toxic, No Acute Distress - Head Exam Head Exam: ATRAUMATIC, NORMOCEPHALIC - Eye Exam Eye Exam: Normal appearance Pupil Exam: PERRL - Neck Exam Additional comments: JVD persent - Respiratory Exam Respiratory Exam: Rales, NORMAL BREATHING PATTERN - Cardiovascular Exam Cardiovascular Exam: Irregular Rhythm - GI/Abdominal Exam GI & Abdominal Exam: Normal Bowel Sounds, Soft - Extremities Exam Extremities exam: Positive for: pedal edema (very mild) - Back Exam Back exam: NORMAL INSPECTION - Neurological Exam Neurological exam: Alert, Oriented x3 - Skin Skin Exam: Dry, Warm Results - Vital Signs Recent Vital Signs: Last Vital Signs Temp 97.3 F L 06/25/16 15:51 Pulse 80 06/25/16 15:51 Resp 20 06/25/16 15:51 BP 89/61 L 06/25/16 15:51 Pulse Ox 96 06/25/16 15:51 - Labs Result Diagrams: 06/25/16 06:57 06/25/16 06:57 Labs: Laboratory Results - last 24 hr 06/24/16 06/24/16 06/24/16 17:15 18:27 18:41 WBC RBC Hgb Hct MCV MCH MCHC RDW Plt Count MPV Neut % (Auto) Lymph % (Auto) [place] % (Auto) Eos % (Auto) Baso % (Auto) Neut # Lymph # [place] # Eos # Baso # Sodium Potassium Chloride Carbon Dioxide Anion Gap BUN Creatinine Est GFR ( Amer) Est GFR (Non-Af Amer) Random Glucose Calcium Phosphorus Magnesium Total Bilirubin AST ALT Alkaline Phosphatase Total Protein Albumin Globulin Albumin/Globulin Ratio Urine Color Urine Clarity Urine pH Ur Specific [place] Urine Protein Urine Glucose (UA) Urine Ketones Urine Blood Urine Nitrate Urine Bilirubin Urine Urobilinogen Ur Leukocyte Esterase Urine WBC (Auto) Urine RBC (Auto) Ur Squamous Epith Cells Ur Transition Epith Cell Calcium Oxalate Crystal Urine Bacteria Hyaline Casts Ur Random Creatinine 294.2 U Random Total Protein 73.0 H Ur Random Sodium < 5 Ur Random Urea Nitrogn 712 06/24/16 06/25/16 06/25/16 22:13 06:57 06:57 WBC 7.4 RBC 3.77 L Hgb 12.4 Hct 37.3 MCV 98.9 H MCH 32.8 H MCHC 33.1 RDW 13.0 Plt Count 138 MPV 9.8 Neut % (Auto) 69.0 Lymph % (Auto) 19.7 L [place] % (Auto) 8.3 Eos % (Auto) 2.1 Baso % (Auto) 0.9 Neut # 5.1 Lymph # 1.5 [place] # 0.6 Eos # 0.2 Baso # 0.1 Sodium 136 Potassium 3.2 L Chloride 101 Carbon Dioxide 23 Anion Gap 15 BUN 34 H Creatinine 1.4 Est GFR ( Amer) > 60 Est GFR (Non-Af Amer) 51 Random Glucose 91 Calcium 8.1 L Phosphorus 3.8 Magnesium 1.7 Total Bilirubin 1.1 AST 31 ALT 66 Alkaline Phosphatase 68 Total Protein 5.6 L Albumin 2.8 L Globulin 2.9 Albumin/Globulin Ratio 1.0 Urine Color Catie Urine Clarity Hazy Urine pH 5.0 Ur Specific [place] 1.029 Urine Protein 2+ H Urine Glucose (UA) Normal Urine Ketones Trace Urine Blood 3+ H Urine Nitrate Negative Urine Bilirubin Negative Urine Urobilinogen Normal Ur Leukocyte Esterase 1+ H Urine WBC (Auto) 8 H Urine RBC (Auto) 36 H Ur Squamous Epith Cells 1 Ur Transition Epith Cell < 1 Calcium Oxalate Crystal Occ H Urine Bacteria Mod H Hyaline Casts 3-5 H Ur Random Creatinine U Random Total Protein Ur Random Sodium Ur Random Urea Nitrogn Assessment & Plan - Assessment and Plan (Free Text) Assessment: 65 yo M with hx of CHF with EF of less than 20% that is hypotensive and to be started on milrinone drip per cardio. Plan: Neuro: AAOx3 Monitor for mental status changes Pulm: Complains of persistent SOB, worse with lying down. CXR consistent with CHF exacerbation Continue Zosyn CV: Hx of CHF EF < 20% Starting Milrinone, monitor BP and HR Continue Lasix Continue to hold BP meds Cardio following Renal: No acute issues Monitor labs/electrolytes/renal function GI: No acute issues HIDA scan negative for cholecystitis ID: No leukocytosis, bands and pt afebrile Continue Zosyn Endo: Continue home meds for hypothyroidism No acute issues DVT ppx - on Xarelto GI ppx - pepcid Pt status - full code <Carmine Tomlinson - Last Filed: 06/25/16 18:29> Meds - Medications Medications: Current Medications Carvedilol (Coreg) 3.125 mg PO Q12H [facility] Last Admin: 06/25/16 10:53 Dose: Not Given Furosemide (Lasix) 20 mg PO BID [facility] Last Admin: 06/25/16 09:45 Dose: Not Given Hydrocortisone (Anusol-Hc) 25 mg RC BID [facility] Last Admin: 06/25/16 09:45 Dose: Not Given Metronidazole (Flagyl) 500 mg in 100 mls @ 100 mls/hr IVPB Q8H [facility] Last Admin: 06/25/16 16:36 Dose: 100 mls/hr Piperacillin Sod/Tazobactam Sod (Zosyn 2.25 Gm Iv Premix) 2.25 gm in 50 mls @ 100 mls/hr IVPB Q8 [facility] Last Admin: 06/25/16 13:52 Dose: 100 mls/hr Milrinone Lactate/Dextrose 20 (mg/ Dextrose) 100 mls @ 5.08 mls/hr IV .[id number] KAYLIN; 0.2 MCG/KG/MIN PRN Reason: Protocol Levothyroxine Sodium (Synthroid) 125 mcg PO DAILY@0630 [facility] Last Admin: 06/25/16 05:38 Dose: 125 mcg Losartan Potassium (Cozaar) 25 mg PO DAILY [facility] Last Admin: 06/23/16 09:26 Dose: 25 mg Metolazone (Zaroxolyn) 5 mg PO BID [facility] Last Admin: 06/23/16 18:13 Dose: Not Given Midodrine (Proamatine) 5 mg PO BID [facility] Last Admin: 06/25/16 10:42 Dose: 5 mg Ondansetron HCl (Zofran Inj) 4 mg IVP Q6 PRN PRN Reason: Nausea/Vomiting Last Admin: 06/20/16 12:57 Dose: 4 mg Potassium Chloride (K-Dur 20 Meq Er Tab) 20 meq PO DAILY [facility] Last Admin: 06/25/16 09:32 Dose: 20 meq Rivaroxaban (Xarelto) 20 mg PO DAILY [facility] Results - Vital Signs Recent Vital Signs: Last Vital Signs Temp 97.3 F L 06/25/16 15:51 Pulse 80 06/25/16 15:51 Resp 20 06/25/16 15:51 BP 89/61 L 06/25/16 15:51 Pulse Ox 96 06/25/16 15:51 - Labs Result Diagrams: 06/25/16 06:57 06/25/16 06:57 Labs: Laboratory Results - last 24 hr 06/24/16 06/24/16 06/24/16 18:27 18:41 22:13 WBC RBC Hgb Hct MCV MCH MCHC RDW Plt Count MPV Neut % (Auto) Lymph % (Auto) [place] % (Auto) Eos % (Auto) Baso % (Auto) Neut # Lymph # [place] # Eos # Baso # Sodium Potassium Chloride Carbon Dioxide Anion Gap BUN Creatinine Est GFR ( Amer) Est GFR (Non-Af Amer) Random Glucose Calcium Phosphorus Magnesium Total Bilirubin AST ALT Alkaline Phosphatase Total Protein Albumin Globulin Albumin/Globulin Ratio Urine Color Catie Urine Clarity Hazy Urine pH 5.0 Ur Specific [place] 1.029 Urine Protein 2+ H Urine Glucose (UA) Normal Urine Ketones Trace Urine Blood 3+ H Urine Nitrate Negative Urine Bilirubin Negative Urine Urobilinogen Normal Ur Leukocyte Esterase 1+ H Urine WBC (Auto) 8 H Urine RBC (Auto) 36 H Ur Squamous Epith Cells 1 Ur Transition Epith Cell < 1 Calcium Oxalate Crystal Occ H Urine Bacteria Mod H Hyaline Casts 3-5 H U Random Total Protein 73.0 H Ur Random Urea Nitrogn 712 06/25/16 06/25/16 06:57 06:57 WBC 7.4 RBC 3.77 L Hgb 12.4 Hct 37.3 MCV 98.9 H MCH 32.8 H MCHC 33.1 RDW 13.0 Plt Count 138 MPV 9.8 Neut % (Auto) 69.0 Lymph % (Auto) 19.7 L [place] % (Auto) 8.3 Eos % (Auto) 2.1 Baso % (Auto) 0.9 Neut # 5.1 Lymph # 1.5 [place] # 0.6 Eos # 0.2 Baso # 0.1 Sodium 136 Potassium 3.2 L Chloride 101 Carbon Dioxide 23 Anion Gap 15 BUN 34 H Creatinine 1.4 Est GFR ( Amer) > 60 Est GFR (Non-Af Amer) 51 Random Glucose 91 Calcium 8.1 L Phosphorus 3.8 Magnesium 1.7 Total Bilirubin 1.1 AST 31 ALT 66 Alkaline Phosphatase 68 Total Protein 5.6 L Albumin 2.8 L Globulin 2.9 Albumin/Globulin Ratio 1.0 Urine Color Urine Clarity Urine pH Ur Specific [place] Urine Protein Urine Glucose (UA) Urine Ketones Urine Blood Urine Nitrate Urine Bilirubin Urine Urobilinogen Ur Leukocyte Esterase Urine WBC (Auto) Urine RBC (Auto) Ur Squamous Epith Cells Ur Transition Epith Cell Calcium Oxalate Crystal Urine Bacteria Hyaline Casts U Random Total Protein Ur Random Urea Nitrogn Attending/Attestation - Attestation I have personally seen and examined this patient.: Yes I have fully participated in the care of the patient.: Yes I have reviewed all pertinent clinical information: Yes Notes (Text): 06/25/16 18:07 Patient seen and examined. 64-year-old male transferred to ICU for hypotension and started on Primacor Complaining of shortness of breath consistent with CHF Echo (05/27/16): left ventricle systolic function is severaly impaired, EF <20%, left atrium is severely dilated, ICD wires seen, thrombus noted in left atrial appendage Continue to monitor in ICU
[2016-06-25] MEDS ORDERED: Milrinone 20 MG in Dextrose 5% In Water 80 ML IV SCH (17:45)
--- NOTE | 2016-06-25 19:22 | CARD ---
APPROVED REPORT EKG Measurement Heart [id number] <Conclusion> Ventricular-paced rhythm with occasional premature ventricular complexes Abnormal ECG
[2016-06-25] MEDS ORDERED: Potassium Chloride 20 mEq ER Tab PO ONE (20:00)
--- NOTE | 2016-06-25 20:09 | PN ---
DATE: 06/25/2016 A 65-year-old male with past medical history of congestive heart failure with severe systolic dysfunc tion, liver cirrhosis, hypothyroidism, afib, status post AICD placement, admitted with a calculus, ch olecystitis,. Hospital course now complicated by severe exacerbation of congestive heart failure and acute renal failure. The patient reports feeling "beautiful" this morning, but early this afternoon started getting very s hort of breath. The patient was scheduled to be discharged home, but [facility] and initiated on milrinone drip. PHYSICAL EXAMINATION: VITAL SIGNS: This morning, blood pressure 98/66, heart rate 80, respirations 20, temperature 97.7, O 2 sat 98% on room air. GENERAL: No distress, able to converse coherently in full sentences. HEENT: Moist mucous membranes. Nonicteric. CHEST: Clear to auscultation bilaterally. No rales, no rhonchi, no wheezes. CARDIOVASCULAR: S1, S2 normal. Prominent S3 present. JVD elevated to ear lobes. GASTROINTESTINAL: Abdomen: Soft, mildly tender. GENITOURINARY: No bladder distention. EXTREMITIES: Mild to moderate edema of the lower legs with left much more so than right lower leg, g ood capillary refill. SKIN: Fingers somewhat cool to touch. No cyanosis. PSYCHIATRIC: Normal affect, normal mood. NEUROLOGIC: Moving all extremities, following commands recommend. LABORATORY DATA: This morning, CBC: WBC 7.4, hemoglobin 12.4, hematocrit 37.3, platelets 138. Chem istry panel: Sodium 136, potassium 3.2, chloride 101, bicarbonate 23, BUN 34, creatinine 1.4, glucos e 91, calcium 8.1, albumin 2.8. ASSESSMENT: 1. Acute renal failure secondary to severe systolic dysfunction with urine indices consistent with p rerenal etiology in the setting. The patient markedly overloaded on exam and today, symptomatic. Re nal function slightly improved since yesterday with creatinine decreasing from 1.6 to 1.4. Recommend to continue gentle diuresis in order to optimize cardiac status. Initiation of inotropic agent milrinone will also help renal function. Continue to hold losartan and keep ____ above 65. Avoid other nephrotoxic agents. Do not give NSAIDS for pain. 2. Congestive heart failure with systolic dysfunction, severe exacerbation. Today, the patient prev iously showing signs of being in heart failure, beta blockers currently on hold. We will defer to ca rdiology as to when this should be restarted. Would recommend to continue gentle diuresis as mention ed above, as this will aid cardiac status and should not be held for minor decreases in blood pressur e . 3. Hematuria in the setting of being on anticoagulation. UA done yesterday, still showing significa nt hematuria although my direct microscopic exam did not reveal as much hematuria. Nevertheless, h ematuria that was seen with isomorphic and does appear to be of glomerule etiology. Recommend to con tinue anticoagulation for left ____ appendage thrombus. 4. A calculus cholecystitis. The patient currently on Zosyn 0.25 g q. 8 hours, may need to reassess and increase dosing if renal function continues to improve. 5. Hypokalemia. The patient has received 80 mEq of potassium chloride thus far during the day; davis prabhu, expect the need to continue potassium replenishment with patient getting diuretics and on milrin one drip, which is a dextrose. Recommend to keep serum potassium level around 4 mmol per liter. Brock Chatman MD cc: [id number] TT: 06/25/2016 20:08:24 Confirmation # [id number] Dictation # [id number] elias
[2016-06-25 21:22] LABS: TOTAL PSA 0.6 ng/mL (<=4.0)
[2016-06-26] MEDS: Piperacill/Tazo 2.25gm in Dex 2.25 GM/50 ML BAG IVPB SCH ×3 (06:14→22:06)
[2016-06-26] MEDS: Levothyroxine 125 MCG TAB PO SCH (06:56)
[2016-06-26 06:59] LABS: BASO # 0.1 K/uL (0.0-0.2); BASO % 0.8 % (0.0-2.0); EOS # 0.1 K/uL (0.0-0.7); HEMATOCRIT 36.5 % (35.0-51.0); LYMPH # 1.4 K/uL (1.0-4.3); LYMPH % 17.1 % (20.0-40.0); MEAN CORPUSCULAR HEMOGLOBIN 32.5 pg (27.0-31.0); MEAN CORPUSCULAR HGB CONC 33.2 g/dL (33.0-37.0); MEAN PLATELET VOLUME 9.4 fL (7.2-11.7); MONO # 0.7 K/uL (0.0-0.8); NRBC % 0.1 % (0.0-2.0); WHITE BLOOD COUNT 8.3 K/uL (4.8-10.8)
[2016-06-26 07:06] LABS: POTASSIUM 3.8 mmol/L (3.6-5.2)
[2016-06-26 07:08] LABS: ALB/GLOB RATIO 0.9 (1.0-2.1); BILIRUBIN,TOTAL 1.2 mg/dL (0.2-1.3); PHOSPHOROUS 3.5 mg/dL (2.5-4.5); TOTAL PROTEIN 5.6 g/dL (6.3-8.3)
[2016-06-26 07:09] LABS: CALCIUM 8.5 mg/dl (8.6-10.4); MAGNESIUM 1.5 mg/dL (1.6-2.3)
[2016-06-26] MEDS: Magnesium Sulfate 1 gm in D5W 1 GM/100 ML BAG IVPB SCH ×2 (09:49→10:57)
[2016-06-26] MEDS: Potassium Chloride 20 mEq ER Tab PO SCH (09:51)
--- NOTE | 2016-06-26 10:14 | CP.PCM.PN ---
<Deysi Rehman - Last Filed: 06/26/16 10:40> Subjective - Date & Time of Evaluation Date of Evaluation: 06/26/16 Time of Evaluation: 10:14 - Subjective Subjective: PGY-[address] Ram Pt is sitting on chair comfortably. No SOB, CP overnight Objective - Vital Signs/Intake and Output Vital Signs (last 24 hours): Temp Pulse Resp BP Pulse Ox 97.5 F L 66 16 114/64 97 06/26/16 08:00 06/26/16 10:00 06/26/16 10:00 06/26/16 09:52 06/26/16 10:00 Intake and Output: 06/26/16 06/26/16 06:59 18:59 Intake Total 735.7 15.3 Output Total 1450 200 Balance -714.3 -184.7 - Medications Medications: Current Medications Carvedilol (Coreg) 3.125 mg PO Q12H [facility] Last Admin: 06/25/16 10:53 Dose: Not Given Furosemide (Lasix) 20 mg PO BID [facility] Last Admin: 06/26/16 09:51 Dose: 20 mg Hydrocortisone (Anusol-Hc) 25 mg RC BID [facility] Last Admin: 06/26/16 09:57 Dose: Not Given Piperacillin Sod/Tazobactam Sod (Zosyn 2.25 Gm Iv Premix) 2.25 gm in 50 mls @ 100 mls/hr IVPB Q8 [facility] Last Admin: 06/26/16 06:14 Dose: 100 mls/hr Magnesium Sulfate/Dextrose (Magnesium Sulfate 1 Gm/100 Ml D5w) 1 gm in 100 mls @ 200 mls/hr IVPB Q30M [facility] Stop: 06/26/16 10:29 Last Admin: 06/26/16 09:49 Dose: 200 mls/hr Milrinone Lactate/Dextrose 20 (mg/ Dextrose) 100 mls @ 5.08 mls/hr IV .[id number] PRN; Protocol; 0.2 MCG/KG/MIN PRN Reason: .TITR Levothyroxine Sodium (Synthroid) 125 mcg PO DAILY@0630 [facility] Last Admin: 06/26/16 06:56 Dose: 125 mcg Losartan Potassium (Cozaar) 25 mg PO DAILY [facility] Last Admin: 06/23/16 09:26 Dose: 25 mg Metolazone (Zaroxolyn) 5 mg PO BID [facility] Last Admin: 06/23/16 18:13 Dose: Not Given Midodrine (Proamatine) 5 mg PO BID [facility] Last Admin: 06/26/16 09:53 Dose: 5 mg Ondansetron HCl (Zofran Inj) 4 mg IVP Q6 PRN PRN Reason: Nausea/Vomiting Last Admin: 06/20/16 12:57 Dose: 4 mg Potassium Chloride (K-Dur 20 Meq Er Tab) 20 meq PO DAILY [facility] Last Admin: 06/26/16 09:51 Dose: 20 meq Rivaroxaban (Xarelto) 20 mg PO DAILY [facility] - Labs Labs: 06/26/16 06:34 06/26/16 06:34 PT 21.4 SECONDS (9.7-12.2) H D 06/24/16 06:06 INR 1.9 D 06/24/16 06:06 APTT 25 SECONDS (21-34) 06/18/16 12:13 - Constitutional Appears: No Acute Distress - Head Exam Head Exam: ATRAUMATIC, NORMOCEPHALIC - Eye Exam Eye Exam: EOMI, Normal appearance - ENT Exam ENT Exam: Mucous Membranes Moist - Respiratory Exam Respiratory Exam: Clear to Ausculation Bilateral, NORMAL BREATHING PATTERN. absent: Rales, Rhonchi, Wheezes - Cardiovascular Exam Cardiovascular Exam: REGULAR RHYTHM, +S1, +S2. absent: Murmur - GI/Abdominal Exam GI & Abdominal Exam: Soft, Normal Bowel Sounds. absent: Guarding, Tenderness - Back Exam Back Exam: absent: CVA tenderness (L), CVA tenderness (R) - Neurological Exam Neurological Exam: Alert, Awake, Oriented x3 - Psychiatric Exam Psychiatric exam: Normal Affect, Normal Mood - Skin Skin Exam: Dry, Warm Assessment and Plan - Assessment and Plan (Free Text) Plan: 65 year old male with past medical history of CHF, cardiomyopathy with AICD s/p AV tala ablation (may 2016), A-fib on xarelto, liver cirrhosis, hypothyroidism, presents for cardiac evaluation for clearance for cholecystectomy. Abdominal pain likely due to acalculous cholecystitis. HIDA negative, pending official read of special HIDA with EF. No plan for surgery. Pt is on flagyl and zosyn. Hemautria in the setting of xarelto for left atrial thrombus found on DONAVAN 4/14/17. CHF, acute on chronic, systolic, pre-load dependent, S/P Cardiogenic shock Cardiomyopathy with AICD - Hold Beta henrique (Coreg) - Hold losartan, metolaxone - Milrinone drip on D5W @ 0.2 AND Midodrine 5 PO BID - gentle diuresis for fluid overload, Lasix 20 PO BID - Goal MAP above 65 Left atrial appendage thrombus A-fib, stable, rate control with Coreg and currently ventricularly paced Left atrial thrombus found on DONAVAN 05/24/16 - DONAVAN 05/24/16 - Xarelto 20 - Monitor H/H BHUPENDRA secondary to CHF exacerbation Hematuria on anticoagulant for L atrial appendaged thrombus - Avoid NSAID, nephrotoxic drugs Acalculus cholecustitis - on zosyn Hypokalemia & Hypomagnesemia - goal K = 4, Mg = 2 V-tach, non-sustained, hemodynamically stable - likely triggered by R-on-T - No antiarrthymic agent for now Elevated troponins - likely secondary to right heart failure. Macrocytic anemia - Managed per primary team or outpatient Pre-procedural cardiovascular examination - AICD is not magnetically safe, not a candidate for MRCP. - Cardiac Risk Assessment: High Risk for cholecystectomy. Detsky score:55 (high risk) Hipolito score:> 11% (high risk) Urias score: 42 (class IV- 78% complications) Patient is high risk patient for surgery, however if benefits of procedure outweigh risks, may proceed with surgery. Continue with preoperative SCIP protocols and measures Imaging: - Serial Troponins: (06/17/16) Troponin 1: 0.1770, Troponin 2: 0.1530, Troponin 3 : 0.1580 - BNP: (05/15/16) 3,780 - EKG: (06/17/16) Ventricularly paced rhythm with PVCs, wide QRS, prolonged QTc; ( 05/22/16) Demand pacemaker, interpretation based on intrinsic rhythm, nonspecific intraventricular block, T wave abnormality, consider interolateral ischemia - Echo: (05/24/16) EF: <20%, left atrium is severely dilated, thrombus in left atrial appendage. - Cardiac Cath: (03/29/14): showed normal coronaries with EF 10-15%. Will S/R/D with Dr. Ram. <Jennyfer Ram - Last Filed: 06/28/16 20:08> Objective - Vital Signs/Intake and Output Vital Signs (last 24 hours): Temp Pulse Resp BP Pulse Ox 97.8 F 84 19 102/75 93 L 06/26/16 20:00 06/26/16 22:10 06/26/16 22:10 06/26/16 21:17 06/26/16 22:10 - Labs Labs: 06/27/16 06:00 06/27/16 06:00 PT 21.4 SECONDS (9.7-12.2) H D 06/24/16 06:06 INR 1.9 D 06/24/16 06:06 APTT 25 SECONDS (21-34) 06/18/16 12:13 Attending/Attestation - Attestation I have personally seen and examined this patient.: Yes I have fully participated in the care of the patient.: Yes I have reviewed all pertinent clinical information, including history, physical exam and plan: Yes Notes (Text): 06/28/16 20:07 arrange tx to [facility] for advanced CHF tx
[2016-06-26] MEDS ORDERED: Milrinone 20 MG in Dextrose 5% In Water 80 ML IV PRN (10:15)
--- NOTE | 2016-06-26 11:12 | CP.CCUPN ---
<Daniel Barnes - Last Filed: 06/26/16 11:06> CCU Subjective - Physician Review Subjective (Free Text): 06/26/16 11:06 PGY-1 ICU progress note Pt seen and examined at bedside. Pt states that he feels well this morning with minimal abdominal pain. He reports no issues throughout the night except that he is not able to get comfortable in bed. Denies chest pain, palpitations, headaches, dizziness/light headedness, nausea, vomiting. Critical Care Time Spent (in minutes): 35 CCU Objective - Vital Signs / Intake & Output Vital Signs (Last 4 hours): Vital Signs Temp Pulse Resp BP Pulse Ox 06/26/16 10:00 66 16 97 06/26/16 09:55 81 18 114/61 96 06/26/16 09:52 73 20 114/64 06/26/16 09:51 115/64 06/26/16 09:50 79 24 06/26/16 09:48 80 21 06/26/16 09:30 81 22 97 06/26/16 09:20 83 23 97 06/26/16 09:17 83 19 116/70 97 06/26/16 09:10 86 26 H 97 06/26/16 09:00 82 21 97 06/26/16 08:50 79 19 96 06/26/16 08:40 82 25 H 98 06/26/16 08:30 80 23 97 06/26/16 08:20 81 22 97 06/26/16 08:17 87 21 106/69 06/26/16 08:10 80 22 98 06/26/16 08:00 97.5 F L 80 25 H 98 06/26/16 07:50 80 24 99 06/26/16 07:49 79 25 H 104/59 L 97 06/26/16 07:45 84 24 97/55 L 97 06/26/16 07:44 81 25 H 96/59 L 98 06/26/16 07:43 84 19 98/61 L 06/26/16 07:40 80 23 100 06/26/16 07:30 86 17 96 06/26/16 07:20 80 22 06/26/16 07:17 83 24 85/50 L 06/26/16 07:10 80 23 94 L Intake and Output (Last 8hrs): Intake & Output 06/25/16 06/26/16 06/26/16 22:59 06:59 14:59 Intake Total 855 430.7 440.4 Output Total 450 1000 200 Balance 405 -569.3 240.4 Weight 185 lb Intake: Intake, IV Amount 215 190.7 120.4 Left Forearm 150 Right Forearm 15 40.7 20.4 Right Forearm Y Site 50 150 100 Oral 640 240 320 Output: Urine 450 1000 200 Urine, Voided 450 1000 200 Other: # Voids Urine, Voided 1 1 1 # Bowel Movements 1 1 - Physical Exam Head: Positive for: Atraumatic, Normocephalic Pupils: Positive for: PERRL Conjunctiva: Positive for: Normal Respiratory/Chest: Positive for: Clear to Auscultation, Good Air Exchange. Negative for: Respiratory Distress Cardiovascular: Positive for: Irregular Rhythm Abdomen: Positive for: Tenderness, Normal Bowel Sounds. Negative for: Distention Upper Extremity: Positive for: NORMAL PULSES, Neurovascularly Intact Lower Extremity: Positive for: NORMAL PULSES, Neurovascularly Intact Neurological: Positive for: Speech Normal, Motor Func Grossly Intact Skin: Positive for: Warm, Dry Psychiatric: Positive for: Alert, Oriented x 3 - Medications Active Medications: Active Medications Generic Name Dose Route Start Last Admin Trade Name Freq PRN Reason Stop Dose Admin Carvedilol 3.125 mg 06/18/16 10:00 06/25/16 10:53 Coreg PO Not Given Q12H [facility] Furosemide 20 mg 06/24/16 21:00 06/26/16 09:51 Lasix PO 20 mg BID [facility] Administration Hydrocortisone 25 mg 06/19/16 18:00 06/26/16 09:57 Anusol-Hc RC Not Given BID KAYLIN Piperacillin Sod/Tazobactam Sod 2.25 gm in 50 mls @ 100 mls/hr 06/22/16 14:00 06/26/16 06:14 Zosyn 2.25 Gm Iv Premix IVPB 100 mls/hr Q8 [facility] Administration Milrinone Lactate/Dextrose 20 100 mls @ 5.08 mls/hr 06/26/16 10:15 06/26/16 09:55 mg/ Dextrose IV 0.2 mcg/kg/min .[id number] PRN 5.08 mls/hr .TITR Administration Protocol 0.2 MCG/KG/MIN Levothyroxine Sodium 125 mcg 06/17/16 06:30 06/26/16 06:56 Synthroid PO 125 mcg DAILY@0630 [facility] Administration Losartan Potassium 25 mg 06/18/16 10:00 06/23/16 09:26 Cozaar PO 25 mg DAILY [facility] Administration Metolazone 5 mg 06/22/16 22:30 06/23/16 18:13 Zaroxolyn PO Not Given BID K[facility]LIN Midodrine 5 mg 06/24/16 18:00 06/26/16 09:53 Proamatine PO 5 mg BID [facility] Administration Ondansetron HCl 4 mg 06/16/16 17:17 06/20/16 12:57 Zofran Inj IVP 4 mg Q6 PRN Administration Nausea/Vomiting Potassium Chloride 20 meq 06/25/16 10:00 06/26/16 09:51 K-Dur 20 Meq Er Tab PO 20 meq DAILY [facility] Administration Rivaroxaban 20 mg 06/26/16 10:00 06/26/16 10:56 Xarelto PO 20 mg DAILY [facility] Administration - Patient Studies Lab Studies: Microbiology Studies 06/23/16 06:00 Urine Culture - Final Urine,Clean Catch No Growth (<1,000 CFU/ML) Lab Studies 06/26/16 06/26/16 06/23/16 Range/Units 06:34 06:34 13:45 WBC 8.3 (4.8-10.8) K/uL RBC 3.72 L (4.40-5.90) Mil/uL Hgb 12.1 (12.0-18.0) g/dL Hct 36.5 (35.0-51.0) % MCV 98.0 H (80.0-94.0) fL MCH 32.5 H (27.0-31.0) pg MCHC 33.2 (33.0-37.0) g/dL RDW 13.0 (11.5-14.5) % Plt Count 145 (130-400) K/uL MPV 9.4 (7.2-11.7) fL Neut % (Auto) 72.1 (50.0-75.0) % Lymph % (Auto) 17.1 L (20.0-40.0) % Davidson % (Auto) 9.0 (0.0-10.0) % Eos % (Auto) 1.0 (0.0-4.0) % Baso % (Auto) 0.8 (0.0-2.0) % Neut # 6.0 (1.8-7.0) K/uL Lymph # 1.4 (1.0-4.3) K/uL Davidson # 0.7 (0.0-0.8) K/uL Eos # 0.1 (0.0-0.7) K/uL Baso # 0.1 (0.0-0.2) K/uL Sodium 137 (132-148) mmol/L Potassium 3.8 (3.6-5.2) mmol/L Chloride 100 (98-107) mmol/L Carbon Dioxide 27 (22-30) mmol/L Anion Gap 13 (10-20) BUN 34 H (9-20) mg/dL Creatinine 1.6 H (0.8-1.5) MG/DL Est GFR ( Amer) 53 Est GFR (Non-Af Amer) 44 Random Glucose 93 (75-110) mg/dL Calcium 8.5 L (8.6-10.4) mg/dl Phosphorus 3.5 (2.5-4.5) mg/dL Magnesium 1.5 L (1.6-2.3) mg/dL Total Bilirubin 1.2 (0.2-1.3) mg/dL AST 92 H D (17-59) U/L ALT 100 H D (21-72) U/L Alkaline Phosphatase 81 (38-126) U/L Total Protein 5.6 L (6.3-8.3) g/dL Albumin 2.7 L (3.5-5.0) g/dL Globulin 2.9 (2.2-3.9) gm/dL Albumin/Globulin Ratio 0.9 L (1.0-2.1) Free PSA 0.3 ng/mL % Free PSA 50 (>25) Percent Total PSA 0.6 (<=4.0) ng/mL Prostate Cancer Risk 1 Percent Laboratory Results - last 24 hr 06/23/16 06/26/16 06/26/16 13:45 06:34 06:34 WBC 8.3 RBC 3.72 L Hgb 12.1 Hct 36.5 MCV 98.0 H MCH 32.5 H MCHC 33.2 RDW 13.0 Plt Count 145 MPV 9.4 Neut % (Auto) 72.1 Lymph % (Auto) 17.1 L Davidson % (Auto) 9.0 Eos % (Auto) 1.0 Baso % (Auto) 0.8 Neut # 6.0 Lymph # 1.4 Davidson # 0.7 Eos # 0.1 Baso # 0.1 Sodium 137 Potassium 3.8 Chloride 100 Carbon Dioxide 27 Anion Gap 13 BUN 34 H Creatinine 1.6 H Est GFR ( Amer) 53 Est GFR (Non-Af Amer) 44 Random Glucose 93 Calcium 8.5 L Phosphorus 3.5 Magnesium 1.5 L Total Bilirubin 1.2 AST 92 H D ALT 100 H D Alkaline Phosphatase 81 Total Protein 5.6 L Albumin 2.7 L Globulin 2.9 Albumin/Globulin Ratio 0.9 L Free PSA 0.3 % Free PSA 50 Total PSA 0.6 Prostate Cancer Risk 1 Review of Systems - Review of Systems All systems: reviewed and no additional remarkable complaints except (where noted in the HPI) Critical Care Progress Note - Nutrition Nutrition: Nutrition Category Date Time Status Liquid Diet [DIET] Diets 06/24/16 Dinner Active Assessment/Plan - Assessment and Plan (Free Text) Assessment: 65 yo M with hx of CHF with EF of less than 20% that was hypotensive and transferred to ICU to be started on milrinone drip per cardio. Plan: Neuro: AAOx3 Monitor for mental status changes Pulm: CXR consistent with CHF exacerbation Continue Zosyn CV: Hx of CHF EF < 20% Starting Milrinone, monitor BP and HR BP stable throughout the night Continue Lasix Continue to hold BP meds Cardio following - management as per cardio Renal: No acute issues Monitor labs/electrolytes/renal function GI: No acute issues HIDA scan negative for cholecystitis ID: No leukocytosis, bands and pt afebrile Continue Zosyn Endo: Continue home meds for hypothyroidism No acute issues DVT ppx - on Xarelto GI ppx - pepcid Pt status - full code <Carmine Tomlinson - Last Filed: 06/26/16 17:28> CCU Objective - Vital Signs / Intake & Output Vital Signs (Last 4 hours): Vital Signs Pulse Resp BP Pulse Ox 06/26/16 16:10 81 21 96 06/26/16 16:00 80 24 95 06/26/16 15:50 82 20 93 L 05/17/17 15:40 82 23 96 06/26/16 15:30 82 24 90 L 06/26/16 15:20 82 27 H 95 06/26/16 15:17 78 23 105/70 06/26/16 15:10 80 25 H 97 06/26/16 15:00 83 21 96 06/26/16 14:50 85 18 95 06/26/16 14:40 89 22 96 06/26/16 14:30 81 22 95 06/26/16 14:20 83 23 96 06/26/16 14:17 83 24 110/69 06/26/16 14:10 82 26 H 97 06/26/16 14:00 82 26 H 95 06/26/16 13:50 80 19 97 06/26/16 13:40 85 25 H 96 06/26/16 13:30 81 19 95 Intake and Output (Last 8hrs): Intake & Output 06/26/16 06/26/16 06/26/16 06:59 14:59 22:59 Intake Total 430.7 760.8 10.2 Output Total 1000 200 750 Balance -569.3 560.8 -739.8 Intake: Intake, IV Amount 190.7 240.8 10.2 Right Forearm 40.7 40.8 10.2 Right Forearm Y Site 150 200 Oral 240 520 Output: Urine 1000 200 750 Urine, Voided 1000 200 750 Other: # Voids Urine, Voided 1 1 4 # Bowel Movements 1 - Medications Active Medications: Active Medications Generic Name Dose Route Start Last Admin Trade Name Freq PRN Reason Stop Dose Admin Carvedilol 3.125 mg 06/18/16 10:00 06/25/16 10:53 Coreg PO Not Given Q12H KAYLIN Furosemide 20 mg 06/24/16 21:00 06/26/16 09:51 Lasix PO 20 mg BID KAYLIN Administration Hydrocortisone 25 mg 06/19/16 18:00 06/26/16 09:57 Anusol-Hc RC Not Given BID KAYLIN Piperacillin Sod/Tazobactam Sod 2.25 gm in 50 mls @ 100 mls/hr 06/22/16 14:00 06/26/16 06:14 Zosyn 2.25 Gm Iv Premix IVPB 100 mls/hr Q8 KAYLIN Administration Milrinone Lactate/Dextrose 20 100 mls @ 5.08 mls/hr 06/26/16 10:15 06/26/16 09:55 mg/ Dextrose IV 0.2 mcg/kg/min .[id number] PRN 5.08 mls/hr .TITR Administration Protocol 0.2 MCG/KG/MIN Levothyroxine Sodium 125 mcg 06/17/16 06:30 06/26/16 06:56 Synthroid PO 125 mcg DAILY@0630 [facility]AYLIN Administration Losartan Potassium 25 mg 06/18/16 10:00 06/23/16 09:26 Cozaar PO 25 mg DAILY KAYLIN Administration Metolazone 5 mg 06/22/16 22:30 06/23/16 18:13 Zaroxolyn PO Not Given BID KAYLIN Midodrine 5 mg 06/24/16 18:00 06/26/16 09:53 Proamatine PO 5 mg BID KAYLIN Administration Ondansetron HCl 4 mg 06/16/16 17:17 06/20/16 12:57 Zofran Inj IVP 4 mg Q6 PRN Administration Nausea/Vomiting Potassium Chloride 20 meq 06/25/16 10:00 06/26/16 09:51 K-Dur 20 Meq Er Tab PO 20 meq DAILY KAYLIN Administration Rivaroxaban 20 mg 06/26/16 10:00 06/26/16 10:56 Xarelto PO 20 mg DAILY KAYLIN Administration - Patient Studies Lab Studies: Lab Studies 06/26/16 06/26/16 06/23/16 Range/Units 06:34 06:34 13:45 WBC 8.3 (4.8-10.8) K/uL RBC 3.72 L (4.40-5.90) Mil/uL Hgb 12.1 (12.0-18.0) g/dL Hct 36.5 (35.0-51.0) % MCV 98.0 H (80.0-94.0) fL MCH 32.5 H (27.0-31.0) pg MCHC 33.2 (33.0-37.0) g/dL RDW 13.0 (11.5-14.5) % Plt Count 145 (130-400) K/uL MPV 9.4 (7.2-11.7) fL Neut % (Auto) 72.1 (50.0-75.0) % Lymph % (Auto) 17.1 L (20.0-40.0) % Davidson % (Auto) 9.0 (0.0-10.0) % Eos % (Auto) 1.0 (0.0-4.0) % Baso % (Auto) 0.8 (0.0-2.0) % Neut # 6.0 (1.8-7.0) K/uL Lymph # 1.4 (1.0-4.3) K/uL Davidson # 0.7 (0.0-0.8) K/uL Eos # 0.1 (0.0-0.7) K/uL Baso # 0.1 (0.0-0.2) K/uL Sodium 137 (132-148) mmol/L Potassium 3.8 (3.6-5.2) mmol/L Chloride 100 (98-107) mmol/L Carbon Dioxide 27 (22-30) mmol/L Anion Gap 13 (10-20) BUN 34 H (9-20) mg/dL Creatinine 1.6 H (0.8-1.5) MG/DL Est GFR ( Amer) 53 Est GFR (Non-Af Amer) 44 Random Glucose 93 (75-110) mg/dL Calcium 8.5 L (8.6-10.4) mg/dl Phosphorus 3.5 (2.5-4.5) mg/dL Magnesium 1.5 L (1.6-2.3) mg/dL Total Bilirubin 1.2 (0.2-1.3) mg/dL AST 92 H D (17-59) U/L ALT 100 H D (21-72) U/L Alkaline Phosphatase 81 (38-126) U/L Total Protein 5.6 L (6.3-8.3) g/dL Albumin 2.7 L (3.5-5.0) g/dL Globulin 2.9 (2.2-3.9) gm/dL Albumin/Globulin Ratio 0.9 L (1.0-2.1) Free PSA 0.3 ng/mL % Free PSA 50 (>25) Percent Total PSA 0.6 (<=4.0) ng/mL Prostate Cancer Risk 1 Percent Laboratory Results - last 24 hr 05/14/17 05/17/17 05/17/17 13:45 06:34 06:34 WBC 8.3 RBC 3.72 L Hgb 12.1 Hct 36.5 MCV 98.0 H MCH 32.5 H MCHC 33.2 RDW 13.0 Plt Count 145 MPV 9.4 Neut % (Auto) 72.1 Lymph % (Auto) 17.1 L Davidson % (Auto) 9.0 Eos % (Auto) 1.0 Baso % (Auto) 0.8 Neut # 6.0 Lymph # 1.4 Davidson # 0.7 Eos # 0.1 Baso # 0.1 Sodium 137 Potassium 3.8 Chloride 100 Carbon Dioxide 27 Anion Gap 13 BUN 34 H Creatinine 1.6 H Est GFR ( Amer) 53 Est GFR (Non-Af Amer) 44 Random Glucose 93 Calcium 8.5 L Phosphorus 3.5 Magnesium 1.5 L Total Bilirubin 1.2 AST 92 H D ALT 100 H D Alkaline Phosphatase 81 Total Protein 5.6 L Albumin 2.7 L Globulin 2.9 Albumin/Globulin Ratio 0.9 L Free PSA 0.3 % Free PSA 50 Total PSA 0.6 Prostate Cancer Risk 1 Critical Care Progress Note - Nutrition Nutrition: Nutrition Category Date Time Status Liquid Diet [DIET] Diets 06/24/16 Dinner Active Attending/Attestation - Attestation I have personally seen and examined this patient.: Yes I have fully participated in the care of the patient.: Yes I have reviewed all pertinent clinical information: Yes Notes (Text): 06/26/16 17:27 patient seen and examined in the intensive care unit. Case discussed with house staff in the morning rounds. 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
--- NOTE | 2016-06-26 12:00 | CP.PCM.PN ---
Subjective - Date & Time of Evaluation Date of Evaluation: 06/26/16 Time of Evaluation: 11:45 - Subjective Subjective: Patient was seen and examined by me. Family was present at bedside. He was moved to ICU last night and placed on Primacor ggt. His BP was in the low 90s and he appeared to be very weak and fluid overload last night. As mentioned in the previous notes he was being worked up for cholecystitis and had a repeat HIDA scan. Today he does not have abdominal pain, he says this has resolved. He had some food earlier and tolerated this. He says he feels better, breathing is easier today. The BP systolic is now in the 100s. HR on the telemetry is irregular in the 80s. As mentioned before this is a 65 year old male with severe CHF and he recently has had AICD and AV tala ablation, there is also atrial fibrillation and on xarelto - there is a left atrial appendage found on a recent DONAVAN, liver cirrhosis, hypothyroidism. He did have abdominal pain likely from acalculous cholecystitis, the pain has since then resolved. He was moved to the ICU after his BP remained low and fluid overload. Objective - Vital Signs/Intake and Output Vital Signs (last 24 hours): Temp Pulse Resp BP Pulse Ox 97.5 F L 66 16 114/61 97 06/26/16 08:00 06/26/16 10:00 06/26/16 10:00 06/26/16 09:55 06/26/16 10:00 Intake and Output: 06/26/16 06/26/16 06:59 18:59 Intake Total 735.7 440.4 Output Total 1450 200 Balance -714.3 240.4 - Medications Medications: Current Medications Carvedilol (Coreg) 3.125 mg PO Q12H [facility] Last Admin: 06/25/16 10:53 Dose: Not Given Furosemide (Lasix) 20 mg PO BID [facility] Last Admin: 06/26/16 09:51 Dose: 20 mg Hydrocortisone (Anusol-Hc) 25 mg RC BID [facility] Last Admin: 06/26/16 09:57 Dose: Not Given Piperacillin Sod/Tazobactam Sod (Zosyn 2.25 Gm Iv Premix) 2.25 gm in 50 mls @ 100 mls/hr IVPB Q8 [facility] Last Admin: 06/26/16 06:14 Dose: 100 mls/hr Milrinone Lactate/Dextrose 20 (mg/ Dextrose) 100 mls @ 5.08 mls/hr IV .[id number] PRN; Protocol; 0.2 MCG/KG/MIN PRN Reason: .TITR Last Admin: 06/26/16 09:55 Dose: 0.2 mcg/kg/min, 5.08 mls/hr Levothyroxine Sodium (Synthroid) 125 mcg PO DAILY@0630 [facility] Last Admin: 06/26/16 06:56 Dose: 125 mcg Losartan Potassium (Cozaar) 25 mg PO DAILY [facility] Last Admin: 06/23/16 09:26 Dose: 25 mg Metolazone (Zaroxolyn) 5 mg PO BID [facility] Last Admin: 06/23/16 18:13 Dose: Not Given Midodrine (Proamatine) 5 mg PO BID [facility] Last Admin: 06/26/16 09:53 Dose: 5 mg Ondansetron HCl (Zofran Inj) 4 mg IVP Q6 PRN PRN Reason: Nausea/Vomiting Last Admin: 06/20/16 12:57 Dose: 4 mg Potassium Chloride (K-Dur 20 Meq Er Tab) 20 meq PO DAILY [facility] Last Admin: 06/26/16 09:51 Dose: 20 meq Rivaroxaban (Xarelto) 20 mg PO DAILY [facility] Last Admin: 06/26/16 10:56 Dose: 20 mg - Labs Labs: 06/26/16 06:34 06/26/16 06:34 PT 21.4 SECONDS (9.7-12.2) H D 06/24/16 06:06 INR 1.9 D 06/24/16 06:06 APTT 25 SECONDS (21-34) 06/18/16 12:13 - Constitutional Appears: Chronically Ill - Head Exam Head Exam: NORMAL INSPECTION - Eye Exam Eye Exam: EOMI - ENT Exam ENT Exam: Mucous Membranes Moist - Respiratory Exam Respiratory Exam: Decreased Breath Sounds, NORMAL BREATHING PATTERN - Cardiovascular Exam Cardiovascular Exam: Irregular Rhythm - GI/Abdominal Exam GI & Abdominal Exam: Soft, Normal Bowel Sounds - Neurological Exam Neurological Exam: Alert, Awake, Oriented x3 Neuro motor strength exam: Left Upper Extremity: 5, Right Upper Extremity: 5 - Psychiatric Exam Psychiatric exam: Depressed, Flat Affect - Skin Skin Exam: Normal Color, Warm Assessment and Plan - Assessment and Plan (Free Text) Assessment: 1) Hx of CHF 06/26: Patient moved to ICU, now on Primacor ggt and Midodrine. Currently he reports feeling ok. Today the systolic BP is not as low as yesterday. He is now back on Xarelto. HR is in the 80s and it appears to be pacing. * Continue home meds with holding parameters * Coreg 3.125mg PO BID (hold SBP<100 and HR<60), hold * pt refused lasix>> will discuss cardio meds today * Losartan 25mg PO daily * Metalazone 5mg PO BID * placed back on xarelto>>> xarelto * Cardio consult - Dr. Ram - help appreciated-->Patient high risk for cardiac event during surgery * Echo (05/27/16): left ventricle systolic function is severaly impaired, EF <20% , left atrium is severely dilated, ICD wires seen, thrombus noted in left atrial appendage * Chest xray (06/16/16): interval improvement in congestive heart failure * midodrine 10 bid 2) Hx of Left atrial thrombus 06/26: Now back on Xarelto. * Cardio consult - Dr. Ram - help appreciated-->Patient high risk for cardiac event during surgery but he is cleared to have the surgery if it is needed per Dr. Ram 3) Acalculous cholecystitis * Abd/Pelvis CT (06/16/16)- no evidence of inguinal hernia containing bowel. No evidence of mechanical obstruction. Pericholecystic inflammatory changes raise the possibility of acute cholecystitis. Gallstones are not identified. * Abdominal US (06/16/16) -gallbladder wall thickening, sonographic Castro's sign elicted by technologist. Acalculous cholecystitis. * Surgery Consult (Dr. Maradiaga) on board-->help appreciated; sx has signed off * GI Consult (Dr. Pollard) /Dr. Babcock/Dr Méndez covering help appreciated * Flagyl 500mg IV Q 8 hours (day 8 ) and Zosyn 3.375 IV Q 6 hours (day 8) * we will stop fluids and put on full liquid diet, pt still experiencing nausea and a little vomiting * HIDA scan negative, f/u with HIDA with GB EF * Patient has high cardiac risk given history of cardiomyopathy (EF< 20%), has AICD, and left atrial thrombus (back on Xarelto) at this time * Cardiology (Dr. Ram) on board-->help appreciated * Chest xray (06/16/16): interval improvement in congestive heart failure>>> repeat cxr pending * monitor for fluid overload 4) Hx of hypothyroidism * Continue home synthroid 125mcg PO daily 5) hx of liver cirrhosis * Monitor LFTs * Abd/Pelvis CT (06/16/16)- no evidence of inguinal hernia containing bowel. No evidence of mechanical obstruction. Pericholecystic inflammatory change raise the possibility of acute cholecystitis. Gallstones are not identified. * Abdominal US (06/16/16) -gallbladder wall thickening, sonographic Castro's sign elicted by technologist. Acalculous cholecystitis. * Former alcohol use * Monitor LFTs and albumin 6) Prophylaxis * SCDs * Xarelto 20mg PO daily * Protonix 40mg IVP daily
[2016-06-26] MEDS ORDERED: Potassium Chloride 20 mEq ER Tab PO ONE (19:33)
[2016-06-26 21:11] VITALS: TEMP 97.8
[2016-06-26 22:16] VITALS: BP 102/75; PULSE 84; RESP 19; O2SAT 93
--- NOTE | 2016-06-26 23:12 | CP.PCM.PN ---
Subjective - Date & Time of Evaluation Date of Evaluation: 06/26/16 Time of Evaluation: 21:00 - Subjective Subjective: Patient reports sob improved; Objective - Vital Signs/Intake and Output Vital Signs (last 24 hours): Temp Pulse Resp BP Pulse Ox 97.8 F 84 19 102/75 93 L 06/26/16 20:00 06/26/16 22:10 06/26/16 22:10 06/26/16 21:17 06/26/16 22:10 Intake and Output: 06/26/16 06/27/16 18:59 06:59 Intake Total 781.2 70.4 Output Total 1150 200 Balance -368.8 -129.6 - Medications Medications: Current Medications Carvedilol (Coreg) 3.125 mg PO Q12H [facility] Last Admin: 06/25/16 10:53 Dose: Not Given Furosemide (Lasix) 20 mg PO BID [facility] Last Admin: 06/26/16 18:09 Dose: 20 mg Hydrocortisone (Anusol-Hc) 25 mg RC BID [facility] Last Admin: 06/26/16 18:11 Dose: Not Given Piperacillin Sod/Tazobactam Sod (Zosyn 2.25 Gm Iv Premix) 2.25 gm in 50 mls @ 100 mls/hr IVPB Q8 [facility] Last Admin: 06/26/16 22:06 Dose: 100 mls/hr Milrinone Lactate/Dextrose 20 (mg/ Dextrose) 100 mls @ 5.08 mls/hr IV .[id number] PRN; Protocol; 0.2 MCG/KG/MIN PRN Reason: .TITR Last Admin: 06/26/16 09:55 Dose: 0.2 mcg/kg/min, 5.08 mls/hr Levothyroxine Sodium (Synthroid) 125 mcg PO DAILY@0630 [facility] Last Admin: 06/26/16 06:56 Dose: 125 mcg Losartan Potassium (Cozaar) 25 mg PO DAILY [facility] Last Admin: 06/23/16 09:26 Dose: 25 mg Metolazone (Zaroxolyn) 5 mg PO BID [facility] Last Admin: 06/23/16 18:13 Dose: Not Given Midodrine (Proamatine) 5 mg PO BID [facility] Last Admin: 06/26/16 18:09 Dose: 5 mg Ondansetron HCl (Zofran Inj) 4 mg IVP Q6 PRN PRN Reason: Nausea/Vomiting Last Admin: 06/20/16 12:57 Dose: 4 mg Potassium Chloride (K-Dur 20 Meq Er Tab) 20 meq PO DAILY [facility] Last Admin: 06/26/16 09:51 Dose: 20 meq Rivaroxaban (Xarelto) 20 mg PO DAILY [facility] Last Admin: 06/26/16 10:56 Dose: 20 mg - Labs Labs: 06/26/16 06:34 06/26/16 06:34 PT 21.4 SECONDS (9.7-12.2) H D 06/24/16 06:06 INR 1.9 D 06/24/16 06:06 APTT 25 SECONDS (21-34) 06/18/16 12:13 - Constitutional Appears: Well, No Acute Distress - Eye Exam Eye Exam: Normal appearance - ENT Exam ENT Exam: Mucous Membranes Moist - Respiratory Exam Respiratory Exam: Clear to Ausculation Bilateral, NORMAL BREATHING PATTERN - Cardiovascular Exam Cardiovascular Exam: REGULAR RHYTHM, +S1, +S2 - GI/Abdominal Exam GI & Abdominal Exam: Soft. absent: Distended - Extremities Exam Extremities Exam: Normal Capillary Refill - Neurological Exam Neurological Exam: Alert, Awake - Psychiatric Exam Psychiatric exam: Normal Affect, Normal Mood - Skin Skin Exam: Warm. absent: Cyanosis Assessment and Plan (1) Acute renal failure Assessment & Plan: Worsened despite being started on milrinone drip, will monitor; continue gentle diuresis; Status: Acute (2) Acalculous cholecystitis Assessment & Plan: Appears to be resolving; need to dose any abx for renal insufficiency; Status: Acute (3) CHF exacerbation Assessment & Plan: On milrinone; still volume overloaded, continue gentle diuresis; Status: Acute
[2016-06-27] MEDS ORDERED: Magnesium Sulfate 1 gm in D5W 1 GM/100 ML BAG IVPB ONE (09:32)
[2016-06-27] MEDS ORDERED: Potassium Chloride 20 mEq ER Tab PO ONE (09:32)
[2016-06-27 22:52] LABS: BASO % 0.6 % (0.0-2.0); EOS # 0.1 K/uL (0.0-0.7); EOS % 1.3 % (0.0-4.0); HEMATOCRIT 36.4 % (35.0-51.0); LYMPH # 1.3 K/uL (1.0-4.3); LYMPH % 16.4 % (20.0-40.0); MEAN CELL VOLUME 97.9 fL (80.0-94.0); MEAN CORPUSCULAR HEMOGLOBIN 32.3 pg (27.0-31.0); MONO # 0.7 K/uL (0.0-0.8); MONO % 8.8 % (0.0-10.0); NRBC % 0.1 % (0.0-2.0); RED CELL DISTRIBUTION WIDTH 13.3 % (11.5-14.5); WHITE BLOOD COUNT 7.8 K/uL (4.8-10.8)
[2016-06-27 23:47] LABS: ALB/GLOB RATIO 0.9 (1.0-2.1); ALKALINE PHOSPHATASE 79 U/L (38-126); ALT/SGPT 83 U/L (21-72); AST/SGOT 46 U/L (17-59); BILIRUBIN,TOTAL 1.2 mg/dL (0.2-1.3); BLOOD UREA NITROGEN 27 mg/dL (9-20); CALCIUM 8.3 mg/dl (8.6-10.4); CARBON DIOXIDE 26 mmol/L (22-30); CHLORIDE 98 mmol/L (98-107); GFR AFRICAN-AMERICAN > 60; GLUCOSE,RANDOM 103 mg/dL (75-110); MAGNESIUM 1.5 mg/dL (1.6-2.3); PHOSPHOROUS 3.2 mg/dL (2.5-4.5); POTASSIUM 2.9 mmol/L (3.6-5.2); SODIUM 135 mmol/L (132-148); TOTAL PROTEIN 5.8 g/dL (6.3-8.3)
--- NOTE | 2016-07-26 11:15 | CP.PCM.DIS ---
Provider - Provider Date of Admission: 06/16/16 17:17 Attending physician: Wilmer Damon DO Consults: Dr Griggs ~ EP Cardiology Time Spent in preparation of Discharge (in minutes): 29 Hospital Course - Lab Results Lab Results: Micro Results 06/25/16 17:29 Naris MRSA Culture (Admit) - Final MRSA NOT DETECTED 06/23/16 06:00 Urine,Clean Catch Urine Culture - Final No Growth (<1,000 CFU/ML) 06/19/16 13:40 Stool Stool Culture - Final NO SALMONELLA, SHIGELLA OR CAMPYLOBACTER ISOLATED. Most Recent Lab Values WBC 7.8 K/uL (4.8-10.8) 06/27/16 06:00 RBC 3.71 Mil/uL (4.40-5.90) L 06/27/16 06:00 Hgb 12.0 g/dL (12.0-18.0) 06/27/16 06:00 Hct 36.4 % (35.0-51.0) 06/27/16 06:00 MCV 97.9 fL (80.0-94.0) H 06/27/16 06:00 MCH 32.3 pg (27.0-31.0) H 06/27/16 06:00 MCHC 33.0 g/dL (33.0-37.0) 06/27/16 06:00 RDW 13.3 % (11.5-14.5) 06/27/16 06:00 Plt Count 142 K/uL (130-400) 06/27/16 06:00 MPV 10.0 fL (7.2-11.7) 06/27/16 06:00 Neut % (Auto) 72.9 % (50.0-75.0) 06/27/16 06:00 Lymph % (Auto) 16.4 % (20.0-40.0) L 06/27/16 06:00 [place] % (Auto) 8.8 % (0.0-10.0) 06/27/16 06:00 Eos % (Auto) 1.3 % (0.0-4.0) 06/27/16 06:00 Baso % (Auto) 0.6 % (0.0-2.0) 06/27/16 06:00 Neut # 5.7 K/uL (1.8-7.0) 06/27/16 06:00 Lymph # 1.3 K/uL (1.0-4.3) 06/27/16 06:00 [place] # 0.7 K/uL (0.0-0.8) 06/27/16 06:00 Eos # 0.1 K/uL (0.0-0.7) 06/27/16 06:00 Baso # 0.0 K/uL (0.0-0.2) 06/27/16 06:00 Differential Comment 06/16/16 11:50 PT 21.4 SECONDS (9.7-12.2) H D 06/24/16 06:06 INR 1.9 D 06/24/16 06:06 APTT 25 SECONDS (21-34) 06/18/16 12:13 Sodium 135 mmol/L (132-148) 06/27/16 06:00 Potassium 2.9 mmol/L (3.6-5.2) L 06/27/16 06:00 Chloride 98 mmol/L (98-107) 06/27/16 06:00 Carbon Dioxide 26 mmol/L (22-30) 06/27/16 06:00 Anion Gap 14 (10-20) 06/27/16 06:00 BUN 27 mg/dL (9-20) H 06/27/16 06:00 Creatinine 1.1 MG/DL (0.8-1.5) 06/27/16 06:00 Est GFR ( Amer) > 60 06/27/16 06:00 Est GFR (Non-Af Amer) > 60 06/27/16 06:00 Random Glucose 103 mg/dL (75-110) 06/27/16 06:00 Calcium 8.3 mg/dl (8.6-10.4) L 06/27/16 06:00 Phosphorus 3.2 mg/dL (2.5-4.5) 06/27/16 06:00 Magnesium 1.5 mg/dL (1.6-2.3) L 06/27/16 06:00 Total Bilirubin 1.2 mg/dL (0.2-1.3) 06/27/16 06:00 Direct Bilirubin 0.6 mg/dL (0.0-0.4) H 06/18/16 06:19 AST 46 U/L (17-59) 06/27/16 06:00 ALT 83 U/L (21-72) H 06/27/16 06:00 Alkaline Phosphatase 79 U/L (38-126) 06/27/16 06:00 Total Creatine Kinase 94 U/L (55-170) 06/18/16 12:13 CK-MB (Mass) 1.36 ng/mL (0.0-3.38) 06/18/16 12:13 Troponin I, Quant 0.1030 ng/mL (0.00-0.120) 06/18/16 12:13 Total Protein 5.8 g/dL (6.3-8.3) L 06/27/16 06:00 Albumin 2.8 g/dL (3.5-5.0) L 06/27/16 06:00 Globulin 3.0 gm/dL (2.2-3.9) 06/27/16 06:00 Albumin/Globulin Ratio 0.9 (1.0-2.1) L 06/27/16 06:00 Lipase 147 U/L (23-300) 06/16/16 17:04 Free PSA 0.3 ng/mL 06/23/16 13:45 % Free PSA 50 Percent (>25) 06/23/16 13:45 Total PSA 0.6 ng/mL (<=4.0) 06/23/16 13:45 Prostate Cancer Risk 1 Percent 06/23/16 13:45 Urine Color Catie (YELLOW) 06/24/16 22:13 Urine Clarity Hazy (Clear) 06/24/16 22:13 Urine pH 5.0 (5.0-8.0) 06/24/16 22:13 Ur Specific [place] 1.029 (1.003-1.030) 06/24/16 22:13 Urine Protein 2+ mg/dL (NEGATIVE) H 06/24/16 22:13 Urine Glucose (UA) Normal mg/dL (Normal) 06/24/16 22:13 Urine Ketones Trace mg/dL (NEGATIVE) 06/24/16 22:13 Urine Blood 3+ (NEGATIVE) H 06/24/16 22:13 Urine Nitrate Negative (NEGATIVE) 06/24/16 22:13 Urine Bilirubin Negative (NEGATIVE) 06/24/16 22:13 Urine Urobilinogen Normal mg/dL (0.2-1.0) 06/24/16 22:13 Ur Leukocyte Esterase 1+ [place]/uL (Negative) H 06/24/16 22:13 Urine WBC (Auto) 8 /hpf (0-5) H 06/24/16 22:13 Urine RBC (Auto) 36 /hpf (0-3) H 06/24/16 22:13 Ur Squamous Epith Cells 1 /hpf (0-5) 06/24/16 22:13 Ur Transition Epith Cell < 1 /hpf (0-3) 06/24/16 22:13 Calcium Oxalate Crystal Occ /hpf (<OCC) H 06/24/16 22:13 Urine Bacteria Mod (<OCC) H 06/24/16 22:13 Hyaline Casts 3-5 /lpf (0-2) H 06/24/16 22:13 Urine Sperm (Auto) Many /hpf (NONE) H 06/23/16 07:03 Ur Random Creatinine 294.2 mg/dL 06/24/16 17:15 U Random Total Protein 73.0 mg/dL (0.0-12.0) H 06/24/16 18:27 Ur Random Sodium < 5 mmol/L 06/24/16 17:15 Ur Random Urea Nitrogn 712 mg/dL 06/24/16 18:41 Stool Leukocytes, Qual Positive (NEGATIVE) H 06/19/16 10:12 C. difficile Ag & Toxin Negative (NEGATIVE) 06/19/16 10:12 Hepatitis A IgM Ab Negative (NEGATIVE) 06/18/16 06:19 Hep Bs Antigen Negative (NEGATIVE) 06/18/16 06:19 Hep B Core IgM Ab Negative (NEGATIVE) 06/18/16 06:19 Hepatitis C Antibody Negative (NEGATIVE) 06/18/16 06:19 - Hospital Course Hospital Course: This is a 65 year old male with a history of CHF with an EF < 20%. Ultimately he was transferred to [facility] for further treatment of his CHF. He has a history of CHF, cardiomyopathy with AICD s/p AV tala ablation (may 2016), A-fib on xarelto, liver cirrhosis, hypothyroidism. He has been to [facility] on multiple occasions and is well known to the hospitalist staff and resident service. Recently he came to the ED with 3 weeks of diffuse abdominal pain on 06/16/2016 The patient was receiving a pre-opt workup for a potential cholesectomy to be done. But ultimately it was felt that it was not gall bladder etiology but due to his worsening cardiac situation. His breathing and blood pressure became so bad that he required to be placed on a Primacor ggt and subsequently improved in blood pressure as well as his breathing. From the resident's HPI on 06/16/2016.... "Patient is a 65 year old male with PMH of CHF, liver cirrhosis, cardiomyopathy, hypothyroidism, atrial fibrillation and AICD who presents to the ED with 3 weeks of diffuse abdominal pain. Pain worsens with eating food. Therefore, patient has not been eating. Patient has not had solids or liquids at all today. Patient reports associated nausea. Patient has never had pain like this before. Patient denies vomiting, diarrhea, constipation, new food, recent travel. Patient reports SOB with walking because talking a deep breath causes pain. Patient denies fever, chills , chest pain, palpitations, dysuria." Discharge Exam - Head Exam Head Exam: NORMAL INSPECTION Discharge Plan - Follow Up Plan Condition: STABLE Disposition: Transfer [facility]
== END 2016-06-27 15:00 | disposition short-term general hospital (02) | DRG 557 ==
LOC: C.ER 10:21 → C.9OBSV 11:00 → C.9E 16:37 → OBSVTOIN 17:17 → C.6T 21:24 → C.9I 06-25 17:23
PROVIDERS: ADMIT Hospitalist; ATTEND Hospitalist
DX: K81.0 Acute cholecystitis (principal); I50.23 Acute on chronic systolic (congestive) heart failure; R57.0 Cardiogenic shock; I42.9 Cardiomyopathy, unspecified; K74.60 Unspecified cirrhosis of liver; E87.6 Hypokalemia; D53.9 Nutritional anemia, unspecified; R31.0 Gross hematuria; R19.7 Diarrhea, unspecified; I48.2 Chronic atrial fibrillation; E03.9 Hypothyroidism, unspecified; Z79.01 Long term (current) use of anticoagulants; Z95.810 Presence of automatic (implantable) cardiac defibrillator; Z87.891 Personal history of nicotine dependence